=== PATIENT | female | born 1985 | race Caucasian/White ===

== ENCOUNTER 2023-04-09 10:12 | Inpatient (IN) | payer OTHER, SELFPAY ==
[2023-04-09] VITALS (66 sets, daily range): BP systolic 33–194; BP diastolic 11–128; PULSE 92–171; RESP 14–35; TEMP 34.1–38.5; O2SAT 88–100; BMI 36.2
--- NOTE | ~2023-04-09 | XR_ITS ---
EXAMINATION: XR CHEST CLINICAL INFORMATION: Hypoxia COMPARISON: Chest x-ray 04/09/2023. TECHNIQUE: AP upright portable view of the chest was obtained. FINDINGS: There is new diffuse bilateral patchy haziness in mid and lower lungs question edema versus minimal infiltrate. Heart size is normal. There is a right central venous catheter its tip in mid SVC. It is stable. There is moderate spondylosis right dorsal spine. XR/XR chest 1V IMPRESSION: 1. New bilateral patchy haziness in mid and lower lungs question edema versus infiltrate. 2. There is a right central venous catheter tip in mid SVC.
--- NOTE | ~2023-04-09 | CT_ITS ---
EXAMINATION: CT HEAD WITHOUT CONTRAST CLINICAL INFORMATION: Encephalopathy COMPARISON: Prior brain CT of 04/09/2023 TECHNIQUE: Contiguous axial imaging was performed from the skull base to vertex without intravenous administration of contrast. This CT examination was performed using dose optimization techniques as appropriate, variously including the following: *Automated exposure control *Adjustment of mA and/or kV according to patient size (this includes techniques or standardized protocols for targeted exams where dose is matched to indication/reason for exam; i.e. extremities or head) *Use of iterative reconstruction technique DLP: 1314 mGy-cm FINDINGS: Examination is motion degraded. The ventricles and sulci are normal in size and configuration. No acute hemorrhage, mass effect or shift is evident. Hamlin-white differentiation is maintained. In the posterior fossa, the brainstem, cerebellum and fourth ventricle image normally. The orbits and calvarium are intact. The paranasal sinuses and mastoid air cells are well pneumatized and clear. CT/CT head/brain wo IV con IMPRESSION: 1. Unremarkable noncontrast brain CT. No acute hemorrhage, mass effect or shift.
--- NOTE | ~2023-04-09 | XR_ITS ---
EXAMINATION: XR CHEST CLINICAL INFORMATION: Question infectious process COMPARISON: Steel Burner film CT dated 04/09/2023 TECHNIQUE: Frontal view of the chest was obtained. FINDINGS: Lung valentine are felt to be grossly clear. No obvious failure or infiltrate. No effusion. Mild elevation the right hemidiaphragm is noted. Cardiac silhouette is within normal limits. XR/XR chest 1V IMPRESSION: No acute finding
--- NOTE | ~2023-04-09 | CT_ITS ---
EXAMINATION: CT HEAD WITHOUT CONTRAST CT CERVICAL SPINE WITHOUT CONTRAST CLINICAL INFORMATION: Altered mental status post fall. COMPARISON: No relevant prior imaging. TECHNIQUE: Furniture Decals Inspector images were obtained. CT imaging of the head and cervical spine was performed without contrast. Data was reformatted into multiplanar images at the acquisition workstation. This CT examination was performed using dose optimization techniques as appropriate, including one or more of the following: Automated exposure control, iterative reconstruction, and adjustment of technique factors (mA and/or kVp) according to patient size (this includes techniques or standardized protocols for targeted exams where dose is matched to indication/reason for exam). Fleischner Society criteria for the followup of incidental pulmonary nodules was implemented if appropriate. DLP: 1902 mGy-cm. FINDINGS: Head: There is no acute intracranial hemorrhage or abnormal extra-axial collection. No intracranial mass effect or midline shift. Lateral and third ventricles are normal. No hydrocephalus. Hamlin-white matter differentiation is grossly preserved and there is no evidence of acute territorial infarct. The calvarium and skull base are intact. Mastoid air cells and middle ear cavities are well aerated. No active paranasal sinus disease. Cervical spine: Spinal alignment is normal in the sagittal dimension and there is no evidence of acute cervical spine fracture. No abnormal prevertebral soft tissue swelling. Canal patency is not well assessed on this examination due to inherent limitations of CT without intrathecal contrast. Grossly no canal compromise. Visualized soft tissues of the neck are normal. CT/CT cervical spine wo IV con IMPRESSION: Head: Unremarkable CT scan of the head. No evidence of acute territorial infarct or hemorrhage. Cervical Spine: No evidence of acute cervical spine fracture and no posttraumatic spinal subluxation.
--- NOTE | ~2023-04-09 | XR_ITS ---
EXAMINATION: XR CHEST CLINICAL INFORMATION: Status post central line. COMPARISON: 04/09/2023 TECHNIQUE: Frontal view of the chest was obtained. FINDINGS: Right IJ central venous catheter tip terminates the cavoatrial junction. EKG leads overlie the chest. Lung volumes are low. There is elevation of the right hemidiaphragm, unchanged as compared to prior. Atelectasis is present at the lung bases bilaterally. Increased reticular opacities over both lungs appear to correspond to the relative atelectasis. No consolidation identified. No pneumothorax or pleural effusion. Cardiac and mediastinal contours appear normal. No acute osseous findings. XR/XR chest 1V IMPRESSION: 1. Right IJ central venous catheter tip terminates at the cavoatrial junction. No pneumothorax. 2. Low lung volumes with bibasilar atelectasis and elevation of the right hemidiaphragm, unchanged as compared to prior.
--- NOTE | ~2023-04-09 | FL_ITS ---
Fluoroscopic lumbar puncture Indication: Altered mental status Risks and benefits and possible complications were discussed with the patient's mother and the consent form was signed. Patient was placed in the left lateral decubitus on the fluoroscopy table. The back was prepped and draped in routine sterile fashion. Betadine was used as a skin antiseptic. Utilizing fluoroscopic guidance, the L2-3 level was accessed with a 22 gauge quickie spinal needle and clear CSF fluid obtained. Opening pressure was unable to be obtained due to patient's agitation. 10 cc of fluid was sent for analysis. The needle was removed without immediate complications. Total fluoroscopy time: 3.2 min FL/FL guided lumbar puncture LP Impression: Fluoroscopic lumbar puncture This procedure was performed by Xavier Blanton PA-C and supervised by Dr. Mckinney.
--- NOTE | ~2023-04-09 | CT_ITS ---
EXAMINATION: CT CHEST, ABDOMEN, AND PELVIS WITH CONTRAST CLINICAL INFORMATION: Altered mental status. Hypoglycemia. COMPARISON: None currently available. TECHNIQUE: Multidetector volumetric CT imaging of the chest, abdomen, and pelvis was obtained after the administration of 85 mL of Omnipaque 350 intravenous contrast without immediate adverse reactions. Axial MIP volume rendering provided. Sagittal and coronal reformatted images were obtained. This CT examination was performed using dose optimization techniques as appropriate, variously including the following: *Automated exposure control *Adjustment of mA and/or kV according to patient size (this includes techniques or standardized protocols for targeted exams where dose is matched to indication/reason for exam; i.e. extremities or head) *Use of iterative reconstruction technique DLP: 4150 mGy-cm FINDINGS: Somewhat limited by motion artifact. LUNGS: The lungs are clear with no evidence of inflammation or nodules. MEDIASTINUM: Heart upper normal in size. No pericardial effusion. No evidence of adenopathy by size criteria. CORONARY ARTERY CALCIFICATION: None. PLEURA: There is no pleural effusion. No pleural mass or thickening. AXILLA: No lymphadenopathy by size criteria. LIVER, GALLBLADDER, AND BILIARY TREE: Suspect fatty infiltration of the liver. The liver appears unremarkable in size and shape. No focal hepatic lesion or biliary ductal dilatation is appreciated. Unremarkable appearance of the gallbladder. PANCREAS: Unremarkable SPLEEN: Unremarkable ADRENAL GLANDS: Unremarkable KIDNEYS AND URETERS: Striated right nephrogram with probable induration of surrounding fat. The kidneys appear unremarkable in size, shape, and attenuation. No hydronephrosis, hydroureter, or calculi seen. BLADDER: No catheter tip and balloon within the urinary bladder, which is collapsed, therefore suboptimally evaluated. GASTROINTESTINAL TRACT: The small and large bowel appear unremarkable. No diverticulosis. Normal-appearing distal ileum and vermiform appendix. ABDOMINAL WALL: No significant hernia is appreciated. LYMPH NODES: No evidence of adenopathy by size criteria. VASCULAR: Unremarkable. PELVIC VISCERA: IUD. OSSEOUS STRUCTURES: Unremarkable. CT/CT abdomen pelvis w IV con IMPRESSION: Limited by motion. Striated right nephrogram with probable induration of surrounding fat. The findings are consistent with pyelonephritis.
--- NOTE | 2023-04-09 10:16 | ECG_ITS ---
Test Reason : AMS/RAPID RAPID AFIB Blood Pressure : / mmHG Vent. Rate : 148 BPM Atrial Rate : 000 BPM P-R Int : 000 ms QRS Dur : 072 ms QT Int : 296 ms P-R-T Axes : 000 058 176 degrees QTc Int : 464 ms Atrial fibrillation with rapid ventricular response Nonspecific ST and T wave abnormality Abnormal ECG When compared with ECG of 09-APR-2023 10:28, Nonspecific T wave abnormality, worse in Anterior leads ST more depressed Lateral leads Referred By: Devin Moncada Electronically Signed By:MIKI WALKER MD
--- NOTE | 2023-04-09 10:16 | ECG_ITS ---
Test Reason : AMD,RAPID AFIB Blood Pressure : / mmHG Vent. Rate : 150 BPM Atrial Rate : 000 BPM P-R Int : 000 ms QRS Dur : 096 ms QT Int : 306 ms P-R-T Axes : 000 055 100 degrees QTc Int : 483 ms Atrial fibrillation with rapid ventricular response Nonspecific T wave abnormality Abnormal ECG No previous ECGs available Referred By: Devin Moncada Electronically Signed By:MIKI WALKER MD
--- NOTE | 2023-04-09 10:22 | ED_ITS ---
HPI - Altered Mental Status General Chief Complaint: Altered Mental Status Stated Complaint: RAPID AFIB,HYPERGYLCEMIA Time Seen by Provider: 04/09/23 10:14 Source: EMS Mode of arrival: EMS Limitations: altered mental status History of Present Illness HPI narrative: 48-year-old female with a history of diabetes who was found on the floor unresponsive by the patient's housemate. According to the paramedics when they arrived the patient was unresponsive. The patient may have been noncompliant with her lispro insulin and Lantus the patient had a point of care glucose by the paramedics of 361. The patient had a very low blood pressure and was found to have atrial fibrillation with a rate of 160. Paramedics were concerned that the atrial fibrillation was the cause of her hypotension and they cardioverted her. Paramedics reported that her heart rate did improve cardioversion but the patient remained in atrial fibrillation and eventually her rate climbed up above 160. At the time of my evaluation the patient was able to tell me that her name was Sandra but is altered and not able to answer any other questions. The patient has very dry mucous membranes the very strong ketotic odor to her breath. Point of care glucose in the emergency department was greater than 600. Initial vital signs revealed blood pressure of 106/61, heart rate 159 and irregular, respiratory rate 27 and temperature was hypothermic at 93.7 degrees F. Related Data Allergies Allergy/AdvReac Type Severity Reaction Status Date / Time Unable to Assess Allergy Unverified 04/09/23 10:16 Review of Systems 2 Review of Systems: Yes Unobtainable due to mental status PMFSH Past Medical History PMFSH Narrative: There is no old record on this patient, patient was reported to have diabetes and takes Lantus and lispro insulin Physical Exam ED Vital Signs: Vital Signs - 24 hr 04/09/23 10:23 04/09/23 10:36 04/09/23 10:38 Temperature 93.7 F L Pulse Rate 159 H 156 H 155 H Respiratory Rate 27 H 19 21 H Blood Pressure 106/61 56/29 L 56/35 L Pulse Oximetry 99 92 95 Oxygen Delivery Method Nasal Cannula Nasal Cannula Nasal Cannula Oxygen Flow Rate 4 4 04/09/23 10:45 04/09/23 11:03 04/09/23 11:06 Temperature 94.3 F L 93.9 F L Pulse Rate 146 H 146 H 157 H Respiratory Rate 14 18 21 H Blood Pressure 87/50 L 87/50 L Pulse Oximetry 95 94 95 Oxygen Delivery Method Room Air Nasal Cannula Nasal Cannula Oxygen Flow Rate 2 4 4 04/09/23 11:07 04/09/23 11:22 04/09/23 11:45 Temperature 93.6 F L 93.4 F L Pulse Rate 152 H 155 H 149 H Respiratory Rate 19 18 18 Blood Pressure 47/16 L 92/73 79/60 L Pulse Oximetry 95 92 92 Oxygen Delivery Method Room Air Nasal Cannula Room Air Oxygen Flow Rate 4 04/09/23 11:54 Temperature 93.6 F L Pulse Rate 156 H Respiratory Rate 21 H Blood Pressure 90/45 L Pulse Oximetry 99 Oxygen Delivery Method Nasal Cannula Oxygen Flow Rate 2 BMI result Body Mass Index 36.2 Vital signs revealed hypothermia, tachycardia with an irregular rate, tachypneic and hypotension Exam: General: Patient is altered, she was able to tell me her name is Sandra, she has a very strong ketotic odor to her breath, her mouth and mucous membranes are dry Head: Normocephalic, atraumatic EENT: PERRL, Lids normal, sclera normal, conjunctiva normal, nose normal , ears normal, mouth revealed very dry mucous membranes Neck: no adenopathy, no trachea midline or C-spine tenderness Lung: Tachypneic, breath sounds symmetric, no wheezing, rales or rhonchi Chest: symmetric movement, nontender Heart: Tachycardia with an irregular rate and rhythm normal S1, S2 no murmurs or rubs Abdomen: soft, obese, non-tender, nondistended, normal bowel sounds Back: no vertebral tenderness, no CVAT Extremities: no deformities, moves all extremities symmetrically, patient has abrasions to both knees Neuro: Patient is lethargic and altered, oriented to person Medications Administered Generic Name Dose Route Start Last Admin Trade Name Freq PRN Reason Stop Dose Admin Lactated Ringer's 1,000 mls @ 999 mls/hr 04/09/23 11:15 04/09/23 11:18 Lr IV 04/09/23 12:15 999 mls/hr .Q1H1M JENNY Administration Insulin Human Regular 100 unit in 100 mls @ 10 mls/hr 04/09/23 11:15 04/09/23 11:33 Myxredlin IVCONT 10 unit/hr .Q10H JENNY 10 mls/hr Administration Protocol 10 UNIT/HR Discontinued Medications Generic Name Dose Route Start Last Admin Trade Name Hi PRN Reason Stop Dose Admin Hydrocortisone Sodium Succinate 100 mg 04/09/23 10:27 04/09/23 10:41 Hydrocortisone Sod Succ/Pf 100 Mg Vial IVPUSH 04/09/23 10:28 100 mg ONCE ONE Administration Sodium Chloride 1,000 mls @ 999 mls/hr 04/09/23 10:23 04/09/23 10:49 Ns IV 04/09/23 11:23 Infused .Q1H1M STA Infusion Sodium Chloride 1,000 mls @ 999 mls/hr 04/09/23 10:24 04/09/23 10:49 Ns IV 04/09/23 11:24 Infused .Q1H1M STA Infusion Sodium Chloride 1,000 mls @ 999 mls/hr 04/09/23 10:24 04/09/23 11:21 Ns IV 04/09/23 11:24 Infused .Q1H1M STA Infusion Insulin Human Regular 10 unit 04/09/23 10:24 04/09/23 10:41 Insulin Regular, Human 100 Unit/Ml 3 [facility] 04/09/23 10:25 10 unit ONCE ONE Administration Medical Decision Making Medical Decision Making MDM Narrative: 48-year-old female unknown past medical history except for diabetes apparently taking Lantus and lispro insulin who may have been noncompliant with her insulin and her diabetic diet who was found on the floor by a housemate who did not know the patient well. Paramedics found the patient to tachycardic with atrial fibrillation and hypotension and did cardiovert her x1 which improved her heart rate briefly but did not get her out of atrial fibrillation. Presentation, patient was altered, she had a strong ketotic odor to her breath, mucous membranes were extremely dry, patient had an tachy, irregular irregular rhythm consistent with atrial fibrillation. Patient's point of care glucose was greater than 600. Patient's presentation is consistent either diabetic ketoacidosis or HHS. Patient was hypothermic and hypotensive. Noted the following evaluation: CBC, CMP, hemoglobin A1c, lactic acid, PT/INR, PTT, beta hydroxybutyrate, CK, TSH with free T4, urinalysis, drug screen, quantitative beta-hCG, magnesium, troponin, ammonia, VBG, blood cultures x2. Patient was ordered to get 4 L of normal saline IV wide open to treat her hypotension. She was also placed on a All Hugger for hypothermia. She was ordered to get regular insulin 10 units IV and she was started on a insulin drip. I also ordered stress dose hydrocortisone 100 mg IV. After discussion with the physiotherapy aide, Elisabet Montez, CT scan of the patient's head, cervical spine, chest abdomen pelvis was ordered. Patient was ordered to get 2 more L of lactated Ringer IV. Patient was also given broad-spectrum antibiotics: Zosyn 4.5 mg IV and vancomycin 2 g IV. 12:43 The patient's laboratory evaluation did reveal an elevated white blood cell count, bicarb was below detectable limits and a potassium that was normal at 3.8. I did discuss these values with the covering physiotherapy aide. After this discussion I ordered D5 W with 150 mEq of sodium bicarb at 100 mL/hr. Potassium chloride 10 mEq per hour x4. The physiotherapy aide states that she will a bed by using the ICU resource nurse and the patient will be admitted for further management. Differential Diagnosis Differential Diagnoses: The differential diagnosis associated with the presentation includes Differential diagnosis includes but is not limited to diabetic ketoacidosis, HHS, infectious process, closed head injury, anemia, electrolyte abnormalities Admission/Observation Consideration of admission/observation: Escalation of care including admission/observation considered Lab Data MDM Lab Attestation statement: I reviewed the patient's lab results. My interpretation patient's laboratory evaluation is as follows: Elevated WBC 24106 with 62 neutrophils and 21 eosinophils. Sodium was low 129 but corrected due to hyperglycemia is normal at 137. Bicarb was below detectable limits. BUN creatinine are elevated 45 and 2.03. Glucose elevated 596. Calcium low 7.2 but corrected do did low albumin 2.6 is normal at 8.8. COVID-19, flu and RSV were negative. TSH was normal. 04/09/23 10:25 04/09/23 11:28 Labs: Lab Results 04/09/23 04/09/23 04/09/23 Range/Units 10:25 10:26 10:59 WBC 24.2 H (4.8-10.8) X10*3/uL RBC 4.29 (4.20-5.50) X10*6/uL Hgb 13.4 (12.0-16.0) g/dl Hct 42.6 (37.0-47.0) % MCV 99.3 H (80.0-98.0) fL MCH 31.2 (27.0-33.0) pg MCHC 31.5 (31.0-35.0) g/dl RDW 11.9 (11.0-16.0) % Plt Count 226 (160-400) X10*3/uL MPV 9.7 (9.4-12.3) fL Immature Gran % (Auto) Cancelled Neut % (Auto) Cancelled Lymph % (Auto) Cancelled [place] % (Auto) Cancelled Eos % (Auto) Cancelled Baso % (Auto) Cancelled Lymph # (Auto) Cancelled [place] # (Auto) Cancelled Eos # (Auto) Cancelled Baso # (Auto) Cancelled Abs Immat Gran (auto) Cancelled Absolute Neuts (auto) Cancelled Absolute Nucleated RBC 0.000 (0.0-0.012) X10*3/uL Nucleated RBC % (auto) 0.0 (0.0-0.2) /100WBC Neutrophils % (Manual) 62 (45-73) % Band Neutrophils % 4 (3-5) % Lymphocytes % (Manual) 5 L (20-40) % Monocytes % (Manual) 8 (2-11) % Eosinophils % (Manual) 21 H (0-4) % Abs Neuts (Manual) 16.0 H (2.0-8.3) X10*3/uL Lymphocytes # (Manual) 1.2 (1.2-4.9) X10*3/uL Monocytes # (Manual) 1.9 H (0.1-1.2) X10*3/uL Eosinophils # (Manual) 5.1 H (0.0-0.4) X10*3/uL Toxic Vacuolation PRESENT Platelet Estimate NORMAL (NORMAL) Plt Morphology Comment NORMAL RBC Morphology NOTED Macrocytosis 1+ (5-14) /OIF PT 12.6 (11.1-13.3) SEC INR 1.0 (0.9-1.1) APTT 27.8 (26.0-36.4) SEC Sodium (135-145) mmol/L Potassium (3.3-5.1) mmol/L Chloride (96-108) mmol/L Carbon Dioxide (22-29) mmol/L BUN (9-16) mg/dL Creatinine (0.5-1.4) mg/dL Estim Creat Clear Calc Estimated GFR POC Glucose (60-115) mg/dL Random Glucose (60-115) mg/dL Estimat Average Glucose 326 mg/dL Hemoglobin A1c % 13.0 H (<6.0) % Lactic Acid 1.3 (0.5-2.0) mmol/L Calcium (8.4-10.2) mg/dL Magnesium (1.6-2.6) mg/dL Total Bilirubin (0.0-1.0) mg/dL AST (5-31) U/L ALT (0-31) U/L Alkaline Phosphatase (39-117) U/L Ammonia (13-55) umol/L Troponin I High Sens < 2.7 (<3.5-17.0) ng/L Total Protein (6.5-8.0) g/dL Albumin (3.5-5.0) g/dL TSH 1.57 (0.32-4.0) uIU/mL Beta HCG, Quant mIU/mL Urine Color Urine Appearance Urine pH (5.0-9.0) Ur Specific [place] (1.005-1.025) Urine Protein (Neg-Trace) mg/dL Urine Glucose (UA) (Negative) mg/dL Urine Ketones (Negative) mg/dL Urine Blood (Negative) Urine Nitrite (Negative) Ur Leukocyte Esterase (Negative) Urine RBC (0-2) /HPF Urine WBC (0-5) /HPF Ur Squamous Epith Cells (0-2) /HPF Urine Bacteria (None Seen) Hyaline Casts (0-2) /LPF Influenza Type A (PCR) NEGATIVE (Negative) Influenza Type B (PCR) NEGATIVE (Negative) RSV RNA Qual (PCR) NEGATIVE (Negative) SARS-CoV-2 RNA (RT-PCR) NEGATIVE (Negative) 04/09/23 04/09/23 04/09/23 Range/Units 11:14 11:19 11:28 WBC (4.8-10.8) X10*3/uL RBC (4.20-5.50) X10*6/uL Hgb (12.0-16.0) g/dl Hct (37.0-47.0) % MCV (80.0-98.0) fL MCH (27.0-33.0) pg MCHC (31.0-35.0) g/dl RDW (11.0-16.0) % Plt Count (160-400) X10*3/uL MPV (9.4-12.3) fL Immature Gran % (Auto) Neut % (Auto) Lymph % (Auto) [place] % (Auto) Eos % (Auto) Baso % (Auto) Lymph # (Auto) [place] # (Auto) Eos # (Auto) Baso # (Auto) Abs Immat Gran (auto) Absolute Neuts (auto) Absolute Nucleated RBC (0.0-0.012) X10*3/uL Nucleated RBC % (auto) (0.0-0.2) /100WBC Neutrophils % (Manual) (45-73) % Band Neutrophils % (3-5) % Lymphocytes % (Manual) (20-40) % Monocytes % (Manual) (2-11) % Eosinophils % (Manual) (0-4) % Abs Neuts (Manual) (2.0-8.3) X10*3/uL Lymphocytes # (Manual) (1.2-4.9) X10*3/uL Monocytes # (Manual) (0.1-1.2) X10*3/uL Eosinophils # (Manual) (0.0-0.4) X10*3/uL Toxic Vacuolation Platelet Estimate (NORMAL) Plt Morphology Comment RBC Morphology Macrocytosis /OIF PT (11.1-13.3) SEC INR (0.9-1.1) APTT (26.0-36.4) SEC Sodium 129 L (135-145) mmol/L Potassium 3.8 (3.3-5.1) mmol/L Chloride 101 (96-108) mmol/L Carbon Dioxide < 5 L* (22-29) mmol/L BUN 45 H (9-16) mg/dL Creatinine 2.03 H (0.5-1.4) mg/dL Estim Creat Clear Calc 43.6 Estimated GFR 27 POC Glucose 548 H* (60-115) mg/dL Random Glucose 596 H* (60-115) mg/dL Estimat Average Glucose mg/dL Hemoglobin A1c % (<6.0) % Lactic Acid (0.5-2.0) mmol/L Calcium 7.7 L (8.4-10.2) mg/dL Magnesium 2.4 (1.6-2.6) mg/dL Total Bilirubin 0.2 (0.0-1.0) mg/dL AST 22 (5-31) U/L ALT 13 (0-31) U/L Alkaline Phosphatase 120 H (39-117) U/L Ammonia 32 (13-55) umol/L Troponin I High Sens (<3.5-17.0) ng/L Total Protein 6.0 L (6.5-8.0) g/dL Albumin 2.6 L (3.5-5.0) g/dL TSH (0.32-4.0) uIU/mL Beta HCG, Quant < 2 mIU/mL Urine Color Yellow Urine Appearance Clear Urine pH 5.5 (5.0-9.0) Ur Specific [place] 1.020 (1.005-1.025) Urine Protein 100 (2+) H (Neg-Trace) mg/dL Urine Glucose (UA) >=1000 H (Negative) mg/dL Urine Ketones 80 (Negative) mg/dL Urine Blood Moderate (2+) H (Negative) Urine Nitrite Negative (Negative) Ur Leukocyte Esterase Negative (Negative) Urine RBC 0-2 (0-2) /HPF Urine WBC 0-5 (0-5) /HPF Ur Squamous Epith Cells 0-2 (0-2) /HPF Urine Bacteria None Seen (None Seen) Hyaline Casts 3-5 (0-2) /LPF Influenza Type A (PCR) (Negative) Influenza Type B (PCR) (Negative) RSV RNA Qual (PCR) (Negative) SARS-CoV-2 RNA (RT-PCR) (Negative) Critical Care Time Critical Care Time Critical Care Time: Yes Total Critical Care Time: 120 Attestation: Critical Care: The patient was critically ill with a high probability of imminent or life threatening deterioration. I spent greater than 30 minutes of discontinuous time evaluating the patient,delivering critical care at the bedside, discussing and evaluating pertinent data with consultants. Critical care time does not include time spent performing separately billable procedures or teaching. Total time spent performing critical care was 120 minutes.
--- NOTE | 2023-04-09 10:29 | PC.NURSE ---
patient presents by ems after roommate called hat patient was unrespsonvie, patient poc was 361 for ems, patient was in rapid afib cardioverted with 200j by ems. upon arrival to ED patient poc reading high then repeated to read over 600. patient tachypneic, heart rate 160s-170s. patient had clay placed with temp sensor reading 94.1. [facility] has two IV lines placced,
[2023-04-09 10:34] LABS: Hematocrit 42.6 % (37.0-47.0); Hemoglobin 13.4 g/dl (12.0-16.0); Mean Corpuscular HGB Conc 31.5 g/dl (31.0-35.0); Mean Corpuscular Hemoglobin 31.2 pg (27.0-33.0); Mean Corpuscular Volume 99.3 fL (80.0-98.0); Mean Platelet Volume 9.7 fL (9.4-12.3); Platelet Count 226 X10*3/uL (160-400); Red Blood Count 4.29 X10*6/uL (4.20-5.50); Red Cell Distribution Width 11.9 % (11.0-16.0)
[2023-04-09] MEDS: 0.9 % Sodium Chloride 1,000 ML 999 ML IV ×4 (10:35→10:56)
--- NOTE | 2023-04-09 10:35 | PC.NURSE ---
patient presents with bilat knee abraisions, cold to the touch. patient toes purple. patient has reddness to vaginal area
[2023-04-09 10:38] LABS: WBC ABN SCTR FOR CBC 1
[2023-04-09 10:40] LABS: Prothrombin Time 12.6 SEC (11.1-13.3)
[2023-04-09] MEDS: Hydrocortisone Sod Succ/PF 100 MG VIAL IVPUSH ×2 (10:41→18:47)
[2023-04-09] MEDS: Insulin Regular, Human 100 UNIT/ML 3 ML VIAL 10 UNIT IVPUSH (10:41)
[2023-04-09 10:42] LABS: Partial Thromboplastin Time 27.8 SEC (26.0-36.4)
[2023-04-09 10:44] LABS: Lactic Acid 1.3 mmol/L (0.5-2.0)
[2023-04-09 10:46] LABS: Estimated Average Glucose 326 mg/dL
--- NOTE | 2023-04-09 10:47 | PC.NURSE ---
patient had inital clay output pf 700ml. bare hugger placed on high pt temp is 94.3 via urinary cath sensor
[2023-04-09 11:02] LABS: Troponin-I High Sensitivity < 2.7 ng/L (<3.5-17.0)
--- NOTE | 2023-04-09 11:12 | PC.NURSE ---
manual bp done by LUZ MARIA Fernandez, 42 over palp, unable to get bp on monitor
--- NOTE | 2023-04-09 11:13 | PC.NURSE ---
patient awake and talking, unable to give date, knows name and . patient asking for water
[2023-04-09 11:14] LABS: Band Neutrophils Percent 4 % (3-5); Eosinophils Percent Manual 21 % (0-4); Lymphocytes Percent Manual 5 % (20-40); Monocytes Percent Manual 8 % (2-11); Neutrophils Percent Manual 62 % (45-73)
[2023-04-09 11:16] LABS: Macrocytosis 1+ (5-14) /OIF; RBC Morphology NOTED
[2023-04-09 11:17] LABS: Toxic Vacuolation PRESENT
[2023-04-09 11:18] LABS: Platelet Estimate NORMAL (NORMAL); Platelet Morphology Comment NORMAL
[2023-04-09] MEDS: Lactated Ringers 1,000 ML 999 ML IV ×3 (11:18→13:45)
[2023-04-09 11:19] LABS: Eosinophils Absolute Manual 5.1 X10*3/uL (0.0-0.4); Lymphocytes Absolute Manual 1.2 X10*3/uL (1.2-4.9); Monocytes Absolute Manual 1.9 X10*3/uL (0.1-1.2); White Blood Count 24.2 X10*3/uL (4.8-10.8)
[2023-04-09 11:22] LABS: Glucose, Whole Blood 548 mg/dL (60-115)
[2023-04-09 11:25] LABS: Appearance Urine Clear; Color Urine Yellow; Glucose Urine UA >=1000 mg/dL (Negative); Leukocyte Esterase Urine Negative (Negative); Nitrite Urine Negative (Negative); PH 5.5 (5.0-9.0); UMIC TRIGGER UACC YES; Urine Blood Moderate (2+) (Negative); Urine Ketones 80 mg/dL (Negative); Urine Protein 100 (2+) mg/dL (Neg-Trace)
[2023-04-09 11:30] LABS: Ammonia 32 umol/L (13-55)
[2023-04-09] MEDS: Insulin Regular/NS 100 UNIT/100 ML PLAST..BAG 10 UNIT IVCONT (11:33)
[2023-04-09 11:38] LABS: TSH reflex Free T4 1.57 uIU/mL (0.32-4.0)
[2023-04-09 11:43] LABS: Influenza A PCR NEGATIVE (Negative); Influenza B PCR NEGATIVE (Negative); Resp Syncy Virus RNA Qual PCR NEGATIVE (Negative); SARS COV2 PCR INHOUSE NEGATIVE (Negative)
[2023-04-09 11:45] LABS: Bacteria Urine None Seen (None Seen); RBC Urine 0-2 /HPF (0-2); Squamous Epithelial Cell Urine 0-2 /HPF (0-2); WBC Urine 0-5 /HPF (0-5)
--- NOTE | 2023-04-09 11:58 | PC.NURSE ---
patient laying in stretcher semi fowlers, family presented at bedside, states patient has not been taking her insulin, unaware why. patient has insulin drip 10u/hr on pump patient has LR running wide open. Temp sensing clay in place, core temp reading 93.6,bare hugger on high LR running on fluid warmer. patient palced in soft restraints due to pulling at IV lines, and medical equipment
[2023-04-09 12:13] LABS: Alanine Aminotransferase 13 U/L (0-31); Albumin Level 2.6 g/dL (3.5-5.0); Alkaline Phosphatase 120 U/L (39-117); Aspartate Amino Transferase 22 U/L (5-31); Bilirubin Total 0.2 mg/dL (0.0-1.0); Blood Urea Nitrogen 45 mg/dL (9-16); Calcium 7.7 mg/dL (8.4-10.2); Carbon Dioxide < 5 mmol/L (22-29); Chloride 101 mmol/L (96-108); Creatinine Clr Calc Pharmacy 43.6; Estimated Glomerular Filt Rate 27; Glucose Random 596 mg/dL (60-115); HCG Quantitative < 2 mIU/mL; Magnesium 2.4 mg/dL (1.6-2.6); Potassium 3.8 mmol/L (3.3-5.1); Sodium 129 mmol/L (135-145)
[2023-04-09] MEDS: Piperacillin Sodium/Tazobactam 4.5 GM in 0.9 % Sodium Chloride 100 ML IV (12:26)
--- NOTE | 2023-04-09 12:45 | PM.CCHP ---
History of Present Illness Date of Service: 04/09/23 Attending physician on admission: Elisabet Montez Chief Complaint: Encephalopathy Patient is a 38 Y F with diabetes mellitus, found down by patient boyfriend, found by EMS to be hypotensive, hypothermic; of note, patient found to be in atrial fibrillation with rapid ventricular response, s/p synchronized cardioversion; in ED, insulin gtt, fluid resuscitation, and re-warming initiated; upon further history-taking, patient boyfriend reports patient is unfortunately not compliant with home insulin regimen, endorsed general fatigue, nausea, and decreased PO intake since 04/07, and ultimately found down in kitchen this AM Review of Systems Review of Systems: Yes Unobtainable due to mental condition PMFSH Social History Social History Advance Directives: No Advance Directives Information Provided: Yes Meds Allergies Allergy/AdvReac Type Severity Reaction Status Date / Time Unable to Assess Allergy Unverified 04/09/23 10:16 Active Medications: Current Medications Dextrose (Dextrose 50 % 25 Gm/50 Ml Syringe) 25 gm IVPUSH Q30M PRN PRN Reason: BG < 70 Insulin Human Regular (Myxredlin) 100 unit in 100 mls @ 10 mls/hr IVCONT .Q10H JENNY; Protocol Last Admin: 04/09/23 11:33 Dose: 10 unit/hr, 10 mls/hr Vancomycin HCl (Vancomycin/Ns) 2,000 mg in 500 mls @ 250 mls/hr IV ONCE ONE Stop: 04/09/23 13:09 Sodium Chloride (Ns) 1,000 mls @ 999 mls/hr IV .Q1H1M STA Stop: 04/09/23 13:14 Last Infusion: 04/09/23 11:57 Dose: Infused Lactated Ringer's (Lr) 1,000 mls @ 999 mls/hr IV .Q1H1M JENNY Stop: 04/09/23 13:15 Last Infusion: 04/09/23 12:23 Dose: Infused Sodium Bicarbonate 150 meq/ (Dextrose) 1,000 mls @ 100 mls/hr IV .Q10H JENNY Potassium Chloride (Potassium Chloride/H20) 10 meq in 100 mls @ 100 mls/hr IV Q1H JENNY Stop: 04/09/23 16:44 Norepinephrine Bitartrate (Levophed) 8 mg in 250 mls @ 0 mls/hr IV .Q0M JENNY; Protocol Lactated Ringer's (Lr) 1,000 mls @ 999 mls/hr IV .Q1H1M JENNY Stop: 04/09/23 13:45 Pharmacy Consult (Consult Rx Anticoag Dosing) 1 each MISCELLANE DAILY PRN; Protocol PRN Reason: Consult order Home Medications Medication Instructions Recorded Confirmed Last Taken Type insulin glargine 100 unit/mL (3 10 unit subcut BEDTIME 04/09/23 04/09/23 Unknown History mL) subcutaneous pen (Lantus Solostar U-100 Insulin) insulin lispro 100 unit/mL See Protocol subcut TIDWM 04/09/23 04/09/23 Unknown History subcutaneous pen Physical Exam Vital Signs: Vital Signs: Last Vital Signs Temp 94.1 F L 04/09/23 12:26 Pulse 168 H 04/09/23 12:26 Resp 20 04/09/23 12:26 BP 85/55 L 04/09/23 12:26 Pulse Ox 96 04/09/23 12:26 O2 Del Method Nasal Cannula 04/09/23 12:26 O2 Flow Rate 2 04/09/23 12:26 Oxygen Flow Rate 4 04/09/23 10:23 BMI result Body Mass Index 36.2 Const: Other: somnolent, though easily arousable w/ verbal stimulus; appreciable [place] breathing HEENT: Head: Yes normal to inspection, Yes normocephalic and Yes atraumatic Eyes: General: appearance normal, both eyes and all related structures Neck: Neck: Yes normal visual inspection, Yes full ROM, Yes no meningeal signs and Yes supple Chest: Chest palpation & inspection: normal inspection of the chest Resp: Other: appreciable [place] breathing; no rales, rhonchi, wheezing Cardio: Rate: tachycardic Rhythm: abnormal rhythm GI: Inspection: Yes normal to inspection, No Abdominal wall edema and No distended Palpation (GI): Soft to palpation, not firm, nontender, no guarding and not rigid : External Female Exam: normal external appearance Skin: General skin exam: no rashes or lesions noted Neuro: General: moves all extremities, no meningeal signs and no focal motor deficits Extrem: General: Yes normal to inspection, Yes capillary refill normal and Yes no clubbing, cyanosis or edema Psych: Other: somnolent, unable to assess Results Labs 04/09/23 10:25 04/09/23 11:28 Labs: Laboratory Results - last 24 hr 04/09/23 04/09/23 04/09/23 10:25 10:26 10:59 MCV 99.3 H MCH 31.2 MCHC 31.5 RDW 11.9 Plt Count 226 MPV 9.7 Immature Gran % (Auto) Cancelled Neut % (Auto) Cancelled Lymph % (Auto) Cancelled [place] % (Auto) Cancelled Eos % (Auto) Cancelled Baso % (Auto) Cancelled Lymph # (Auto) Cancelled [place] # (Auto) Cancelled Eos # (Auto) Cancelled Baso # (Auto) Cancelled Abs Immat Gran (auto) Cancelled Absolute Neuts (auto) Cancelled Absolute Nucleated RBC 0.000 Nucleated RBC % (auto) 0.0 Neutrophils % (Manual) 62 Band Neutrophils % 4 Lymphocytes % (Manual) 5 L Monocytes % (Manual) 8 Eosinophils % (Manual) 21 H Abs Neuts (Manual) 16.0 H Lymphocytes # (Manual) 1.2 Monocytes # (Manual) 1.9 H Eosinophils # (Manual) 5.1 H Toxic Vacuolation PRESENT Platelet Estimate NORMAL Plt Morphology Comment NORMAL RBC Morphology NOTED Macrocytosis 1+ (5-14) PT 12.6 INR 1.0 APTT 27.8 Estim Creat Clear Calc Estimated GFR POC Glucose Random Glucose Estimat Average Glucose 326 Hemoglobin A1c % 13.0 H Lactic Acid 1.3 Calcium Magnesium Total Bilirubin AST ALT Alkaline Phosphatase Ammonia Total Protein Albumin TSH 1.57 Beta HCG, Quant Urine Color Urine Appearance Urine pH Ur Specific [place] Urine Protein Urine Glucose (UA) Urine Ketones Urine Blood Urine Nitrite Ur Leukocyte Esterase Urine RBC Urine WBC Ur Squamous Epith Cells Urine Bacteria Hyaline Casts Influenza Type A (PCR) NEGATIVE Influenza Type B (PCR) NEGATIVE RSV RNA Qual (PCR) NEGATIVE SARS-CoV-2 RNA (RT-PCR) NEGATIVE 04/09/23 04/09/23 04/09/23 11:14 11:19 11:28 MCV MCH MCHC RDW Plt Count MPV Immature Gran % (Auto) Neut % (Auto) Lymph % (Auto) [place] % (Auto) Eos % (Auto) Baso % (Auto) Lymph # (Auto) [place] # (Auto) Eos # (Auto) Baso # (Auto) Abs Immat Gran (auto) Absolute Neuts (auto) Absolute Nucleated RBC Nucleated RBC % (auto) Neutrophils % (Manual) Band Neutrophils % Lymphocytes % (Manual) Monocytes % (Manual) Eosinophils % (Manual) Abs Neuts (Manual) Lymphocytes # (Manual) Monocytes # (Manual) Eosinophils # (Manual) Toxic Vacuolation Platelet Estimate Plt Morphology Comment RBC Morphology Macrocytosis PT INR APTT Estim Creat Clear Calc 43.6 Estimated GFR 27 POC Glucose 548 H* Random Glucose 596 H* Estimat Average Glucose Hemoglobin A1c % Lactic Acid Calcium 7.7 L Magnesium 2.4 Total Bilirubin 0.2 AST 22 ALT 13 Alkaline Phosphatase 120 H Ammonia 32 Total Protein 6.0 L Albumin 2.6 L TSH Beta HCG, Quant < 2 Urine Color Yellow Urine Appearance Clear Urine pH 5.5 Ur Specific [place] 1.020 Urine Protein 100 (2+) H Urine Glucose (UA) >=1000 H Urine Ketones 80 Urine Blood Moderate (2+) H Urine Nitrite Negative Ur Leukocyte Esterase Negative Urine RBC 0-2 Urine WBC 0-5 Ur Squamous Epith Cells 0-2 Urine Bacteria None Seen Hyaline Casts 3-5 Influenza Type A (PCR) Influenza Type B (PCR) RSV RNA Qual (PCR) SARS-CoV-2 RNA (RT-PCR) Assessment and Plan (1) Diabetic keto-acidosis: Status: Acute (2) Atrial fibrillation with rapid ventricular response: Status: Acute Plan Patient is a 48 Y F with diabetes mellitus, found down, found to be hypotensive, hypothermic, with glucose greater than 600, c/f diabetic ketoacidosis N: encephalopathic, likely toxic-metabolic CV: hypotensive, likely d/t hypovolemia in the setting of DKA; of note, patient?with atrial fibrillation w/ RVR, unclear if chronic or new-onset; continue aggressive volume repletion; norpinephrine gtt as needed R: no acute issues GI: NPO while on insulin gtt : acute renal insufficiency, likely d/t hypovolemia; to continue to monitor; profound anion-gap metabolic acidosis, hyponatremia d/t diabetic ketoacidosis; bicarbonate undetectable, bicarbonate gtt H: no acute issues ID: to follow-up blood cultures; empiric vancomycin, cefepime; to consider de-escalation w/ clinical improvement and reassuring blood cultures E: diabetic ketoacidosis; insulin gtt; aggressive potassium repletion P: no acute issues Total time managing care of this patient today: 90 minutes.
--- NOTE | 2023-04-09 12:52 | PC.NURSE ---
150 ml drained from clay bag
[2023-04-09 13:09] LABS: Glucose, Whole Blood > 600 mg/dL (60-115)
[2023-04-09 13:09] LABS: Glucose, Whole Blood > 600 mg/dL (60-115)
[2023-04-09 13:09] LABS: Glucose, Whole Blood 468 mg/dL (60-115)
[2023-04-09 13:09] LABS: Glucose, Whole Blood 455 mg/dL (60-115)
[2023-04-09 13:09] LABS: Glucose, Whole Blood 561 mg/dL (60-115)
[2023-04-09] MEDS: iohexoL 350 MG/ML 100 ML INFUS..BTL 85 ML IV (13:39)
--- NOTE | 2023-04-09 13:39 | PHA.MEDREC ---
Addendum entered by Bob Toscano 04/09/23 14:19: patients family brought in her insulin. Both lispro and glargine were picked up in August. There was 1 pen of the lispro left and 4 pens of the glargine left. Family is unaware of how she took them. The directions on her medication list is from her prescription labels. Original Note: Pharmacy Consult ? Medication Reconciliation Patients boyfriend is bringing in her insulin. Family is unaware of the names and units the patient is using. They reported that insulin is the only medication she is on.
[2023-04-09 13:50] LABS: Amphetamine Screen Urine Not Detected (Not Detect); Barbiturates, Urine Not Detected (Not Detect); Benzodiazepines Screen Urine Not Detected (Not Detect); Cannabinoid Screen Urine Not Detected (Not Detect); Cocaine Screen Urine Not Detected (Not Detect); Fentanyl, urine Not Detected (Not Detect); Opiate Screen Urine Not Detected (Not Detect); Phencyclidine Screen Urine Not Detected (Not Detect)
[2023-04-09 14:01] LABS: Beta-Hydroxybutyrate 11.99 mmol/L (0.02-0.27)
[2023-04-09 14:03] LABS: Glucose, Whole Blood 455 mg/dL (60-115)
[2023-04-09] MEDS: Insulin Regular/NS 100 UNIT/100 ML PLAST..BAG 22.5 UNIT IVCONT (14:08)
[2023-04-09] MEDS: Potassium Chloride/H20 10 MEQ/100 ML PIGGYBACK 100 MEQ IV ×2 (14:11→15:43)
[2023-04-09] MEDS: Amiodarone/Dextrose 150 MG/100 ML PLAST..BAG 600 MG IV (14:33)
[2023-04-09 14:39] LABS: Hematocrit 38.2 % (37.0-47.0); Hemoglobin 12.5 g/dl (12.0-16.0); Mean Corpuscular HGB Conc 32.7 g/dl (31.0-35.0); Mean Corpuscular Hemoglobin 31.3 pg (27.0-33.0); Mean Corpuscular Volume 95.5 fL (80.0-98.0); Mean Platelet Volume 9.1 fL (9.4-12.3); Platelet Count 190 X10*3/uL (160-400); Red Cell Distribution Width 11.9 % (11.0-16.0)
[2023-04-09 14:40] LABS: WBC ABN SCTR FOR CBC 1
[2023-04-09 14:43] LABS: VBG Base Excess -26.2 mmol/L; VBG HCO3 4 mmol/L (22-26); VBG pCO2 18 mmHg; VBG pO2 73 mmHg
[2023-04-09 14:54] LABS: Blood Urea Nitrogen 44 mg/dL (9-16); Calcium 7.7 mg/dL (8.4-10.2); Carbon Dioxide < 5 mmol/L (22-29); Chloride 101 mmol/L (96-108); Creatinine Clr Calc Pharmacy 42.6; Estimated Glomerular Filt Rate 27; Glucose Random 507 mg/dL (60-115); Magnesium 2.3 mg/dL (1.6-2.6); Potassium 3.7 mmol/L (3.3-5.1); Sodium 131 mmol/L (135-145)
[2023-04-09] MEDS: Sodium Bicarbonate 8.4% 50 MEQ/50 ML SYRINGE IVPUSH (14:54)
[2023-04-09 14:56] LABS: VBG pH 6.94 (7.32-7.43)
[2023-04-09 14:57] LABS: Acetaminophen LAB < 3 mcg/mL (<30); Ethanol < 10 mg/dL; Salicylate < 5.0 mg/dL (15-30)
[2023-04-09 14:58] LABS: Glucose, Whole Blood 397 mg/dL (60-115)
[2023-04-09 15:00] LABS: Anion Gap 27 (12-20); Blood Urea Nitrogen 44 mg/dL (9-16); Calcium 8.1 mg/dL (8.4-10.2); Carbon Dioxide 5 mmol/L (22-29); Chloride 101 mmol/L (96-108); Creatinine Clr Calc Pharmacy 42.6; Estimated Glomerular Filt Rate 27; Glucose Random 459 mg/dL (60-115); Potassium 4.1 mmol/L (3.3-5.1); Sodium 129 mmol/L (135-145)
[2023-04-09 15:04] LABS: Band Neutrophils Percent 8 % (3-5); Eosinophils Percent Manual 17 % (0-4); Lymphocytes Percent Manual 9 % (20-40); Monocytes Percent Manual 2 % (2-11); Neutrophils Percent Manual 64 % (45-73)
[2023-04-09] MEDS: Norepinephrine Bitartrate/D5W 8 MG/250 ML PLAST..BAG 9.24 MG IV (15:04)
[2023-04-09] MEDS: Sodium Bicarbonate 8.4% 150 MEQ in Dextrose 5 % 850 ML 100 MEQ IV (15:05)
[2023-04-09 15:09] LABS: Macrocytosis 1+ (5-14) /OIF; Platelet Estimate NORMAL (NORMAL); Platelet Morphology Comment NORMAL; RBC Morphology NOTED; Toxic Vacuolation PRESENT
[2023-04-09 15:10] LABS: Lymphocytes Absolute Manual 1.6 X10*3/uL (1.2-4.9); Monocytes Absolute Manual 0.4 X10*3/uL (0.1-1.2); Neutrophils Absolute Manual 12.7 X10*3/uL (2.0-8.3); White Blood Count 17.7 X10*3/uL (4.8-10.8)
[2023-04-09] MEDS: dexmedeTOMIDidine HCL/NS 400 MCG/100 ML INFUS..BTL 24.65 MCG IVCONT ×2 (15:35→19:00)
[2023-04-09] MEDS: vancomycin/NS 2,000 MG/500 ML PLAST..BAG 250 MG IV (15:47)
[2023-04-09 16:02] LABS: Glucose, Whole Blood 382 mg/dL (60-115)
[2023-04-09] MEDS: Heparin Sodium,Porcine 5,000 UNIT/ML VIAL 5000 UNIT SUBCUT ×2 (16:06→20:45)
[2023-04-09] MEDS: Insulin Regular/NS 100 UNIT/100 ML PLAST..BAG 34 UNIT IVCONT (16:07)
[2023-04-09] MEDS: KCl 40 mEq in 0.9 % Sodium Chl 40 MEQ/1,000 ML IV.SOLN 200 MEQ IVCONT (16:30)
[2023-04-09 16:32] LABS: VBG Base Excess -21.3 mmol/L; VBG HCO3 5 mmol/L (22-26); VBG pCO2 13 mmHg; VBG pH 7.15 (7.32-7.43); VBG pO2 50 mmHg
[2023-04-09] MEDS: Midazolam HCl/PF 2 MG/2 ML VIAL IVPUSH ×3 (16:55→18:21)
[2023-04-09] MEDS: Calcium Gluconate/NaCl,Iso-Osm 1 GM/50 ML PLAST..BAG IV (17:10)
[2023-04-09] MEDS: Vasopressin 20 UNIT/100 ML INFUS..BTL 12 UNIT IVCONT (17:21)
[2023-04-09 17:25] LABS: Glucose, Whole Blood 302 mg/dL (60-115)
--- NOTE | 2023-04-09 17:42 | W.PM.CCHP ---
Procedures Date of Service Date of Service: 04/09/23 Arterial Line Consent: Emergent-no informed consent obtained Time out performed: Yes Technique used: modified Seldinger technique Complications: other (there were multiple attempts at placing an arterial line in both the right and left femoral artery as well as the left radial artery without success; there were approximately 3 attempts on the right femoral artery, 4 attempts on the left femoral artery, and 1 attempt on the left radial) Site: left, right, radial and femoral
[2023-04-09 17:56] LABS: VBG Base Excess -19.2 mmol/L; VBG HCO3 8 mmol/L (22-26); VBG pCO2 26 mmHg; VBG pH 7.11 (7.32-7.43); VBG pO2 40 mmHg
[2023-04-09 18:06] LABS: Hematocrit 35.5 % (37.0-47.0); Hemoglobin 12.1 g/dl (12.0-16.0); Mean Corpuscular HGB Conc 34.1 g/dl (31.0-35.0); Mean Corpuscular Hemoglobin 31.3 pg (27.0-33.0); Mean Platelet Volume 9.3 fL (9.4-12.3); NRBC Pct Auto 0.2 /100WBC (0.0-0.2); Platelet Count 193 X10*3/uL (160-400); Red Blood Count 3.86 X10*6/uL (4.20-5.50); Red Cell Distribution Width 11.9 % (11.0-16.0); White Blood Count 17.5 X10*3/uL (4.8-10.8)
[2023-04-09 18:13] LABS: Glucose, Whole Blood 290 mg/dL (60-115)
[2023-04-09 18:26] LABS: Anion Gap 23 (12-20); Blood Urea Nitrogen 45 mg/dL (9-16); Calcium 8.1 mg/dL (8.4-10.2); Carbon Dioxide 9 mmol/L (22-29); Chloride 104 mmol/L (96-108); Creatinine Clr Calc Pharmacy 41.6; Estimated Glomerular Filt Rate 26; Glucose Random 304 mg/dL (60-115); Potassium 3.3 mmol/L (3.3-5.1); Sodium 133 mmol/L (135-145)
--- NOTE | 2023-04-09 18:28 | W.PM.CCHP ---
Procedures Date of Service Date of Service: 04/09/23 Central Line Placement Right IJ: Consent for Procedure: Emergent-no informed consent obtained Time out performed: Yes Sterile Technique Used: Yes Patient placed on monitor/pulse ox: Yes MD prep: mask, gown and gloves Ultrasound used for placement: Yes Central line lumen inserted: triple Post procedure: sutured in place, good blood return, all ports aspirated, flushed, capped and sterile dressing applied Patient tolerated procedure: no complications Complications: none
[2023-04-09] MEDS: Albumin Human 25 % 100 ML IV ×4 (18:51→21:53)
[2023-04-09] MEDS: Sodium Bicarbonate 8.4% 50 MEQ/50 ML SYRINGE 100 MEQ IVPUSH (18:54)
[2023-04-09] MEDS: Insulin Regular/NS 100 UNIT/100 ML PLAST..BAG 32 UNIT IVCONT (18:57)
[2023-04-09 19:04] LABS: Glucose, Whole Blood 206 mg/dL (60-115)
[2023-04-09 19:59] LABS: Glucose, Whole Blood 205 mg/dL (60-115)
[2023-04-09 20:03] LABS: VBG Base Excess -12.7 mmol/L; VBG HCO3 11 mmol/L (22-26); VBG pCO2 21 mmHg; VBG pH 7.31 (7.32-7.43); VBG pO2 127 mmHg
[2023-04-09 20:05] LABS: Venous Blood Gas Refer to POC result
--- NOTE | 2023-04-09 20:34 | PC.NURSE ---
This RN was ICU resource nurse and went to ED 13:07 to assist with transport of patient and admit to ICU. Insulin gtt running @10units/hr and titrated by ED RN to 15 units/hr. 13:08 pt brought to ED CT scan. CT c-spine, chest and abd completed, CXR completed. 13:25 Pt transported to ICU on zoll monitor with RN and 2 ED techs. 13:30 Pt arrived to ICU 259. HR 170s Afib. LR 1L bolus given, Amio loading dose 150 mg given. HR decreased to 96. Per MD hold Amio continuous infusion for hemodynamic stability. Pt converted to sinus rhythm on tele. Bed bath provided, skin checked 14:54 Bicarb IVP 1 amp given 15:05 Levophed gtt started for low MAPs <65. See gtt titrations and vital signs. 15:35 additional peripheral IV access obtained, 4 peripheral IVs patent and functioning. Precedex gtt started for agitation. 16:52 2mg Versed IVP given for agitation and frequent movment. MD attempted A-line insertion for blood pressure monitoring to left radial artery. A-line not able to thread in vein, not reading BPs. A-line removed and pressure held for 5 minutes with gauze. 17:37 increased ectopy (frequent PVCs, ventricular trigeminy) Calcium gluconate given. 17:58 Procedure initaiated for TLC central line placement Right IJ. Time out completed. TLC inserted and verified with CXR. Versed 2mg given 18:07 and 18:21 for agitation and movement during TLC insertion. Medication effective. Antibiotics given: Vanco 2000 mg IV, Meropenem IV. 2 amps of sodium bicarb given 19:05. Rn to RN report given. Family education provided by MD regarding pt health status, IV insulin gtt, central line procedure. high fall precautions in place
[2023-04-09] MEDS: Dextrose 5 % and Lactated Ring 1,000 ML 125 ML IVCONT (20:40)
[2023-04-09] MEDS: ondansetron HCL 4 MG/2 ML VIAL IVPUSH (20:45)
[2023-04-09 21:08] LABS: Glucose, Whole Blood 160 mg/dL (60-115)
[2023-04-09 21:36] LABS: Anion Gap 20 (12-20); Blood Urea Nitrogen 45 mg/dL (9-16); Calcium 8.3 mg/dL (8.4-10.2); Carbon Dioxide 14 mmol/L (22-29); Chloride 106 mmol/L (96-108); Creatinine Clr Calc Pharmacy 41.6; Estimated Glomerular Filt Rate 26; Glucose Random 153 mg/dL (60-115); Potassium 2.8 mmol/L (3.3-5.1); Sodium 137 mmol/L (135-145)
[2023-04-09] MEDS: Potassium Chloride/H20 40 MEQ/100 ML PIGGYBACK 100 MEQ IV ×2 (21:54→23:00)
[2023-04-09] MEDS: Norepinephrine Bitartrate/D5W 8 MG/250 ML PLAST..BAG 11.09 MG IV (21:56)
[2023-04-09] MEDS: Insulin Regular/NS 100 UNIT/100 ML PLAST..BAG 20 UNIT IVCONT (22:00)
[2023-04-09 22:07] LABS: Glucose, Whole Blood 143 mg/dL (60-115)
[2023-04-09] MEDS: LORazepam 2 MG/ML VIAL 1 MG IVPUSH (22:29)
[2023-04-09 23:05] LABS: Glucose, Whole Blood 135 mg/dL (60-115)
[2023-04-09 23:18] LABS: Venous Blood Gas Refer to POC result
[2023-04-09 23:18] LABS: Venous Blood Gas Refer to POC result
[2023-04-09 23:50] LABS: VBG Base Excess -9.4 mmol/L; VBG HCO3 14 mmol/L (22-26); VBG pCO2 27 mmHg; VBG pH 7.34 (7.32-7.43); VBG pO2 41 mmHg
[2023-04-09 23:59] LABS: Venous Blood Gas Refer to POC result
[2023-04-10] VITALS (40 sets, daily range): BP systolic 78–183; BP diastolic 40–92; PULSE 84–125; RESP 24–39; TEMP 38–38.9; O2SAT 91–96; BMI 40.1
--- NOTE | 2023-04-10 | ECG_ITS ---
Test Reason : QTc Monitoring Blood Pressure : / mmHG Vent. Rate : 107 BPM Atrial Rate : 107 BPM P-R Int : 132 ms QRS Dur : 076 ms QT Int : 304 ms P-R-T Axes : 036 051 019 degrees QTc Int : 405 ms Sinus tachycardia Nonspecific T wave abnormality Abnormal ECG When compared with ECG of 11-APR-2023 05:27, No significant change was found Referred By: Elisabet Montez Electronically Signed By:MIKI WALKER MD
[2023-04-10] MEDS: dexmedeTOMIDidine HCL/NS 400 MCG/100 ML INFUS..BTL 9.86 MCG IVCONT (00:06)
[2023-04-10 00:15] LABS: Venous Blood Gas Refer to POC result
[2023-04-10 00:17] LABS: Glucose, Whole Blood 160 mg/dL (60-115)
[2023-04-10] MEDS: Hydrocortisone Sod Succ/PF 100 MG VIAL 50 MG IVPUSH ×5 (00:19→23:44)
[2023-04-10 01:08] LABS: Glucose, Whole Blood 160 mg/dL (60-115)
[2023-04-10 02:11] LABS: Glucose, Whole Blood 176 mg/dL (60-115)
[2023-04-10] MEDS: ondansetron HCL 4 MG/2 ML VIAL IVPUSH ×2 (02:11→07:42)
[2023-04-10 03:09] LABS: Glucose, Whole Blood 173 mg/dL (60-115)
[2023-04-10 04:16] LABS: Glucose, Whole Blood 209 mg/dL (60-115)
[2023-04-10] MEDS: Dextrose 5 % and Lactated Ring 1,000 ML 125 ML IVCONT ×3 (04:17→18:38)
[2023-04-10] MEDS: LORazepam 2 MG/ML VIAL 1 MG IVPUSH ×5 (04:26→23:44)
[2023-04-10 05:11] LABS: Glucose, Whole Blood 208 mg/dL (60-115)
[2023-04-10 05:12] LABS: VBG Base Excess -7.6 mmol/L; VBG HCO3 17 mmol/L (22-26); VBG pCO2 31 mmHg; VBG pH 7.33 (7.32-7.43); VBG pO2 44 mmHg
[2023-04-10 05:13] LABS: Venous Blood Gas Refer to POC result
[2023-04-10 05:54] LABS: Hematocrit 26.4 % (37.0-47.0); Hemoglobin 9.5 g/dl (12.0-16.0); Mean Corpuscular Hemoglobin 31.4 pg (27.0-33.0); Mean Corpuscular Volume 87.1 fL (80.0-98.0); Mean Platelet Volume 9.5 fL (9.4-12.3); NRBC Pct Auto 0.4 /100WBC (0.0-0.2); Platelet Count 109 X10*3/uL (160-400); Red Blood Count 3.03 X10*6/uL (4.20-5.50); Red Cell Distribution Width 11.2 % (11.0-16.0); White Blood Count 14.3 X10*3/uL (4.8-10.8)
[2023-04-10 06:06] LABS: Glucose, Whole Blood 198 mg/dL (60-115)
[2023-04-10 06:12] LABS: Band Neutrophils Percent 16 % (3-5); Lymphocytes Absolute Manual 0.4 X10*3/uL (1.2-4.9); Lymphocytes Percent Manual 3 % (20-40); Metamyelocytes Absolute 0.1 X10*3/uL; Metamyelocytes Percent 1 %; Monocytes Percent Manual 7 % (2-11); Neutrophils Absolute Manual 12.7 X10*3/uL (2.0-8.3); Neutrophils Percent Manual 73 % (45-73)
[2023-04-10 06:14] LABS: Dohle Bodies PRESENT; Platelet Estimate SLIGHTLY DECREASED (NORMAL); Platelet Morphology Comment NORMAL; RBC Morphology NORMAL; Toxic Granulation PRESENT; Toxic Vacuolation PRESENT
[2023-04-10 06:23] LABS: Albumin Level 3.5 g/dL (3.5-5.0); Anion Gap 15 (12-20); Blood Urea Nitrogen 49 mg/dL (9-16); Calcium 8.5 mg/dL (8.4-10.2); Carbon Dioxide 16 mmol/L (22-29); Chloride 109 mmol/L (96-108); Creatinine Clr Calc Pharmacy 39.5; Estimated Glomerular Filt Rate 23; Glucose Random 208 mg/dL (60-115); Magnesium 1.8 mg/dL (1.6-2.6); Phosphorus < 0.7 mg/dL (2.7-4.5); Potassium 4.1 mmol/L (3.3-5.1); Sodium 136 mmol/L (135-145)
[2023-04-10] MEDS: Potassium Phosphate/NS 15 MMOL/250 ML PLAST..BAG 62.5 MMOL IV ×3 (06:30→18:34)
[2023-04-10 07:18] LABS: Glucose, Whole Blood 178 mg/dL (60-115)
[2023-04-10] MEDS: Heparin Sodium,Porcine 5,000 UNIT/ML VIAL 5000 UNIT SUBCUT ×3 (07:45→20:35)
--- NOTE | 2023-04-10 07:50 | P.PNCC_ITS ---
Subjective Subjective Date of Service: 04/10/23 Critical Care Time (minutes): 90 Physical Exam 2 Vital Signs: Vital Signs: Last Vital Signs Temp 100.4 F 04/10/23 07:00 Pulse 118 H 04/10/23 07:47 Resp 35 H 04/10/23 07:47 BP 123/66 04/10/23 07:47 Pulse Ox 92 04/10/23 07:00 O2 Del Method Nasal Cannula 04/10/23 07:00 O2 Flow Rate 1 04/10/23 07:00 Oxygen Flow Rate 4 04/09/23 10:23 BMI result Body Mass Index 40.1 Const: Other: moaning, unable to follow commands; no overt distress HEENT: Head: Yes normal to inspection, Yes normocephalic and Yes atraumatic Eyes: General: appearance normal, both eyes and all related structures Neck: Neck: Yes normal visual inspection, Yes full ROM, Yes no meningeal signs and Yes supple Chest: Chest palpation & inspection: normal inspection of the chest Resp: Other: no rales, rhonchi, wheezing Cardio: Rate: tachycardic Rhythm: regular rhythm GI: Inspection: Yes normal to inspection, No Abdominal wall edema and No distended Palpation (GI): Soft to palpation, not firm, nontender, no guarding and not rigid : External Female Exam: normal external appearance Skin: Other: some abrasions bilateral knees Neuro: Other: not oriented to person, place, nor time; responds to name General: moves all extremities, no meningeal signs and no focal motor deficits Extrem: General: Yes normal to inspection, Yes capillary refill normal and Yes no clubbing, cyanosis or edema Psych: Other: intermittent agitation Objective Data Labs 04/10/23 05:08 04/10/23 05:08 Labs: Laboratory Results - last 24 hr 04/09/23 04/09/23 04/09/23 10:16 10:18 10:25 WBC 24.2 H RBC 4.29 Hgb 13.4 Hct 42.6 MCV 99.3 H MCH 31.2 MCHC 31.5 RDW 11.9 Plt Count 226 MPV 9.7 Immature Gran % (Auto) Cancelled Neut % (Auto) Cancelled Lymph % (Auto) Cancelled Turner % (Auto) Cancelled Eos % (Auto) Cancelled Baso % (Auto) Cancelled Lymph # (Auto) Cancelled Turner # (Auto) Cancelled Eos # (Auto) Cancelled Baso # (Auto) Cancelled Abs Immat Gran (auto) Cancelled Absolute Neuts (auto) Cancelled Absolute Nucleated RBC 0.000 Nucleated RBC % (auto) 0.0 Neutrophils % (Manual) 62 Band Neutrophils % 4 Lymphocytes % (Manual) 5 L Monocytes % (Manual) 8 Eosinophils % (Manual) 21 H Metamyelocytes % Abs Neuts (Manual) 16.0 H Lymphocytes # (Manual) 1.2 Monocytes # (Manual) 1.9 H Eosinophils # (Manual) 5.1 H Metamyelocytes # Toxic Granulation Toxic Vacuolation PRESENT Dohle Bodies Platelet Estimate NORMAL Plt Morphology Comment NORMAL RBC Morphology NOTED Macrocytosis 1+ (5-14) PT 12.6 INR 1.0 APTT 27.8 VBG pH VBG pCO2 VBG pO2 VBG HCO3 VBG O2 Saturation VBG Base Excess Sodium Potassium Chloride Carbon Dioxide Anion Gap BUN Creatinine Estim Creat Clear Calc Estimated GFR POC Glucose > 600 H* > 600 H* Random Glucose Estimat Average Glucose 326 Hemoglobin A1c % 13.0 H Lactic Acid Calcium Phosphorus Magnesium Total Bilirubin AST ALT Alkaline Phosphatase Ammonia Total Creatine Kinase Troponin I High Sens Total Protein Albumin Beta-Hydroxybutyrate TSH Beta HCG, Quant Urine Color Urine Appearance Urine pH Ur Specific [place] Urine Protein Urine Glucose (UA) Urine Ketones Urine Blood Urine Nitrite Ur Leukocyte Esterase Urine RBC Urine WBC Ur Squamous Epith Cells Urine Bacteria Hyaline Casts Salicylates Urine Opiates Screen Urine Fentanyl Screen Acetaminophen Ur Barbiturates Screen Ur Phencyclidine Scrn Ur Amphetamines Screen U Benzodiazepines Scrn Urine Cocaine Screen U Marijuana (THC) Screen Ethyl Alcohol Influenza Type A (PCR) Influenza Type B (PCR) RSV RNA Qual (PCR) SARS-CoV-2 RNA (RT-PCR) Blood Type Antibody Screen 04/09/23 04/09/23 04/09/23 10:26 10:53 10:59 WBC RBC Hgb Hct MCV MCH MCHC RDW Plt Count MPV Immature Gran % (Auto) Neut % (Auto) Lymph % (Auto) Turner % (Auto) Eos % (Auto) Baso % (Auto) Lymph # (Auto) Turner # (Auto) Eos # (Auto) Baso # (Auto) Abs Immat Gran (auto) Absolute Neuts (auto) Absolute Nucleated RBC Nucleated RBC % (auto) Neutrophils % (Manual) Band Neutrophils % Lymphocytes % (Manual) Monocytes % (Manual) Eosinophils % (Manual) Metamyelocytes % Abs Neuts (Manual) Lymphocytes # (Manual) Monocytes # (Manual) Eosinophils # (Manual) Metamyelocytes # Toxic Granulation Toxic Vacuolation Dohle Bodies Platelet Estimate Plt Morphology Comment RBC Morphology Macrocytosis PT INR APTT VBG pH VBG pCO2 VBG pO2 VBG HCO3 VBG O2 Saturation VBG Base Excess Sodium Potassium Chloride Carbon Dioxide Anion Gap BUN Creatinine Estim Creat Clear Calc Estimated GFR POC Glucose 561 H* Random Glucose Estimat Average Glucose Hemoglobin A1c % Lactic Acid 1.3 Calcium Phosphorus Magnesium Total Bilirubin AST ALT Alkaline Phosphatase Ammonia Total Creatine Kinase Troponin I High Sens < 2.7 Total Protein Albumin Beta-Hydroxybutyrate TSH 1.57 Beta HCG, Quant Urine Color Urine Appearance Urine pH Ur Specific [place] Urine Protein Urine Glucose (UA) Urine Ketones Urine Blood Urine Nitrite Ur Leukocyte Esterase Urine RBC Urine WBC Ur Squamous Epith Cells Urine Bacteria Hyaline Casts Salicylates Urine Opiates Screen Urine Fentanyl Screen Acetaminophen Ur Barbiturates Screen Ur Phencyclidine Scrn Ur Amphetamines Screen U Benzodiazepines Scrn Urine Cocaine Screen U Marijuana (THC) Screen Ethyl Alcohol Influenza Type A (PCR) NEGATIVE Influenza Type B (PCR) NEGATIVE RSV RNA Qual (PCR) NEGATIVE SARS-CoV-2 RNA (RT-PCR) NEGATIVE Blood Type Antibody Screen 04/09/23 04/09/23 04/09/23 11:14 11:19 11:28 WBC RBC Hgb Hct MCV MCH MCHC RDW Plt Count MPV Immature Gran % (Auto) Neut % (Auto) Lymph % (Auto) Turner % (Auto) Eos % (Auto) Baso % (Auto) Lymph # (Auto) Turner # (Auto) Eos # (Auto) Baso # (Auto) Abs Immat Gran (auto) Absolute Neuts (auto) Absolute Nucleated RBC Nucleated RBC % (auto) Neutrophils % (Manual) Band Neutrophils % Lymphocytes % (Manual) Monocytes % (Manual) Eosinophils % (Manual) Metamyelocytes % Abs Neuts (Manual) Lymphocytes # (Manual) Monocytes # (Manual) Eosinophils # (Manual) Metamyelocytes # Toxic Granulation Toxic Vacuolation Dohle Bodies Platelet Estimate Plt Morphology Comment RBC Morphology Macrocytosis PT INR APTT VBG pH VBG pCO2 VBG pO2 VBG HCO3 VBG O2 Saturation VBG Base Excess Sodium 129 L Potassium 3.8 Chloride 101 Carbon Dioxide < 5 L* Anion Gap TNP BUN 45 H Creatinine 2.03 H Estim Creat Clear Calc 43.6 Estimated GFR 27 POC Glucose 548 H* Random Glucose 596 H* Estimat Average Glucose Hemoglobin A1c % Lactic Acid Calcium 7.7 L Phosphorus Magnesium 2.4 Total Bilirubin 0.2 AST 22 ALT 13 Alkaline Phosphatase 120 H Ammonia 32 Total Creatine Kinase 434 H Troponin I High Sens Total Protein 6.0 L Albumin 2.6 L Beta-Hydroxybutyrate 11.99 H TSH Beta HCG, Quant < 2 Urine Color Yellow Urine Appearance Clear Urine pH 5.5 Ur Specific [place] 1.020 Urine Protein 100 (2+) H Urine Glucose (UA) >=1000 H Urine Ketones 80 Urine Blood Moderate (2+) H Urine Nitrite Negative Ur Leukocyte Esterase Negative Urine RBC 0-2 Urine WBC 0-5 Ur Squamous Epith Cells 0-2 Urine Bacteria None Seen Hyaline Casts 3-5 Salicylates Urine Opiates Screen Not Detected Urine Fentanyl Screen Not Detected Acetaminophen Ur Barbiturates Screen Not Detected Ur Phencyclidine Scrn Not Detected Ur Amphetamines Screen Not Detected U Benzodiazepines Scrn Not Detected Urine Cocaine Screen Not Detected U Marijuana (THC) Screen Not Detected Ethyl Alcohol Influenza Type A (PCR) Influenza Type B (PCR) RSV RNA Qual (PCR) SARS-CoV-2 RNA (RT-PCR) Blood Type Antibody Screen 04/09/23 04/09/23 04/09/23 12:09 12:46 13:59 WBC RBC Hgb Hct MCV MCH MCHC RDW Plt Count MPV Immature Gran % (Auto) Neut % (Auto) Lymph % (Auto) Turner % (Auto) Eos % (Auto) Baso % (Auto) Lymph # (Auto) Turner # (Auto) Eos # (Auto) Baso # (Auto) Abs Immat Gran (auto) Absolute Neuts (auto) Absolute Nucleated RBC Nucleated RBC % (auto) Neutrophils % (Manual) Band Neutrophils % Lymphocytes % (Manual) Monocytes % (Manual) Eosinophils % (Manual) Metamyelocytes % Abs Neuts (Manual) Lymphocytes # (Manual) Monocytes # (Manual) Eosinophils # (Manual) Metamyelocytes # Toxic Granulation Toxic Vacuolation Dohle Bodies Platelet Estimate Plt Morphology Comment RBC Morphology Macrocytosis PT INR APTT VBG pH VBG pCO2 VBG pO2 VBG HCO3 VBG O2 Saturation VBG Base Excess Sodium Potassium Chloride Carbon Dioxide Anion Gap BUN Creatinine Estim Creat Clear Calc Estimated GFR POC Glucose 455 H* 468 H* 455 H* Random Glucose Estimat Average Glucose Hemoglobin A1c % Lactic Acid Calcium Phosphorus Magnesium Total Bilirubin AST ALT Alkaline Phosphatase Ammonia Total Creatine Kinase Troponin I High Sens Total Protein Albumin Beta-Hydroxybutyrate TSH Beta HCG, Quant Urine Color Urine Appearance Urine pH Ur Specific [place] Urine Protein Urine Glucose (UA) Urine Ketones Urine Blood Urine Nitrite Ur Leukocyte Esterase Urine RBC Urine WBC Ur Squamous Epith Cells Urine Bacteria Hyaline Casts Salicylates Urine Opiates Screen Urine Fentanyl Screen Acetaminophen Ur Barbiturates Screen Ur Phencyclidine Scrn Ur Amphetamines Screen U Benzodiazepines Scrn Urine Cocaine Screen U Marijuana (THC) Screen Ethyl Alcohol Influenza Type A (PCR) Influenza Type B (PCR) RSV RNA Qual (PCR) SARS-CoV-2 RNA (RT-PCR) Blood Type Antibody Screen 04/09/23 04/09/23 04/09/23 14:00 14:00 14:00 WBC RBC Hgb Hct MCV MCH MCHC RDW Plt Count MPV Immature Gran % (Auto) Neut % (Auto) Lymph % (Auto) [place] % (Auto) Eos % (Auto) Baso % (Auto) Lymph # (Auto) Turner # (Auto) Eos # (Auto) Baso # (Auto) Abs Immat Gran (auto) Absolute Neuts (auto) Absolute Nucleated RBC Nucleated RBC % (auto) Neutrophils % (Manual) Band Neutrophils % Lymphocytes % (Manual) Monocytes % (Manual) Eosinophils % (Manual) Metamyelocytes % Abs Neuts (Manual) Lymphocytes # (Manual) Monocytes # (Manual) Eosinophils # (Manual) Metamyelocytes # Toxic Granulation Toxic Vacuolation Dohle Bodies Platelet Estimate Plt Morphology Comment RBC Morphology Macrocytosis PT INR APTT VBG pH VBG pCO2 VBG pO2 VBG HCO3 VBG O2 Saturation VBG Base Excess Sodium 131 L Cancelled Potassium 3.7 Cancelled Chloride 101 Carbon Dioxide Anion Gap BUN Creatinine Estim Creat Clear Calc Estimated GFR POC Glucose Random Glucose Estimat Average Glucose Hemoglobin A1c % Lactic Acid Calcium Phosphorus Magnesium Total Bilirubin AST ALT Alkaline Phosphatase Ammonia Total Creatine Kinase Troponin I High Sens Total Protein Albumin Beta-Hydroxybutyrate TSH Beta HCG, Quant Urine Color Urine Appearance Urine pH Ur Specific [place] Urine Protein Urine Glucose (UA) Urine Ketones Urine Blood Urine Nitrite Ur Leukocyte Esterase Urine RBC Urine WBC Ur Squamous Epith Cells Urine Bacteria Hyaline Casts Salicylates Urine Opiates Screen Urine Fentanyl Screen Acetaminophen Ur Barbiturates Screen Ur Phencyclidine Scrn Ur Amphetamines Screen U Benzodiazepines Scrn Urine Cocaine Screen U Marijuana (THC) Screen Ethyl Alcohol Influenza Type A (PCR) Influenza Type B (PCR) RSV RNA Qual (PCR) SARS-CoV-2 RNA (RT-PCR) Blood Type Antibody Screen 04/09/23 04/09/23 04/09/23 14:00 14:00 14:00 WBC RBC Hgb Hct MCV MCH MCHC RDW Plt Count MPV Immature Gran % (Auto) Neut % (Auto) Lymph % (Auto) Turner % (Auto) Eos % (Auto) Baso % (Auto) Lymph # (Auto) Turner # (Auto) Eos # (Auto) Baso # (Auto) Abs Immat Gran (auto) Absolute Neuts (auto) Absolute Nucleated RBC Nucleated RBC % (auto) Neutrophils % (Manual) Band Neutrophils % Lymphocytes % (Manual) Monocytes % (Manual) Eosinophils % (Manual) Metamyelocytes % Abs Neuts (Manual) Lymphocytes # (Manual) Monocytes # (Manual) Eosinophils # (Manual) Metamyelocytes # Toxic Granulation Toxic Vacuolation Dohle Bodies Platelet Estimate Plt Morphology Comment RBC Morphology Macrocytosis PT INR APTT VBG pH VBG pCO2 VBG pO2 VBG HCO3 VBG O2 Saturation VBG Base Excess Sodium Potassium Chloride Cancelled Carbon Dioxide < 5 L* Cancelled Anion Gap Not Reportable Cancelled BUN 44 H Creatinine Estim Creat Clear Calc Estimated GFR POC Glucose Random Glucose Estimat Average Glucose Hemoglobin A1c % Lactic Acid Calcium Phosphorus Magnesium Total Bilirubin AST ALT Alkaline Phosphatase Ammonia Total Creatine Kinase Troponin I High Sens Total Protein Albumin Beta-Hydroxybutyrate TSH Beta HCG, Quant Urine Color Urine Appearance Urine pH Ur Specific [place] Urine Protein Urine Glucose (UA) Urine Ketones Urine Blood Urine Nitrite Ur Leukocyte Esterase Urine RBC Urine WBC Ur Squamous Epith Cells Urine Bacteria Hyaline Casts Salicylates Urine Opiates Screen Urine Fentanyl Screen Acetaminophen Ur Barbiturates Screen Ur Phencyclidine Scrn Ur Amphetamines Screen U Benzodiazepines Scrn Urine Cocaine Screen U Marijuana (THC) Screen Ethyl Alcohol Influenza Type A (PCR) Influenza Type B (PCR) RSV RNA Qual (PCR) SARS-CoV-2 RNA (RT-PCR) Blood Type Antibody Screen 04/09/23 04/09/23 04/09/23 14:00 14:00 14:00 WBC RBC Hgb Hct MCV MCH MCHC RDW Plt Count MPV Immature Gran % (Auto) Neut % (Auto) Lymph % (Auto) [place] % (Auto) Eos % (Auto) Baso % (Auto) Lymph # (Auto) Turner # (Auto) Eos # (Auto) Baso # (Auto) Abs Immat Gran (auto) Absolute Neuts (auto) Absolute Nucleated RBC Nucleated RBC % (auto) Neutrophils % (Manual) Band Neutrophils % Lymphocytes % (Manual) Monocytes % (Manual) Eosinophils % (Manual) Metamyelocytes % Abs Neuts (Manual) Lymphocytes # (Manual) Monocytes # (Manual) Eosinophils # (Manual) Metamyelocytes # Toxic Granulation Toxic Vacuolation Dohle Bodies Platelet Estimate Plt Morphology Comment RBC Morphology Macrocytosis PT INR APTT VBG pH VBG pCO2 VBG pO2 VBG HCO3 VBG O2 Saturation VBG Base Excess Sodium Potassium Chloride Carbon Dioxide Anion Gap BUN Cancelled Creatinine 2.08 H Cancelled Estim Creat Clear Calc 42.6 Cancelled Estimated GFR 27 POC Glucose Random Glucose Estimat Average Glucose Hemoglobin A1c % Lactic Acid Calcium Phosphorus Magnesium Total Bilirubin AST ALT Alkaline Phosphatase Ammonia Total Creatine Kinase Troponin I High Sens Total Protein Albumin Beta-Hydroxybutyrate TSH Beta HCG, Quant Urine Color Urine Appearance Urine pH Ur Specific [place] Urine Protein Urine Glucose (UA) Urine Ketones Urine Blood Urine Nitrite Ur Leukocyte Esterase Urine RBC Urine WBC Ur Squamous Epith Cells Urine Bacteria Hyaline Casts Salicylates Urine Opiates Screen Urine Fentanyl Screen Acetaminophen Ur Barbiturates Screen Ur Phencyclidine Scrn Ur Amphetamines Screen U Benzodiazepines Scrn Urine Cocaine Screen U Marijuana (THC) Screen Ethyl Alcohol Influenza Type A (PCR) Influenza Type B (PCR) RSV RNA Qual (PCR) SARS-CoV-2 RNA (RT-PCR) Blood Type Antibody Screen 04/09/23 04/09/23 04/09/23 14:00 14:00 14:00 WBC RBC Hgb Hct MCV MCH MCHC RDW Plt Count MPV Immature Gran % (Auto) Neut % (Auto) Lymph % (Auto) [place] % (Auto) Eos % (Auto) Baso % (Auto) Lymph # (Auto) [place] # (Auto) Eos # (Auto) Baso # (Auto) Abs Immat Gran (auto) Absolute Neuts (auto) Absolute Nucleated RBC Nucleated RBC % (auto) Neutrophils % (Manual) Band Neutrophils % Lymphocytes % (Manual) Monocytes % (Manual) Eosinophils % (Manual) Metamyelocytes % Abs Neuts (Manual) Lymphocytes # (Manual) Monocytes # (Manual) Eosinophils # (Manual) Metamyelocytes # Toxic Granulation Toxic Vacuolation Dohle Bodies Platelet Estimate Plt Morphology Comment RBC Morphology Macrocytosis PT INR APTT VBG pH VBG pCO2 VBG pO2 VBG HCO3 VBG O2 Saturation VBG Base Excess Sodium Potassium Chloride Carbon Dioxide Anion Gap BUN Creatinine Estim Creat Clear Calc Estimated GFR Cancelled POC Glucose Random Glucose 507 H* Cancelled Estimat Average Glucose Hemoglobin A1c % Lactic Acid Calcium 7.7 L Cancelled Phosphorus 3.0 Magnesium 2.3 Total Bilirubin AST ALT Alkaline Phosphatase Ammonia Total Creatine Kinase Troponin I High Sens Total Protein Albumin Beta-Hydroxybutyrate TSH Beta HCG, Quant Urine Color Urine Appearance Urine pH Ur Specific [place] Urine Protein Urine Glucose (UA) Urine Ketones Urine Blood Urine Nitrite Ur Leukocyte Esterase Urine RBC Urine WBC Ur Squamous Epith Cells Urine Bacteria Hyaline Casts Salicylates Urine Opiates Screen Urine Fentanyl Screen Acetaminophen Ur Barbiturates Screen Ur Phencyclidine Scrn Ur Amphetamines Screen U Benzodiazepines Scrn Urine Cocaine Screen U Marijuana (THC) Screen Ethyl Alcohol Influenza Type A (PCR) Influenza Type B (PCR) RSV RNA Qual (PCR) SARS-CoV-2 RNA (RT-PCR) Blood Type Antibody Screen 04/09/23 04/09/23 04/09/23 14:31 14:37 14:54 WBC 17.7 H RBC 4.00 L Hgb 12.5 Hct 38.2 MCV 95.5 MCH 31.3 MCHC 32.7 RDW 11.9 Plt Count 190 MPV 9.1 L Immature Gran % (Auto) Cancelled Neut % (Auto) Cancelled Lymph % (Auto) Cancelled [place] % (Auto) Cancelled Eos % (Auto) Cancelled Baso % (Auto) Cancelled Lymph # (Auto) Cancelled [place] # (Auto) Cancelled Eos # (Auto) Cancelled Baso # (Auto) Cancelled Abs Immat Gran (auto) Cancelled Absolute Neuts (auto) Cancelled Absolute Nucleated RBC 0.000 Nucleated RBC % (auto) 0.0 Neutrophils % (Manual) 64 Band Neutrophils % 8 H Lymphocytes % (Manual) 9 L Monocytes % (Manual) 2 Eosinophils % (Manual) 17 H Metamyelocytes % Abs Neuts (Manual) 12.7 H Lymphocytes # (Manual) 1.6 Monocytes # (Manual) 0.4 Eosinophils # (Manual) 3.0 H Metamyelocytes # Toxic Granulation Toxic Vacuolation PRESENT Dohle Bodies Platelet Estimate NORMAL Plt Morphology Comment NORMAL RBC Morphology NOTED Macrocytosis 1+ (5-14) PT INR APTT VBG pH 6.94 L* VBG pCO2 18 VBG pO2 73 VBG HCO3 4 L VBG O2 Saturation 94.0 VBG Base Excess -26.2 Sodium 129 L Potassium 4.1 Chloride 101 Carbon Dioxide 5 L* Anion Gap 27 H BUN 44 H Creatinine 2.08 H Estim Creat Clear Calc 42.6 Estimated GFR 27 POC Glucose 397 H* Random Glucose 459 H* Estimat Average Glucose Hemoglobin A1c % Lactic Acid Calcium 8.1 L Phosphorus Magnesium Total Bilirubin AST ALT Alkaline Phosphatase Ammonia Total Creatine Kinase Troponin I High Sens Total Protein Albumin Beta-Hydroxybutyrate TSH Beta HCG, Quant Urine Color Urine Appearance Urine pH Ur Specific [place] Urine Protein Urine Glucose (UA) Urine Ketones Urine Blood Urine Nitrite Ur Leukocyte Esterase Urine RBC Urine WBC Ur Squamous Epith Cells Urine Bacteria Hyaline Casts Salicylates < 5.0 L Urine Opiates Screen Urine Fentanyl Screen Acetaminophen < 3 Ur Barbiturates Screen Ur Phencyclidine Scrn Ur Amphetamines Screen U Benzodiazepines Scrn Urine Cocaine Screen U Marijuana (THC) Screen Ethyl Alcohol < 10 Influenza Type A (PCR) Influenza Type B (PCR) RSV RNA Qual (PCR) SARS-CoV-2 RNA (RT-PCR) Blood Type O Positive Antibody Screen NEGATIVE 04/09/23 04/09/23 04/09/23 15:57 16:27 16:53 WBC RBC Hgb Hct MCV MCH MCHC RDW Plt Count MPV Immature Gran % (Auto) Neut % (Auto) Lymph % (Auto) [place] % (Auto) Eos % (Auto) Baso % (Auto) Lymph # (Auto) [place] # (Auto) Eos # (Auto) Baso # (Auto) Abs Immat Gran (auto) Absolute Neuts (auto) Absolute Nucleated RBC Nucleated RBC % (auto) Neutrophils % (Manual) Band Neutrophils % Lymphocytes % (Manual) Monocytes % (Manual) Eosinophils % (Manual) Metamyelocytes % Abs Neuts (Manual) Lymphocytes # (Manual) Monocytes # (Manual) Eosinophils # (Manual) Metamyelocytes # Toxic Granulation Toxic Vacuolation Dohle Bodies Platelet Estimate Plt Morphology Comment RBC Morphology Macrocytosis PT INR APTT VBG pH 7.15 L* VBG pCO2 13 VBG pO2 50 VBG HCO3 5 L VBG O2 Saturation 88.0 VBG Base Excess -21.3 Sodium Potassium Chloride Carbon Dioxide Anion Gap BUN Creatinine Estim Creat Clear Calc Estimated GFR POC Glucose 382 H* 302 H Random Glucose Estimat Average Glucose Hemoglobin A1c % Lactic Acid Calcium Phosphorus Magnesium Total Bilirubin AST ALT Alkaline Phosphatase Ammonia Total Creatine Kinase Troponin I High Sens Total Protein Albumin Beta-Hydroxybutyrate TSH Beta HCG, Quant Urine Color Urine Appearance Urine pH Ur Specific [place] Urine Protein Urine Glucose (UA) Urine Ketones Urine Blood Urine Nitrite Ur Leukocyte Esterase Urine RBC Urine WBC Ur Squamous Epith Cells Urine Bacteria Hyaline Casts Salicylates Urine Opiates Screen Urine Fentanyl Screen Acetaminophen Ur Barbiturates Screen Ur Phencyclidine Scrn Ur Amphetamines Screen U Benzodiazepines Scrn Urine Cocaine Screen U Marijuana (THC) Screen Ethyl Alcohol Influenza Type A (PCR) Influenza Type B (PCR) RSV RNA Qual (PCR) SARS-CoV-2 RNA (RT-PCR) Blood Type Antibody Screen 04/09/23 04/09/23 04/09/23 17:50 18:10 19:00 WBC 17.5 H RBC 3.86 L Hgb 12.1 Hct 35.5 L MCV 92.0 MCH 31.3 MCHC 34.1 RDW 11.9 Plt Count 193 MPV 9.3 L Immature Gran % (Auto) Neut % (Auto) Lymph % (Auto) [place] % (Auto) Eos % (Auto) Baso % (Auto) Lymph # (Auto) [place] # (Auto) Eos # (Auto) Baso # (Auto) Abs Immat Gran (auto) Absolute Neuts (auto) Absolute Nucleated RBC 0.030 H Nucleated RBC % (auto) 0.2 Neutrophils % (Manual) Band Neutrophils % Lymphocytes % (Manual) Monocytes % (Manual) Eosinophils % (Manual) Metamyelocytes % Abs Neuts (Manual) Lymphocytes # (Manual) Monocytes # (Manual) Eosinophils # (Manual) Metamyelocytes # Toxic Granulation Toxic Vacuolation Dohle Bodies Platelet Estimate Plt Morphology Comment RBC Morphology Macrocytosis PT INR APTT VBG pH 7.11 L* VBG pCO2 26 VBG pO2 40 VBG HCO3 8 L VBG O2 Saturation 73.0 VBG Base Excess -19.2 Sodium 133 L Potassium 3.3 Chloride 104 Carbon Dioxide 9 L* D Anion Gap 23 H BUN 45 H Creatinine 2.13 H Estim Creat Clear Calc 41.6 Estimated GFR 26 POC Glucose 290 H 206 H Random Glucose 304 H Estimat Average Glucose Hemoglobin A1c % Lactic Acid Calcium 8.1 L Phosphorus Magnesium Total Bilirubin AST ALT Alkaline Phosphatase Ammonia Total Creatine Kinase 590 H Troponin I High Sens Total Protein Albumin Beta-Hydroxybutyrate TSH Beta HCG, Quant Urine Color Urine Appearance Urine pH Ur Specific [place] Urine Protein Urine Glucose (UA) Urine Ketones Urine Blood Urine Nitrite Ur Leukocyte Esterase Urine RBC Urine WBC Ur Squamous Epith Cells Urine Bacteria Hyaline Casts Salicylates Urine Opiates Screen Urine Fentanyl Screen Acetaminophen Ur Barbiturates Screen Ur Phencyclidine Scrn Ur Amphetamines Screen U Benzodiazepines Scrn Urine Cocaine Screen U Marijuana (THC) Screen Ethyl Alcohol Influenza Type A (PCR) Influenza Type B (PCR) RSV RNA Qual (PCR) SARS-CoV-2 RNA (RT-PCR) Blood Type Antibody Screen 04/09/23 04/09/23 04/09/23 19:56 19:58 21:03 WBC RBC Hgb Hct MCV MCH MCHC RDW Plt Count MPV Immature Gran % (Auto) Neut % (Auto) Lymph % (Auto) [place] % (Auto) Eos % (Auto) Baso % (Auto) Lymph # (Auto) [place] # (Auto) Eos # (Auto) Baso # (Auto) Abs Immat Gran (auto) Absolute Neuts (auto) Absolute Nucleated RBC Nucleated RBC % (auto) Neutrophils % (Manual) Band Neutrophils % Lymphocytes % (Manual) Monocytes % (Manual) Eosinophils % (Manual) Metamyelocytes % Abs Neuts (Manual) Lymphocytes # (Manual) Monocytes # (Manual) Eosinophils # (Manual) Metamyelocytes # Toxic Granulation Toxic Vacuolation Dohle Bodies Platelet Estimate Plt Morphology Comment RBC Morphology Macrocytosis PT INR APTT VBG pH 7.31 L VBG pCO2 21 VBG pO2 127 VBG HCO3 11 L VBG O2 Saturation 99.0 VBG Base Excess -12.7 Sodium Potassium Chloride Carbon Dioxide Anion Gap BUN Creatinine Estim Creat Clear Calc Estimated GFR POC Glucose 205 H 160 H Random Glucose Estimat Average Glucose Hemoglobin A1c % Lactic Acid Calcium Phosphorus Magnesium Total Bilirubin AST ALT Alkaline Phosphatase Ammonia Total Creatine Kinase Troponin I High Sens Total Protein Albumin Beta-Hydroxybutyrate TSH Beta HCG, Quant Urine Color Urine Appearance Urine pH Ur Specific [place] Urine Protein Urine Glucose (UA) Urine Ketones Urine Blood Urine Nitrite Ur Leukocyte Esterase Urine RBC Urine WBC Ur Squamous Epith Cells Urine Bacteria Hyaline Casts Salicylates Urine Opiates Screen Urine Fentanyl Screen Acetaminophen Ur Barbiturates Screen Ur Phencyclidine Scrn Ur Amphetamines Screen U Benzodiazepines Scrn Urine Cocaine Screen U Marijuana (THC) Screen Ethyl Alcohol Influenza Type A (PCR) Influenza Type B (PCR) RSV RNA Qual (PCR) SARS-CoV-2 RNA (RT-PCR) Blood Type Antibody Screen 04/09/23 04/09/23 04/09/23 21:07 22:03 23:00 WBC RBC Hgb Hct MCV MCH MCHC RDW Plt Count MPV Immature Gran % (Auto) Neut % (Auto) Lymph % (Auto) [place] % (Auto) Eos % (Auto) Baso % (Auto) Lymph # (Auto) [place] # (Auto) Eos # (Auto) Baso # (Auto) Abs Immat Gran (auto) Absolute Neuts (auto) Absolute Nucleated RBC Nucleated RBC % (auto) Neutrophils % (Manual) Band Neutrophils % Lymphocytes % (Manual) Monocytes % (Manual) Eosinophils % (Manual) Metamyelocytes % Abs Neuts (Manual) Lymphocytes # (Manual) Monocytes # (Manual) Eosinophils # (Manual) Metamyelocytes # Toxic Granulation Toxic Vacuolation Dohle Bodies Platelet Estimate Plt Morphology Comment RBC Morphology Macrocytosis PT INR APTT VBG pH VBG pCO2 VBG pO2 VBG HCO3 VBG O2 Saturation VBG Base Excess Sodium 137 Potassium 2.8 L Chloride 106 Carbon Dioxide 14 L Anion Gap 20 BUN 45 H Creatinine 2.13 H Estim Creat Clear Calc 41.6 Estimated GFR 26 POC Glucose 143 H 135 H Random Glucose 153 H Estimat Average Glucose Hemoglobin A1c % Lactic Acid Calcium 8.3 L Phosphorus Magnesium Total Bilirubin AST ALT Alkaline Phosphatase Ammonia Total Creatine Kinase Troponin I High Sens Total Protein Albumin Beta-Hydroxybutyrate TSH Beta HCG, Quant Urine Color Urine Appearance Urine pH Ur Specific [place] Urine Protein Urine Glucose (UA) Urine Ketones Urine Blood Urine Nitrite Ur Leukocyte Esterase Urine RBC Urine WBC Ur Squamous Epith Cells Urine Bacteria Hyaline Casts Salicylates Urine Opiates Screen Urine Fentanyl Screen Acetaminophen Ur Barbiturates Screen Ur Phencyclidine Scrn Ur Amphetamines Screen U Benzodiazepines Scrn Urine Cocaine Screen U Marijuana (THC) Screen Ethyl Alcohol Influenza Type A (PCR) Influenza Type B (PCR) RSV RNA Qual (PCR) SARS-CoV-2 RNA (RT-PCR) Blood Type Antibody Screen 04/09/23 04/10/23 04/10/23 23:42 00:09 01:03 WBC RBC Hgb Hct MCV MCH MCHC RDW Plt Count MPV Immature Gran % (Auto) Neut % (Auto) Lymph % (Auto) Turner % (Auto) Eos % (Auto) Baso % (Auto) Lymph # (Auto) Turner # (Auto) Eos # (Auto) Baso # (Auto) Abs Immat Gran (auto) Absolute Neuts (auto) Absolute Nucleated RBC Nucleated RBC % (auto) Neutrophils % (Manual) Band Neutrophils % Lymphocytes % (Manual) Monocytes % (Manual) Eosinophils % (Manual) Metamyelocytes % Abs Neuts (Manual) Lymphocytes # (Manual) Monocytes # (Manual) Eosinophils # (Manual) Metamyelocytes # Toxic Granulation Toxic Vacuolation Dohle Bodies Platelet Estimate Plt Morphology Comment RBC Morphology Macrocytosis PT INR APTT VBG pH 7.34 VBG pCO2 27 VBG pO2 41 VBG HCO3 14 L VBG O2 Saturation 83.0 VBG Base Excess -9.4 Sodium Potassium Chloride Carbon Dioxide Anion Gap BUN Creatinine Estim Creat Clear Calc Estimated GFR POC Glucose 160 H 160 H Random Glucose Estimat Average Glucose Hemoglobin A1c % Lactic Acid Calcium Phosphorus Magnesium Total Bilirubin AST ALT Alkaline Phosphatase Ammonia Total Creatine Kinase Troponin I High Sens Total Protein Albumin Beta-Hydroxybutyrate TSH Beta HCG, Quant Urine Color Urine Appearance Urine pH Ur Specific [place] Urine Protein Urine Glucose (UA) Urine Ketones Urine Blood Urine Nitrite Ur Leukocyte Esterase Urine RBC Urine WBC Ur Squamous Epith Cells Urine Bacteria Hyaline Casts Salicylates Urine Opiates Screen Urine Fentanyl Screen Acetaminophen Ur Barbiturates Screen Ur Phencyclidine Scrn Ur Amphetamines Screen U Benzodiazepines Scrn Urine Cocaine Screen U Marijuana (THC) Screen Ethyl Alcohol Influenza Type A (PCR) Influenza Type B (PCR) RSV RNA Qual (PCR) SARS-CoV-2 RNA (RT-PCR) Blood Type Antibody Screen 04/10/23 04/10/23 04/10/23 02:06 03:03 04:10 WBC RBC Hgb Hct MCV MCH MCHC RDW Plt Count MPV Immature Gran % (Auto) Neut % (Auto) Lymph % (Auto) Turner % (Auto) Eos % (Auto) Baso % (Auto) Lymph # (Auto) Turner # (Auto) Eos # (Auto) Baso # (Auto) Abs Immat Gran (auto) Absolute Neuts (auto) Absolute Nucleated RBC Nucleated RBC % (auto) Neutrophils % (Manual) Band Neutrophils % Lymphocytes % (Manual) Monocytes % (Manual) Eosinophils % (Manual) Metamyelocytes % Abs Neuts (Manual) Lymphocytes # (Manual) Monocytes # (Manual) Eosinophils # (Manual) Metamyelocytes # Toxic Granulation Toxic Vacuolation Dohle Bodies Platelet Estimate Plt Morphology Comment RBC Morphology Macrocytosis PT INR APTT VBG pH VBG pCO2 VBG pO2 VBG HCO3 VBG O2 Saturation VBG Base Excess Sodium Potassium Chloride Carbon Dioxide Anion Gap BUN Creatinine Estim Creat Clear Calc Estimated GFR POC Glucose 176 H 173 H 209 H Random Glucose Estimat Average Glucose Hemoglobin A1c % Lactic Acid Calcium Phosphorus Magnesium Total Bilirubin AST ALT Alkaline Phosphatase Ammonia Total Creatine Kinase Troponin I High Sens Total Protein Albumin Beta-Hydroxybutyrate TSH Beta HCG, Quant Urine Color Urine Appearance Urine pH Ur Specific [place] Urine Protein Urine Glucose (UA) Urine Ketones Urine Blood Urine Nitrite Ur Leukocyte Esterase Urine RBC Urine WBC Ur Squamous Epith Cells Urine Bacteria Hyaline Casts Salicylates Urine Opiates Screen Urine Fentanyl Screen Acetaminophen Ur Barbiturates Screen Ur Phencyclidine Scrn Ur Amphetamines Screen U Benzodiazepines Scrn Urine Cocaine Screen U Marijuana (THC) Screen Ethyl Alcohol Influenza Type A (PCR) Influenza Type B (PCR) RSV RNA Qual (PCR) SARS-CoV-2 RNA (RT-PCR) Blood Type Antibody Screen 04/10/23 04/10/23 04/10/23 05:05 05:07 05:08 WBC 14.3 H RBC 3.03 L D Hgb 9.5 L D Hct 26.4 L D MCV 87.1 MCH 31.4 MCHC 36.0 H RDW 11.2 Plt Count 109 L D MPV 9.5 Immature Gran % (Auto) Cancelled Neut % (Auto) Cancelled Lymph % (Auto) Cancelled Turner % (Auto) Cancelled Eos % (Auto) Cancelled Baso % (Auto) Cancelled Lymph # (Auto) Cancelled Turner # (Auto) Cancelled Eos # (Auto) Cancelled Baso # (Auto) Cancelled Abs Immat Gran (auto) Cancelled Absolute Neuts (auto) Cancelled Absolute Nucleated RBC 0.050 H Nucleated RBC % (auto) 0.4 H Neutrophils % (Manual) 73 Band Neutrophils % 16 H Lymphocytes % (Manual) 3 L Monocytes % (Manual) 7 Eosinophils % (Manual) Metamyelocytes % 1 Abs Neuts (Manual) 12.7 H Lymphocytes # (Manual) 0.4 L Monocytes # (Manual) 1.0 Eosinophils # (Manual) Metamyelocytes # 0.1 Toxic Granulation PRESENT Toxic Vacuolation PRESENT Dohle Bodies PRESENT Platelet Estimate SLIGHTLY DECREASED Plt Morphology Comment NORMAL RBC Morphology NORMAL Macrocytosis PT INR APTT VBG pH 7.33 VBG pCO2 31 VBG pO2 44 VBG HCO3 17 L VBG O2 Saturation 84.0 VBG Base Excess -7.6 Sodium 136 Potassium 4.1 D Chloride 109 H Carbon Dioxide 16 L Anion Gap 15 BUN 49 H Creatinine 2.37 H Estim Creat Clear Calc 39.5 Estimated GFR 23 POC Glucose 208 H Random Glucose 208 H Estimat Average Glucose Hemoglobin A1c % Lactic Acid Calcium 8.5 Phosphorus < 0.7 L* Magnesium 1.8 Total Bilirubin AST ALT Alkaline Phosphatase Ammonia Total Creatine Kinase Troponin I High Sens Total Protein Albumin 3.5 Beta-Hydroxybutyrate TSH Beta HCG, Quant Urine Color Urine Appearance Urine pH Ur Specific [place] Urine Protein Urine Glucose (UA) Urine Ketones Urine Blood Urine Nitrite Ur Leukocyte Esterase Urine RBC Urine WBC Ur Squamous Epith Cells Urine Bacteria Hyaline Casts Salicylates Urine Opiates Screen Urine Fentanyl Screen Acetaminophen Ur Barbiturates Screen Ur Phencyclidine Scrn Ur Amphetamines Screen U Benzodiazepines Scrn Urine Cocaine Screen U Marijuana (THC) Screen Ethyl Alcohol Influenza Type A (PCR) Influenza Type B (PCR) RSV RNA Qual (PCR) SARS-CoV-2 RNA (RT-PCR) Blood Type Antibody Screen 04/10/23 04/10/23 06:02 07:15 WBC RBC Hgb Hct MCV MCH MCHC RDW Plt Count MPV Immature Gran % (Auto) Neut % (Auto) Lymph % (Auto) [place] % (Auto) Eos % (Auto) Baso % (Auto) Lymph # (Auto) Turner # (Auto) Eos # (Auto) Baso # (Auto) Abs Immat Gran (auto) Absolute Neuts (auto) Absolute Nucleated RBC Nucleated RBC % (auto) Neutrophils % (Manual) Band Neutrophils % Lymphocytes % (Manual) Monocytes % (Manual) Eosinophils % (Manual) Metamyelocytes % Abs Neuts (Manual) Lymphocytes # (Manual) Monocytes # (Manual) Eosinophils # (Manual) Metamyelocytes # Toxic Granulation Toxic Vacuolation Dohle Bodies Platelet Estimate Plt Morphology Comment RBC Morphology Macrocytosis PT INR APTT VBG pH VBG pCO2 VBG pO2 VBG HCO3 VBG O2 Saturation VBG Base Excess Sodium Potassium Chloride Carbon Dioxide Anion Gap BUN Creatinine Estim Creat Clear Calc Estimated GFR POC Glucose 198 H 178 H Random Glucose Estimat Average Glucose Hemoglobin A1c % Lactic Acid Calcium Phosphorus Magnesium Total Bilirubin AST ALT Alkaline Phosphatase Ammonia Total Creatine Kinase Troponin I High Sens Total Protein Albumin Beta-Hydroxybutyrate TSH Beta HCG, Quant Urine Color Urine Appearance Urine pH Ur Specific [place] Urine Protein Urine Glucose (UA) Urine Ketones Urine Blood Urine Nitrite Ur Leukocyte Esterase Urine RBC Urine WBC Ur Squamous Epith Cells Urine Bacteria Hyaline Casts Salicylates Urine Opiates Screen Urine Fentanyl Screen Acetaminophen Ur Barbiturates Screen Ur Phencyclidine Scrn Ur Amphetamines Screen U Benzodiazepines Scrn Urine Cocaine Screen U Marijuana (THC) Screen Ethyl Alcohol Influenza Type A (PCR) Influenza Type B (PCR) RSV RNA Qual (PCR) SARS-CoV-2 RNA (RT-PCR) Blood Type Antibody Screen Microbiology Microbiology Results: Microbiology 04/09/23 10:59 Blood - Venous Blood Culture - Preliminary Prelim: GNR Gram Stain only 04/09/23 10:23 Blood - Venous Blood Culture - Preliminary Prelim: GPR Gram Stain only Prelim: GNR Gram Stain only Progress Note: A&P Assessment and plan (1) Diabetic keto-acidosis: Status: Acute (2) Septic shock: Status: Acute Plan Patient is a 48 Y F with diabetes mellitus, found down, found to be hypotensive, hypothermic, with glucose greater than 600, c/f diabetic ketoacidosis, and likely pyelonephritis as inciting stressor N: encephalopathic, likely toxic-metabolic; intermittent agitation, on dexmedetomidine gtt, wean as tolerated CV: shock, likely multi-factorial, hypovolemia in the setting of DKA and septis; norpinephrine gtt as needed R: no acute issues GI: NPO while on insulin gtt and encephalopathic : acute renal insufficiency, oligouric; to continue to monitor renal indices H: anemia, likely dilutional in setting of aggressive fluid resuscitation; to continue to monitor ID: c/f pyelonephritis; blood cultures w/ gram negative rods; empiric vancomycin, meropenem; to consider de-escalation w/ clinical improvement and reassuring blood cultures E: diabetic ketoacidosis; insulin gtt; aggressive electrolyte repletion P: intermittent agitation, on dexmedetomidine gtt Quality Stroke Does the patient have a stroke diagnosis?: No VTE Prior VTE?: No VTE Risk Level:: Medical - moderate - high VTE Device Contraindication: N/A - Device Ordered VTE Drug Contraindication: N/A - Med Ordered
[2023-04-10 08:08] LABS: Glucose, Whole Blood 204 mg/dL (60-115)
[2023-04-10] MEDS: Insulin Regular/NS 100 UNIT/100 ML PLAST..BAG 12 UNIT IVCONT (08:26)
[2023-04-10 09:35] LABS: Glucose, Whole Blood 191 mg/dL (60-115)
[2023-04-10 10:06] LABS: Glucose, Whole Blood 195 mg/dL (60-115)
[2023-04-10] MEDS: dexmedeTOMIDidine HCL/NS 400 MCG/100 ML INFUS..BTL IVCONT (10:21)
[2023-04-10 10:59] LABS: Glucose, Whole Blood 189 mg/dL (60-115)
[2023-04-10] MEDS: Lactated Ringers 500 ML 999 ML IV (11:37)
[2023-04-10 12:08] LABS: Glucose, Whole Blood 178 mg/dL (60-115)
[2023-04-10 13:18] LABS: Glucose, Whole Blood 160 mg/dL (60-115)
[2023-04-10 14:10] LABS: Glucose, Whole Blood 158 mg/dL (60-115)
[2023-04-10] MEDS: vancomycin HCL 1,250 MG in 0.9 % Sodium Chloride 250 ML 166.67 MG IV (14:22)
[2023-04-10 15:18] LABS: Glucose, Whole Blood 135 mg/dL (60-115)
--- NOTE | 2023-04-10 15:54 | MHC.CM.PN ---
EMR REVIEWED, PT ADMITTED W/DKA, PT CONFUSED AND UNABLE TO PARTICIPATE W/CM INTERVIEW, PER NSG MOM HAD BEEN AT BEDSIDE EARLIER IN DAY AND REPORTED PT WAS INDEP, CLEAR W/NO DME/SERVICES AT BASELINE, CM ATTEMPTEDE TO CONTACT PT'S MOM AT NUMBER ON FILE HOWEVER NO ANSWER AND DETAILED MESSAGE LEFT. ANTIC PT WILL CLEAR AND DC HOME SELF CARE W/FAMILKY FOR TRASNPORT
[2023-04-10] MEDS: Furosemide 20 MG/2 ML VIAL 10 MG IVPUSH (16:21)
[2023-04-10 16:27] LABS: Glucose, Whole Blood 142 mg/dL (60-115)
[2023-04-10] MEDS: dexmedeTOMIDidine HCL/NS 400 MCG/100 ML INFUS..BTL 19.72 MCG IVCONT (16:28)
[2023-04-10] MEDS: Acetaminophen 1,000 MG/100 ML PIGGYBACK 400 MG IV ×2 (16:42→21:57)
[2023-04-10] MEDS: Insulin Regular/NS 100 UNIT/100 ML PLAST..BAG 8 UNIT IVCONT (16:44)
[2023-04-10 17:13] LABS: Anion Gap 13 (12-20); Blood Urea Nitrogen 52 mg/dL (9-16); Calcium 8.3 mg/dL (8.4-10.2); Carbon Dioxide 19 mmol/L (22-29); Chloride 111 mmol/L (96-108); Creatinine Clr Calc Pharmacy 34.4; Estimated Glomerular Filt Rate 20; Glucose Random 151 mg/dL (60-115); Magnesium 1.7 mg/dL (1.6-2.6); Phosphorus 1.2 mg/dL (2.7-4.5); Potassium 4.3 mmol/L (3.3-5.1); Sodium 139 mmol/L (135-145)
[2023-04-10 17:14] LABS: Glucose, Whole Blood 147 mg/dL (60-115)
[2023-04-10 18:15] LABS: Glucose, Whole Blood 164 mg/dL (60-115)
[2023-04-10 19:29] LABS: Glucose, Whole Blood 176 mg/dL (60-115)
[2023-04-10 20:17] LABS: Glucose, Whole Blood 198 mg/dL (60-115)
[2023-04-10] MEDS: dexmedeTOMIDidine HCL/NS 400 MCG/100 ML INFUS..BTL 24.65 MCG IVCONT (20:32)
[2023-04-10] MEDS: Insulin Glargine,Hum.rec.anlog 100 UNIT/ML 10 ML VIAL 64 UNIT SUBCUT (20:34)
[2023-04-10] MEDS: Insulin Lispro 100 UNIT/ML 3 ML VIAL SUBCUT (20:35)
[2023-04-10] MEDS: Haloperidol Lactate 5 MG/ML VIAL 2 MG IVPUSH (21:25)
[2023-04-11] VITALS (46 sets, daily range): BP systolic 62–158; BP diastolic 29–102; PULSE 77–198; RESP 13–35; TEMP 36.9–38.5; O2SAT 91–98; BMI 40.7
[2023-04-11 00:07] LABS: Glucose, Whole Blood 393 mg/dL (60-115)
[2023-04-11] MEDS: Insulin Regular/NS 100 UNIT/100 ML PLAST..BAG 10 UNIT IVCONT (00:43)
[2023-04-11] MEDS: Norepinephrine Bitartrate/D5W 8 MG/250 ML PLAST..BAG 1.85 MG IV (00:47)
[2023-04-11] MEDS: dexmedeTOMIDidine HCL/NS 400 MCG/100 ML INFUS..BTL 24.65 MCG IVCONT ×2 (00:47→04:28)
[2023-04-11 01:26] LABS: Anion Gap 19 (12-20); Blood Urea Nitrogen 63 mg/dL (9-16); Calcium 7.7 mg/dL (8.4-10.2); Carbon Dioxide 13 mmol/L (22-29); Chloride 109 mmol/L (96-108); Creatinine Clr Calc Pharmacy 26.4; Estimated Glomerular Filt Rate 14; Glucose Random 493 mg/dL (60-115); Potassium 5.8 mmol/L (3.3-5.1); Sodium 135 mmol/L (135-145)
[2023-04-11 01:52] LABS: Glucose, Whole Blood 413 mg/dL (60-115)
[2023-04-11] MEDS: Morphine Sulfate 4 MG/ML CARTRIDGE 5 MG IVPUSH (02:14)
[2023-04-11 02:47] LABS: Glucose, Whole Blood 388 mg/dL (60-115)
[2023-04-11] MEDS: Acetaminophen 1,000 MG/100 ML PIGGYBACK 400 MG IV ×2 (03:23→21:06)
[2023-04-11] MEDS: Dextrose 5 % and Lactated Ring 1,000 ML 100 ML IVCONT ×2 (03:33→14:03)
[2023-04-11 03:56] LABS: Glucose, Whole Blood 356 mg/dL (60-115)
[2023-04-11] MEDS: LORazepam 2 MG/ML VIAL 1 MG IVPUSH ×5 (04:29→21:55)
--- NOTE | 2023-04-11 05:01 | ECG_ITS ---
Test Reason : Hyperkalemia Blood Pressure : / mmHG Vent. Rate : 102 BPM Atrial Rate : 102 BPM P-R Int : 134 ms QRS Dur : 078 ms QT Int : 340 ms P-R-T Axes : 033 054 027 degrees QTc Int : 443 ms Sinus tachycardia Nonspecific T wave abnormality Inferior leads Nonspecific ST abnormality Abnormal ECG When compared with ECG of 09-APR-2023 11:30, Sinus rhythm has replaced Atrial fibrillation Nonspecific T wave abnormality no longer evident in Anterolateral leads Heart rate has decreased Referred By: Elisabet Montez Electronically Signed By:MIKI WALKER MD
[2023-04-11 05:06] LABS: Glucose, Whole Blood 317 mg/dL (60-115)
[2023-04-11] MEDS: Albuterol Sulfate 7.5 MG, Albuterol Sulfate (0.083%) 2.5 MG 10 MG INHALE (05:17)
[2023-04-11] MEDS: Hydrocortisone Sod Succ/PF 100 MG VIAL 50 MG IVPUSH (05:23)
[2023-04-11] MEDS: Calcium Chloride 1 GM/10 ML SYRINGE IVPUSH (05:23)
[2023-04-11] MEDS: Sodium Bicarbonate 8.4% 50 MEQ/50 ML SYRINGE IVPUSH (05:24)
[2023-04-11] MEDS: Amiodarone/Dextrose 150 MG/100 ML PLAST..BAG 600 MG IV ×2 (05:50→07:20)
[2023-04-11 05:56] LABS: Glucose, Whole Blood 311 mg/dL (60-115)
[2023-04-11] MEDS: Insulin Regular/NS 100 UNIT/100 ML PLAST..BAG 15 UNIT IVCONT (05:58)
[2023-04-11] MEDS: Amiodarone HCL 900 MG in 0.9 % Sodium Chloride 500 ML 34.53 MG IVCONT (06:00)
[2023-04-11 06:55] LABS: Hematocrit 27.6 % (37.0-47.0); Hemoglobin 9.8 g/dl (12.0-16.0); Mean Corpuscular HGB Conc 35.5 g/dl (31.0-35.0); Mean Corpuscular Volume 90.2 fL (80.0-98.0); Mean Platelet Volume 10.6 fL (9.4-12.3); NRBC Pct Auto 0.3 /100WBC (0.0-0.2); Platelet Count 115 X10*3/uL (160-400); Red Blood Count 3.06 X10*6/uL (4.20-5.50); Red Cell Distribution Width 12.2 % (11.0-16.0); White Blood Count 10.8 X10*3/uL (4.8-10.8)
--- NOTE | 2023-04-11 07:00 | CA_ITS ---
Transthoracic Echocardiogram Patient (Last, First, Middle): Sandra Drummond, Gender: Female Date of : 1985 Age: 38 Procedure Date: 04/11/2023 Procedure Type: Transthoracic Echocardiogram Location: ICU Height: 165.1 cm Weight: 110.68 kg BSA: 2.15 m2 Heart Rate: 89 bpm BP: 162 / 93 mmHg Veterinary Parasitologist: SHERRY Referring MD: Elisabet Montez MD Symptoms: hypoxia, Assess Cardiac Function Study Quality: Technically Difficult ECG Rhythm: Sinus Conclusions: - Difficult to assess LVEF; suspect about 50%. - No obvious valvular pathology seen on this study. - Technically difficult study. Patient unco-operative. Findings Procedure Information Contrast agent, definity, is being given per protocol without apparent complications. The quality of the study was technically difficult. The study quality is limited by the patients inability to tolerate the test, patients body habitus, limitations of a portable exam, and an uncooperative patient. Left Ventricle Normal left ventricular cavity size. There is normal left ventricular wall thickness. The left ventricular systolic function is mildly decreased. Regional wall motion abnormalities can not be excluded due to suboptimal endocardial definition. Diastolic function is normal for age. Difficult to assess LVEF; suspect about 50%. Right Ventricle The right ventricle was not well visualized. Atria Both atria are normal in size. Aortic Valve There is a normal trileaflet aortic valve. There is no aortic valve stenosis. There is no aortic valve regurgitation. Mitral Valve The mitral valve appears normal. There is no mitral valve regurgitation. There is no mitral valve stenosis. Pulmonic Valve The pulmonic valve is likely normal. Tricuspid Valve There is trace tricuspid valve regurgitation. There is no evidence of pulmonary hypertension. Great Vessels The asc aorta is normal in size. Venous The inferior vena cava was not well visualized. Pericardium/Pleural There is no evidence of pericardial effusion. Prior Study Comparison No prior study available for comparison. Recommendations, Care & Conclusions No obvious valvular pathology seen on this study. Measurements 2D Linear Measurements IVSd: 0.66 0.6-0.9/0.6-1.0 cm LVIDd: 4.41 3.9-5.3/4.2-5.9 cm LVIDd Index: 2.05 2.4-3.2/2.2-3.1 cm/m2 LVIDs: 3.47 2.0-3.6 cm LVPWd: 0.57 0.7-1.1 cm LA Diam: 2.70 2.7-3.8/3.0-4.0 cm LAIDs Index: 1.26 1.5-2.3 cm/m2 LV Mass: 97.39 67-162/88-224 g LV Mass Index: 45.30 43-95/49-115 g/m2 LVOT Diam: 2.20 3.0+(-)1.3 cm 2D Systolic Function EF 4C: 48.40 >55% EF 2C: 52.10 >55% EF BiP: 51.90 >55% Mitral Valve MV Pk E: 0.98 MV PK A: 0.67 MV Decel Time: 150.00 E/A: 1.50 E'Lateral: 7.51 E'Medial: 7.18 E/E' Med: 13.60 E/E' Lat: 13.00 PHT: 44.00 MVA PHT: 5.00 Decel Union: 6.54 Aortic Valve AoV Pk Lonnie: 1.20 AoV Pk Grad: 6.00 BRYAN: 2.11 LVOT LVOT Pk Lonnie: 0.67 LVOT Mn Lonnie: 0.46 LVOT VTI: 0.11 LVOT Pk Grad: 2.00 LVOT Mn Grad: 1.00 LVOT Diam: 2.20 LVOT Area: 3.80 Diastolic Function MV Pk E: 0.98 MV Pk A: 0.67 E/A: 1.50 E'Medial: 7.18 E/E' Med: 13.60 E' Laterial: 7.51 E/E' Lat: 13.00 Great Vessels Aorta Sinus of Valsalva: 2.60 2.0-3.5 cm Ao Asc: 2.70 2.1-3.4 cm Pulmonary Valve PV Pk Olnnie: 0.54 Peak PV Grad: 1.00 Updated in Other Vendor System with Status of Final Evelio Acharya MD electronically signed on 04/11/2023 3:53:38 PM with status of Final
[2023-04-11 07:06] LABS: Anion Gap 16 (12-20); Blood Urea Nitrogen 64 mg/dL (9-16); Calcium 8.6 mg/dL (8.4-10.2); Carbon Dioxide 15 mmol/L (22-29); Chloride 111 mmol/L (96-108); Estimated Glomerular Filt Rate 13; Glucose Random 350 mg/dL (60-115); Magnesium 1.7 mg/dL (1.6-2.6); Phosphorus 2.3 mg/dL (2.7-4.5); Potassium 4.3 mmol/L (3.3-5.1); Sodium 138 mmol/L (135-145)
[2023-04-11 07:13] LABS: Glucose, Whole Blood 304 mg/dL (60-115)
--- NOTE | 2023-04-11 07:13 | PC.NURSE ---
Upon initial assessment at 1900- pt lethargic, does not open eyes or follow commands, moans/ becomes restless with care, LANE, tries to pull IV lines/clay. Pt in BL soft wrist restraints for pt safety. Pupils 2mm equal/ sluggish. Precedex gtt titrated per protocol. PRN Ativan and PRN Haldol given for restlessness/agitation as ordered. NSR on tele. Levophed gtt titrated per protocol to maintained MAP >65. On 2L NC, pt tachypneic. Core temp 100-101.3, scheduled IV Tylenol given as ordered for fever. Pt NPO, hypoactive BS, abd large/soft. Insulin gtt D/Jeffery at 1932 by . POC 198, sliding scale insulin and 64u lantus given per order. POC increased to 393 at 0000- MD notified. Insulin gtt restarted at 0043. POC Q1HR. D5LR @ 100mls/hr. Clay cath in place, urine output 0-5mls/hr. Bladder scanned for 297 at 2000- replaced clay with no improvement in urine output. Bladder scanned for 341 at 0000. MD aware. Repeat labs completed at approx 0100- 1 amp bicarb and 1gm calcium chloride given as ordered. Approx 0540- pt went into rapid Afib, HR 190-200. notified. New orders for Amio loading dose- given at 0550. Amio gtt started at 0600. Pt still in Afib, HR slightly improved to 160-180s. Bed locked and in lowest position. Telesitter in room for pt safety. Report given to oncoming RN.
[2023-04-11 07:58] LABS: Band Neutrophils Percent 17 % (3-5); Lymphocytes Percent Manual 9 % (20-40); Monocytes Absolute Manual 0.6 X10*3/uL (0.1-1.2); Monocytes Percent Manual 6 % (2-11); Neutrophils Absolute Manual 9.2 X10*3/uL (2.0-8.3); Neutrophils Percent Manual 68 % (45-73)
[2023-04-11 08:00] LABS: Acanthocytes 3+ (>5) /OIF; Burr Cells 1+ (0-2) /OIF; Dohle Bodies PRESENT; Hypochromasia 1+ (5-14) /OIF; Platelet Estimate DECREASED (NORMAL); Platelet Morphology Comment NORMAL; RBC Morphology NOTED; Toxic Vacuolation PRESENT
[2023-04-11] MEDS: Digoxin 0.5 MG/2 ML AMPUL 0.25 MG IVPUSH (08:18)
[2023-04-11 08:23] LABS: Glucose, Whole Blood 312 mg/dL (60-115)
[2023-04-11] MEDS: Heparin Sodium,Porcine 5,000 UNIT/ML VIAL 5000 UNIT SUBCUT ×3 (08:25→21:06)
[2023-04-11] MEDS: dexmedeTOMIDidine HCL/NS 400 MCG/100 ML INFUS..BTL 29.58 MCG IVCONT (08:26)
[2023-04-11] MEDS: Potassium Phosphate/NS 15 MMOL/250 ML PLAST..BAG 62.5 MMOL IV (08:28)
[2023-04-11 09:22] LABS: Glucose, Whole Blood 294 mg/dL (60-115)
--- NOTE | 2023-04-11 09:59 | P.PNCC_ITS ---
Subjective Subjective Date of Service: 04/11/23 Interval History: 38-year-old lady with underlying diabetes mellitus admitted on 04/09/2023 after being found unresponsive by her boyfriend. On ER evaluation patient in AFib with RVR and diabetic ketoacidosis, also hypertensive. Patient started on insulin drip, broad-spectrum antibiotics and admitted to intensive care unit. Further hospital course complicated by gram-negative bacteremia with likely source and acute renal failure. CT abdomen and pelvis without evidence of urinary obstruction or hydronephrosis. No events overnight. Continues to requiring insulin drip, amiodarone drip, and pressor support. Critical Care Time (minutes): 45 Physical Exam 2 Vital Signs: Vital Signs: Last Vital Signs Temp 100.8 F H 04/11/23 09:00 Pulse 159 H 04/11/23 09:32 Resp 15 04/11/23 09:00 BP 117/93 H 04/11/23 09:32 Pulse Ox 93 04/11/23 09:00 O2 Del Method Nasal Cannula 04/11/23 09:00 O2 Flow Rate 2 04/11/23 09:00 Oxygen Flow Rate 4 04/09/23 10:23 BMI result Body Mass Index 40.7 Const: General: no acute distress and confusion Orientation/consciousness: confusion Eyes: Sclerae: sclerae normal EOM: EOMs intact bilaterally Neck: Neck: Yes no lymphadenopathy, Yes trachea midline and Yes supple Resp: Effort & Inspection: normal respiratory effort and no respiratory distress Auscultation: crackles (Bilateral) Cardio: Rate: tachycardic Rhythm: abnormal rhythm irregularly irregular Heart sounds: no gallops, no murmurs and no rubs GI: Palpation (GI): Soft to palpation and Other GI palpation findings present ( Nontender) Auscultation: normal bowel sounds Neuro: General: confusion Extrem: General: No clubbing, No cyanosis and Yes edema (1+ bilateral) Objective Data Labs 04/11/23 06:35 04/11/23 06:35 Labs: Laboratory Results - last 24 hr 04/10/23 04/10/23 04/10/23 10:02 10:55 12:04 WBC RBC Hgb Hct MCV MCH MCHC RDW Plt Count MPV Immature Gran % (Auto) Neut % (Auto) Lymph % (Auto) [place] % (Auto) Eos % (Auto) Baso % (Auto) Lymph # (Auto) [place] # (Auto) Eos # (Auto) Baso # (Auto) Abs Immat Gran (auto) Absolute Neuts (auto) Absolute Nucleated RBC Nucleated RBC % (auto) Neutrophils % (Manual) Band Neutrophils % Lymphocytes % (Manual) Monocytes % (Manual) Abs Neuts (Manual) Lymphocytes # (Manual) Monocytes # (Manual) Toxic Vacuolation Dohle Bodies Platelet Estimate Plt Morphology Comment RBC Morphology Hypochromasia [place] Cells Acanthocytes (Spur) Sodium Potassium Chloride Carbon Dioxide Anion Gap BUN Creatinine Estim Creat Clear Calc Estimated GFR POC Glucose 195 H 189 H 178 H Random Glucose Calcium Phosphorus Magnesium 04/10/23 04/10/23 04/10/23 13:14 14:06 15:12 WBC RBC Hgb Hct MCV MCH MCHC RDW Plt Count MPV Immature Gran % (Auto) Neut % (Auto) Lymph % (Auto) [place] % (Auto) Eos % (Auto) Baso % (Auto) Lymph # (Auto) [place] # (Auto) Eos # (Auto) Baso # (Auto) Abs Immat Gran (auto) Absolute Neuts (auto) Absolute Nucleated RBC Nucleated RBC % (auto) Neutrophils % (Manual) Band Neutrophils % Lymphocytes % (Manual) Monocytes % (Manual) Abs Neuts (Manual) Lymphocytes # (Manual) Monocytes # (Manual) Toxic Vacuolation Dohle Bodies Platelet Estimate Plt Morphology Comment RBC Morphology Hypochromasia [place] Cells Acanthocytes (Spur) Sodium Potassium Chloride Carbon Dioxide Anion Gap BUN Creatinine Estim Creat Clear Calc Estimated GFR POC Glucose 160 H 158 H 135 H Random Glucose Calcium Phosphorus Magnesium 04/10/23 04/10/23 04/10/23 16:21 16:51 17:07 WBC RBC Hgb Hct MCV MCH MCHC RDW Plt Count MPV Immature Gran % (Auto) Neut % (Auto) Lymph % (Auto) [place] % (Auto) Eos % (Auto) Baso % (Auto) Lymph # (Auto) [place] # (Auto) Eos # (Auto) Baso # (Auto) Abs Immat Gran (auto) Absolute Neuts (auto) Absolute Nucleated RBC Nucleated RBC % (auto) Neutrophils % (Manual) Band Neutrophils % Lymphocytes % (Manual) Monocytes % (Manual) Abs Neuts (Manual) Lymphocytes # (Manual) Monocytes # (Manual) Toxic Vacuolation Dohle Bodies Platelet Estimate Plt Morphology Comment RBC Morphology Hypochromasia [place] Cells Acanthocytes (Spur) Sodium 139 Potassium 4.3 Chloride 111 H Carbon Dioxide 19 L Anion Gap 13 BUN 52 H Creatinine 2.72 H Estim Creat Clear Calc 34.4 Estimated GFR 20 POC Glucose 142 H 147 H Random Glucose 151 H Calcium 8.3 L Phosphorus 1.2 L Magnesium 1.7 04/10/23 04/10/23 04/10/23 18:10 19:25 20:13 WBC RBC Hgb Hct MCV MCH MCHC RDW Plt Count MPV Immature Gran % (Auto) Neut % (Auto) Lymph % (Auto) [place] % (Auto) Eos % (Auto) Baso % (Auto) Lymph # (Auto) [place] # (Auto) Eos # (Auto) Baso # (Auto) Abs Immat Gran (auto) Absolute Neuts (auto) Absolute Nucleated RBC Nucleated RBC % (auto) Neutrophils % (Manual) Band Neutrophils % Lymphocytes % (Manual) Monocytes % (Manual) Abs Neuts (Manual) Lymphocytes # (Manual) Monocytes # (Manual) Toxic Vacuolation Dohle Bodies Platelet Estimate Plt Morphology Comment RBC Morphology Hypochromasia [place] Cells Acanthocytes (Spur) Sodium Potassium Chloride Carbon Dioxide Anion Gap BUN Creatinine Estim Creat Clear Calc Estimated GFR POC Glucose 164 H 176 H 198 H Random Glucose Calcium Phosphorus Magnesium 04/10/23 04/11/23 04/11/23 23:59 01:01 01:47 WBC RBC Hgb Hct MCV MCH MCHC RDW Plt Count MPV Immature Gran % (Auto) Neut % (Auto) Lymph % (Auto) [place] % (Auto) Eos % (Auto) Baso % (Auto) Lymph # (Auto) [place] # (Auto) Eos # (Auto) Baso # (Auto) Abs Immat Gran (auto) Absolute Neuts (auto) Absolute Nucleated RBC Nucleated RBC % (auto) Neutrophils % (Manual) Band Neutrophils % Lymphocytes % (Manual) Monocytes % (Manual) Abs Neuts (Manual) Lymphocytes # (Manual) Monocytes # (Manual) Toxic Vacuolation Dohle Bodies Platelet Estimate Plt Morphology Comment RBC Morphology Hypochromasia [place] Cells Acanthocytes (Spur) Sodium 135 Potassium 5.8 H D Chloride 109 H Carbon Dioxide 13 L Anion Gap 19 BUN 63 H Creatinine 3.54 H Estim Creat Clear Calc 26.4 Estimated GFR 14 POC Glucose 393 H* 413 H* Random Glucose 493 H* Calcium 7.7 L D Phosphorus Magnesium 04/11/23 04/11/23 04/11/23 02:43 03:52 05:02 WBC RBC Hgb Hct MCV MCH MCHC RDW Plt Count MPV Immature Gran % (Auto) Neut % (Auto) Lymph % (Auto) [place] % (Auto) Eos % (Auto) Baso % (Auto) Lymph # (Auto) [place] # (Auto) Eos # (Auto) Baso # (Auto) Abs Immat Gran (auto) Absolute Neuts (auto) Absolute Nucleated RBC Nucleated RBC % (auto) Neutrophils % (Manual) Band Neutrophils % Lymphocytes % (Manual) Monocytes % (Manual) Abs Neuts (Manual) Lymphocytes # (Manual) Monocytes # (Manual) Toxic Vacuolation Dohle Bodies Platelet Estimate Plt Morphology Comment RBC Morphology Hypochromasia [place] Cells Acanthocytes (Spur) Sodium Potassium Chloride Carbon Dioxide Anion Gap BUN Creatinine Estim Creat Clear Calc Estimated GFR POC Glucose 388 H* 356 H* 317 H Random Glucose Calcium Phosphorus Magnesium 04/11/23 04/11/23 04/11/23 05:53 06:35 06:35 WBC 10.8 RBC 3.06 L Hgb 9.8 L Hct 27.6 L MCV 90.2 MCH 32.0 MCHC 35.5 H RDW 12.2 Plt Count 115 L MPV 10.6 Immature Gran % (Auto) Cancelled Neut % (Auto) Cancelled Lymph % (Auto) Cancelled [place] % (Auto) Cancelled Eos % (Auto) Cancelled Baso % (Auto) Cancelled Lymph # (Auto) Cancelled [place] # (Auto) Cancelled Eos # (Auto) Cancelled Baso # (Auto) Cancelled Abs Immat Gran (auto) Cancelled Absolute Neuts (auto) Cancelled Absolute Nucleated RBC 0.030 H Nucleated RBC % (auto) 0.3 H Neutrophils % (Manual) 68 Band Neutrophils % 17 H Lymphocytes % (Manual) 9 L Monocytes % (Manual) 6 Abs Neuts (Manual) 9.2 H Lymphocytes # (Manual) 1.0 L Monocytes # (Manual) 0.6 Toxic Vacuolation PRESENT Dohle Bodies PRESENT Platelet Estimate DECREASED Plt Morphology Comment NORMAL RBC Morphology NOTED Hypochromasia 1+ (5-14) [place] Cells 1+ (0-2) Acanthocytes (Spur) 3+ (>5) Sodium 138 Cancelled Potassium 4.3 D Chloride Carbon Dioxide Anion Gap BUN Creatinine Estim Creat Clear Calc Estimated GFR POC Glucose 311 H Random Glucose Calcium Phosphorus Magnesium 04/11/23 04/11/23 04/11/23 06:35 06:35 06:35 WBC RBC Hgb Hct MCV MCH MCHC RDW Plt Count MPV Immature Gran % (Auto) Neut % (Auto) Lymph % (Auto) [place] % (Auto) Eos % (Auto) Baso % (Auto) Lymph # (Auto) [place] # (Auto) Eos # (Auto) Baso # (Auto) Abs Immat Gran (auto) Absolute Neuts (auto) Absolute Nucleated RBC Nucleated RBC % (auto) Neutrophils % (Manual) Band Neutrophils % Lymphocytes % (Manual) Monocytes % (Manual) Abs Neuts (Manual) Lymphocytes # (Manual) Monocytes # (Manual) Toxic Vacuolation Dohle Bodies Platelet Estimate Plt Morphology Comment RBC Morphology Hypochromasia [place] Cells Acanthocytes (Spur) Sodium Potassium Cancelled Chloride 111 H Cancelled Carbon Dioxide 15 L Cancelled Anion Gap 16 BUN Creatinine Estim Creat Clear Calc Estimated GFR POC Glucose Random Glucose Calcium Phosphorus Magnesium 04/11/23 04/11/23 04/11/23 06:35 06:35 06:35 WBC RBC Hgb Hct MCV MCH MCHC RDW Plt Count MPV Immature Gran % (Auto) Neut % (Auto) Lymph % (Auto) [place] % (Auto) Eos % (Auto) Baso % (Auto) Lymph # (Auto) [place] # (Auto) Eos # (Auto) Baso # (Auto) Abs Immat Gran (auto) Absolute Neuts (auto) Absolute Nucleated RBC Nucleated RBC % (auto) Neutrophils % (Manual) Band Neutrophils % Lymphocytes % (Manual) Monocytes % (Manual) Abs Neuts (Manual) Lymphocytes # (Manual) Monocytes # (Manual) Toxic Vacuolation Dohle Bodies Platelet Estimate Plt Morphology Comment RBC Morphology Hypochromasia [place] Cells Acanthocytes (Spur) Sodium Potassium Chloride Carbon Dioxide Anion Gap Cancelled BUN 64 H Cancelled Creatinine 3.94 H Cancelled Estim Creat Clear Calc 24.0 Estimated GFR POC Glucose Random Glucose Calcium Phosphorus Magnesium 04/11/23 04/11/23 04/11/23 06:35 06:35 06:35 WBC RBC Hgb Hct MCV MCH MCHC RDW Plt Count MPV Immature Gran % (Auto) Neut % (Auto) Lymph % (Auto) [place] % (Auto) Eos % (Auto) Baso % (Auto) Lymph # (Auto) [place] # (Auto) Eos # (Auto) Baso # (Auto) Abs Immat Gran (auto) Absolute Neuts (auto) Absolute Nucleated RBC Nucleated RBC % (auto) Neutrophils % (Manual) Band Neutrophils % Lymphocytes % (Manual) Monocytes % (Manual) Abs Neuts (Manual) Lymphocytes # (Manual) Monocytes # (Manual) Toxic Vacuolation Dohle Bodies Platelet Estimate Plt Morphology Comment RBC Morphology Hypochromasia [place] Cells Acanthocytes (Spur) Sodium Potassium Chloride Carbon Dioxide Anion Gap BUN Creatinine Estim Creat Clear Calc Cancelled Estimated GFR 13 Cancelled POC Glucose Random Glucose 350 H* Cancelled Calcium 8.6 D Phosphorus Magnesium 04/11/23 04/11/23 04/11/23 06:35 07:10 08:19 WBC RBC Hgb Hct MCV MCH MCHC RDW Plt Count MPV Immature Gran % (Auto) Neut % (Auto) Lymph % (Auto) [place] % (Auto) Eos % (Auto) Baso % (Auto) Lymph # (Auto) [place] # (Auto) Eos # (Auto) Baso # (Auto) Abs Immat Gran (auto) Absolute Neuts (auto) Absolute Nucleated RBC Nucleated RBC % (auto) Neutrophils % (Manual) Band Neutrophils % Lymphocytes % (Manual) Monocytes % (Manual) Abs Neuts (Manual) Lymphocytes # (Manual) Monocytes # (Manual) Toxic Vacuolation Dohle Bodies Platelet Estimate Plt Morphology Comment RBC Morphology Hypochromasia [place] Cells Acanthocytes (Spur) Sodium Potassium Chloride Carbon Dioxide Anion Gap BUN Creatinine Estim Creat Clear Calc Estimated GFR POC Glucose 304 H 312 H Random Glucose Calcium Cancelled Phosphorus 2.3 L Magnesium 1.7 04/11/23 09:18 WBC RBC Hgb Hct MCV MCH MCHC RDW Plt Count MPV Immature Gran % (Auto) Neut % (Auto) Lymph % (Auto) [place] % (Auto) Eos % (Auto) Baso % (Auto) Lymph # (Auto) [place] # (Auto) Eos # (Auto) Baso # (Auto) Abs Immat Gran (auto) Absolute Neuts (auto) Absolute Nucleated RBC Nucleated RBC % (auto) Neutrophils % (Manual) Band Neutrophils % Lymphocytes % (Manual) Monocytes % (Manual) Abs Neuts (Manual) Lymphocytes # (Manual) Monocytes # (Manual) Toxic Vacuolation Dohle Bodies Platelet Estimate Plt Morphology Comment RBC Morphology Hypochromasia [place] Cells Acanthocytes (Spur) Sodium Potassium Chloride Carbon Dioxide Anion Gap BUN Creatinine Estim Creat Clear Calc Estimated GFR POC Glucose 294 H Random Glucose Calcium Phosphorus Magnesium Microbiology Microbiology Results: Microbiology 04/10/23 05:20 Blood - Venous Blood Culture - Preliminary No growth after 24 hours. 04/10/23 05:20 Blood - Venous Blood Culture - Preliminary No growth after 24 hours. 04/09/23 10:23 Blood - Venous Blood Culture - Preliminary Prelim: GNR Gram Stain only 04/09/23 10:59 Blood - Venous Blood Culture - Preliminary Prelim: GNR Gram Stain only Progress Note: A&P Assessment and plan (1) Gram-negative bacteremia: Status: Acute (2) Septic shock: Status: Acute (3) Atrial fibrillation with rapid ventricular response: Status: Acute (4) Diabetic keto-acidosis: Status: Acute (5) Acute metabolic encephalopathy: Status: Acute (6) Acute renal failure: Status: Acute Plan Assessment: 38-year-old lady admitted with diabetic ketoacidosis, Gram-negative bacteremia, pyelonephritis, acute renal failure, metabolic encephalopathy, and AFib with RVR Plan: Neuro: Metabolic encephalopathy, also possible septic encephalopathy component. Expect to improve with resolution of sepsis and diabetic ketoacidosis. Cardiac: AFib with RVR, likely secondary to underlying acidosis. Continue with rate control with amiodarone. Septic shock, continue to titrate off pressor support as tolerated. Pulmonary: No acute issues. Renal: Acute renal failure. Pyelonephritis. Oliguric. Nephrology consultation requested. Continue to monitor renal indices and urine output. Endo: No acute issues. GI: No acute issues. ID: Gram-negative bacteremia with likely source. Continue broad-spectrum antibiotics. Heme/Onc: No acute issues. Psych: No acute issues. Miscellaneous: No acute issues. Prophylaxis: Heparin Diet: Nothing by mouth Critical care time spent: 45 minute Quality Stroke Does the patient have a stroke diagnosis?: No VTE Prior VTE?: No VTE Risk Level:: Medical - moderate - high VTE Device Contraindication: N/A - Device Ordered VTE Drug Contraindication: N/A - Med Ordered
[2023-04-11] MEDS: Insulin Regular/NS 100 UNIT/100 ML PLAST..BAG 33.75 UNIT IVCONT (10:05)
--- NOTE | 2023-04-11 10:13 | MHC.CM.PN ---
Pt continues care in ICU: Obtunded: not able to participate in CM assessment: pt's mother in room and able to provide history: pt resides w/significant other, Duncan: she has a 17 year old son who resides with his biological father. Pt's mother states pt is independent w/all care needs, sees a new provider at [facility]. She has DM supplies but no other DME. Transportation provided by Duncan or her. Pt's mother teary and describes depression and poor self esteem with pt. She states she doesn't manage her diabetes or health and is in an unhappy domestic relationship. CM to recommend [facility] consult once medically stable to address pt's possible MH needs. CM to follow.
[2023-04-11 10:27] LABS: Glucose, Whole Blood 279 mg/dL (60-115)
[2023-04-11 11:19] LABS: Glucose, Whole Blood 260 mg/dL (60-115)
[2023-04-11] MEDS: Haloperidol Lactate 5 MG/ML VIAL 2 MG IVPUSH (11:44)
[2023-04-11 12:02] LABS: Glucose, Whole Blood 200 mg/dL (60-115)
[2023-04-11 12:28] LABS: VBG Base Excess -10.8 mmol/L; VBG HCO3 14 mmol/L (22-26); VBG pCO2 30 mmHg; VBG pH 7.28 (7.32-7.43); VBG pO2 70 mmHg
[2023-04-11 12:28] LABS: Venous Blood Gas Refer to POC result
[2023-04-11 12:40] LABS: Anion Gap 16 (12-20); Blood Urea Nitrogen 66 mg/dL (9-16); Carbon Dioxide 17 mmol/L (22-29); Chloride 113 mmol/L (96-108); Potassium 4.1 mmol/L (3.3-5.1); Sodium 142 mmol/L (135-145)
[2023-04-11 12:41] LABS: Calcium 8.5 mg/dL (8.4-10.2); Creatinine Clr Calc Pharmacy 24.1; Estimated Glomerular Filt Rate 13; Glucose Random 210 mg/dL (60-115)
[2023-04-11 12:47] LABS: Vancomycin Random 32.9 mcg/mL (15-20)
--- NOTE | 2023-04-11 12:47 | PM.CNNEP ---
History of Present Illness Reason for Consult Consult date: 04/12/23 Reason for consult: ELISABETH Chief Complaint Chief complaint: Diabetic ketoacidosis History of Present Illness Narrative: 38 Y F with diabetes mellitus, found down by patient boyfriend, found by EMS to be hypotensive, hypothermic; of note, patient found to be in atrial fibrillation with rapid ventricular response, s/p synchronized cardioversion; in ED, insulin gtt, fluid resuscitation, and re-warming initiated; upon further history-taking, patient boyfriend reports patient is unfortunately not compliant with home insulin regimen, endorsed general fatigue, nausea, and decreased PO intake since 04/07, and ultimately found down in kitchen She has been in the ICU for the past few days. Has been a gradual increase in serum creatinine and she is currently developing oliguria. Consult has been requested for management of ELISABETH Review of Systems Review of Systems Unable to obtain from the patient due to her mentation Reports confusion Psychiatric: Reports confusion PMFSH Past Medical History Medical History (Updated 04/11/23 @ 10:08 by Jayden Tipton MD) Diabetes Social History Social History (System 04/11/23 @ 07:36 by Natacha Cronin) Household Members: Spouse Housing: Unknown / Unable to assess Do you presently have visiting nurse or other home services: No Unable to assess alcohol history related to: Unable to respond Patient Tobacco Use Status: Refuse Tobacco use screen service: No Meds Allergies Allergy/AdvReac Type Severity Reaction Status Date / Time No Known Allergies Allergy Unverified 04/11/23 07:36 [No Known Allergies*] Active Medications: Current Medications Dextrose (Dextrose 50 % 25 Gm/50 Ml Syringe) 25 gm IVPUSH Q30M PRN PRN Reason: BG < 70 Dextrose (Dextrose 50 % 25 Gm/50 Ml Syringe) 25 gm IVPUSH Q15M PRN; Protocol PRN Reason: per Hypoglycemia Standing Ord. Dextrose (Dextrose 50 % 25 Gm/50 Ml Syringe) 25 gm IVPUSH Q30M PRN PRN Reason: BG < 70 Glucose (Glucose Gel 15 Gm Gel..Gram.) 15 gm PO Q15M PRN; Protocol PRN Reason: per Hypoglycemia Standing Ord. Haloperidol Lactate (Haloperidol Lactate 5 Mg/Ml Vial) 2 mg IVPUSH Q4H PRN PRN Reason: Agitation Last Admin: 04/11/23 11:44 Dose: 2 mg Heparin Sodium (Porcine) (Heparin Sodium,Porcine 5,000 Unit/Ml Vial) 5,000 unit SUBCUT TID [facility] Last Admin: 04/11/23 08:25 Dose: 5,000 unit Norepinephrine Bitartrate (Levophed) 8 mg in 250 mls @ 0 mls/hr IV .Q0M JENNY; Protocol Last Titration: 04/11/23 11:26 Dose: 0.01 mcg/kg/min, 1.85 mls/hr Vancomycin HCl 1,250 mg/ (Sodium Chloride) 250 mls @ 166.667 mls/hr IV Q24H [facility] Last Infusion: 04/10/23 16:07 Dose: Infused Meropenem 1 gm/ Sodium (Chloride) 100 mls @ 200 mls/hr IV Q12H [facility] Last Infusion: 04/11/23 05:36 Dose: Infused Dextrose/Lactated Ringer's (D5lr) 1,000 mls @ 100 mls/hr IVCONT .Q10H [facility] Last Admin: 04/11/23 03:33 Dose: 100 mls/hr Dexmedetomidine HCl (Precedex) 400 mcg in 100 mls @ 0 mls/hr IVCONT .Q0M [facility]; Protocol Last Titration: 04/11/23 10:24 Dose: 0 mcg/kg/hr, 0 mls/hr Acetaminophen (Ofirmev) 1,000 mg in 100 mls @ 400 mls/hr IV Q6H [facility] Last Admin: 04/11/23 09:44 Dose: Not Given Insulin Human Regular (Myxredlin) 100 unit in 100 mls @ 10 mls/hr IVCONT .Q10H [facility]; Protocol Last Titration: 04/11/23 12:03 Dose: 20 unit/hr, 20 mls/hr Amiodarone HCl 900 mg/ Sodium (Chloride) 518 mls @ 34.533 mls/hr IVCONT .Q15H1M [facility]; Protocol Last Infusion: 04/11/23 12:02 Dose: 0.5 mg/min, 17.27 mls/hr Lorazepam (Lorazepam 2 Mg/Ml Vial) 1 mg IVPUSH Q4H PRN PRN Reason: anxiety/restlessness Last Admin: 04/11/23 11:57 Dose: 1 mg Ondansetron HCl (Ondansetron Hcl 4 Mg/2 Ml Vial) 4 mg IVPUSH Q4H PRN PRN Reason: Nausea Last Admin: 04/10/23 07:42 Dose: 4 mg Pharmacy Consult (Consult Rx Vancomycin Dosing) 1 each MISCELLANE DAILY PRN PRN Reason: Consult order Home Medications Medication Instructions Recorded Confirmed Last Taken Type insulin glargine 100 unit/mL (3 10 unit subcut BEDTIME 04/09/23 04/09/23 Unknown History mL) subcutaneous pen (Lantus Solostar U-100 Insulin) insulin lispro 100 unit/mL See Protocol subcut TIDWM 04/09/23 04/09/23 Unknown History subcutaneous pen Physical Exam Vital Signs: Last Vital Signs Temp 100.6 F H 04/11/23 12:00 Pulse 87 04/11/23 12:00 Resp 18 04/11/23 12:00 BP 121/77 04/11/23 12:00 Pulse Ox 94 04/11/23 12:00 O2 Del Method Nasal Cannula 04/11/23 12:00 O2 Flow Rate 2 04/11/23 12:00 Oxygen Flow Rate 4 04/09/23 10:23 BMI result Body Mass Index 40.7 Const General: confusion and ill appearing Orientation/consciousness: confusion Neck Neck: Yes supple Resp Auscultation: rhonchi and diminished lung sounds Cardio Jugular venous distension: no JVD Heart sounds: no rubs GI Palpation (GI): nontender Auscultation: normal bowel sounds Skin General skin exam: no rashes or lesions noted Neuro General: confusion Extrem General: No edema Results Lab Results 04/12/23 05:31 04/12/23 05:26 Lab results: Chemistry 04/09/23 04/09/23 04/09/23 11:28 14:00 14:00 Sodium 129 L 131 L Cancelled Potassium 3.8 3.7 Carbon Dioxide < 5 L* BUN 45 H Creatinine 2.03 H Calcium 7.7 L Phosphorus 04/09/23 04/09/23 04/09/23 14:00 14:00 14:00 Sodium Potassium Cancelled Carbon Dioxide < 5 L* Cancelled BUN 44 H Cancelled Creatinine 2.08 H Calcium Phosphorus 04/09/23 04/09/23 04/09/23 14:00 14:00 14:31 Sodium 129 L Potassium 4.1 Carbon Dioxide 5 L* BUN 44 H Creatinine Cancelled 2.08 H Calcium 7.7 L Cancelled 8.1 L Phosphorus 3.0 04/09/23 04/09/23 04/10/23 17:50 21:07 05:08 Sodium 133 L 137 136 Potassium 3.3 2.8 L 4.1 D Carbon Dioxide 9 L* D 14 L 16 L BUN 45 H 45 H 49 H Creatinine 2.13 H 2.13 H 2.37 H Calcium 8.1 L 8.3 L 8.5 Phosphorus < 0.7 L* 04/10/23 04/11/23 04/11/23 16:51 01:01 06:35 Sodium 139 135 138 Potassium 4.3 5.8 H D Carbon Dioxide 19 L 13 L BUN 52 H 63 H Creatinine 2.72 H 3.54 H Calcium 8.3 L 7.7 L D Phosphorus 1.2 L 04/11/23 04/11/23 04/11/23 06:35 06:35 06:35 Sodium Cancelled Potassium 4.3 D Cancelled Carbon Dioxide 15 L Cancelled BUN 64 H Creatinine Calcium Phosphorus 04/11/23 04/11/23 04/11/23 06:35 06:35 06:35 Sodium Potassium Carbon Dioxide BUN Cancelled Creatinine 3.94 H Cancelled Calcium 8.6 D Cancelled Phosphorus 2.3 L 04/11/23 04/11/23 04/11/23 12:18 12:18 12:18 Sodium Cancelled 142 Potassium Cancelled 4.1 Carbon Dioxide Cancelled BUN Creatinine Calcium Phosphorus 04/11/23 04/11/23 04/11/23 12:18 12:18 12:18 Sodium Potassium Carbon Dioxide 17 L BUN Cancelled 66 H Creatinine Cancelled 3.92 H Calcium Cancelled Phosphorus 04/11/23 12:18 Sodium Potassium Carbon Dioxide BUN Creatinine Calcium 8.5 Phosphorus Hematology 04/09/23 04/09/23 04/09/23 10:25 14:31 17:50 WBC 24.2 H 17.7 H 17.5 H Hgb 13.4 12.5 12.1 Plt Count 226 190 193 04/10/23 04/11/23 05:08 06:35 WBC 14.3 H 10.8 Hgb 9.5 L D 9.8 L Plt Count 109 L D 115 L Urinalysis 04/09/23 11:14 Urine Color Yellow Urine Appearance Clear Urine pH 5.5 Ur Specific [place] 1.020 Urine Protein 100 (2+) H Urine Glucose (UA) >=1000 H Urine Ketones 80 Urine Blood Moderate (2+) H Urine Nitrite Negative Ur Leukocyte Esterase Negative Urine RBC 0-2 Urine WBC 0-5 Ur Squamous Epith Cells 0-2 Hyaline Casts 3-5 Assessment and Plan (1) Acute renal failure: Status: Acute (2) Septic shock: Status: Acute (3) Acute hypotension: Status: Acute (4) Diabetic keto-acidosis: Status: Acute (5) Gram-negative bacteremia: Status: Acute Plan 38-year-old woman with acute kidney injury in a setting of her sepsis hypertension and DKA. Diagnosis includes acute tubular necrosis. No reason to believe that she has any active glomerulonephritis. Other possibilities including tubular injury from nephrotoxins No evidence of obstructive uropathy. Recommendation Check urine for protein, creatinine, repeat urinalysis. Optimize blood pressure. Avoid hypotension. Continue to avoid nephrotoxic agents. Watch urine output closely. There is no acute indication for dialysis today. However if the renal function does not improve over the next 24-48 hours she will be requiring renal replacement therapy. We will follow along closely with the team. Thank you Procedures Date of Service Date of Service: 04/12/23
[2023-04-11 13:02] LABS: Glucose, Whole Blood 171 mg/dL (60-115)
[2023-04-11] MEDS: Insulin Regular/NS 100 UNIT/100 ML PLAST..BAG 8 UNIT IVCONT (14:03)
[2023-04-11 14:05] LABS: Glucose, Whole Blood 141 mg/dL (60-115)
[2023-04-11] MEDS: dexmedeTOMIDidine HCL/NS 400 MCG/100 ML INFUS..BTL 34.51 MCG IVCONT (14:33)
[2023-04-11 15:05] LABS: Glucose, Whole Blood 125 mg/dL (60-115)
[2023-04-11 16:04] LABS: Glucose, Whole Blood 133 mg/dL (60-115)
[2023-04-11 16:47] LABS: Anion Gap 14 (12-20); Blood Urea Nitrogen 67 mg/dL (9-16); Calcium 8.2 mg/dL (8.4-10.2); Carbon Dioxide 18 mmol/L (22-29); Chloride 114 mmol/L (96-108); Creatinine Clr Calc Pharmacy 24.8; Estimated Glomerular Filt Rate 13; Glucose Random 133 mg/dL (60-115); Potassium 4.1 mmol/L (3.3-5.1); Sodium 142 mmol/L (135-145)
[2023-04-11 17:07] LABS: Glucose, Whole Blood 138 mg/dL (60-115)
[2023-04-11] MEDS: dexmedeTOMIDidine HCL/NS 400 MCG/100 ML INFUS..BTL 36.98 MCG IVCONT ×3 (17:41→22:44)
[2023-04-11 18:08] LABS: Glucose, Whole Blood 131 mg/dL (60-115)
[2023-04-11 19:12] LABS: Glucose, Whole Blood 127 mg/dL (60-115)
[2023-04-11 19:19] LABS: Anion Gap 16 (12-20); Blood Urea Nitrogen 65 mg/dL (9-16); Calcium 8.2 mg/dL (8.4-10.2); Carbon Dioxide 17 mmol/L (22-29); Chloride 113 mmol/L (96-108); Creatinine Clr Calc Pharmacy 23.5; Estimated Glomerular Filt Rate 12; Glucose Random 128 mg/dL (60-115); Potassium 4.1 mmol/L (3.3-5.1); Sodium 142 mmol/L (135-145)
[2023-04-11 19:56] LABS: Venous Blood Gas Refer to POC result
[2023-04-11 19:56] LABS: VBG HCO3 15 mmol/L (22-26); VBG pCO2 31 mmHg; VBG pH 7.29 (7.32-7.43); VBG pO2 37 mmHg
[2023-04-11 20:00] LABS: Glucose, Whole Blood 140 mg/dL (60-115)
[2023-04-11 20:13] LABS: Anion Gap 16 (12-20); Blood Urea Nitrogen 66 mg/dL (9-16); Calcium 8.3 mg/dL (8.4-10.2); Carbon Dioxide 17 mmol/L (22-29); Chloride 115 mmol/L (96-108); Estimated Glomerular Filt Rate 12; Glucose Random 132 mg/dL (60-115); Magnesium 1.7 mg/dL (1.6-2.6); Phosphorus 2.7 mg/dL (2.7-4.5); Potassium 4.7 mmol/L (3.3-5.1); Sodium 143 mmol/L (135-145)
[2023-04-11 21:14] LABS: Glucose, Whole Blood 163 mg/dL (60-115)
[2023-04-11 22:01] LABS: Glucose, Whole Blood 154 mg/dL (60-115)
[2023-04-11 22:50] LABS: Glucose, Whole Blood 199 mg/dL (60-115)
[2023-04-11 23:52] LABS: Glucose, Whole Blood 249 mg/dL (60-115)
[2023-04-12] VITALS (29 sets, daily range): BP systolic 97–150; BP diastolic 48–107; PULSE 15–92; RESP 13–85; TEMP 36.2–38; O2SAT 90–100; BMI 42.2
[2023-04-12] MEDS: Dextrose 5 % and Lactated Ring 1,000 ML 100 ML IVCONT (00:02)
[2023-04-12 00:58] LABS: Glucose, Whole Blood 263 mg/dL (60-115)
[2023-04-12] MEDS: dexmedeTOMIDidine HCL/NS 400 MCG/100 ML INFUS..BTL 36.98 MCG IVCONT ×9 (01:28→22:54)
[2023-04-12 01:57] LABS: Glucose, Whole Blood 257 mg/dL (60-115)
[2023-04-12] MEDS: Insulin Regular/NS 100 UNIT/100 ML PLAST..BAG 12 UNIT IVCONT (02:04)
[2023-04-12] MEDS: Haloperidol Lactate 5 MG/ML VIAL 2 MG IVPUSH ×2 (02:07→17:27)
[2023-04-12] MEDS: LORazepam 2 MG/ML VIAL 1 MG IVPUSH ×4 (02:36→16:19)
[2023-04-12 03:06] LABS: Glucose, Whole Blood 246 mg/dL (60-115)
[2023-04-12 04:00] LABS: Glucose, Whole Blood 237 mg/dL (60-115)
[2023-04-12 04:27] LABS: VBG Base Excess -11.1 mmol/L; VBG HCO3 14 mmol/L (22-26); VBG pCO2 29 mmHg; VBG pH 7.28 (7.32-7.43); VBG pO2 42 mmHg
[2023-04-12 05:14] LABS: Glucose, Whole Blood 208 mg/dL (60-115)
[2023-04-12 05:35] LABS: MANUAL DIFF FLAG NO
[2023-04-12 05:36] LABS: Basophils Absolute Auto 0.1 X10*3/uL (0.0-0.2); Basophils Percent Auto 0.4 % (0-2); Eosinophils Absolute Auto 0.1 X10*3/uL (0.0-0.4); Eosinophils Percent Auto 0.5 % (0-4); Hematocrit 28.1 % (37.0-47.0); Hemoglobin 9.9 g/dl (12.0-16.0); Imm Gran Abs Auto 0.25 X10*3/uL (0.00-0.03); Imm Gran Pct Auto 1.7 % (0.0-0.4); Lymphocytes Absolute Auto 1.9 X10*3/uL (1.2-4.9); Lymphocytes Percent Auto 12.8 % (20-40); Mean Corpuscular HGB Conc 35.2 g/dl (31.0-35.0); Mean Corpuscular Hemoglobin 31.4 pg (27.0-33.0); Mean Corpuscular Volume 89.2 fL (80.0-98.0); Mean Platelet Volume 10.2 fL (9.4-12.3); Monocytes Absolute Auto 0.7 X10*3/uL (0.1-1.2); Monocytes Percent Auto 4.6 % (2-11); NRBC Pct Auto 0.1 /100WBC (0.0-0.2); Platelet Count 140 X10*3/uL (160-400); Red Blood Count 3.15 X10*6/uL (4.20-5.50); Red Cell Distribution Width 13.3 % (11.0-16.0)
[2023-04-12 05:50] LABS: Alanine Aminotransferase 192 U/L (0-31); Alkaline Phosphatase 189 U/L (39-117); Anion Gap 16 (12-20); Aspartate Amino Transferase 410 U/L (5-31); Bilirubin Total 0.4 mg/dL (0.0-1.0); Blood Urea Nitrogen 73 mg/dL (9-16); Calcium 8.1 mg/dL (8.4-10.2); Carbon Dioxide 16 mmol/L (22-29); Chloride 116 mmol/L (96-108); Estimated Glomerular Filt Rate 12; Glucose Random 171 mg/dL (60-115); Magnesium 1.5 mg/dL (1.6-2.6); Phosphorus 1.9 mg/dL (2.7-4.5); Potassium 4.1 mmol/L (3.3-5.1); Sodium 144 mmol/L (135-145); Total Protein 5.7 g/dL (6.5-8.0)
[2023-04-12] MEDS: Amiodarone HCL 900 MG in 0.9 % Sodium Chloride 500 ML 17.27 MG IVCONT (05:50)
[2023-04-12] MEDS: Magnesium Sulfate/H2O 2 GM/50 ML PIGGYBACK IV (06:06)
[2023-04-12 06:54] LABS: Venous Blood Gas Refer to POC result
[2023-04-12 07:12] LABS: Glucose, Whole Blood 142 mg/dL (60-115)
[2023-04-12] MEDS: Albumin Human 25 % 100 ML IV (07:30)
[2023-04-12 08:07] LABS: Glucose, Whole Blood 128 mg/dL (60-115)
[2023-04-12] MEDS: Potassium Phosphate/NS 15 MMOL/250 ML PLAST..BAG 62.5 MMOL IV (08:33)
[2023-04-12] MEDS: Heparin Sodium,Porcine 5,000 UNIT/ML VIAL 5000 UNIT SUBCUT ×3 (08:39→20:37)
[2023-04-12 09:09] LABS: Glucose, Whole Blood 97 mg/dL (60-115)
[2023-04-12] MEDS: Nystatin Powder 15 GM BOTTLE 1 APPL TOPICAL ×2 (09:26→20:34)
[2023-04-12 09:42] LABS: Glucose, Whole Blood 77 mg/dL (60-115)
[2023-04-12] MEDS: Dextrose 50 % 25 GM/50 ML SYRINGE IVPUSH (09:48)
--- NOTE | 2023-04-12 10:10 | PM.PNNEP ---
Subjective Subjective Date of Service: 04/13/23 Interval history: 38-year-old lady with underlying diabetes mellitus admitted on 04/09/2023 after being found unresponsive by her boyfriend. On ER evaluation patient in AFib with RVR and diabetic ketoacidosis, also hypertensive. Patient started on insulin drip, broad-spectrum antibiotics and admitted to intensive care unit. Further hospital course complicated by gram-negative bacteremia with likely source and acute renal failure. CT abdomen and pelvis without evidence of urinary obstruction or hydronephrosis. No events overnight. Continues to requiring insulin drip, amiodarone drip, and pressor support. Physical Exam Vital Signs: Vital Signs: Last Vital Signs Temp 98.0 F 04/12/23 08:00 Pulse 81 04/12/23 09:00 Resp 14 04/12/23 09:00 BP 108/58 L 04/12/23 09:00 Pulse Ox 92 04/12/23 09:00 O2 Del Method Room Air 04/12/23 09:00 O2 Flow Rate 2 04/12/23 03:00 Oxygen Flow Rate 4 04/09/23 10:23 BMI result Body Mass Index 42.2 Const: General: ill appearing Neck: Neck: Yes supple Resp: Auscultation: rhonchi Cardio: Jugular venous distension: no JVD Palpation: no palpable S3 GI: Palpation (GI): Soft to palpation Auscultation: normal bowel sounds Skin: General skin exam: no rashes or lesions noted Objective Data Labs 04/13/23 04:33 04/13/23 04:33 Labs: Laboratory Results - last 24 hr 04/11/23 04/11/23 04/11/23 10:23 11:15 11:59 WBC RBC Hgb Hct MCV MCH MCHC RDW Plt Count MPV Immature Gran % (Auto) Neut % (Auto) Lymph % (Auto) Hubbard % (Auto) Eos % (Auto) Baso % (Auto) Lymph # (Auto) Hubbard # (Auto) Eos # (Auto) Baso # (Auto) Abs Immat Gran (auto) Absolute Neuts (auto) Absolute Nucleated RBC Nucleated RBC % (auto) VBG pH VBG pCO2 VBG pO2 VBG HCO3 VBG O2 Saturation VBG Base Excess Sodium Potassium Chloride Carbon Dioxide Anion Gap BUN Creatinine Estim Creat Clear Calc Estimated GFR POC Glucose 279 H 260 H 200 H Random Glucose Calcium Phosphorus Magnesium Total Bilirubin AST ALT Alkaline Phosphatase Total Protein Albumin Random Vancomycin 04/11/23 04/11/23 04/11/23 12:18 12:18 12:18 WBC RBC Hgb Hct MCV MCH MCHC RDW Plt Count MPV Immature Gran % (Auto) Neut % (Auto) Lymph % (Auto) Hubbard % (Auto) Eos % (Auto) Baso % (Auto) Lymph # (Auto) Hubbard # (Auto) Eos # (Auto) Baso # (Auto) Abs Immat Gran (auto) Absolute Neuts (auto) Absolute Nucleated RBC Nucleated RBC % (auto) VBG pH VBG pCO2 VBG pO2 VBG HCO3 VBG O2 Saturation VBG Base Excess Sodium Cancelled 142 Potassium Cancelled 4.1 Chloride Cancelled Carbon Dioxide Anion Gap BUN Creatinine Estim Creat Clear Calc Estimated GFR POC Glucose Random Glucose Calcium Phosphorus Magnesium Total Bilirubin AST ALT Alkaline Phosphatase Total Protein Albumin Random Vancomycin 04/11/23 04/11/23 04/11/23 12:18 12:18 12:18 WBC RBC Hgb Hct MCV MCH MCHC RDW Plt Count MPV Immature Gran % (Auto) Neut % (Auto) Lymph % (Auto) Hubbard % (Auto) Eos % (Auto) Baso % (Auto) Lymph # (Auto) Hubbard # (Auto) Eos # (Auto) Baso # (Auto) Abs Immat Gran (auto) Absolute Neuts (auto) Absolute Nucleated RBC Nucleated RBC % (auto) VBG pH VBG pCO2 VBG pO2 VBG HCO3 VBG O2 Saturation VBG Base Excess Sodium Potassium Chloride 113 H Carbon Dioxide Cancelled 17 L Anion Gap Cancelled 16 BUN Cancelled Creatinine Estim Creat Clear Calc Estimated GFR POC Glucose Random Glucose Calcium Phosphorus Magnesium Total Bilirubin AST ALT Alkaline Phosphatase Total Protein Albumin Random Vancomycin 04/11/23 04/11/23 04/11/23 12:18 12:18 12:18 WBC RBC Hgb Hct MCV MCH MCHC RDW Plt Count MPV Immature Gran % (Auto) Neut % (Auto) Lymph % (Auto) Hubbard % (Auto) Eos % (Auto) Baso % (Auto) Lymph # (Auto) Hubbard # (Auto) Eos # (Auto) Baso # (Auto) Abs Immat Gran (auto) Absolute Neuts (auto) Absolute Nucleated RBC Nucleated RBC % (auto) VBG pH VBG pCO2 VBG pO2 VBG HCO3 VBG O2 Saturation VBG Base Excess Sodium Potassium Chloride Carbon Dioxide Anion Gap BUN 66 H Creatinine Cancelled 3.92 H Estim Creat Clear Calc Cancelled 24.1 Estimated GFR Cancelled POC Glucose Random Glucose Calcium Phosphorus Magnesium Total Bilirubin AST ALT Alkaline Phosphatase Total Protein Albumin Random Vancomycin 04/11/23 04/11/23 04/11/23 12:18 12:18 12:18 WBC RBC Hgb Hct MCV MCH MCHC RDW Plt Count MPV Immature Gran % (Auto) Neut % (Auto) Lymph % (Auto) Hubbard % (Auto) Eos % (Auto) Baso % (Auto) Lymph # (Auto) Hubbard # (Auto) Eos # (Auto) Baso # (Auto) Abs Immat Gran (auto) Absolute Neuts (auto) Absolute Nucleated RBC Nucleated RBC % (auto) VBG pH VBG pCO2 VBG pO2 VBG HCO3 VBG O2 Saturation VBG Base Excess Sodium Potassium Chloride Carbon Dioxide Anion Gap BUN Creatinine Estim Creat Clear Calc Estimated GFR 13 POC Glucose Random Glucose Cancelled 210 H Calcium Cancelled 8.5 Phosphorus Magnesium Total Bilirubin AST ALT Alkaline Phosphatase Total Protein Albumin Random Vancomycin 32.9 H* 04/11/23 04/11/23 04/11/23 12:22 12:58 14:00 WBC RBC Hgb Hct MCV MCH MCHC RDW Plt Count MPV Immature Gran % (Auto) Neut % (Auto) Lymph % (Auto) Hubbard % (Auto) Eos % (Auto) Baso % (Auto) Lymph # (Auto) Hubbard # (Auto) Eos # (Auto) Baso # (Auto) Abs Immat Gran (auto) Absolute Neuts (auto) Absolute Nucleated RBC Nucleated RBC % (auto) VBG pH 7.28 L VBG pCO2 30 VBG pO2 70 VBG HCO3 14 L VBG O2 Saturation 94.0 VBG Base Excess -10.8 Sodium Potassium Chloride Carbon Dioxide Anion Gap BUN Creatinine Estim Creat Clear Calc Estimated GFR POC Glucose 171 H 141 H Random Glucose Calcium Phosphorus Magnesium Total Bilirubin AST ALT Alkaline Phosphatase Total Protein Albumin Random Vancomycin 04/11/23 04/11/23 04/11/23 15:01 16:00 16:21 WBC RBC Hgb Hct MCV MCH MCHC RDW Plt Count MPV Immature Gran % (Auto) Neut % (Auto) Lymph % (Auto) Hubbard % (Auto) Eos % (Auto) Baso % (Auto) Lymph # (Auto) Hubbard # (Auto) Eos # (Auto) Baso # (Auto) Abs Immat Gran (auto) Absolute Neuts (auto) Absolute Nucleated RBC Nucleated RBC % (auto) VBG pH VBG pCO2 VBG pO2 VBG HCO3 VBG O2 Saturation VBG Base Excess Sodium 142 Potassium 4.1 Chloride 114 H Carbon Dioxide 18 L Anion Gap 14 BUN 67 H Creatinine 3.80 H Estim Creat Clear Calc 24.8 Estimated GFR 13 POC Glucose 125 H 133 H Random Glucose 133 H Calcium 8.2 L Phosphorus Magnesium Total Bilirubin AST ALT Alkaline Phosphatase Total Protein Albumin Random Vancomycin 04/11/23 04/11/23 04/11/23 17:02 18:04 18:11 WBC RBC Hgb Hct MCV MCH MCHC RDW Plt Count MPV Immature Gran % (Auto) Neut % (Auto) Lymph % (Auto) Hubbard % (Auto) Eos % (Auto) Baso % (Auto) Lymph # (Auto) Hubbard # (Auto) Eos # (Auto) Baso # (Auto) Abs Immat Gran (auto) Absolute Neuts (auto) Absolute Nucleated RBC Nucleated RBC % (auto) VBG pH VBG pCO2 VBG pO2 VBG HCO3 VBG O2 Saturation VBG Base Excess Sodium 142 Potassium 4.1 Chloride 113 H Carbon Dioxide 17 L Anion Gap 16 BUN 65 H Creatinine 4.01 H* Estim Creat Clear Calc 23.5 Estimated GFR 12 POC Glucose 138 H 131 H Random Glucose 128 H Calcium 8.2 L Phosphorus Magnesium Total Bilirubin AST ALT Alkaline Phosphatase Total Protein Albumin Random Vancomycin 04/11/23 04/11/23 04/11/23 19:08 19:48 19:51 WBC RBC Hgb Hct MCV MCH MCHC RDW Plt Count MPV Immature Gran % (Auto) Neut % (Auto) Lymph % (Auto) Hubbard % (Auto) Eos % (Auto) Baso % (Auto) Lymph # (Auto) Hubbard # (Auto) Eos # (Auto) Baso # (Auto) Abs Immat Gran (auto) Absolute Neuts (auto) Absolute Nucleated RBC Nucleated RBC % (auto) VBG pH 7.29 L VBG pCO2 31 VBG pO2 37 VBG HCO3 15 L VBG O2 Saturation 67.0 VBG Base Excess -10.0 Sodium 143 Potassium 4.7 Chloride 115 H Carbon Dioxide 17 L Anion Gap 16 BUN 66 H Creatinine 4.10 H* Estim Creat Clear Calc 23.0 Estimated GFR 12 POC Glucose 127 H Random Glucose 132 H Calcium 8.3 L Phosphorus 2.7 Magnesium 1.7 Total Bilirubin AST ALT Alkaline Phosphatase Total Protein Albumin Random Vancomycin 04/11/23 04/11/23 04/11/23 19:57 20:56 21:56 WBC RBC Hgb Hct MCV MCH MCHC RDW Plt Count MPV Immature Gran % (Auto) Neut % (Auto) Lymph % (Auto) Hubbard % (Auto) Eos % (Auto) Baso % (Auto) Lymph # (Auto) Hubbard # (Auto) Eos # (Auto) Baso # (Auto) Abs Immat Gran (auto) Absolute Neuts (auto) Absolute Nucleated RBC Nucleated RBC % (auto) VBG pH VBG pCO2 VBG pO2 VBG HCO3 VBG O2 Saturation VBG Base Excess Sodium Potassium Chloride Carbon Dioxide Anion Gap BUN Creatinine Estim Creat Clear Calc Estimated GFR POC Glucose 140 H 163 H 154 H Random Glucose Calcium Phosphorus Magnesium Total Bilirubin AST ALT Alkaline Phosphatase Total Protein Albumin Random Vancomycin 04/11/23 04/11/23 04/12/23 22:43 23:46 00:51 WBC RBC Hgb Hct MCV MCH MCHC RDW Plt Count MPV Immature Gran % (Auto) Neut % (Auto) Lymph % (Auto) Hubbard % (Auto) Eos % (Auto) Baso % (Auto) Lymph # (Auto) Hubbard # (Auto) Eos # (Auto) Baso # (Auto) Abs Immat Gran (auto) Absolute Neuts (auto) Absolute Nucleated RBC Nucleated RBC % (auto) VBG pH VBG pCO2 VBG pO2 VBG HCO3 VBG O2 Saturation VBG Base Excess Sodium Potassium Chloride Carbon Dioxide Anion Gap BUN Creatinine Estim Creat Clear Calc Estimated GFR POC Glucose 199 H 249 H 263 H Random Glucose Calcium Phosphorus Magnesium Total Bilirubin AST ALT Alkaline Phosphatase Total Protein Albumin Random Vancomycin 04/12/23 04/12/23 04/12/23 01:52 03:02 03:53 WBC RBC Hgb Hct MCV MCH MCHC RDW Plt Count MPV Immature Gran % (Auto) Neut % (Auto) Lymph % (Auto) Hubbard % (Auto) Eos % (Auto) Baso % (Auto) Lymph # (Auto) Hubbard # (Auto) Eos # (Auto) Baso # (Auto) Abs Immat Gran (auto) Absolute Neuts (auto) Absolute Nucleated RBC Nucleated RBC % (auto) VBG pH VBG pCO2 VBG pO2 VBG HCO3 VBG O2 Saturation VBG Base Excess Sodium Potassium Chloride Carbon Dioxide Anion Gap BUN Creatinine Estim Creat Clear Calc Estimated GFR POC Glucose 257 H 246 H 237 H Random Glucose Calcium Phosphorus Magnesium Total Bilirubin AST ALT Alkaline Phosphatase Total Protein Albumin Random Vancomycin 04/12/23 04/12/23 04/12/23 04:21 05:10 05:26 WBC RBC Hgb Hct MCV MCH MCHC RDW Plt Count MPV Immature Gran % (Auto) Neut % (Auto) Lymph % (Auto) Hubbard % (Auto) Eos % (Auto) Baso % (Auto) Lymph # (Auto) Hubbard # (Auto) Eos # (Auto) Baso # (Auto) Abs Immat Gran (auto) Absolute Neuts (auto) Absolute Nucleated RBC Nucleated RBC % (auto) VBG pH 7.28 L VBG pCO2 29 VBG pO2 42 VBG HCO3 14 L VBG O2 Saturation 73.0 VBG Base Excess -11.1 Sodium 144 Potassium 4.1 Chloride 116 H Carbon Dioxide 16 L Anion Gap 16 BUN 73 H Creatinine 4.10 H* Estim Creat Clear Calc 23.0 Estimated GFR 12 POC Glucose 208 H Random Glucose 171 H Calcium 8.1 L Phosphorus 1.9 L Magnesium 1.5 L Total Bilirubin 0.4 AST 410 H ALT 192 H Alkaline Phosphatase 189 H Total Protein 5.7 L Albumin 3.0 L Random Vancomycin 04/12/23 04/12/23 04/12/23 05:31 07:09 08:04 WBC 15.0 H RBC 3.15 L Hgb 9.9 L Hct 28.1 L MCV 89.2 MCH 31.4 MCHC 35.2 H RDW 13.3 Plt Count 140 L MPV 10.2 Immature Gran % (Auto) 1.7 H Neut % (Auto) 80.0 H Lymph % (Auto) 12.8 L Hubbard % (Auto) 4.6 Eos % (Auto) 0.5 Baso % (Auto) 0.4 Lymph # (Auto) 1.9 Hubbard # (Auto) 0.7 Eos # (Auto) 0.1 Baso # (Auto) 0.1 Abs Immat Gran (auto) 0.25 H Absolute Neuts (auto) 12.0 H Absolute Nucleated RBC 0.020 H Nucleated RBC % (auto) 0.1 VBG pH VBG pCO2 VBG pO2 VBG HCO3 VBG O2 Saturation VBG Base Excess Sodium Potassium Chloride Carbon Dioxide Anion Gap BUN Creatinine Estim Creat Clear Calc Estimated GFR POC Glucose 142 H 128 H Random Glucose Calcium Phosphorus Magnesium Total Bilirubin AST ALT Alkaline Phosphatase Total Protein Albumin Random Vancomycin 04/12/23 04/12/23 09:05 09:39 WBC RBC Hgb Hct MCV MCH MCHC RDW Plt Count MPV Immature Gran % (Auto) Neut % (Auto) Lymph % (Auto) Hubbard % (Auto) Eos % (Auto) Baso % (Auto) Lymph # (Auto) Hubbard # (Auto) Eos # (Auto) Baso # (Auto) Abs Immat Gran (auto) Absolute Neuts (auto) Absolute Nucleated RBC Nucleated RBC % (auto) VBG pH VBG pCO2 VBG pO2 VBG HCO3 VBG O2 Saturation VBG Base Excess Sodium Potassium Chloride Carbon Dioxide Anion Gap BUN Creatinine Estim Creat Clear Calc Estimated GFR POC Glucose 97 77 Random Glucose Calcium Phosphorus Magnesium Total Bilirubin AST ALT Alkaline Phosphatase Total Protein Albumin Random Vancomycin Microbiology Microbiology Results: Microbiology 04/09/23 10:59 Blood - Venous Blood Culture - Final Escherichia coli 04/09/23 10:23 Blood - Venous Blood Culture - Final Escherichia coli 04/10/23 05:20 Blood - Venous Blood Culture - Preliminary No growth after 48 hours. 04/10/23 05:20 Blood - Venous Blood Culture - Preliminary No growth after 48 hours. Procedures Date of Service Date of Service: 04/13/23 Assessment & Plan Assessment and plan (1) Acute renal failure: Status: Acute Plan Acute kidney injury is most likely due to ATN in the setting of sepsis and hypertension. No evidence of active glomerulonephritis or interstitial disease. Vanco level is elevated and this could lead to ongoing tubular injury. Currently creatinine is trending up. She continues to have metabolic acidosis. No absolute indication for dialysis yet. However if renal function does not improve or of the electrolyte imbalance worsens she may require an replacement therapy. Next I have discussed with ICU attending. Continue to watch urine output closely. Replace bicarbonate. Watch potassium. Continue to avoid hypertension and nephrotoxic agents. We will continue to follow her closely along with the team.. Time Spent With Patient Time: Total time managing care of this patient today ____ minutes. Progress Note: Quality Stroke Does the patient have a stroke diagnosis?: No
[2023-04-12 10:19] LABS: Glucose, Whole Blood 168 mg/dL (60-115)
[2023-04-12] MEDS: Sodium Bicarbonate 8.4% 100 MEQ in Dextrose 5 % 900 ML IV ×2 (10:32→18:44)
--- NOTE | 2023-04-12 10:45 | P.PNCC_ITS ---
Subjective Subjective Date of Service: 04/12/23 Interval History: 38-year-old lady with underlying diabetes mellitus admitted on 04/09/2023 after being found unresponsive by her boyfriend. On ER evaluation patient in AFib with RVR and diabetic ketoacidosis, also hypertensive. Patient started on insulin drip, broad-spectrum antibiotics and admitted to intensive care unit. Further hospital course complicated by E coli bacteremia with likely source, encephalopathy, and acute renal failure. CT abdomen and pelvis without evidence of urinary obstruction or hydronephrosis. No events overnight. Insulin requirements are improving. AFib with RVR has resolved. Continues to remain encephalopathic. Critical Care Time (minutes): 45 Physical Exam 2 Vital Signs: Vital Signs: Last Vital Signs Temp 98.0 F 04/12/23 08:00 Pulse 81 04/12/23 10:00 Resp 16 04/12/23 10:00 BP 108/72 04/12/23 10:00 Pulse Ox 95 04/12/23 10:00 O2 Del Method Nasal Cannula 04/12/23 10:00 O2 Flow Rate 1 04/12/23 10:00 Oxygen Flow Rate 4 04/09/23 10:23 BMI result Body Mass Index 42.2 Const: General: confusion Orientation/consciousness: confusion Eyes: Sclerae: sclerae normal Pupils: Pinpoint pupils Neck: Neck: Yes no lymphadenopathy, Yes trachea midline and Yes supple Resp: Effort & Inspection: normal respiratory effort and no respiratory distress Auscultation: crackles ( bilateral) Cardio: Rate: regular rate Rhythm: regular rhythm Heart sounds: no gallops, no murmurs and no rubs GI: Palpation (GI): Soft to palpation and Other GI palpation findings present ( Nontender) Auscultation: normal bowel sounds Neuro: General: confusion Extrem: General: No clubbing, No cyanosis and Yes edema ( trace bilateral) Objective Data Labs 04/12/23 05:31 04/12/23 05:26 Labs: Laboratory Results - last 24 hr 04/11/23 04/11/23 04/11/23 11:15 11:59 12:18 WBC RBC Hgb Hct MCV MCH MCHC RDW Plt Count MPV Immature Gran % (Auto) Neut % (Auto) Lymph % (Auto) [place] % (Auto) Eos % (Auto) Baso % (Auto) Lymph # (Auto) [place] # (Auto) Eos # (Auto) Baso # (Auto) Abs Immat Gran (auto) Absolute Neuts (auto) Absolute Nucleated RBC Nucleated RBC % (auto) VBG pH VBG pCO2 VBG pO2 VBG HCO3 VBG O2 Saturation VBG Base Excess Sodium Cancelled Potassium Chloride Carbon Dioxide Anion Gap BUN Creatinine Estim Creat Clear Calc Estimated GFR POC Glucose 260 H 200 H Random Glucose Calcium Phosphorus Magnesium Total Bilirubin AST ALT Alkaline Phosphatase Total Protein Albumin Random Vancomycin 04/11/23 04/11/23 04/11/23 12:18 12:18 12:18 WBC RBC Hgb Hct MCV MCH MCHC RDW Plt Count MPV Immature Gran % (Auto) Neut % (Auto) Lymph % (Auto) [place] % (Auto) Eos % (Auto) Baso % (Auto) Lymph # (Auto) [place] # (Auto) Eos # (Auto) Baso # (Auto) Abs Immat Gran (auto) Absolute Neuts (auto) Absolute Nucleated RBC Nucleated RBC % (auto) VBG pH VBG pCO2 VBG pO2 VBG HCO3 VBG O2 Saturation VBG Base Excess Sodium 142 Potassium Cancelled 4.1 Chloride Cancelled 113 H Carbon Dioxide Cancelled Anion Gap BUN Creatinine Estim Creat Clear Calc Estimated GFR POC Glucose Random Glucose Calcium Phosphorus Magnesium Total Bilirubin AST ALT Alkaline Phosphatase Total Protein Albumin Random Vancomycin 04/11/23 04/11/23 04/11/23 12:18 12:18 12:18 WBC RBC Hgb Hct MCV MCH MCHC RDW Plt Count MPV Immature Gran % (Auto) Neut % (Auto) Lymph % (Auto) [place] % (Auto) Eos % (Auto) Baso % (Auto) Lymph # (Auto) [place] # (Auto) Eos # (Auto) Baso # (Auto) Abs Immat Gran (auto) Absolute Neuts (auto) Absolute Nucleated RBC Nucleated RBC % (auto) VBG pH VBG pCO2 VBG pO2 VBG HCO3 VBG O2 Saturation VBG Base Excess Sodium Potassium Chloride Carbon Dioxide 17 L Anion Gap Cancelled 16 BUN Cancelled 66 H Creatinine Cancelled Estim Creat Clear Calc Estimated GFR POC Glucose Random Glucose Calcium Phosphorus Magnesium Total Bilirubin AST ALT Alkaline Phosphatase Total Protein Albumin Random Vancomycin 04/11/23 04/11/23 04/11/23 12:18 12:18 12:18 WBC RBC Hgb Hct MCV MCH MCHC RDW Plt Count MPV Immature Gran % (Auto) Neut % (Auto) Lymph % (Auto) [place] % (Auto) Eos % (Auto) Baso % (Auto) Lymph # (Auto) [place] # (Auto) Eos # (Auto) Baso # (Auto) Abs Immat Gran (auto) Absolute Neuts (auto) Absolute Nucleated RBC Nucleated RBC % (auto) VBG pH VBG pCO2 VBG pO2 VBG HCO3 VBG O2 Saturation VBG Base Excess Sodium Potassium Chloride Carbon Dioxide Anion Gap BUN Creatinine 3.92 H Estim Creat Clear Calc Cancelled 24.1 Estimated GFR Cancelled 13 POC Glucose Random Glucose Cancelled Calcium Phosphorus Magnesium Total Bilirubin AST ALT Alkaline Phosphatase Total Protein Albumin Random Vancomycin 04/11/23 04/11/23 04/11/23 12:18 12:18 12:22 WBC RBC Hgb Hct MCV MCH MCHC RDW Plt Count MPV Immature Gran % (Auto) Neut % (Auto) Lymph % (Auto) [place] % (Auto) Eos % (Auto) Baso % (Auto) Lymph # (Auto) [place] # (Auto) Eos # (Auto) Baso # (Auto) Abs Immat Gran (auto) Absolute Neuts (auto) Absolute Nucleated RBC Nucleated RBC % (auto) VBG pH 7.28 L VBG pCO2 30 VBG pO2 70 VBG HCO3 14 L VBG O2 Saturation 94.0 VBG Base Excess -10.8 Sodium Potassium Chloride Carbon Dioxide Anion Gap BUN Creatinine Estim Creat Clear Calc Estimated GFR POC Glucose Random Glucose 210 H Calcium Cancelled 8.5 Phosphorus Magnesium Total Bilirubin AST ALT Alkaline Phosphatase Total Protein Albumin Random Vancomycin 32.9 H* 04/11/23 04/11/23 04/11/23 12:58 14:00 15:01 WBC RBC Hgb Hct MCV MCH MCHC RDW Plt Count MPV Immature Gran % (Auto) Neut % (Auto) Lymph % (Auto) [place] % (Auto) Eos % (Auto) Baso % (Auto) Lymph # (Auto) [place] # (Auto) Eos # (Auto) Baso # (Auto) Abs Immat Gran (auto) Absolute Neuts (auto) Absolute Nucleated RBC Nucleated RBC % (auto) VBG pH VBG pCO2 VBG pO2 VBG HCO3 VBG O2 Saturation VBG Base Excess Sodium Potassium Chloride Carbon Dioxide Anion Gap BUN Creatinine Estim Creat Clear Calc Estimated GFR POC Glucose 171 H 141 H 125 H Random Glucose Calcium Phosphorus Magnesium Total Bilirubin AST ALT Alkaline Phosphatase Total Protein Albumin Random Vancomycin 04/11/23 04/11/23 04/11/23 16:00 16:21 17:02 WBC RBC Hgb Hct MCV MCH MCHC RDW Plt Count MPV Immature Gran % (Auto) Neut % (Auto) Lymph % (Auto) [place] % (Auto) Eos % (Auto) Baso % (Auto) Lymph # (Auto) [place] # (Auto) Eos # (Auto) Baso # (Auto) Abs Immat Gran (auto) Absolute Neuts (auto) Absolute Nucleated RBC Nucleated RBC % (auto) VBG pH VBG pCO2 VBG pO2 VBG HCO3 VBG O2 Saturation VBG Base Excess Sodium 142 Potassium 4.1 Chloride 114 H Carbon Dioxide 18 L Anion Gap 14 BUN 67 H Creatinine 3.80 H Estim Creat Clear Calc 24.8 Estimated GFR 13 POC Glucose 133 H 138 H Random Glucose 133 H Calcium 8.2 L Phosphorus Magnesium Total Bilirubin AST ALT Alkaline Phosphatase Total Protein Albumin Random Vancomycin 04/11/23 04/11/23 04/11/23 18:04 18:11 19:08 WBC RBC Hgb Hct MCV MCH MCHC RDW Plt Count MPV Immature Gran % (Auto) Neut % (Auto) Lymph % (Auto) [place] % (Auto) Eos % (Auto) Baso % (Auto) Lymph # (Auto) [place] # (Auto) Eos # (Auto) Baso # (Auto) Abs Immat Gran (auto) Absolute Neuts (auto) Absolute Nucleated RBC Nucleated RBC % (auto) VBG pH VBG pCO2 VBG pO2 VBG HCO3 VBG O2 Saturation VBG Base Excess Sodium 142 Potassium 4.1 Chloride 113 H Carbon Dioxide 17 L Anion Gap 16 BUN 65 H Creatinine 4.01 H* Estim Creat Clear Calc 23.5 Estimated GFR 12 POC Glucose 131 H 127 H Random Glucose 128 H Calcium 8.2 L Phosphorus Magnesium Total Bilirubin AST ALT Alkaline Phosphatase Total Protein Albumin Random Vancomycin 04/11/23 04/11/23 04/11/23 19:48 19:51 19:57 WBC RBC Hgb Hct MCV MCH MCHC RDW Plt Count MPV Immature Gran % (Auto) Neut % (Auto) Lymph % (Auto) [place] % (Auto) Eos % (Auto) Baso % (Auto) Lymph # (Auto) [place] # (Auto) Eos # (Auto) Baso # (Auto) Abs Immat Gran (auto) Absolute Neuts (auto) Absolute Nucleated RBC Nucleated RBC % (auto) VBG pH 7.29 L VBG pCO2 31 VBG pO2 37 VBG HCO3 15 L VBG O2 Saturation 67.0 VBG Base Excess -10.0 Sodium 143 Potassium 4.7 Chloride 115 H Carbon Dioxide 17 L Anion Gap 16 BUN 66 H Creatinine 4.10 H* Estim Creat Clear Calc 23.0 Estimated GFR 12 POC Glucose 140 H Random Glucose 132 H Calcium 8.3 L Phosphorus 2.7 Magnesium 1.7 Total Bilirubin AST ALT Alkaline Phosphatase Total Protein Albumin Random Vancomycin 04/11/23 04/11/23 04/11/23 20:56 21:56 22:43 WBC RBC Hgb Hct MCV MCH MCHC RDW Plt Count MPV Immature Gran % (Auto) Neut % (Auto) Lymph % (Auto) [place] % (Auto) Eos % (Auto) Baso % (Auto) Lymph # (Auto) [place] # (Auto) Eos # (Auto) Baso # (Auto) Abs Immat Gran (auto) Absolute Neuts (auto) Absolute Nucleated RBC Nucleated RBC % (auto) VBG pH VBG pCO2 VBG pO2 VBG HCO3 VBG O2 Saturation VBG Base Excess Sodium Potassium Chloride Carbon Dioxide Anion Gap BUN Creatinine Estim Creat Clear Calc Estimated GFR POC Glucose 163 H 154 H 199 H Random Glucose Calcium Phosphorus Magnesium Total Bilirubin AST ALT Alkaline Phosphatase Total Protein Albumin Random Vancomycin 04/11/23 04/12/23 04/12/23 23:46 00:51 01:52 WBC RBC Hgb Hct MCV MCH MCHC RDW Plt Count MPV Immature Gran % (Auto) Neut % (Auto) Lymph % (Auto) [place] % (Auto) Eos % (Auto) Baso % (Auto) Lymph # (Auto) [place] # (Auto) Eos # (Auto) Baso # (Auto) Abs Immat Gran (auto) Absolute Neuts (auto) Absolute Nucleated RBC Nucleated RBC % (auto) VBG pH VBG pCO2 VBG pO2 VBG HCO3 VBG O2 Saturation VBG Base Excess Sodium Potassium Chloride Carbon Dioxide Anion Gap BUN Creatinine Estim Creat Clear Calc Estimated GFR POC Glucose 249 H 263 H 257 H Random Glucose Calcium Phosphorus Magnesium Total Bilirubin AST ALT Alkaline Phosphatase Total Protein Albumin Random Vancomycin 04/12/23 04/12/23 04/12/23 03:02 03:53 04:21 WBC RBC Hgb Hct MCV MCH MCHC RDW Plt Count MPV Immature Gran % (Auto) Neut % (Auto) Lymph % (Auto) [place] % (Auto) Eos % (Auto) Baso % (Auto) Lymph # (Auto) [place] # (Auto) Eos # (Auto) Baso # (Auto) Abs Immat Gran (auto) Absolute Neuts (auto) Absolute Nucleated RBC Nucleated RBC % (auto) VBG pH 7.28 L VBG pCO2 29 VBG pO2 42 VBG HCO3 14 L VBG O2 Saturation 73.0 VBG Base Excess -11.1 Sodium Potassium Chloride Carbon Dioxide Anion Gap BUN Creatinine Estim Creat Clear Calc Estimated GFR POC Glucose 246 H 237 H Random Glucose Calcium Phosphorus Magnesium Total Bilirubin AST ALT Alkaline Phosphatase Total Protein Albumin Random Vancomycin 04/12/23 04/12/23 04/12/23 05:10 05:26 05:31 WBC 15.0 H RBC 3.15 L Hgb 9.9 L Hct 28.1 L MCV 89.2 MCH 31.4 MCHC 35.2 H RDW 13.3 Plt Count 140 L MPV 10.2 Immature Gran % (Auto) 1.7 H Neut % (Auto) 80.0 H Lymph % (Auto) 12.8 L [place] % (Auto) 4.6 Eos % (Auto) 0.5 Baso % (Auto) 0.4 Lymph # (Auto) 1.9 [place] # (Auto) 0.7 Eos # (Auto) 0.1 Baso # (Auto) 0.1 Abs Immat Gran (auto) 0.25 H Absolute Neuts (auto) 12.0 H Absolute Nucleated RBC 0.020 H Nucleated RBC % (auto) 0.1 VBG pH VBG pCO2 VBG pO2 VBG HCO3 VBG O2 Saturation VBG Base Excess Sodium 144 Potassium 4.1 Chloride 116 H Carbon Dioxide 16 L Anion Gap 16 BUN 73 H Creatinine 4.10 H* Estim Creat Clear Calc 23.0 Estimated GFR 12 POC Glucose 208 H Random Glucose 171 H Calcium 8.1 L Phosphorus 1.9 L Magnesium 1.5 L Total Bilirubin 0.4 AST 410 H ALT 192 H Alkaline Phosphatase 189 H Total Protein 5.7 L Albumin 3.0 L Random Vancomycin 04/12/23 04/12/23 04/12/23 07:09 08:04 09:05 WBC RBC Hgb Hct MCV MCH MCHC RDW Plt Count MPV Immature Gran % (Auto) Neut % (Auto) Lymph % (Auto) [place] % (Auto) Eos % (Auto) Baso % (Auto) Lymph # (Auto) [place] # (Auto) Eos # (Auto) Baso # (Auto) Abs Immat Gran (auto) Absolute Neuts (auto) Absolute Nucleated RBC Nucleated RBC % (auto) VBG pH VBG pCO2 VBG pO2 VBG HCO3 VBG O2 Saturation VBG Base Excess Sodium Potassium Chloride Carbon Dioxide Anion Gap BUN Creatinine Estim Creat Clear Calc Estimated GFR POC Glucose 142 H 128 H 97 Random Glucose Calcium Phosphorus Magnesium Total Bilirubin AST ALT Alkaline Phosphatase Total Protein Albumin Random Vancomycin 04/12/23 04/12/23 09:39 10:15 WBC RBC Hgb Hct MCV MCH MCHC RDW Plt Count MPV Immature Gran % (Auto) Neut % (Auto) Lymph % (Auto) [place] % (Auto) Eos % (Auto) Baso % (Auto) Lymph # (Auto) [place] # (Auto) Eos # (Auto) Baso # (Auto) Abs Immat Gran (auto) Absolute Neuts (auto) Absolute Nucleated RBC Nucleated RBC % (auto) VBG pH VBG pCO2 VBG pO2 VBG HCO3 VBG O2 Saturation VBG Base Excess Sodium Potassium Chloride Carbon Dioxide Anion Gap BUN Creatinine Estim Creat Clear Calc Estimated GFR POC Glucose 77 168 H Random Glucose Calcium Phosphorus Magnesium Total Bilirubin AST ALT Alkaline Phosphatase Total Protein Albumin Random Vancomycin Microbiology Microbiology Results: Microbiology 04/09/23 10:59 Blood - Venous Blood Culture - Final Escherichia coli 04/09/23 10:23 Blood - Venous Blood Culture - Final Escherichia coli 04/10/23 05:20 Blood - Venous Blood Culture - Preliminary No growth after 48 hours. 04/10/23 05:20 Blood - Venous Blood Culture - Preliminary No growth after 48 hours. Progress Note: A&P Assessment and plan (1) E coli bacteremia: Status: Acute (2) Acute renal failure: Status: Acute (3) Acute metabolic encephalopathy: Status: Acute (4) Septic shock: Status: Acute (5) Diabetic keto-acidosis: Status: Acute Plan Assessment: 38-year-old lady admitted with diabetic ketoacidosis, Gram-negative bacteremia, pyelonephritis, acute renal failure, metabolic encephalopathy, and AFib with RVR Plan: Neuro: Metabolic encephalopathy, also possible septic encephalopathy component. Expect to improve with resolution of sepsis and diabetic ketoacidosis. will obtain CT head. Cardiac: AFib with RVR, likely secondary to underlying acidosis, resolved. Septic shock, continue to titrate off pressor support as tolerated. Pulmonary: No acute issues. Renal: Acute renal failure. Pyelonephritis. No longer oliguric. Nephrology service care appreciated. Continue to monitor renal indices and urine output. Endo: No acute issues. GI: No acute issues. ID: E coli bacteremia with likely source. broad-spectrum antibiotics switched to ceftriaxone. Heme/Onc: No acute issues. Psych: No acute issues. Miscellaneous: No acute issues. Prophylaxis: Heparin Diet: Nothing by mouth Critical care time spent: 45 minute Quality Stroke Does the patient have a stroke diagnosis?: No VTE Prior VTE?: No VTE Risk Level:: Medical - moderate - high VTE Device Contraindication: N/A - Device Ordered VTE Drug Contraindication: N/A - Med Ordered
[2023-04-12] MEDS: cefTRIAXone sodium 1 GM in 0.9 % Sodium Chloride 50 ML IV (11:04)
[2023-04-12 11:07] LABS: Glucose, Whole Blood 167 mg/dL (60-115)
[2023-04-12 12:21] LABS: Glucose, Whole Blood 191 mg/dL (60-115)
--- NOTE | 2023-04-12 12:38 | P.CDIM_ITS ---
PROVIDER RESPONSE TEXT: To clarify, the appropriate diagnosis supported by the clinical indicators: Acute QUERY TEXT: PHYSICIAN'S DOCUMENTATION REQUEST Date of Query: 04/12/2023 12:29 PM EST Patient Name: Sandra Drummond Admit Date: 04/09/2023 Dear Jayden Tipton, A review of the medical record indicates additional documentation may be needed. Please review below and update the documentation accordingly. Clinical Indicators: Per Critical Care Progress Note 04/12/23: Pyelonephritis Gram-negative bacteremia with likely source. Continue broad-spectrum antibiotics. Clarify which of the following accurately represents the acuity of the Pyelonephritis. Possible options might include: Acute Acute on chronic Compensated Chronic stable condition Other (explain) Clinically unable to determine (explain) Thank you, Amairani Larry RN Use of terms such as suspected, likely, concern for, or probable (associated with a specific diagnosi s that is being evaluated, monitored, or treated as if it exists) are acceptable and can be coded in the inpatient se tting, when documented at the time of discharge. Please use your independent medical judgment in providing your response. THIS QUERY IS PART OF THE PERMANENT MEDICAL RECORD
[2023-04-12 13:11] LABS: Glucose, Whole Blood 185 mg/dL (60-115)
[2023-04-12 14:20] LABS: Glucose, Whole Blood 175 mg/dL (60-115)
[2023-04-12 15:11] LABS: Glucose, Whole Blood 158 mg/dL (60-115)
[2023-04-12 16:03] LABS: Glucose, Whole Blood 154 mg/dL (60-115)
[2023-04-12 17:15] LABS: Glucose, Whole Blood 131 mg/dL (60-115)
[2023-04-12] MEDS: Insulin Regular/NS 100 UNIT/100 ML PLAST..BAG IVCONT (18:08)
[2023-04-12 18:21] LABS: Glucose, Whole Blood 109 mg/dL (60-115)
[2023-04-12 18:31] LABS: Anion Gap 14 (12-20); Blood Urea Nitrogen 69 mg/dL (9-16); Carbon Dioxide 18 mmol/L (22-29); Chloride 115 mmol/L (96-108); Creatinine Clr Calc Pharmacy 24.3; Estimated Glomerular Filt Rate 13; Glucose Random 132 mg/dL (60-115); Potassium 4.6 mmol/L (3.3-5.1); Sodium 142 mmol/L (135-145)
[2023-04-12 19:06] LABS: Glucose, Whole Blood 126 mg/dL (60-115)
[2023-04-12 20:06] LABS: Glucose, Whole Blood 120 mg/dL (60-115)
[2023-04-12 21:06] LABS: Glucose, Whole Blood 135 mg/dL (60-115)
[2023-04-12 22:10] LABS: Glucose, Whole Blood 161 mg/dL (60-115)
[2023-04-12 23:19] LABS: Glucose, Whole Blood 146 mg/dL (60-115)
[2023-04-13] VITALS (32 sets, daily range): BP systolic 95–159; BP diastolic 43–115; PULSE 81–131; RESP 12–28; TEMP 36.1–38.2; O2SAT 89–96; BMI 43.0
[2023-04-13] LABS: Glucose, Whole Blood 160 mg/dL (60-115)
[2023-04-13 01:06] LABS: Glucose, Whole Blood 167 mg/dL (60-115)
[2023-04-13] MEDS: dexmedeTOMIDidine HCL/NS 400 MCG/100 ML INFUS..BTL 36.98 MCG IVCONT ×3 (01:18→06:41)
[2023-04-13 02:04] LABS: Glucose, Whole Blood 162 mg/dL (60-115)
[2023-04-13 02:55] LABS: Glucose, Whole Blood 167 mg/dL (60-115)
[2023-04-13 04:01] LABS: Glucose, Whole Blood 195 mg/dL (60-115)
[2023-04-13] MEDS: Sodium Bicarbonate 8.4% 100 MEQ in Dextrose 5 % 900 ML IV ×3 (04:09→23:51)
[2023-04-13 04:41] LABS: VBG Base Excess -6.6 mmol/L; VBG HCO3 18 mmol/L (22-26); VBG pCO2 33 mmHg; VBG pH 7.34 (7.32-7.43); VBG pO2 49 mmHg
[2023-04-13 04:54] LABS: Hematocrit 27.4 % (37.0-47.0); Hemoglobin 9.5 g/dl (12.0-16.0); Mean Corpuscular HGB Conc 34.7 g/dl (31.0-35.0); Mean Corpuscular Hemoglobin 31.3 pg (27.0-33.0); Mean Corpuscular Volume 90.1 fL (80.0-98.0); Mean Platelet Volume 10.1 fL (9.4-12.3); NRBC Pct Auto 0.2 /100WBC (0.0-0.2); Platelet Count 109 X10*3/uL (160-400); Red Blood Count 3.04 X10*6/uL (4.20-5.50); Red Cell Distribution Width 13.7 % (11.0-16.0); White Blood Count 12.5 X10*3/uL (4.8-10.8)
[2023-04-13 05:01] LABS: Glucose, Whole Blood 167 mg/dL (60-115)
[2023-04-13 05:11] LABS: Alanine Aminotransferase 126 U/L (0-31); Albumin Level 2.9 g/dL (3.5-5.0); Alkaline Phosphatase 249 U/L (39-117); Anion Gap 14 (12-20); Aspartate Amino Transferase 144 U/L (5-31); Bilirubin Total 0.5 mg/dL (0.0-1.0); Blood Urea Nitrogen 70 mg/dL (9-16); Calcium 7.8 mg/dL (8.4-10.2); Carbon Dioxide 18 mmol/L (22-29); Chloride 115 mmol/L (96-108); Estimated Glomerular Filt Rate 13; Glucose Random 208 mg/dL (60-115); Magnesium 1.7 mg/dL (1.6-2.6); Phosphorus 2.3 mg/dL (2.7-4.5); Potassium 4.1 mmol/L (3.3-5.1); Sodium 143 mmol/L (135-145); Total Protein 5.5 g/dL (6.5-8.0)
[2023-04-13 05:23] LABS: Band Neutrophils Percent 11 % (3-5); Eosinophils Absolute Manual 0.1 X10*3/uL (0.0-0.4); Eosinophils Percent Manual 1 % (0-4); Lymphocytes Absolute Manual 0.9 X10*3/uL (1.2-4.9); Lymphocytes Percent Manual 7 % (20-40); Metamyelocytes Absolute 0.1 X10*3/uL; Metamyelocytes Percent 1 %; Monocytes Absolute Manual 0.1 X10*3/uL (0.1-1.2); Monocytes Percent Manual 1 % (2-11); Neutrophils Absolute Manual 11.3 X10*3/uL (2.0-8.3); Neutrophils Percent Manual 79 % (45-73)
[2023-04-13 05:24] LABS: Dohle Bodies PRESENT; Platelet Estimate DECREASED (NORMAL); Platelet Morphology Comment NORMAL; Toxic Granulation PRESENT
[2023-04-13 05:27] LABS: Schistocytes 1+ (0-2) /OIF; Target Cells 1+ (5-14) /OIF
[2023-04-13 05:59] LABS: Glucose, Whole Blood 188 mg/dL (60-115)
[2023-04-13] MEDS: Albumin Human 25 % 100 ML IV ×4 (06:07→22:50)
[2023-04-13] MEDS: Potassium Phosphate/NS 15 MMOL/250 ML PLAST..BAG 62.5 MMOL IV (06:18)
[2023-04-13 06:44] LABS: Venous Blood Gas Refer to POC result
[2023-04-13 06:48] LABS: RBC Morphology NOTED
[2023-04-13 07:18] LABS: Glucose, Whole Blood 199 mg/dL (60-115)
[2023-04-13 08:06] LABS: Glucose, Whole Blood 201 mg/dL (60-115)
[2023-04-13] MEDS: Heparin Sodium,Porcine 5,000 UNIT/ML VIAL 5000 UNIT SUBCUT ×3 (08:35→20:29)
[2023-04-13] MEDS: Nystatin Powder 15 GM BOTTLE 1 APPL TOPICAL ×2 (08:36→20:31)
--- NOTE | 2023-04-13 09:09 | P.CDIM_ITS ---
PROVIDER RESPONSE TEXT: To clarify, the appropriate diagnosis supported by the clinical indicators: Obesity Due to excess calories QUERY TEXT: PHYSICIAN'S DOCUMENTATION REQUEST Date of Query: 04/13/2023 08:33 AM EST Patient Name: Sandra Drummond Admit Date: 04/09/2023 Dear Jayden Tipton, A review of the medical record indicates additional documentation may be needed. Please review below and update the documentation accordingly. Clinical Indicators: Height: ( ) 5'5 Weight: ( ) 117.2 kg BMI: ( ) 43.0 If possible, please provide an associated diagnosis related to the abnormal BMI, such as: Overweight Obesity Due to excess calories Obesity Drug induced Obesity Due to other cause Specify the other cause Severe or Morbid Obesity With alveolar hypoventilation Severe or Morbid Obesity Without alveolar hypoventilation BMI is not significant Other (explain) Clinically unable to determine (explain) Thank you, Amairani Larry RN Use of terms such as suspected, likely, concern for, or probable (associated with a specific diagnosi s that is being evaluated, monitored, or treated as if it exists) are acceptable and can be coded in the inpatient se tting, when documented at the time of discharge. Please use your independent medical judgment in providing your response. THIS QUERY IS PART OF THE PERMANENT MEDICAL RECORD
--- NOTE | 2023-04-13 10:02 | PM.CCPN ---
Subjective Subjective Date of Service: 04/13/23 Interval History: 38-year-old lady with underlying diabetes mellitus admitted on 04/09/2023 after being found unresponsive by her boyfriend. On ER evaluation patient in AFib with RVR and diabetic ketoacidosis, also hypertensive. Patient started on insulin drip, broad-spectrum antibiotics and admitted to intensive care unit. Further hospital course complicated by E coli bacteremia with likely source, encephalopathy, and acute renal failure. CT abdomen and pelvis without evidence of urinary obstruction or hydronephrosis. No events overnight. Insulin requirements continue to improve. Encephalopathy improving. Renal function and urine output also improving. Critical Care Time (minutes): 30 Physical Exam Vital Signs: Vital Signs: Last Vital Signs Temp 97.0 F 04/13/23 08:00 Pulse 85 04/13/23 09:00 Resp 15 04/13/23 09:00 BP 108/62 04/13/23 09:00 Pulse Ox 93 04/13/23 09:00 O2 Del Method Nasal Cannula 04/13/23 09:00 O2 Flow Rate 1 04/13/23 09:00 Oxygen Flow Rate 4 04/09/23 10:23 BMI result Body Mass Index 43.0 Const: General: anxious, confusion and other Nutritional Appearance: obese Orientation/consciousness: confusion Eyes: Sclerae: sclerae normal EOM: EOMs intact bilaterally Neck: Neck: Yes no lymphadenopathy, Yes trachea midline and Yes supple Resp: Effort & Inspection: normal respiratory effort and no respiratory distress Auscultation: crackles ( bibasilar) Cardio: Rate: regular rate Rhythm: regular rhythm Heart sounds: no gallops, no murmurs and no rubs GI: Palpation (GI): Soft to palpation and Other GI palpation findings present ( Nontender) Auscultation: normal bowel sounds Neuro: General: confusion Extrem: General: Yes no pedal edema, No clubbing and No cyanosis Objective Data Labs 04/13/23 04:33 04/13/23 04:33 Labs: Laboratory Results - last 24 hr 04/12/23 04/12/23 04/12/23 10:15 11:04 12:17 WBC RBC Hgb Hct MCV MCH MCHC RDW Plt Count MPV Immature Gran % (Auto) Neut % (Auto) Lymph % (Auto) Wright % (Auto) Eos % (Auto) Baso % (Auto) Lymph # (Auto) Wright # (Auto) Eos # (Auto) Baso # (Auto) Abs Immat Gran (auto) Absolute Neuts (auto) Absolute Nucleated RBC Nucleated RBC % (auto) Neutrophils % (Manual) Band Neutrophils % Lymphocytes % (Manual) Monocytes % (Manual) Eosinophils % (Manual) Metamyelocytes % Abs Neuts (Manual) Lymphocytes # (Manual) Monocytes # (Manual) Eosinophils # (Manual) Metamyelocytes # Toxic Granulation Dohle Bodies Platelet Estimate Plt Morphology Comment RBC Morphology Target Cells Schistocytes Hold Purple Top VBG pH VBG pCO2 VBG pO2 VBG HCO3 VBG O2 Saturation VBG Base Excess Sodium Potassium Chloride Carbon Dioxide Anion Gap BUN Creatinine Estim Creat Clear Calc Estimated GFR POC Glucose 168 H 167 H 191 H Random Glucose Calcium Phosphorus Magnesium Total Bilirubin AST ALT Alkaline Phosphatase Total Protein Albumin 04/12/23 04/12/23 04/12/23 13:08 14:15 15:07 WBC RBC Hgb Hct MCV MCH MCHC RDW Plt Count MPV Immature Gran % (Auto) Neut % (Auto) Lymph % (Auto) Wright % (Auto) Eos % (Auto) Baso % (Auto) Lymph # (Auto) Wright # (Auto) Eos # (Auto) Baso # (Auto) Abs Immat Gran (auto) Absolute Neuts (auto) Absolute Nucleated RBC Nucleated RBC % (auto) Neutrophils % (Manual) Band Neutrophils % Lymphocytes % (Manual) Monocytes % (Manual) Eosinophils % (Manual) Metamyelocytes % Abs Neuts (Manual) Lymphocytes # (Manual) Monocytes # (Manual) Eosinophils # (Manual) Metamyelocytes # Toxic Granulation Dohle Bodies Platelet Estimate Plt Morphology Comment RBC Morphology Target Cells Schistocytes Hold Purple Top VBG pH VBG pCO2 VBG pO2 VBG HCO3 VBG O2 Saturation VBG Base Excess Sodium Potassium Chloride Carbon Dioxide Anion Gap BUN Creatinine Estim Creat Clear Calc Estimated GFR POC Glucose 185 H 175 H 158 H Random Glucose Calcium Phosphorus Magnesium Total Bilirubin AST ALT Alkaline Phosphatase Total Protein Albumin 04/12/23 04/12/23 04/12/23 15:50 17:05 17:59 WBC RBC Hgb Hct MCV MCH MCHC RDW Plt Count MPV Immature Gran % (Auto) Neut % (Auto) Lymph % (Auto) Wright % (Auto) Eos % (Auto) Baso % (Auto) Lymph # (Auto) Wright # (Auto) Eos # (Auto) Baso # (Auto) Abs Immat Gran (auto) Absolute Neuts (auto) Absolute Nucleated RBC Nucleated RBC % (auto) Neutrophils % (Manual) Band Neutrophils % Lymphocytes % (Manual) Monocytes % (Manual) Eosinophils % (Manual) Metamyelocytes % Abs Neuts (Manual) Lymphocytes # (Manual) Monocytes # (Manual) Eosinophils # (Manual) Metamyelocytes # Toxic Granulation Dohle Bodies Platelet Estimate Plt Morphology Comment RBC Morphology Target Cells Schistocytes Hold Purple Top VBG pH VBG pCO2 VBG pO2 VBG HCO3 VBG O2 Saturation VBG Base Excess Sodium Potassium Chloride Carbon Dioxide Anion Gap BUN Creatinine Estim Creat Clear Calc Estimated GFR POC Glucose 154 H 131 H 109 Random Glucose Calcium Phosphorus Magnesium Total Bilirubin AST ALT Alkaline Phosphatase Total Protein Albumin 04/12/23 04/12/23 04/12/23 18:10 19:02 19:59 WBC RBC Hgb Hct MCV MCH MCHC RDW Plt Count MPV Immature Gran % (Auto) Neut % (Auto) Lymph % (Auto) Wright % (Auto) Eos % (Auto) Baso % (Auto) Lymph # (Auto) Wright # (Auto) Eos # (Auto) Baso # (Auto) Abs Immat Gran (auto) Absolute Neuts (auto) Absolute Nucleated RBC Nucleated RBC % (auto) Neutrophils % (Manual) Band Neutrophils % Lymphocytes % (Manual) Monocytes % (Manual) Eosinophils % (Manual) Metamyelocytes % Abs Neuts (Manual) Lymphocytes # (Manual) Monocytes # (Manual) Eosinophils # (Manual) Metamyelocytes # Toxic Granulation Dohle Bodies Platelet Estimate Plt Morphology Comment RBC Morphology Target Cells Schistocytes Hold Purple Top VBG pH VBG pCO2 VBG pO2 VBG HCO3 VBG O2 Saturation VBG Base Excess Sodium 142 Potassium 4.6 Chloride 115 H Carbon Dioxide 18 L Anion Gap 14 BUN 69 H Creatinine 3.96 H Estim Creat Clear Calc 24.3 Estimated GFR 13 POC Glucose 126 H 120 H Random Glucose 132 H Calcium 8.0 L Phosphorus Magnesium Total Bilirubin AST ALT Alkaline Phosphatase Total Protein Albumin 04/12/23 04/12/23 04/12/23 21:03 22:04 23:16 WBC RBC Hgb Hct MCV MCH MCHC RDW Plt Count MPV Immature Gran % (Auto) Neut % (Auto) Lymph % (Auto) Wright % (Auto) Eos % (Auto) Baso % (Auto) Lymph # (Auto) Wright # (Auto) Eos # (Auto) Baso # (Auto) Abs Immat Gran (auto) Absolute Neuts (auto) Absolute Nucleated RBC Nucleated RBC % (auto) Neutrophils % (Manual) Band Neutrophils % Lymphocytes % (Manual) Monocytes % (Manual) Eosinophils % (Manual) Metamyelocytes % Abs Neuts (Manual) Lymphocytes # (Manual) Monocytes # (Manual) Eosinophils # (Manual) Metamyelocytes # Toxic Granulation Dohle Bodies Platelet Estimate Plt Morphology Comment RBC Morphology Target Cells Schistocytes Hold Purple Top VBG pH VBG pCO2 VBG pO2 VBG HCO3 VBG O2 Saturation VBG Base Excess Sodium Potassium Chloride Carbon Dioxide Anion Gap BUN Creatinine Estim Creat Clear Calc Estimated GFR POC Glucose 135 H 161 H 146 H Random Glucose Calcium Phosphorus Magnesium Total Bilirubin AST ALT Alkaline Phosphatase Total Protein Albumin 04/12/23 04/13/23 04/13/23 23:55 01:02 01:56 WBC RBC Hgb Hct MCV MCH MCHC RDW Plt Count MPV Immature Gran % (Auto) Neut % (Auto) Lymph % (Auto) Wright % (Auto) Eos % (Auto) Baso % (Auto) Lymph # (Auto) Wright # (Auto) Eos # (Auto) Baso # (Auto) Abs Immat Gran (auto) Absolute Neuts (auto) Absolute Nucleated RBC Nucleated RBC % (auto) Neutrophils % (Manual) Band Neutrophils % Lymphocytes % (Manual) Monocytes % (Manual) Eosinophils % (Manual) Metamyelocytes % Abs Neuts (Manual) Lymphocytes # (Manual) Monocytes # (Manual) Eosinophils # (Manual) Metamyelocytes # Toxic Granulation Dohle Bodies Platelet Estimate Plt Morphology Comment RBC Morphology Target Cells Schistocytes Hold Purple Top VBG pH VBG pCO2 VBG pO2 VBG HCO3 VBG O2 Saturation VBG Base Excess Sodium Potassium Chloride Carbon Dioxide Anion Gap BUN Creatinine Estim Creat Clear Calc Estimated GFR POC Glucose 160 H 167 H 162 H Random Glucose Calcium Phosphorus Magnesium Total Bilirubin AST ALT Alkaline Phosphatase Total Protein Albumin 04/13/23 04/13/23 04/13/23 02:51 03:58 04:33 WBC 12.5 H RBC 3.04 L Hgb 9.5 L Hct 27.4 L MCV 90.1 MCH 31.3 MCHC 34.7 RDW 13.7 Plt Count 109 L MPV 10.1 Immature Gran % (Auto) Cancelled Neut % (Auto) Cancelled Lymph % (Auto) Cancelled Wright % (Auto) Cancelled Eos % (Auto) Cancelled Baso % (Auto) Cancelled Lymph # (Auto) Cancelled Wright # (Auto) Cancelled Eos # (Auto) Cancelled Baso # (Auto) Cancelled Abs Immat Gran (auto) Cancelled Absolute Neuts (auto) Cancelled Absolute Nucleated RBC 0.030 H Nucleated RBC % (auto) 0.2 Neutrophils % (Manual) 79 H Band Neutrophils % 11 H Lymphocytes % (Manual) 7 L Monocytes % (Manual) 1 L Eosinophils % (Manual) 1 Metamyelocytes % 1 Abs Neuts (Manual) 11.3 H Lymphocytes # (Manual) 0.9 L Monocytes # (Manual) 0.1 Eosinophils # (Manual) 0.1 Metamyelocytes # 0.1 Toxic Granulation PRESENT Dohle Bodies PRESENT Platelet Estimate DECREASED Plt Morphology Comment NORMAL RBC Morphology NOTED Target Cells 1+ (5-14) Schistocytes 1+ (0-2) Hold Purple Top SEE NOTE VBG pH VBG pCO2 VBG pO2 VBG HCO3 VBG O2 Saturation VBG Base Excess Sodium 143 Potassium 4.1 Chloride 115 H Carbon Dioxide 18 L Anion Gap 14 BUN 70 H Creatinine 3.90 H Estim Creat Clear Calc 25.0 Estimated GFR 13 POC Glucose 167 H 195 H Random Glucose 208 H Calcium 7.8 L Phosphorus 2.3 L Magnesium 1.7 Total Bilirubin 0.5 AST 144 H ALT 126 H Alkaline Phosphatase 249 H Total Protein 5.5 L Albumin 2.9 L 04/13/23 04/13/23 04/13/23 04:35 04:57 05:54 WBC RBC Hgb Hct MCV MCH MCHC RDW Plt Count MPV Immature Gran % (Auto) Neut % (Auto) Lymph % (Auto) Wright % (Auto) Eos % (Auto) Baso % (Auto) Lymph # (Auto) Wright # (Auto) Eos # (Auto) Baso # (Auto) Abs Immat Gran (auto) Absolute Neuts (auto) Absolute Nucleated RBC Nucleated RBC % (auto) Neutrophils % (Manual) Band Neutrophils % Lymphocytes % (Manual) Monocytes % (Manual) Eosinophils % (Manual) Metamyelocytes % Abs Neuts (Manual) Lymphocytes # (Manual) Monocytes # (Manual) Eosinophils # (Manual) Metamyelocytes # Toxic Granulation Dohle Bodies Platelet Estimate Plt Morphology Comment RBC Morphology Target Cells Schistocytes Hold Purple Top VBG pH 7.34 VBG pCO2 33 VBG pO2 49 VBG HCO3 18 L VBG O2 Saturation 82.0 VBG Base Excess -6.6 Sodium Potassium Chloride Carbon Dioxide Anion Gap BUN Creatinine Estim Creat Clear Calc Estimated GFR POC Glucose 167 H 188 H Random Glucose Calcium Phosphorus Magnesium Total Bilirubin AST ALT Alkaline Phosphatase Total Protein Albumin 04/13/23 04/13/23 07:15 08:03 WBC RBC Hgb Hct MCV MCH MCHC RDW Plt Count MPV Immature Gran % (Auto) Neut % (Auto) Lymph % (Auto) Wright % (Auto) Eos % (Auto) Baso % (Auto) Lymph # (Auto) Wright # (Auto) Eos # (Auto) Baso # (Auto) Abs Immat Gran (auto) Absolute Neuts (auto) Absolute Nucleated RBC Nucleated RBC % (auto) Neutrophils % (Manual) Band Neutrophils % Lymphocytes % (Manual) Monocytes % (Manual) Eosinophils % (Manual) Metamyelocytes % Abs Neuts (Manual) Lymphocytes # (Manual) Monocytes # (Manual) Eosinophils # (Manual) Metamyelocytes # Toxic Granulation Dohle Bodies Platelet Estimate Plt Morphology Comment RBC Morphology Target Cells Schistocytes Hold Purple Top VBG pH VBG pCO2 VBG pO2 VBG HCO3 VBG O2 Saturation VBG Base Excess Sodium Potassium Chloride Carbon Dioxide Anion Gap BUN Creatinine Estim Creat Clear Calc Estimated GFR POC Glucose 199 H 201 H Random Glucose Calcium Phosphorus Magnesium Total Bilirubin AST ALT Alkaline Phosphatase Total Protein Albumin Microbiology Microbiology Results: Microbiology 04/09/23 10:59 Blood - Venous Blood Culture - Final Escherichia coli 04/09/23 10:23 Blood - Venous Blood Culture - Final Escherichia coli 04/10/23 05:20 Blood - Venous Blood Culture - Preliminary No growth after 48 hours. 04/10/23 05:20 Blood - Venous Blood Culture - Preliminary No growth after 48 hours. Progress Note: A&P Assessment and plan (1) E coli bacteremia: Status: Acute (2) Acute renal failure: Status: Acute (3) Acute metabolic encephalopathy: Status: Acute (4) Diabetic keto-acidosis: Status: Acute Plan Assessment: 38-year-old lady admitted with diabetic ketoacidosis, Gram-negative bacteremia, pyelonephritis, acute renal failure, metabolic encephalopathy, and AFib with RVR Plan: Neuro: Metabolic encephalopathy, also possible septic encephalopathy component, improving. Continue to titrate off Precedex as tolerated. CT head with no acute findings. Cardiac: AFib with RVR, likely secondary to underlying acidosis, resolved. Septic shock, resolved. Pulmonary: No acute issues. Renal: Acute renal failure. Pyelonephritis. Improving. Non oliguric. Nephrology service care appreciated. Continue to monitor renal indices and urine output. Endo: Ketoacidosis resolved. GI: No acute issues. ID: E coli bacteremia with likely source. Continue ceftriaxone. Heme/Onc: No acute issues. Psych: No acute issues. Miscellaneous: No acute issues. Prophylaxis: Heparin Diet: Nothing by mouth Critical care time spent: 30 minute Quality Stroke Does the patient have a stroke diagnosis?: No VTE Prior VTE?: No VTE Risk Level:: Medical - moderate - high VTE Device Contraindication: N/A - Device Ordered VTE Drug Contraindication: N/A - Med Ordered
[2023-04-13 10:20] LABS: Glucose, Whole Blood 245 mg/dL (60-115)
[2023-04-13] MEDS: dexmedeTOMIDidine HCL/NS 400 MCG/100 ML INFUS..BTL 18.49 MCG IVCONT ×2 (10:20→16:18)
[2023-04-13] MEDS: cefTRIAXone sodium 1 GM in 0.9 % Sodium Chloride 50 ML IV (10:50)
[2023-04-13] MEDS: Insulin Regular/NS 100 UNIT/100 ML PLAST..BAG IVCONT (11:02)
[2023-04-13] MEDS: LORazepam 2 MG/ML VIAL 1 MG IVPUSH ×2 (11:04→18:37)
[2023-04-13 11:57] LABS: Glucose, Whole Blood 243 mg/dL (60-115)
--- NOTE | 2023-04-13 12:35 | PM.PNNEP ---
Subjective Subjective Date of Service: 04/14/23 Interval history: Events noted. Mom at bedside. Discussed with ICU attending. Urine output has improved. Physical Exam Vital Signs: Vital Signs: Last Vital Signs Temp 97.9 F 04/13/23 12:00 Pulse 87 04/13/23 12:00 Resp 16 04/13/23 12:00 BP 108/67 04/13/23 12:00 Pulse Ox 92 04/13/23 12:00 O2 Del Method Nasal Cannula 04/13/23 12:00 O2 Flow Rate 1 04/13/23 12:00 Oxygen Flow Rate 4 04/09/23 10:23 BMI result Body Mass Index 43.0 Const: Other: moaning, unable to follow commands; no overt distress General: no acute distress, anxious, confusion, ill appearing and other Nutritional Appearance: obese Orientation/consciousness: confusion HEENT: Head: Yes normal to inspection, Yes normocephalic and Yes atraumatic Eyes: General: appearance normal, both eyes and all related structures Sclerae: sclerae normal Pupils: Pinpoint pupils EOM: EOMs intact bilaterally Neck: Neck: Yes normal visual inspection, Yes full ROM, Yes no lymphadenopathy, Yes no meningeal signs, Yes trachea midline and Yes supple Chest: Chest palpation & inspection: normal inspection of the chest Resp: Other: no rales, rhonchi, wheezing Effort & Inspection: normal respiratory effort and no respiratory distress Auscultation: crackles ( bibasilar), rhonchi and diminished lung sounds Cardio: Jugular venous distension: no JVD Palpation: no palpable S3 Rate: regular rate and tachycardic Rhythm: regular rhythm and abnormal rhythm irregularly irregular Heart sounds: no gallops, no murmurs and no rubs GI: Inspection: Yes normal to inspection, No Abdominal wall edema and No distended Palpation (GI): Soft to palpation, not firm, nontender, no guarding, not rigid and Other GI palpation findings present ( Nontender) Auscultation: normal bowel sounds : External Female Exam: normal external appearance Skin: Other: some abrasions bilateral knees General skin exam: no rashes or lesions noted Neuro: Other: not oriented to person, place, nor time; responds to name General: moves all extremities, no meningeal signs, no focal motor deficits and confusion Extrem: General: Yes normal to inspection, Yes capillary refill normal, Yes no clubbing, cyanosis or edema, Yes no pedal edema, No clubbing, No cyanosis and Yes edema ( trace bilateral) Psych: Other: intermittent agitation Objective Data Labs 04/14/23 04:38 04/14/23 04:38 Labs: Laboratory Results - last 24 hr 04/12/23 04/12/23 04/12/23 13:08 14:15 15:07 WBC RBC Hgb Hct MCV MCH MCHC RDW Plt Count MPV Immature Gran % (Auto) Neut % (Auto) Lymph % (Auto) [place] % (Auto) Eos % (Auto) Baso % (Auto) Lymph # (Auto) [place] # (Auto) Eos # (Auto) Baso # (Auto) Abs Immat Gran (auto) Absolute Neuts (auto) Absolute Nucleated RBC Nucleated RBC % (auto) Neutrophils % (Manual) Band Neutrophils % Lymphocytes % (Manual) Monocytes % (Manual) Eosinophils % (Manual) Metamyelocytes % Abs Neuts (Manual) Lymphocytes # (Manual) Monocytes # (Manual) Eosinophils # (Manual) Metamyelocytes # Toxic Granulation Dohle Bodies Platelet Estimate Plt Morphology Comment RBC Morphology Target Cells Schistocytes Hold Purple Top VBG pH VBG pCO2 VBG pO2 VBG HCO3 VBG O2 Saturation VBG Base Excess Sodium Potassium Chloride Carbon Dioxide Anion Gap BUN Creatinine Estim Creat Clear Calc Estimated GFR POC Glucose 185 H 175 H 158 H Random Glucose Calcium Phosphorus Magnesium Total Bilirubin AST ALT Alkaline Phosphatase Total Protein Albumin 04/12/23 04/12/23 04/12/23 15:50 17:05 17:59 WBC RBC Hgb Hct MCV MCH MCHC RDW Plt Count MPV Immature Gran % (Auto) Neut % (Auto) Lymph % (Auto) [place] % (Auto) Eos % (Auto) Baso % (Auto) Lymph # (Auto) [place] # (Auto) Eos # (Auto) Baso # (Auto) Abs Immat Gran (auto) Absolute Neuts (auto) Absolute Nucleated RBC Nucleated RBC % (auto) Neutrophils % (Manual) Band Neutrophils % Lymphocytes % (Manual) Monocytes % (Manual) Eosinophils % (Manual) Metamyelocytes % Abs Neuts (Manual) Lymphocytes # (Manual) Monocytes # (Manual) Eosinophils # (Manual) Metamyelocytes # Toxic Granulation Dohle Bodies Platelet Estimate Plt Morphology Comment RBC Morphology Target Cells Schistocytes Hold Purple Top VBG pH VBG pCO2 VBG pO2 VBG HCO3 VBG O2 Saturation VBG Base Excess Sodium Potassium Chloride Carbon Dioxide Anion Gap BUN Creatinine Estim Creat Clear Calc Estimated GFR POC Glucose 154 H 131 H 109 Random Glucose Calcium Phosphorus Magnesium Total Bilirubin AST ALT Alkaline Phosphatase Total Protein Albumin 04/12/23 04/12/23 04/12/23 18:10 19:02 19:59 WBC RBC Hgb Hct MCV MCH MCHC RDW Plt Count MPV Immature Gran % (Auto) Neut % (Auto) Lymph % (Auto) [place] % (Auto) Eos % (Auto) Baso % (Auto) Lymph # (Auto) [place] # (Auto) Eos # (Auto) Baso # (Auto) Abs Immat Gran (auto) Absolute Neuts (auto) Absolute Nucleated RBC Nucleated RBC % (auto) Neutrophils % (Manual) Band Neutrophils % Lymphocytes % (Manual) Monocytes % (Manual) Eosinophils % (Manual) Metamyelocytes % Abs Neuts (Manual) Lymphocytes # (Manual) Monocytes # (Manual) Eosinophils # (Manual) Metamyelocytes # Toxic Granulation Dohle Bodies Platelet Estimate Plt Morphology Comment RBC Morphology Target Cells Schistocytes Hold Purple Top VBG pH VBG pCO2 VBG pO2 VBG HCO3 VBG O2 Saturation VBG Base Excess Sodium 142 Potassium 4.6 Chloride 115 H Carbon Dioxide 18 L Anion Gap 14 BUN 69 H Creatinine 3.96 H Estim Creat Clear Calc 24.3 Estimated GFR 13 POC Glucose 126 H 120 H Random Glucose 132 H Calcium 8.0 L Phosphorus Magnesium Total Bilirubin AST ALT Alkaline Phosphatase Total Protein Albumin 04/12/23 04/12/23 04/12/23 21:03 22:04 23:16 WBC RBC Hgb Hct MCV MCH MCHC RDW Plt Count MPV Immature Gran % (Auto) Neut % (Auto) Lymph % (Auto) [place] % (Auto) Eos % (Auto) Baso % (Auto) Lymph # (Auto) [place] # (Auto) Eos # (Auto) Baso # (Auto) Abs Immat Gran (auto) Absolute Neuts (auto) Absolute Nucleated RBC Nucleated RBC % (auto) Neutrophils % (Manual) Band Neutrophils % Lymphocytes % (Manual) Monocytes % (Manual) Eosinophils % (Manual) Metamyelocytes % Abs Neuts (Manual) Lymphocytes # (Manual) Monocytes # (Manual) Eosinophils # (Manual) Metamyelocytes # Toxic Granulation Dohle Bodies Platelet Estimate Plt Morphology Comment RBC Morphology Target Cells Schistocytes Hold Purple Top VBG pH VBG pCO2 VBG pO2 VBG HCO3 VBG O2 Saturation VBG Base Excess Sodium Potassium Chloride Carbon Dioxide Anion Gap BUN Creatinine Estim Creat Clear Calc Estimated GFR POC Glucose 135 H 161 H 146 H Random Glucose Calcium Phosphorus Magnesium Total Bilirubin AST ALT Alkaline Phosphatase Total Protein Albumin 04/12/23 04/13/23 04/13/23 23:55 01:02 01:56 WBC RBC Hgb Hct MCV MCH MCHC RDW Plt Count MPV Immature Gran % (Auto) Neut % (Auto) Lymph % (Auto) [place] % (Auto) Eos % (Auto) Baso % (Auto) Lymph # (Auto) [place] # (Auto) Eos # (Auto) Baso # (Auto) Abs Immat Gran (auto) Absolute Neuts (auto) Absolute Nucleated RBC Nucleated RBC % (auto) Neutrophils % (Manual) Band Neutrophils % Lymphocytes % (Manual) Monocytes % (Manual) Eosinophils % (Manual) Metamyelocytes % Abs Neuts (Manual) Lymphocytes # (Manual) Monocytes # (Manual) Eosinophils # (Manual) Metamyelocytes # Toxic Granulation Dohle Bodies Platelet Estimate Plt Morphology Comment RBC Morphology Target Cells Schistocytes Hold Purple Top VBG pH VBG pCO2 VBG pO2 VBG HCO3 VBG O2 Saturation VBG Base Excess Sodium Potassium Chloride Carbon Dioxide Anion Gap BUN Creatinine Estim Creat Clear Calc Estimated GFR POC Glucose 160 H 167 H 162 H Random Glucose Calcium Phosphorus Magnesium Total Bilirubin AST ALT Alkaline Phosphatase Total Protein Albumin 04/13/23 04/13/23 04/13/23 02:51 03:58 04:33 WBC 12.5 H RBC 3.04 L Hgb 9.5 L Hct 27.4 L MCV 90.1 MCH 31.3 MCHC 34.7 RDW 13.7 Plt Count 109 L MPV 10.1 Immature Gran % (Auto) Cancelled Neut % (Auto) Cancelled Lymph % (Auto) Cancelled [place] % (Auto) Cancelled Eos % (Auto) Cancelled Baso % (Auto) Cancelled Lymph # (Auto) Cancelled [place] # (Auto) Cancelled Eos # (Auto) Cancelled Baso # (Auto) Cancelled Abs Immat Gran (auto) Cancelled Absolute Neuts (auto) Cancelled Absolute Nucleated RBC 0.030 H Nucleated RBC % (auto) 0.2 Neutrophils % (Manual) 79 H Band Neutrophils % 11 H Lymphocytes % (Manual) 7 L Monocytes % (Manual) 1 L Eosinophils % (Manual) 1 Metamyelocytes % 1 Abs Neuts (Manual) 11.3 H Lymphocytes # (Manual) 0.9 L Monocytes # (Manual) 0.1 Eosinophils # (Manual) 0.1 Metamyelocytes # 0.1 Toxic Granulation PRESENT Dohle Bodies PRESENT Platelet Estimate DECREASED Plt Morphology Comment NORMAL RBC Morphology NOTED Target Cells 1+ (5-14) Schistocytes 1+ (0-2) Hold Purple Top SEE NOTE VBG pH VBG pCO2 VBG pO2 VBG HCO3 VBG O2 Saturation VBG Base Excess Sodium 143 Potassium 4.1 Chloride 115 H Carbon Dioxide 18 L Anion Gap 14 BUN 70 H Creatinine 3.90 H Estim Creat Clear Calc 25.0 Estimated GFR 13 POC Glucose 167 H 195 H Random Glucose 208 H Calcium 7.8 L Phosphorus 2.3 L Magnesium 1.7 Total Bilirubin 0.5 AST 144 H ALT 126 H Alkaline Phosphatase 249 H Total Protein 5.5 L Albumin 2.9 L 04/13/23 04/13/23 04/13/23 04:35 04:57 05:54 WBC RBC Hgb Hct MCV MCH MCHC RDW Plt Count MPV Immature Gran % (Auto) Neut % (Auto) Lymph % (Auto) [place] % (Auto) Eos % (Auto) Baso % (Auto) Lymph # (Auto) [place] # (Auto) Eos # (Auto) Baso # (Auto) Abs Immat Gran (auto) Absolute Neuts (auto) Absolute Nucleated RBC Nucleated RBC % (auto) Neutrophils % (Manual) Band Neutrophils % Lymphocytes % (Manual) Monocytes % (Manual) Eosinophils % (Manual) Metamyelocytes % Abs Neuts (Manual) Lymphocytes # (Manual) Monocytes # (Manual) Eosinophils # (Manual) Metamyelocytes # Toxic Granulation Dohle Bodies Platelet Estimate Plt Morphology Comment RBC Morphology Target Cells Schistocytes Hold Purple Top VBG pH 7.34 VBG pCO2 33 VBG pO2 49 VBG HCO3 18 L VBG O2 Saturation 82.0 VBG Base Excess -6.6 Sodium Potassium Chloride Carbon Dioxide Anion Gap BUN Creatinine Estim Creat Clear Calc Estimated GFR POC Glucose 167 H 188 H Random Glucose Calcium Phosphorus Magnesium Total Bilirubin AST ALT Alkaline Phosphatase Total Protein Albumin 04/13/23 04/13/23 04/13/23 07:15 08:03 10:08 WBC RBC Hgb Hct MCV MCH MCHC RDW Plt Count MPV Immature Gran % (Auto) Neut % (Auto) Lymph % (Auto) [place] % (Auto) Eos % (Auto) Baso % (Auto) Lymph # (Auto) [place] # (Auto) Eos # (Auto) Baso # (Auto) Abs Immat Gran (auto) Absolute Neuts (auto) Absolute Nucleated RBC Nucleated RBC % (auto) Neutrophils % (Manual) Band Neutrophils % Lymphocytes % (Manual) Monocytes % (Manual) Eosinophils % (Manual) Metamyelocytes % Abs Neuts (Manual) Lymphocytes # (Manual) Monocytes # (Manual) Eosinophils # (Manual) Metamyelocytes # Toxic Granulation Dohle Bodies Platelet Estimate Plt Morphology Comment RBC Morphology Target Cells Schistocytes Hold Purple Top VBG pH VBG pCO2 VBG pO2 VBG HCO3 VBG O2 Saturation VBG Base Excess Sodium Potassium Chloride Carbon Dioxide Anion Gap BUN Creatinine Estim Creat Clear Calc Estimated GFR POC Glucose 199 H 201 H 245 H Random Glucose Calcium Phosphorus Magnesium Total Bilirubin AST ALT Alkaline Phosphatase Total Protein Albumin 04/13/23 11:52 WBC RBC Hgb Hct MCV MCH MCHC RDW Plt Count MPV Immature Gran % (Auto) Neut % (Auto) Lymph % (Auto) [place] % (Auto) Eos % (Auto) Baso % (Auto) Lymph # (Auto) [place] # (Auto) Eos # (Auto) Baso # (Auto) Abs Immat Gran (auto) Absolute Neuts (auto) Absolute Nucleated RBC Nucleated RBC % (auto) Neutrophils % (Manual) Band Neutrophils % Lymphocytes % (Manual) Monocytes % (Manual) Eosinophils % (Manual) Metamyelocytes % Abs Neuts (Manual) Lymphocytes # (Manual) Monocytes # (Manual) Eosinophils # (Manual) Metamyelocytes # Toxic Granulation Dohle Bodies Platelet Estimate Plt Morphology Comment RBC Morphology Target Cells Schistocytes Hold Purple Top VBG pH VBG pCO2 VBG pO2 VBG HCO3 VBG O2 Saturation VBG Base Excess Sodium Potassium Chloride Carbon Dioxide Anion Gap BUN Creatinine Estim Creat Clear Calc Estimated GFR POC Glucose 243 H Random Glucose Calcium Phosphorus Magnesium Total Bilirubin AST ALT Alkaline Phosphatase Total Protein Albumin Microbiology Microbiology Results: Microbiology 04/09/23 10:59 Blood - Venous Blood Culture - Final Escherichia coli 04/09/23 10:23 Blood - Venous Blood Culture - Final Escherichia coli 04/10/23 05:20 Blood - Venous Blood Culture - Preliminary No growth after 48 hours. 04/10/23 05:20 Blood - Venous Blood Culture - Preliminary No growth after 48 hours. Procedures Date of Service Date of Service: 04/14/23 Assessment & Plan Assessment and plan (1) Acute renal failure: Status: Acute Plan Acute kidney injury is most likely due to ATN in the setting of sepsis and hypertension. No evidence of active glomerulonephritis or interstitial disease. Vanco level is elevated and this could lead to ongoing tubular injury. Currently creatinine is trending up. She continues to have metabolic acidosis. No absolute indication for dialysis yet. However if renal function does not improve or of the electrolyte imbalance worsens she may require an replacement therapy. Next I have discussed with ICU attending. Continue to watch urine output closely. Replace bicarbonate. Watch potassium. Continue to avoid hypertension and nephrotoxic agents. We will continue to follow her closely along with the team.. Time Spent With Patient Time: Total time managing care of this patient today ____ minutes. Progress Note: Quality Stroke Does the patient have a stroke diagnosis?: No
[2023-04-13 13:09] LABS: Glucose, Whole Blood 246 mg/dL (60-115)
--- NOTE | 2023-04-13 13:38 | MHC.CM.PN ---
PT REMAINS IN ICU ON INSULIN GTT. ENCEPHALOPATHY IMPROVING. CM WILL CONTINUE TO MONITOR FOR ANY CHANGE IN DC NEEDS/PLAN.
[2023-04-13 14:34] LABS: Glucose, Whole Blood 241 mg/dL (60-115)
[2023-04-13 15:23] LABS: Glucose, Whole Blood 218 mg/dL (60-115)
[2023-04-13 15:55] LABS: Ammonia 51 umol/L (13-55)
[2023-04-13 15:58] LABS: Triglycerides 128 mg/dL (<150)
[2023-04-13 16:08] LABS: Glucose, Whole Blood 193 mg/dL (60-115)
[2023-04-13 17:06] LABS: Glucose, Whole Blood 193 mg/dL (60-115)
[2023-04-13 18:13] LABS: Glucose, Whole Blood 155 mg/dL (60-115)
[2023-04-13] MEDS: Albuterol Sulfate (0.083%) 2.5 MG/3 ML VIAL.NEB INHALE (18:54)
[2023-04-13 19:07] LABS: Glucose, Whole Blood 152 mg/dL (60-115)
[2023-04-13] MEDS: ondansetron HCL 4 MG/2 ML VIAL IVPUSH (19:08)
[2023-04-13] MEDS: Haloperidol Lactate 5 MG/ML VIAL 2 MG IVPUSH (19:25)
[2023-04-13 19:41] LABS: Anion Gap 17 (12-20); Blood Urea Nitrogen 67 mg/dL (9-16); Calcium 7.8 mg/dL (8.4-10.2); Carbon Dioxide 20 mmol/L (22-29); Chloride 112 mmol/L (96-108); Creatinine Clr Calc Pharmacy 27.9; Estimated Glomerular Filt Rate 15; Glucose Random 161 mg/dL (60-115); Magnesium 1.8 mg/dL (1.6-2.6); Potassium 4.1 mmol/L (3.3-5.1); Sodium 145 mmol/L (135-145)
[2023-04-13 20:04] LABS: Glucose, Whole Blood 158 mg/dL (60-115)
[2023-04-13] MEDS: Insulin Regular/NS 100 UNIT/100 ML PLAST..BAG 11 UNIT IVCONT (20:30)
[2023-04-13] MEDS: Albuterol Sulfate (0.083%) 2.5 MG/3 ML VIAL.NEB 7.5 MG INHALE (20:36)
[2023-04-13 21:02] LABS: Glucose, Whole Blood 153 mg/dL (60-115)
[2023-04-13] MEDS: dexmedeTOMIDidine HCL/NS 400 MCG/100 ML INFUS..BTL 24.65 MCG IVCONT (21:15)
[2023-04-13 22:07] LABS: Glucose, Whole Blood 158 mg/dL (60-115)
[2023-04-14] VITALS (33 sets, daily range): BP systolic 97–156; BP diastolic 47–82; PULSE 89–122; RESP 11–39; TEMP 36.2–37.8; O2SAT 89–97; BMI 43.7; BMI 45.0
[2023-04-14 00:04] LABS: Glucose, Whole Blood 141 mg/dL (60-115)
[2023-04-14] MEDS: dexmedeTOMIDidine HCL/NS 400 MCG/100 ML INFUS..BTL 24.65 MCG IVCONT (01:22)
[2023-04-14 02:01] LABS: Glucose, Whole Blood 129 mg/dL (60-115)
[2023-04-14] MEDS: Haloperidol Lactate 5 MG/ML VIAL 2 MG IVPUSH ×3 (02:15→21:43)
[2023-04-14] MEDS: LORazepam 2 MG/ML VIAL 1 MG IVPUSH ×3 (03:49→20:17)
[2023-04-14 04:03] LABS: Glucose, Whole Blood 110 mg/dL (60-115)
[2023-04-14 04:51] LABS: VBG Base Excess -0.1 mmol/L; VBG HCO3 25 mmol/L (22-26); VBG pCO2 44 mmHg; VBG pH 7.36 (7.32-7.43); VBG pO2 64 mmHg
[2023-04-14 04:53] LABS: Venous Blood Gas Refer to POC result
[2023-04-14] MEDS: Insulin Regular/NS 100 UNIT/100 ML PLAST..BAG 9 UNIT IVCONT (04:55)
[2023-04-14 05:11] LABS: Glucose, Whole Blood 99 mg/dL (60-115)
[2023-04-14 05:13] LABS: Hematocrit 22.9 % (37.0-47.0); Hemoglobin 7.7 g/dl (12.0-16.0); Mean Corpuscular HGB Conc 33.6 g/dl (31.0-35.0); Mean Corpuscular Hemoglobin 31.3 pg (27.0-33.0); Mean Corpuscular Volume 93.1 fL (80.0-98.0); Mean Platelet Volume 10.5 fL (9.4-12.3); NRBC Pct Auto 0.8 /100WBC (0.0-0.2); Platelet Count 106 X10*3/uL (160-400); Red Blood Count 2.46 X10*6/uL (4.20-5.50); Red Cell Distribution Width 14.2 % (11.0-16.0)
[2023-04-14] MEDS: dexmedeTOMIDidine HCL/NS 400 MCG/100 ML INFUS..BTL 18.49 MCG IVCONT ×3 (05:24→16:11)
[2023-04-14 05:28] LABS: Alanine Aminotransferase 65 U/L (0-31); Albumin Level 3.4 g/dL (3.5-5.0); Alkaline Phosphatase 195 U/L (39-117); Anion Gap 14 (12-20); Aspartate Amino Transferase 111 U/L (5-31); Bilirubin Total 0.5 mg/dL (0.0-1.0); Blood Urea Nitrogen 67 mg/dL (9-16); Calcium 7.4 mg/dL (8.4-10.2); Carbon Dioxide 24 mmol/L (22-29); Chloride 112 mmol/L (96-108); Creatinine Clr Calc Pharmacy 31.6; Estimated Glomerular Filt Rate 17; Glucose Random 99 mg/dL (60-115); Magnesium 1.6 mg/dL (1.6-2.6); Phosphorus 2.6 mg/dL (2.7-4.5); Potassium 3.8 mmol/L (3.3-5.1); Sodium 146 mmol/L (135-145); Total Protein 5.6 g/dL (6.5-8.0)
[2023-04-14 05:33] LABS: Band Neutrophils Percent 8 % (3-5); Eosinophils Absolute Manual 0.3 X10*3/uL (0.0-0.4); Eosinophils Percent Manual 2 % (0-4); Lymphocytes Percent Manual 8 % (20-40); Metamyelocytes Absolute 0.1 X10*3/uL; Metamyelocytes Percent 1 %; Monocytes Absolute Manual 0.3 X10*3/uL (0.1-1.2); Monocytes Percent Manual 2 % (2-11); Myelocytes Absolute 0.1 X10*/uL; Myelocytes Percent 1 %; Neutrophils Absolute Manual 11.2 X10*3/uL (2.0-8.3); Neutrophils Percent Manual 78 % (45-73); Nucleated Red Blood Cells 1 /100WBC (0-0)
[2023-04-14 05:34] LABS: Platelet Estimate SLIGHTLY DECREASED (NORMAL); Platelet Morphology Comment NORMAL; RBC Morphology NORMAL; Toxic Granulation PRESENT
[2023-04-14] MEDS: Potassium Phosphate/NS 15 MMOL/250 ML PLAST..BAG 62.5 MMOL IV (05:45)
[2023-04-14] MEDS: Calcium Gluconate/NaCl,Iso-Osm 2 GM/100 ML PLAST..BAG IV ×2 (05:48→21:00)
[2023-04-14] MEDS: Albumin Human 25 % 100 ML IV (05:53)
[2023-04-14 06:04] LABS: Glucose, Whole Blood 96 mg/dL (60-115)
[2023-04-14 07:10] LABS: Glucose, Whole Blood 117 mg/dL (60-115)
[2023-04-14] MEDS: Nystatin Powder 15 GM BOTTLE 1 APPL TOPICAL ×2 (07:51→20:22)
[2023-04-14 08:18] LABS: Glucose, Whole Blood 120 mg/dL (60-115)
[2023-04-14 09:11] LABS: Glucose, Whole Blood 129 mg/dL (60-115)
[2023-04-14] MEDS: Albuterol Sulfate (0.083%) 2.5 MG/3 ML VIAL.NEB INHALE ×2 (09:50→15:15)
--- NOTE | 2023-04-14 10:24 | P.PNNP_ITS ---
Subjective Subjective Date of Service: 04/15/23 Interval history: Events noted. Mom at bedside. Discussed with ICU attending. Urine output has improved. Physical Exam 2 Vital Signs: Vital Signs: Last Vital Signs Temp 99.9 F 04/14/23 08:00 Pulse 109 H 04/14/23 09:50 Resp 29 H 04/14/23 09:50 BP 120/63 04/14/23 09:00 Pulse Ox 93 04/14/23 09:00 O2 Del Method Oxymask 04/14/23 09:00 O2 Flow Rate 3 04/14/23 09:00 Oxygen Flow Rate 4 04/09/23 10:23 BMI result Body Mass Index 45.0 Const: Other: moaning, unable to follow commands; no overt distress Objective Data Labs 04/15/23 05:04 04/15/23 05:04 Labs: Laboratory Results - last 24 hr 04/13/23 04/13/23 04/13/23 11:52 13:06 14:27 WBC RBC Hgb Hct MCV MCH MCHC RDW Plt Count MPV Immature Gran % (Auto) Neut % (Auto) Lymph % (Auto) [place] % (Auto) Eos % (Auto) Baso % (Auto) Lymph # (Auto) [place] # (Auto) Eos # (Auto) Baso # (Auto) Abs Immat Gran (auto) Absolute Neuts (auto) Absolute Nucleated RBC Nucleated RBC % (auto) Neutrophils % (Manual) Band Neutrophils % Lymphocytes % (Manual) Monocytes % (Manual) Eosinophils % (Manual) Metamyelocytes % Myelocytes % Abs Neuts (Manual) Lymphocytes # (Manual) Monocytes # (Manual) Eosinophils # (Manual) Metamyelocytes # Myelocytes # Nucleated RBCs Toxic Granulation Platelet Estimate Plt Morphology Comment RBC Morphology VBG pH VBG pCO2 VBG pO2 VBG HCO3 VBG O2 Saturation VBG Base Excess Sodium Potassium Chloride Carbon Dioxide Anion Gap BUN Creatinine Estim Creat Clear Calc Estimated GFR POC Glucose 243 H 246 H 241 H Random Glucose Calcium Phosphorus Magnesium Total Bilirubin AST ALT Alkaline Phosphatase Ammonia Total Protein Albumin Triglycerides 04/13/23 04/13/23 04/13/23 15:19 15:39 16:04 WBC RBC Hgb Hct MCV MCH MCHC RDW Plt Count MPV Immature Gran % (Auto) Neut % (Auto) Lymph % (Auto) [place] % (Auto) Eos % (Auto) Baso % (Auto) Lymph # (Auto) [place] # (Auto) Eos # (Auto) Baso # (Auto) Abs Immat Gran (auto) Absolute Neuts (auto) Absolute Nucleated RBC Nucleated RBC % (auto) Neutrophils % (Manual) Band Neutrophils % Lymphocytes % (Manual) Monocytes % (Manual) Eosinophils % (Manual) Metamyelocytes % Myelocytes % Abs Neuts (Manual) Lymphocytes # (Manual) Monocytes # (Manual) Eosinophils # (Manual) Metamyelocytes # Myelocytes # Nucleated RBCs Toxic Granulation Platelet Estimate Plt Morphology Comment RBC Morphology VBG pH VBG pCO2 VBG pO2 VBG HCO3 VBG O2 Saturation VBG Base Excess Sodium Potassium Chloride Carbon Dioxide Anion Gap BUN Creatinine Estim Creat Clear Calc Estimated GFR POC Glucose 218 H 193 H Random Glucose Calcium Phosphorus Magnesium Total Bilirubin AST ALT Alkaline Phosphatase Ammonia 51 Total Protein Albumin Triglycerides 128 04/13/23 04/13/23 04/13/23 17:03 18:10 19:03 WBC RBC Hgb Hct MCV MCH MCHC RDW Plt Count MPV Immature Gran % (Auto) Neut % (Auto) Lymph % (Auto) [place] % (Auto) Eos % (Auto) Baso % (Auto) Lymph # (Auto) [place] # (Auto) Eos # (Auto) Baso # (Auto) Abs Immat Gran (auto) Absolute Neuts (auto) Absolute Nucleated RBC Nucleated RBC % (auto) Neutrophils % (Manual) Band Neutrophils % Lymphocytes % (Manual) Monocytes % (Manual) Eosinophils % (Manual) Metamyelocytes % Myelocytes % Abs Neuts (Manual) Lymphocytes # (Manual) Monocytes # (Manual) Eosinophils # (Manual) Metamyelocytes # Myelocytes # Nucleated RBCs Toxic Granulation Platelet Estimate Plt Morphology Comment RBC Morphology VBG pH VBG pCO2 VBG pO2 VBG HCO3 VBG O2 Saturation VBG Base Excess Sodium Potassium Chloride Carbon Dioxide Anion Gap BUN Creatinine Estim Creat Clear Calc Estimated GFR POC Glucose 193 H 155 H 152 H Random Glucose Calcium Phosphorus Magnesium Total Bilirubin AST ALT Alkaline Phosphatase Ammonia Total Protein Albumin Triglycerides 04/13/23 04/13/23 04/13/23 19:15 19:59 20:59 WBC RBC Hgb Hct MCV MCH MCHC RDW Plt Count MPV Immature Gran % (Auto) Neut % (Auto) Lymph % (Auto) [place] % (Auto) Eos % (Auto) Baso % (Auto) Lymph # (Auto) [place] # (Auto) Eos # (Auto) Baso # (Auto) Abs Immat Gran (auto) Absolute Neuts (auto) Absolute Nucleated RBC Nucleated RBC % (auto) Neutrophils % (Manual) Band Neutrophils % Lymphocytes % (Manual) Monocytes % (Manual) Eosinophils % (Manual) Metamyelocytes % Myelocytes % Abs Neuts (Manual) Lymphocytes # (Manual) Monocytes # (Manual) Eosinophils # (Manual) Metamyelocytes # Myelocytes # Nucleated RBCs Toxic Granulation Platelet Estimate Plt Morphology Comment RBC Morphology VBG pH VBG pCO2 VBG pO2 VBG HCO3 VBG O2 Saturation VBG Base Excess Sodium 145 Potassium 4.1 Chloride 112 H Carbon Dioxide 20 L Anion Gap 17 BUN 67 H Creatinine 3.50 H Estim Creat Clear Calc 27.9 Estimated GFR 15 POC Glucose 158 H 153 H Random Glucose 161 H Calcium 7.8 L Phosphorus 3.0 Magnesium 1.8 Total Bilirubin AST ALT Alkaline Phosphatase Ammonia Total Protein Albumin Triglycerides 04/13/23 04/13/23 04/14/23 22:04 23:58 01:56 WBC RBC Hgb Hct MCV MCH MCHC RDW Plt Count MPV Immature Gran % (Auto) Neut % (Auto) Lymph % (Auto) [place] % (Auto) Eos % (Auto) Baso % (Auto) Lymph # (Auto) [place] # (Auto) Eos # (Auto) Baso # (Auto) Abs Immat Gran (auto) Absolute Neuts (auto) Absolute Nucleated RBC Nucleated RBC % (auto) Neutrophils % (Manual) Band Neutrophils % Lymphocytes % (Manual) Monocytes % (Manual) Eosinophils % (Manual) Metamyelocytes % Myelocytes % Abs Neuts (Manual) Lymphocytes # (Manual) Monocytes # (Manual) Eosinophils # (Manual) Metamyelocytes # Myelocytes # Nucleated RBCs Toxic Granulation Platelet Estimate Plt Morphology Comment RBC Morphology VBG pH VBG pCO2 VBG pO2 VBG HCO3 VBG O2 Saturation VBG Base Excess Sodium Potassium Chloride Carbon Dioxide Anion Gap BUN Creatinine Estim Creat Clear Calc Estimated GFR POC Glucose 158 H 141 H 129 H Random Glucose Calcium Phosphorus Magnesium Total Bilirubin AST ALT Alkaline Phosphatase Ammonia Total Protein Albumin Triglycerides 04/14/23 04/14/23 04/14/23 04:00 04:38 04:46 WBC 13.0 H RBC 2.46 L Hgb 7.7 L Hct 22.9 L MCV 93.1 MCH 31.3 MCHC 33.6 RDW 14.2 Plt Count 106 L MPV 10.5 Immature Gran % (Auto) Cancelled Neut % (Auto) Cancelled Lymph % (Auto) Cancelled [place] % (Auto) Cancelled Eos % (Auto) Cancelled Baso % (Auto) Cancelled Lymph # (Auto) Cancelled [place] # (Auto) Cancelled Eos # (Auto) Cancelled Baso # (Auto) Cancelled Abs Immat Gran (auto) Cancelled Absolute Neuts (auto) Cancelled Absolute Nucleated RBC 0.110 H Nucleated RBC % (auto) 0.8 H Neutrophils % (Manual) 78 H Band Neutrophils % 8 H Lymphocytes % (Manual) 8 L Monocytes % (Manual) 2 Eosinophils % (Manual) 2 Metamyelocytes % 1 Myelocytes % 1 Abs Neuts (Manual) 11.2 H Lymphocytes # (Manual) 1.0 L Monocytes # (Manual) 0.3 Eosinophils # (Manual) 0.3 Metamyelocytes # 0.1 Myelocytes # 0.1 Nucleated RBCs 1 H Toxic Granulation PRESENT Platelet Estimate SLIGHTLY DECREASED Plt Morphology Comment NORMAL RBC Morphology NORMAL VBG pH 7.36 VBG pCO2 44 VBG pO2 64 VBG HCO3 25 VBG O2 Saturation 92.0 VBG Base Excess -0.1 Sodium 146 H Potassium 3.8 Chloride 112 H Carbon Dioxide 24 Anion Gap 14 BUN 67 H Creatinine 3.11 H Estim Creat Clear Calc 31.6 Estimated GFR 17 POC Glucose 110 Random Glucose 99 Calcium 7.4 L Phosphorus 2.6 L Magnesium 1.6 Total Bilirubin 0.5 AST 111 H ALT 65 H Alkaline Phosphatase 195 H Ammonia Total Protein 5.6 L Albumin 3.4 L Triglycerides 04/14/23 04/14/23 04/14/23 05:06 05:58 07:07 WBC RBC Hgb Hct MCV MCH MCHC RDW Plt Count MPV Immature Gran % (Auto) Neut % (Auto) Lymph % (Auto) [place] % (Auto) Eos % (Auto) Baso % (Auto) Lymph # (Auto) [place] # (Auto) Eos # (Auto) Baso # (Auto) Abs Immat Gran (auto) Absolute Neuts (auto) Absolute Nucleated RBC Nucleated RBC % (auto) Neutrophils % (Manual) Band Neutrophils % Lymphocytes % (Manual) Monocytes % (Manual) Eosinophils % (Manual) Metamyelocytes % Myelocytes % Abs Neuts (Manual) Lymphocytes # (Manual) Monocytes # (Manual) Eosinophils # (Manual) Metamyelocytes # Myelocytes # Nucleated RBCs Toxic Granulation Platelet Estimate Plt Morphology Comment RBC Morphology VBG pH VBG pCO2 VBG pO2 VBG HCO3 VBG O2 Saturation VBG Base Excess Sodium Potassium Chloride Carbon Dioxide Anion Gap BUN Creatinine Estim Creat Clear Calc Estimated GFR POC Glucose 99 96 117 H Random Glucose Calcium Phosphorus Magnesium Total Bilirubin AST ALT Alkaline Phosphatase Ammonia Total Protein Albumin Triglycerides 04/14/23 04/14/23 08:15 09:08 WBC RBC Hgb Hct MCV MCH MCHC RDW Plt Count MPV Immature Gran % (Auto) Neut % (Auto) Lymph % (Auto) [place] % (Auto) Eos % (Auto) Baso % (Auto) Lymph # (Auto) [place] # (Auto) Eos # (Auto) Baso # (Auto) Abs Immat Gran (auto) Absolute Neuts (auto) Absolute Nucleated RBC Nucleated RBC % (auto) Neutrophils % (Manual) Band Neutrophils % Lymphocytes % (Manual) Monocytes % (Manual) Eosinophils % (Manual) Metamyelocytes % Myelocytes % Abs Neuts (Manual) Lymphocytes # (Manual) Monocytes # (Manual) Eosinophils # (Manual) Metamyelocytes # Myelocytes # Nucleated RBCs Toxic Granulation Platelet Estimate Plt Morphology Comment RBC Morphology VBG pH VBG pCO2 VBG pO2 VBG HCO3 VBG O2 Saturation VBG Base Excess Sodium Potassium Chloride Carbon Dioxide Anion Gap BUN Creatinine Estim Creat Clear Calc Estimated GFR POC Glucose 120 H 129 H Random Glucose Calcium Phosphorus Magnesium Total Bilirubin AST ALT Alkaline Phosphatase Ammonia Total Protein Albumin Triglycerides Microbiology Microbiology Results: Microbiology 04/09/23 10:59 Blood - Venous Blood Culture - Final Escherichia coli 04/09/23 10:23 Blood - Venous Blood Culture - Final Escherichia coli 04/10/23 05:20 Blood - Venous Blood Culture - Preliminary No growth after 48 hours. 04/10/23 05:20 Blood - Venous Blood Culture - Preliminary No growth after 48 hours. Procedures Date of Service Date of Service: 04/15/23 Assessment & Plan Assessment and plan (1) Acute renal failure: Status: Acute (2) Hypernatremia: Status: Acute Plan Acute kidney injury is most likely due to ATN in the setting of sepsis and hypertension. No evidence of active glomerulonephritis or interstitial disease. Vanco level is elevated and this could lead to ongoing tubular injury. Currently creatinine is trending down Urine output is improving. She continues to have metabolic acidosis. No absolute indication for dialysis yet. I have discussed with ICU attending. Continue to watch urine output closely. Keep intake more than output with hypotonic fluids to correct hypernatremia Continue to avoid hypertension and nephrotoxic agents. We will continue to follow her closely along with the team.. Time Spent With Patient Time: Total time managing care of this patient today ____ minutes. Progress Note: Quality Stroke Does the patient have a stroke diagnosis?: No
[2023-04-14] MEDS: cefTRIAXone sodium 1 GM in 0.9 % Sodium Chloride 50 ML IV (10:29)
[2023-04-14 10:34] LABS: Glucose, Whole Blood 157 mg/dL (60-115)
--- NOTE | 2023-04-14 11:23 | PC.NURSE ---
Addendum entered by Mariela Morelos RN 04/15/23 06:51: Late entry for 04/14/23 1157 Patient arrived back to unit at 1157. Patient on Oxymask 100% sating 87-89%. Patient tachypnic, labored breathing w/ accessory muscle use. MD and RT called to bedside. VO Dr Tipton for high flow. Patient placed on high flow 60%, 50L by RT w/ improvement of O2 sats. Shortly after high flow applied, patient spitting out thick cream oral secretions. Extensive mouth care and oral suctioning provided with removal of small amount of thick cream secretions. RT made aware. Original Note: Assumed care at 0700 - Pt was resting quietly in bed with eyes closed - continued on Precedex gtt. 0800 assessment - pt awake, continuous moaning, unable to answer questions/follow commands/tracking - positive cough and gag. SR on monitor HR maintaining 90's w/o ectopy. Nonpitting edema upper and lower extremities - MD aware. 0900 Heparin SQ held for planned LP @ 1100. Respiratory effort labored when awake w/ accessory muscle use/abdominal breathing/tachypnic - Expiratory wheeze throughout w/ fine crackles in bilateral bases - MD aware. 0950 PRN treatment administered by RT w/o effect - HR maintaining 110's post treatment. On oxymask 3-4L, O2 sats maintaining >90%. Intermittent nonproductive cough. Insulin gtt titrated per MD ordered - see EMAR - next POC 1200. Urine output 20-80cc/hr yellow w/ sediment - MD aware. Nystatin applied to folds, clay care provided. 1100 - patient transported to w/ transporter & this RN. Continued tachypnic/increased respiratory effort O2 sats 89-91% - placed on 6L Oxymask for transport. Handoff given to LUZ MARIA Degroot.
--- NOTE | 2023-04-14 12:06 | PC.NURSE ---
Accompanied patient to LP procedure - CT guided - 11:05 to approx 11:50am. Patient had been on 6 liters oxymask throughout procedure, O2sat 90-95%. Time out complete & no extra meds given during procedure besides local by provider. No incident noted until completion of procedure - noted that oxygen went down to low 80's. Post procedure need to increase O2 to 100% oxymask. Patient mental status at baseline - moaning. No change in drips needed throughout procedure. Brought patient back stat to ICU. Dr Tipton made aware of patient status - came to bedside in ICU as well as RT.
[2023-04-14 12:07] LABS: Glucose, Whole Blood 152 mg/dL (60-115)
--- NOTE | 2023-04-14 12:24 | PM.CCPN ---
Subjective Subjective Date of Service: 04/14/23 Interval History: 38-year-old lady with underlying diabetes mellitus admitted on 04/09/2023 after being found unresponsive by her boyfriend. On ER evaluation patient in AFib with RVR and diabetic ketoacidosis, also hypertensive. Patient started on insulin drip, broad-spectrum antibiotics and admitted to intensive care unit. Further hospital course complicated by E coli bacteremia with likely source, encephalopathy, and acute renal failure. CT abdomen and pelvis without evidence of urinary obstruction or hydronephrosis. No events overnight. Essentially no changes encephalopathy. Renal function and urine output continue to improve. Critical Care Time (minutes): 45 Physical Exam Vital Signs: Vital Signs: Last Vital Signs Temp 98.8 F 04/14/23 12:00 Pulse 113 H 04/14/23 12:00 Resp 28 H 04/14/23 12:14 BP 135/64 04/14/23 12:00 Pulse Ox 92 04/14/23 12:00 O2 Del Method High Flow Nasal C annula 04/14/23 12:00 O2 Flow Rate 40 04/14/23 12:00 FiO2 50 04/14/23 12:00 Oxygen Flow Rate 4 04/09/23 10:23 BMI result Body Mass Index 45.0 Const: General: no acute distress, confusion and lethargic Nutritional Appearance: obese and Edematous Orientation/consciousness: confusion and lethargic Eyes: Sclerae: sclerae normal EOM: EOMs intact bilaterally Neck: Neck: Yes no lymphadenopathy, Yes trachea midline and Yes supple Resp: Effort & Inspection: normal respiratory effort and no respiratory distress Auscultation: crackles ( Bilateral) Cardio: Rate: tachycardic Rhythm: regular rhythm Heart sounds: no gallops, no murmurs and no rubs GI: Palpation (GI): Soft to palpation and Other GI palpation findings present ( Nontender) Auscultation: normal bowel sounds Neuro: General: confusion Extrem: General: No clubbing, No cyanosis and Yes edema ( 2+ bilateral) Objective Data Labs 04/14/23 04:38 04/14/23 04:38 Labs: Laboratory Results - last 24 hr 04/13/23 04/13/23 04/13/23 13:06 14:27 15:19 WBC RBC Hgb Hct MCV MCH MCHC RDW Plt Count MPV Immature Gran % (Auto) Neut % (Auto) Lymph % (Auto) [place] % (Auto) Eos % (Auto) Baso % (Auto) Lymph # (Auto) [place] # (Auto) Eos # (Auto) Baso # (Auto) Abs Immat Gran (auto) Absolute Neuts (auto) Absolute Nucleated RBC Nucleated RBC % (auto) Neutrophils % (Manual) Band Neutrophils % Lymphocytes % (Manual) Monocytes % (Manual) Eosinophils % (Manual) Metamyelocytes % Myelocytes % Abs Neuts (Manual) Lymphocytes # (Manual) Monocytes # (Manual) Eosinophils # (Manual) Metamyelocytes # Myelocytes # Nucleated RBCs Toxic Granulation Platelet Estimate Plt Morphology Comment RBC Morphology VBG pH VBG pCO2 VBG pO2 VBG HCO3 VBG O2 Saturation VBG Base Excess Sodium Potassium Chloride Carbon Dioxide Anion Gap BUN Creatinine Estim Creat Clear Calc Estimated GFR POC Glucose 246 H 241 H 218 H Random Glucose Calcium Phosphorus Magnesium Total Bilirubin AST ALT Alkaline Phosphatase Ammonia Total Protein Albumin Triglycerides 04/13/23 04/13/23 04/13/23 15:39 16:04 17:03 WBC RBC Hgb Hct MCV MCH MCHC RDW Plt Count MPV Immature Gran % (Auto) Neut % (Auto) Lymph % (Auto) [place] % (Auto) Eos % (Auto) Baso % (Auto) Lymph # (Auto) [place] # (Auto) Eos # (Auto) Baso # (Auto) Abs Immat Gran (auto) Absolute Neuts (auto) Absolute Nucleated RBC Nucleated RBC % (auto) Neutrophils % (Manual) Band Neutrophils % Lymphocytes % (Manual) Monocytes % (Manual) Eosinophils % (Manual) Metamyelocytes % Myelocytes % Abs Neuts (Manual) Lymphocytes # (Manual) Monocytes # (Manual) Eosinophils # (Manual) Metamyelocytes # Myelocytes # Nucleated RBCs Toxic Granulation Platelet Estimate Plt Morphology Comment RBC Morphology VBG pH VBG pCO2 VBG pO2 VBG HCO3 VBG O2 Saturation VBG Base Excess Sodium Potassium Chloride Carbon Dioxide Anion Gap BUN Creatinine Estim Creat Clear Calc Estimated GFR POC Glucose 193 H 193 H Random Glucose Calcium Phosphorus Magnesium Total Bilirubin AST ALT Alkaline Phosphatase Ammonia 51 Total Protein Albumin Triglycerides 128 04/13/23 04/13/23 04/13/23 18:10 19:03 19:15 WBC RBC Hgb Hct MCV MCH MCHC RDW Plt Count MPV Immature Gran % (Auto) Neut % (Auto) Lymph % (Auto) [place] % (Auto) Eos % (Auto) Baso % (Auto) Lymph # (Auto) [place] # (Auto) Eos # (Auto) Baso # (Auto) Abs Immat Gran (auto) Absolute Neuts (auto) Absolute Nucleated RBC Nucleated RBC % (auto) Neutrophils % (Manual) Band Neutrophils % Lymphocytes % (Manual) Monocytes % (Manual) Eosinophils % (Manual) Metamyelocytes % Myelocytes % Abs Neuts (Manual) Lymphocytes # (Manual) Monocytes # (Manual) Eosinophils # (Manual) Metamyelocytes # Myelocytes # Nucleated RBCs Toxic Granulation Platelet Estimate Plt Morphology Comment RBC Morphology VBG pH VBG pCO2 VBG pO2 VBG HCO3 VBG O2 Saturation VBG Base Excess Sodium 145 Potassium 4.1 Chloride 112 H Carbon Dioxide 20 L Anion Gap 17 BUN 67 H Creatinine 3.50 H Estim Creat Clear Calc 27.9 Estimated GFR 15 POC Glucose 155 H 152 H Random Glucose 161 H Calcium 7.8 L Phosphorus 3.0 Magnesium 1.8 Total Bilirubin AST ALT Alkaline Phosphatase Ammonia Total Protein Albumin Triglycerides 04/13/23 04/13/23 04/13/23 19:59 20:59 22:04 WBC RBC Hgb Hct MCV MCH MCHC RDW Plt Count MPV Immature Gran % (Auto) Neut % (Auto) Lymph % (Auto) [place] % (Auto) Eos % (Auto) Baso % (Auto) Lymph # (Auto) [place] # (Auto) Eos # (Auto) Baso # (Auto) Abs Immat Gran (auto) Absolute Neuts (auto) Absolute Nucleated RBC Nucleated RBC % (auto) Neutrophils % (Manual) Band Neutrophils % Lymphocytes % (Manual) Monocytes % (Manual) Eosinophils % (Manual) Metamyelocytes % Myelocytes % Abs Neuts (Manual) Lymphocytes # (Manual) Monocytes # (Manual) Eosinophils # (Manual) Metamyelocytes # Myelocytes # Nucleated RBCs Toxic Granulation Platelet Estimate Plt Morphology Comment RBC Morphology VBG pH VBG pCO2 VBG pO2 VBG HCO3 VBG O2 Saturation VBG Base Excess Sodium Potassium Chloride Carbon Dioxide Anion Gap BUN Creatinine Estim Creat Clear Calc Estimated GFR POC Glucose 158 H 153 H 158 H Random Glucose Calcium Phosphorus Magnesium Total Bilirubin AST ALT Alkaline Phosphatase Ammonia Total Protein Albumin Triglycerides 04/13/23 04/14/23 04/14/23 23:58 01:56 04:00 WBC RBC Hgb Hct MCV MCH MCHC RDW Plt Count MPV Immature Gran % (Auto) Neut % (Auto) Lymph % (Auto) [place] % (Auto) Eos % (Auto) Baso % (Auto) Lymph # (Auto) [place] # (Auto) Eos # (Auto) Baso # (Auto) Abs Immat Gran (auto) Absolute Neuts (auto) Absolute Nucleated RBC Nucleated RBC % (auto) Neutrophils % (Manual) Band Neutrophils % Lymphocytes % (Manual) Monocytes % (Manual) Eosinophils % (Manual) Metamyelocytes % Myelocytes % Abs Neuts (Manual) Lymphocytes # (Manual) Monocytes # (Manual) Eosinophils # (Manual) Metamyelocytes # Myelocytes # Nucleated RBCs Toxic Granulation Platelet Estimate Plt Morphology Comment RBC Morphology VBG pH VBG pCO2 VBG pO2 VBG HCO3 VBG O2 Saturation VBG Base Excess Sodium Potassium Chloride Carbon Dioxide Anion Gap BUN Creatinine Estim Creat Clear Calc Estimated GFR POC Glucose 141 H 129 H 110 Random Glucose Calcium Phosphorus Magnesium Total Bilirubin AST ALT Alkaline Phosphatase Ammonia Total Protein Albumin Triglycerides 04/14/23 04/14/23 04/14/23 04:38 04:46 05:06 WBC 13.0 H RBC 2.46 L Hgb 7.7 L Hct 22.9 L MCV 93.1 MCH 31.3 MCHC 33.6 RDW 14.2 Plt Count 106 L MPV 10.5 Immature Gran % (Auto) Cancelled Neut % (Auto) Cancelled Lymph % (Auto) Cancelled [place] % (Auto) Cancelled Eos % (Auto) Cancelled Baso % (Auto) Cancelled Lymph # (Auto) Cancelled [place] # (Auto) Cancelled Eos # (Auto) Cancelled Baso # (Auto) Cancelled Abs Immat Gran (auto) Cancelled Absolute Neuts (auto) Cancelled Absolute Nucleated RBC 0.110 H Nucleated RBC % (auto) 0.8 H Neutrophils % (Manual) 78 H Band Neutrophils % 8 H Lymphocytes % (Manual) 8 L Monocytes % (Manual) 2 Eosinophils % (Manual) 2 Metamyelocytes % 1 Myelocytes % 1 Abs Neuts (Manual) 11.2 H Lymphocytes # (Manual) 1.0 L Monocytes # (Manual) 0.3 Eosinophils # (Manual) 0.3 Metamyelocytes # 0.1 Myelocytes # 0.1 Nucleated RBCs 1 H Toxic Granulation PRESENT Platelet Estimate SLIGHTLY DECREASED Plt Morphology Comment NORMAL RBC Morphology NORMAL VBG pH 7.36 VBG pCO2 44 VBG pO2 64 VBG HCO3 25 VBG O2 Saturation 92.0 VBG Base Excess -0.1 Sodium 146 H Potassium 3.8 Chloride 112 H Carbon Dioxide 24 Anion Gap 14 BUN 67 H Creatinine 3.11 H Estim Creat Clear Calc 31.6 Estimated GFR 17 POC Glucose 99 Random Glucose 99 Calcium 7.4 L Phosphorus 2.6 L Magnesium 1.6 Total Bilirubin 0.5 AST 111 H ALT 65 H Alkaline Phosphatase 195 H Ammonia Total Protein 5.6 L Albumin 3.4 L Triglycerides 04/14/23 04/14/23 04/14/23 05:58 07:07 08:15 WBC RBC Hgb Hct MCV MCH MCHC RDW Plt Count MPV Immature Gran % (Auto) Neut % (Auto) Lymph % (Auto) [place] % (Auto) Eos % (Auto) Baso % (Auto) Lymph # (Auto) [place] # (Auto) Eos # (Auto) Baso # (Auto) Abs Immat Gran (auto) Absolute Neuts (auto) Absolute Nucleated RBC Nucleated RBC % (auto) Neutrophils % (Manual) Band Neutrophils % Lymphocytes % (Manual) Monocytes % (Manual) Eosinophils % (Manual) Metamyelocytes % Myelocytes % Abs Neuts (Manual) Lymphocytes # (Manual) Monocytes # (Manual) Eosinophils # (Manual) Metamyelocytes # Myelocytes # Nucleated RBCs Toxic Granulation Platelet Estimate Plt Morphology Comment RBC Morphology VBG pH VBG pCO2 VBG pO2 VBG HCO3 VBG O2 Saturation VBG Base Excess Sodium Potassium Chloride Carbon Dioxide Anion Gap BUN Creatinine Estim Creat Clear Calc Estimated GFR POC Glucose 96 117 H 120 H Random Glucose Calcium Phosphorus Magnesium Total Bilirubin AST ALT Alkaline Phosphatase Ammonia Total Protein Albumin Triglycerides 04/14/23 04/14/23 04/14/23 09:08 10:30 12:03 WBC RBC Hgb Hct MCV MCH MCHC RDW Plt Count MPV Immature Gran % (Auto) Neut % (Auto) Lymph % (Auto) [place] % (Auto) Eos % (Auto) Baso % (Auto) Lymph # (Auto) [place] # (Auto) Eos # (Auto) Baso # (Auto) Abs Immat Gran (auto) Absolute Neuts (auto) Absolute Nucleated RBC Nucleated RBC % (auto) Neutrophils % (Manual) Band Neutrophils % Lymphocytes % (Manual) Monocytes % (Manual) Eosinophils % (Manual) Metamyelocytes % Myelocytes % Abs Neuts (Manual) Lymphocytes # (Manual) Monocytes # (Manual) Eosinophils # (Manual) Metamyelocytes # Myelocytes # Nucleated RBCs Toxic Granulation Platelet Estimate Plt Morphology Comment RBC Morphology VBG pH VBG pCO2 VBG pO2 VBG HCO3 VBG O2 Saturation VBG Base Excess Sodium Potassium Chloride Carbon Dioxide Anion Gap BUN Creatinine Estim Creat Clear Calc Estimated GFR POC Glucose 129 H 157 H 152 H Random Glucose Calcium Phosphorus Magnesium Total Bilirubin AST ALT Alkaline Phosphatase Ammonia Total Protein Albumin Triglycerides Microbiology Microbiology Results: Microbiology 04/09/23 10:59 Blood - Venous Blood Culture - Final Escherichia coli 04/09/23 10:23 Blood - Venous Blood Culture - Final Escherichia coli 04/10/23 05:20 Blood - Venous Blood Culture - Preliminary No growth after 48 hours. 04/10/23 05:20 Blood - Venous Blood Culture - Preliminary No growth after 48 hours. Progress Note: A&P Assessment and plan (1) E coli bacteremia: Status: Acute (2) Acute renal failure: Status: Acute (3) Acute metabolic encephalopathy: Status: Acute (4) Diabetic keto-acidosis: Status: Acute Plan Assessment: 38-year-old lady admitted with diabetic ketoacidosis, Gram-negative bacteremia, pyelonephritis, acute renal failure, metabolic encephalopathy, and AFib with RVR Plan: Neuro: Metabolic encephalopathy, also possible septic encephalopathy component, improving. Continue to titrate off Precedex as tolerated. CT head with no acute findings. LP performed with results pending. Cardiac: AFib with RVR, likely secondary to underlying acidosis, resolved. Septic shock, resolved. Pulmonary: No acute issues. Renal: Acute renal failure. Pyelonephritis. Improving. Non oliguric. Nephrology service care appreciated. Continue to monitor renal indices and urine output. Endo: Ketoacidosis resolved. GI: No acute issues. ID: E coli bacteremia with likely source. Continue ceftriaxone. Heme/Onc: No acute issues. Psych: No acute issues. Miscellaneous: No acute issues. Prophylaxis: Heparin Diet: Nothing by mouth Critical care time spent: 45 minutes Quality Stroke Does the patient have a stroke diagnosis?: No VTE Prior VTE?: No VTE Risk Level:: Medical - moderate - high VTE Device Contraindication: N/A - Device Ordered VTE Drug Contraindication: N/A - Med Ordered
[2023-04-14] MEDS: Bumetanide 1 MG/4 ML VIAL IVPUSH ×2 (12:38→20:48)
[2023-04-14 12:52] LABS: CSF Appearance Clear, Colorless; CSF Tube # 3
[2023-04-14 13:02] LABS: Glucose CSF 97 mg/dL; Total Protein CSF 29.4 mg/dL (15-45)
[2023-04-14 13:06] LABS: Glucose, Whole Blood 156 mg/dL (60-115)
[2023-04-14 13:41] LABS: Appearance CSF HAZY
[2023-04-14 13:42] LABS: CSF Monos 21 %; CSF Tube # 1; Color CSF STRAW; Lymphocytes CSF 74 %; Neutrophils CSF 5 %; Red Blood Cell CSF 437 MM*3; White Blood Cell CSF 15 MM*3
[2023-04-14 13:43] LABS: Appearance CSF HAZY; CSF Tube # 4; Color CSF COLORLESS
[2023-04-14 13:44] LABS: CSF Monos 10 %; Lymphocytes CSF 82 %; Neutrophils CSF 8 %; Red Blood Cell CSF 47 MM*3; White Blood Cell CSF 12 MM*3
[2023-04-14 14:01] LABS: Glucose, Whole Blood 168 mg/dL (60-115)
[2023-04-14 14:19] LABS: Cryptococcus neoformans/gattii Not Detected (Not Detect.); Enterovirus Not Detected (Not Detect.); Escherichia coli K1 Not Detected (Not Detect.); Haemophilus influenzae Not Detected (Not Detect.); Herpes simplex virus 1 Not Detected (Not Detect.); Herpes simplex virus 2 Not Detected (Not Detect.); Human herpesvirus 6 Not Detected (Not Detect.); Human parechovirus Not Detected (Not Detect.); Listeria monocytogenes Not Detected (Not Detect.); Neisseria meningitidis Not Detected (Not Detect.); Streptococcus agalactiae Not Detected (Not Detect.); Streptococcus pneumoniae Not Detected (Not Detect.); Varicella zoster virus Not Detected (Not Detect.)
[2023-04-14] MEDS: Heparin Sodium,Porcine 5,000 UNIT/ML VIAL 5000 UNIT SUBCUT ×2 (15:02→20:17)
--- NOTE | 2023-04-14 15:30 | HO.RADPN ---
RADIOLOGY Narrative Narrative: Lumbar puncture performed. L2-3. Opening pressure unable to be obtained due to patient's agitation. 10 cc clear fluid removed and sent for analysis. No immediate complications. Full dictation to follow. Xavier ROTHMAN Interventional Radiology
[2023-04-14 16:24] LABS: Glucose, Whole Blood 160 mg/dL (60-115)
[2023-04-14 18:07] LABS: Glucose, Whole Blood 158 mg/dL (60-115)
[2023-04-14 19:44] LABS: Anion Gap 15 (12-20); Blood Urea Nitrogen 62 mg/dL (9-16); Calcium 7.7 mg/dL (8.4-10.2); Carbon Dioxide 23 mmol/L (22-29); Chloride 113 mmol/L (96-108); Creatinine Clr Calc Pharmacy 34.3; Estimated Glomerular Filt Rate 18; Glucose Random 151 mg/dL (60-115); Potassium 4.1 mmol/L (3.3-5.1); Sodium 147 mmol/L (135-145)
[2023-04-14 20:29] LABS: Glucose, Whole Blood 150 mg/dL (60-115)
[2023-04-14 20:42] LABS: Glucose, Whole Blood 143 mg/dL (60-115)
[2023-04-14] MEDS: dexmedeTOMIDidine HCL/NS 400 MCG/100 ML INFUS..BTL 19.72 MCG IVCONT (21:42)
[2023-04-14 21:56] LABS: Glucose, Whole Blood 133 mg/dL (60-115)
[2023-04-15] VITALS (29 sets, daily range): BP systolic 114–157; BP diastolic 54–80; PULSE 75–115; RESP 14–40; TEMP 36.1–37.4; O2SAT 88–96; BMI 44.3
[2023-04-15 00:28] LABS: Glucose, Whole Blood 140 mg/dL (60-115)
[2023-04-15] MEDS: dexmedeTOMIDidine HCL/NS 400 MCG/100 ML INFUS..BTL 24.65 MCG IVCONT ×6 (01:56→23:32)
[2023-04-15 02:06] LABS: Glucose, Whole Blood 138 mg/dL (60-115)
[2023-04-15 04:03] LABS: Glucose, Whole Blood 127 mg/dL (60-115)
[2023-04-15] MEDS: Haloperidol Lactate 5 MG/ML VIAL 2 MG IVPUSH ×4 (04:41→23:28)
[2023-04-15] MEDS: Insulin Regular/NS 100 UNIT/100 ML PLAST..BAG IVCONT (04:41)
[2023-04-15 05:16] LABS: VBG Base Excess 1.6 mmol/L; VBG HCO3 27 mmol/L (22-26); VBG pCO2 47 mmHg; VBG pH 7.36 (7.32-7.43); VBG pO2 59 mmHg
[2023-04-15 05:18] LABS: Venous Blood Gas Refer to POC result
[2023-04-15 05:41] LABS: Hematocrit 24.2 % (37.0-47.0); Hemoglobin 8.2 g/dl (12.0-16.0); Mean Corpuscular HGB Conc 33.9 g/dl (31.0-35.0); Mean Corpuscular Volume 94.5 fL (80.0-98.0); Mean Platelet Volume 10.6 fL (9.4-12.3); NRBC Pct Auto 0.2 /100WBC (0.0-0.2); Platelet Count 141 X10*3/uL (160-400); Red Blood Count 2.56 X10*6/uL (4.20-5.50); Red Cell Distribution Width 14.2 % (11.0-16.0); WBC ABN SCTR FOR CBC 1
[2023-04-15 05:46] LABS: White Blood Count 14.1 X10*3/uL (4.8-10.8)
[2023-04-15 05:57] LABS: Albumin Level 3.2 g/dL (3.5-5.0); Anion Gap 16 (12-20); Blood Urea Nitrogen 64 mg/dL (9-16); Calcium 7.9 mg/dL (8.4-10.2); Carbon Dioxide 24 mmol/L (22-29); Chloride 113 mmol/L (96-108); Creatinine Clr Calc Pharmacy 38.5; Estimated Glomerular Filt Rate 21; Glucose Random 139 mg/dL (60-115); Magnesium 1.6 mg/dL (1.6-2.6); Phosphorus 4.5 mg/dL (2.7-4.5); Potassium 4.2 mmol/L (3.3-5.1); Sodium 149 mmol/L (135-145)
[2023-04-15 06:01] LABS: Band Neutrophils Percent 5 % (3-5); Basophils Abs Manual 0.1 X10*3/uL (0.0-0.2); Basophils Percent Manual 1 % (0-2); Lymphocytes Percent Manual 7 % (20-40); Metamyelocytes Absolute 0.1 X10*3/uL; Metamyelocytes Percent 1 %; Monocytes Absolute Manual 0.8 X10*3/uL (0.1-1.2); Monocytes Percent Manual 6 % (2-11); Neutrophils Percent Manual 80 % (45-73); Nucleated Red Blood Cells 1 /100WBC (0-0); RBC Morphology NORMAL
[2023-04-15 06:02] LABS: Platelet Estimate NORMAL (NORMAL); Platelet Morphology Comment NORMAL; Toxic Granulation PRESENT
[2023-04-15 06:12] LABS: Glucose, Whole Blood 128 mg/dL (60-115)
[2023-04-15 07:59] LABS: Glucose, Whole Blood 133 mg/dL (60-115)
[2023-04-15] MEDS: Albumin Human 25 % 100 ML IV ×2 (08:08→14:47)
[2023-04-15] MEDS: Heparin Sodium,Porcine 5,000 UNIT/ML VIAL 5000 UNIT SUBCUT ×3 (08:08→20:09)
[2023-04-15] MEDS: Nystatin Powder 15 GM BOTTLE 1 APPL TOPICAL ×2 (08:16→20:14)
[2023-04-15] MEDS: Albuterol Sulfate (0.083%) 2.5 MG/3 ML VIAL.NEB INHALE ×3 (08:23→15:16)
--- NOTE | 2023-04-15 09:35 | PM.PNNEP ---
Subjective Subjective Date of Service: 04/25/23 Interval history: 38-year-old lady with underlying diabetes mellitus admitted on 04/09/2023 after being found unresponsive by her boyfriend. On ER evaluation patient in AFib with RVR and diabetic ketoacidosis, also hypertensive. Patient started on insulin drip, broad-spectrum antibiotics and admitted to intensive care unit. Further hospital course complicated by E coli bacteremia with likely source, encephalopathy, and acute renal failure. CT abdomen and pelvis without evidence of urinary obstruction or hydronephrosis. Events noted s/p lumbar puncture; WBC elevated at 12 Physical Exam Vital Signs: Vital Signs: Last Vital Signs Temp 97.0 F 04/15/23 08:00 Pulse 86 04/15/23 09:00 Resp 20 04/15/23 09:00 BP 140/63 H 04/15/23 09:00 Pulse Ox 90 L 04/15/23 09:00 O2 Del Method High Flow Nasal C annula 04/15/23 09:00 O2 Flow Rate 50 04/15/23 09:00 FiO2 60 04/15/23 09:00 Oxygen Flow Rate 4 04/09/23 10:23 BMI result Body Mass Index 44.3 Const: Other: moaning, unable to follow commands; no overt distress General: no acute distress, confusion, ill appearing and other Nutritional Appearance: obese Orientation/consciousness: confusion HEENT: Head: Yes normal to inspection, Yes normocephalic and Yes atraumatic Eyes: General: appearance normal, both eyes and all related structures Sclerae: sclerae normal Pupils: Pinpoint pupils EOM: EOMs intact bilaterally Neck: Neck: Yes normal visual inspection, Yes full ROM, Yes no lymphadenopathy, Yes no meningeal signs, Yes trachea midline and Yes supple Chest: Chest palpation & inspection: normal inspection of the chest Resp: Other: no rales, rhonchi, wheezing Effort & Inspection: normal respiratory effort and no respiratory distress Auscultation: crackles ( bibasilar), rhonchi and diminished lung sounds Cardio: Jugular venous distension: no JVD Palpation: no palpable S3 Rate: regular rate and tachycardic Rhythm: regular rhythm and abnormal rhythm irregularly irregular Heart sounds: no gallops, no murmurs and no rubs GI: Inspection: Yes normal to inspection, No Abdominal wall edema and No distended Palpation (GI): Soft to palpation, not firm, nontender, no guarding, not rigid and Other GI palpation findings present ( Nontender) Auscultation: normal bowel sounds : External Female Exam: normal external appearance Skin: Other: some abrasions bilateral knees General skin exam: no rashes or lesions noted Neuro: Other: not oriented to person, place, nor time; responds to name General: moves all extremities, no meningeal signs, no focal motor deficits and confusion Extrem: General: Yes normal to inspection, Yes capillary refill normal, Yes no clubbing, cyanosis or edema, Yes no pedal edema, No clubbing, No cyanosis and Yes edema ( trace bilateral) Psych: Other: intermittent agitation Objective Data Labs 04/24/23 06:49 04/25/23 06:14 Labs: Laboratory Results - last 24 hr 04/14/23 04/14/23 04/14/23 10:30 11:44 11:44 WBC RBC Hgb Hct MCV MCH MCHC RDW Plt Count MPV Immature Gran % (Auto) Neut % (Auto) Lymph % (Auto) [place] % (Auto) Eos % (Auto) Baso % (Auto) Lymph # (Auto) [place] # (Auto) Eos # (Auto) Baso # (Auto) Abs Immat Gran (auto) Absolute Neuts (auto) Absolute Nucleated RBC Nucleated RBC % (auto) Neutrophils % (Manual) Band Neutrophils % Lymphocytes % (Manual) Monocytes % (Manual) Basophils % (Manual) Metamyelocytes % Abs Neuts (Manual) Lymphocytes # (Manual) Monocytes # (Manual) Basophils # (Manual) Metamyelocytes # Nucleated RBCs Toxic Granulation Platelet Estimate Plt Morphology Comment RBC Morphology VBG pH VBG pCO2 VBG pO2 VBG HCO3 VBG O2 Saturation VBG Base Excess Sodium Potassium Chloride Carbon Dioxide Anion Gap BUN Creatinine Estim Creat Clear Calc Estimated GFR POC Glucose 157 H Random Glucose Calcium Phosphorus Magnesium Albumin CSF Tube Number 3 1 CSF Volume CSF Appearance CSF Color CSF WBC CSF RBC CSF Neutrophils CSF Lymphocytes CSF Monocytes % CSF Appearance (b) CSF Glucose CSF Total Protein CSF C.neoform/gat PCR CSF CMV DNA (PCR) CSF Enterovirus (PCR) CSF E. coli K1 (PCR) CSF H. influenzae (PCR) CSF HSV I (PCR) CSF HSV II (PCR) CSF HHV 6 (PCR) CSF L.monocytogenes PCR CSF N. meningitidis PCR CSF Parechovirus (PCR) CSF S. agalactiae (PCR) CSF S. pneumoniae (PCR) CSF VZV (PCR) 04/14/23 04/14/23 04/14/23 11:44 11:44 11:44 WBC RBC Hgb Hct MCV MCH MCHC RDW Plt Count MPV Immature Gran % (Auto) Neut % (Auto) Lymph % (Auto) [place] % (Auto) Eos % (Auto) Baso % (Auto) Lymph # (Auto) [place] # (Auto) Eos # (Auto) Baso # (Auto) Abs Immat Gran (auto) Absolute Neuts (auto) Absolute Nucleated RBC Nucleated RBC % (auto) Neutrophils % (Manual) Band Neutrophils % Lymphocytes % (Manual) Monocytes % (Manual) Basophils % (Manual) Metamyelocytes % Abs Neuts (Manual) Lymphocytes # (Manual) Monocytes # (Manual) Basophils # (Manual) Metamyelocytes # Nucleated RBCs Toxic Granulation Platelet Estimate Plt Morphology Comment RBC Morphology VBG pH VBG pCO2 VBG pO2 VBG HCO3 VBG O2 Saturation VBG Base Excess Sodium Potassium Chloride Carbon Dioxide Anion Gap BUN Creatinine Estim Creat Clear Calc Estimated GFR POC Glucose Random Glucose Calcium Phosphorus Magnesium Albumin CSF Tube Number 4 CSF Volume 2.0 3.0 CSF Appearance HAZY HAZY CSF Color STRAW CSF WBC CSF RBC CSF Neutrophils CSF Lymphocytes CSF Monocytes % CSF Appearance (b) CSF Glucose CSF Total Protein CSF C.neoform/gat PCR CSF CMV DNA (PCR) CSF Enterovirus (PCR) CSF E. coli K1 (PCR) CSF H. influenzae (PCR) CSF HSV I (PCR) CSF HSV II (PCR) CSF HHV 6 (PCR) CSF L.monocytogenes PCR CSF N. meningitidis PCR CSF Parechovirus (PCR) CSF S. agalactiae (PCR) CSF S. pneumoniae (PCR) CSF VZV (PCR) 04/14/23 04/14/23 04/14/23 11:44 11:44 11:44 WBC RBC Hgb Hct MCV MCH MCHC RDW Plt Count MPV Immature Gran % (Auto) Neut % (Auto) Lymph % (Auto) [place] % (Auto) Eos % (Auto) Baso % (Auto) Lymph # (Auto) [place] # (Auto) Eos # (Auto) Baso # (Auto) Abs Immat Gran (auto) Absolute Neuts (auto) Absolute Nucleated RBC Nucleated RBC % (auto) Neutrophils % (Manual) Band Neutrophils % Lymphocytes % (Manual) Monocytes % (Manual) Basophils % (Manual) Metamyelocytes % Abs Neuts (Manual) Lymphocytes # (Manual) Monocytes # (Manual) Basophils # (Manual) Metamyelocytes # Nucleated RBCs Toxic Granulation Platelet Estimate Plt Morphology Comment RBC Morphology VBG pH VBG pCO2 VBG pO2 VBG HCO3 VBG O2 Saturation VBG Base Excess Sodium Potassium Chloride Carbon Dioxide Anion Gap BUN Creatinine Estim Creat Clear Calc Estimated GFR POC Glucose Random Glucose Calcium Phosphorus Magnesium Albumin CSF Tube Number CSF Volume CSF Appearance CSF Color COLORLESS CSF WBC 15 H* 12 H* CSF RBC 437 47 CSF Neutrophils 5 CSF Lymphocytes CSF Monocytes % CSF Appearance (b) CSF Glucose CSF Total Protein CSF C.neoform/gat PCR CSF CMV DNA (PCR) CSF Enterovirus (PCR) CSF E. coli K1 (PCR) CSF H. influenzae (PCR) CSF HSV I (PCR) CSF HSV II (PCR) CSF HHV 6 (PCR) CSF L.monocytogenes PCR CSF N. meningitidis PCR CSF Parechovirus (PCR) CSF S. agalactiae (PCR) CSF S. pneumoniae (PCR) CSF VZV (PCR) 04/14/23 04/14/23 04/14/23 11:44 11:44 11:44 WBC RBC Hgb Hct MCV MCH MCHC RDW Plt Count MPV Immature Gran % (Auto) Neut % (Auto) Lymph % (Auto) [place] % (Auto) Eos % (Auto) Baso % (Auto) Lymph # (Auto) [place] # (Auto) Eos # (Auto) Baso # (Auto) Abs Immat Gran (auto) Absolute Neuts (auto) Absolute Nucleated RBC Nucleated RBC % (auto) Neutrophils % (Manual) Band Neutrophils % Lymphocytes % (Manual) Monocytes % (Manual) Basophils % (Manual) Metamyelocytes % Abs Neuts (Manual) Lymphocytes # (Manual) Monocytes # (Manual) Basophils # (Manual) Metamyelocytes # Nucleated RBCs Toxic Granulation Platelet Estimate Plt Morphology Comment RBC Morphology VBG pH VBG pCO2 VBG pO2 VBG HCO3 VBG O2 Saturation VBG Base Excess Sodium Potassium Chloride Carbon Dioxide Anion Gap BUN Creatinine Estim Creat Clear Calc Estimated GFR POC Glucose Random Glucose Calcium Phosphorus Magnesium Albumin CSF Tube Number CSF Volume CSF Appearance CSF Color CSF WBC CSF RBC CSF Neutrophils 8 CSF Lymphocytes 74 82 CSF Monocytes % 21 10 CSF Appearance (b) Clear, Colorless CSF Glucose 97 CSF Total Protein 29.4 CSF C.neoform/gat PCR Not Detected CSF CMV DNA (PCR) Not Detected CSF Enterovirus (PCR) Not Detected CSF E. coli K1 (PCR) Not Detected CSF H. influenzae (PCR) Not Detected CSF HSV I (PCR) Not Detected CSF HSV II (PCR) Not Detected CSF HHV 6 (PCR) Not Detected CSF L.monocytogenes PCR Not Detected CSF N. meningitidis PCR Not Detected CSF Parechovirus (PCR) Not Detected CSF S. agalactiae (PCR) Not Detected CSF S. pneumoniae (PCR) Not Detected CSF VZV (PCR) Not Detected 04/14/23 04/14/23 04/14/23 12:03 13:03 13:58 WBC RBC Hgb Hct MCV MCH MCHC RDW Plt Count MPV Immature Gran % (Auto) Neut % (Auto) Lymph % (Auto) [place] % (Auto) Eos % (Auto) Baso % (Auto) Lymph # (Auto) [place] # (Auto) Eos # (Auto) Baso # (Auto) Abs Immat Gran (auto) Absolute Neuts (auto) Absolute Nucleated RBC Nucleated RBC % (auto) Neutrophils % (Manual) Band Neutrophils % Lymphocytes % (Manual) Monocytes % (Manual) Basophils % (Manual) Metamyelocytes % Abs Neuts (Manual) Lymphocytes # (Manual) Monocytes # (Manual) Basophils # (Manual) Metamyelocytes # Nucleated RBCs Toxic Granulation Platelet Estimate Plt Morphology Comment RBC Morphology VBG pH VBG pCO2 VBG pO2 VBG HCO3 VBG O2 Saturation VBG Base Excess Sodium Potassium Chloride Carbon Dioxide Anion Gap BUN Creatinine Estim Creat Clear Calc Estimated GFR POC Glucose 152 H 156 H 168 H Random Glucose Calcium Phosphorus Magnesium Albumin CSF Tube Number CSF Volume CSF Appearance CSF Color CSF WBC CSF RBC CSF Neutrophils CSF Lymphocytes CSF Monocytes % CSF Appearance (b) CSF Glucose CSF Total Protein CSF C.neoform/gat PCR CSF CMV DNA (PCR) CSF Enterovirus (PCR) CSF E. coli K1 (PCR) CSF H. influenzae (PCR) CSF HSV I (PCR) CSF HSV II (PCR) CSF HHV 6 (PCR) CSF L.monocytogenes PCR CSF N. meningitidis PCR CSF Parechovirus (PCR) CSF S. agalactiae (PCR) CSF S. pneumoniae (PCR) CSF VZV (PCR) 04/14/23 04/14/23 04/14/23 16:14 18:03 19:02 WBC RBC Hgb Hct MCV MCH MCHC RDW Plt Count MPV Immature Gran % (Auto) Neut % (Auto) Lymph % (Auto) [place] % (Auto) Eos % (Auto) Baso % (Auto) Lymph # (Auto) [place] # (Auto) Eos # (Auto) Baso # (Auto) Abs Immat Gran (auto) Absolute Neuts (auto) Absolute Nucleated RBC Nucleated RBC % (auto) Neutrophils % (Manual) Band Neutrophils % Lymphocytes % (Manual) Monocytes % (Manual) Basophils % (Manual) Metamyelocytes % Abs Neuts (Manual) Lymphocytes # (Manual) Monocytes # (Manual) Basophils # (Manual) Metamyelocytes # Nucleated RBCs Toxic Granulation Platelet Estimate Plt Morphology Comment RBC Morphology VBG pH VBG pCO2 VBG pO2 VBG HCO3 VBG O2 Saturation VBG Base Excess Sodium 147 H Potassium 4.1 Chloride 113 H Carbon Dioxide 23 Anion Gap 15 BUN 62 H Creatinine 2.92 H Estim Creat Clear Calc 34.3 Estimated GFR 18 POC Glucose 160 H 158 H Random Glucose 151 H Calcium 7.7 L Phosphorus Magnesium Albumin CSF Tube Number CSF Volume CSF Appearance CSF Color CSF WBC CSF RBC CSF Neutrophils CSF Lymphocytes CSF Monocytes % CSF Appearance (b) CSF Glucose CSF Total Protein CSF C.neoform/gat PCR CSF CMV DNA (PCR) CSF Enterovirus (PCR) CSF E. coli K1 (PCR) CSF H. influenzae (PCR) CSF HSV I (PCR) CSF HSV II (PCR) CSF HHV 6 (PCR) CSF L.monocytogenes PCR CSF N. meningitidis PCR CSF Parechovirus (PCR) CSF S. agalactiae (PCR) CSF S. pneumoniae (PCR) CSF VZV (PCR) 04/14/23 04/14/23 04/14/23 20:25 20:39 21:52 WBC RBC Hgb Hct MCV MCH MCHC RDW Plt Count MPV Immature Gran % (Auto) Neut % (Auto) Lymph % (Auto) [place] % (Auto) Eos % (Auto) Baso % (Auto) Lymph # (Auto) [place] # (Auto) Eos # (Auto) Baso # (Auto) Abs Immat Gran (auto) Absolute Neuts (auto) Absolute Nucleated RBC Nucleated RBC % (auto) Neutrophils % (Manual) Band Neutrophils % Lymphocytes % (Manual) Monocytes % (Manual) Basophils % (Manual) Metamyelocytes % Abs Neuts (Manual) Lymphocytes # (Manual) Monocytes # (Manual) Basophils # (Manual) Metamyelocytes # Nucleated RBCs Toxic Granulation Platelet Estimate Plt Morphology Comment RBC Morphology VBG pH VBG pCO2 VBG pO2 VBG HCO3 VBG O2 Saturation VBG Base Excess Sodium Potassium Chloride Carbon Dioxide Anion Gap BUN Creatinine Estim Creat Clear Calc Estimated GFR POC Glucose 150 H 143 H 133 H Random Glucose Calcium Phosphorus Magnesium Albumin CSF Tube Number CSF Volume CSF Appearance CSF Color CSF WBC CSF RBC CSF Neutrophils CSF Lymphocytes CSF Monocytes % CSF Appearance (b) CSF Glucose CSF Total Protein CSF C.neoform/gat PCR CSF CMV DNA (PCR) CSF Enterovirus (PCR) CSF E. coli K1 (PCR) CSF H. influenzae (PCR) CSF HSV I (PCR) CSF HSV II (PCR) CSF HHV 6 (PCR) CSF L.monocytogenes PCR CSF N. meningitidis PCR CSF Parechovirus (PCR) CSF S. agalactiae (PCR) CSF S. pneumoniae (PCR) CSF VZV (PCR) 04/14/23 04/15/23 04/15/23 23:55 02:03 04:00 WBC RBC Hgb Hct MCV MCH MCHC RDW Plt Count MPV Immature Gran % (Auto) Neut % (Auto) Lymph % (Auto) [place] % (Auto) Eos % (Auto) Baso % (Auto) Lymph # (Auto) [place] # (Auto) Eos # (Auto) Baso # (Auto) Abs Immat Gran (auto) Absolute Neuts (auto) Absolute Nucleated RBC Nucleated RBC % (auto) Neutrophils % (Manual) Band Neutrophils % Lymphocytes % (Manual) Monocytes % (Manual) Basophils % (Manual) Metamyelocytes % Abs Neuts (Manual) Lymphocytes # (Manual) Monocytes # (Manual) Basophils # (Manual) Metamyelocytes # Nucleated RBCs Toxic Granulation Platelet Estimate Plt Morphology Comment RBC Morphology VBG pH VBG pCO2 VBG pO2 VBG HCO3 VBG O2 Saturation VBG Base Excess Sodium Potassium Chloride Carbon Dioxide Anion Gap BUN Creatinine Estim Creat Clear Calc Estimated GFR POC Glucose 140 H 138 H 127 H Random Glucose Calcium Phosphorus Magnesium Albumin CSF Tube Number CSF Volume CSF Appearance CSF Color CSF WBC CSF RBC CSF Neutrophils CSF Lymphocytes CSF Monocytes % CSF Appearance (b) CSF Glucose CSF Total Protein CSF C.neoform/gat PCR CSF CMV DNA (PCR) CSF Enterovirus (PCR) CSF E. coli K1 (PCR) CSF H. influenzae (PCR) CSF HSV I (PCR) CSF HSV II (PCR) CSF HHV 6 (PCR) CSF L.monocytogenes PCR CSF N. meningitidis PCR CSF Parechovirus (PCR) CSF S. agalactiae (PCR) CSF S. pneumoniae (PCR) CSF VZV (PCR) 04/15/23 04/15/23 04/15/23 05:04 05:11 06:09 WBC 14.1 H RBC 2.56 L Hgb 8.2 L Hct 24.2 L MCV 94.5 MCH 32.0 MCHC 33.9 RDW 14.2 Plt Count 141 L D MPV 10.6 Immature Gran % (Auto) Cancelled Neut % (Auto) Cancelled Lymph % (Auto) Cancelled [place] % (Auto) Cancelled Eos % (Auto) Cancelled Baso % (Auto) Cancelled Lymph # (Auto) Cancelled [place] # (Auto) Cancelled Eos # (Auto) Cancelled Baso # (Auto) Cancelled Abs Immat Gran (auto) Cancelled Absolute Neuts (auto) Cancelled Absolute Nucleated RBC 0.030 H Nucleated RBC % (auto) 0.2 Neutrophils % (Manual) 80 H Band Neutrophils % 5 Lymphocytes % (Manual) 7 L Monocytes % (Manual) 6 Basophils % (Manual) 1 Metamyelocytes % 1 Abs Neuts (Manual) 12.0 H Lymphocytes # (Manual) 1.0 L Monocytes # (Manual) 0.8 Basophils # (Manual) 0.1 Metamyelocytes # 0.1 Nucleated RBCs 1 H Toxic Granulation PRESENT Platelet Estimate NORMAL Plt Morphology Comment NORMAL RBC Morphology NORMAL VBG pH 7.36 VBG pCO2 47 VBG pO2 59 VBG HCO3 27 H VBG O2 Saturation 88.0 VBG Base Excess 1.6 Sodium 149 H Potassium 4.2 Chloride 113 H Carbon Dioxide 24 Anion Gap 16 BUN 64 H Creatinine 2.60 H Estim Creat Clear Calc 38.5 Estimated GFR 21 POC Glucose 128 H Random Glucose 139 H Calcium 7.9 L Phosphorus 4.5 Magnesium 1.6 Albumin 3.2 L CSF Tube Number CSF Volume CSF Appearance CSF Color CSF WBC CSF RBC CSF Neutrophils CSF Lymphocytes CSF Monocytes % CSF Appearance (b) CSF Glucose CSF Total Protein CSF C.neoform/gat PCR CSF CMV DNA (PCR) CSF Enterovirus (PCR) CSF E. coli K1 (PCR) CSF H. influenzae (PCR) CSF HSV I (PCR) CSF HSV II (PCR) CSF HHV 6 (PCR) CSF L.monocytogenes PCR CSF N. meningitidis PCR CSF Parechovirus (PCR) CSF S. agalactiae (PCR) CSF S. pneumoniae (PCR) CSF VZV (PCR) 04/15/23 07:56 WBC RBC Hgb Hct MCV MCH MCHC RDW Plt Count MPV Immature Gran % (Auto) Neut % (Auto) Lymph % (Auto) [place] % (Auto) Eos % (Auto) Baso % (Auto) Lymph # (Auto) [place] # (Auto) Eos # (Auto) Baso # (Auto) Abs Immat Gran (auto) Absolute Neuts (auto) Absolute Nucleated RBC Nucleated RBC % (auto) Neutrophils % (Manual) Band Neutrophils % Lymphocytes % (Manual) Monocytes % (Manual) Basophils % (Manual) Metamyelocytes % Abs Neuts (Manual) Lymphocytes # (Manual) Monocytes # (Manual) Basophils # (Manual) Metamyelocytes # Nucleated RBCs Toxic Granulation Platelet Estimate Plt Morphology Comment RBC Morphology VBG pH VBG pCO2 VBG pO2 VBG HCO3 VBG O2 Saturation VBG Base Excess Sodium Potassium Chloride Carbon Dioxide Anion Gap BUN Creatinine Estim Creat Clear Calc Estimated GFR POC Glucose 133 H Random Glucose Calcium Phosphorus Magnesium Albumin CSF Tube Number CSF Volume CSF Appearance CSF Color CSF WBC CSF RBC CSF Neutrophils CSF Lymphocytes CSF Monocytes % CSF Appearance (b) CSF Glucose CSF Total Protein CSF C.neoform/gat PCR CSF CMV DNA (PCR) CSF Enterovirus (PCR) CSF E. coli K1 (PCR) CSF H. influenzae (PCR) CSF HSV I (PCR) CSF HSV II (PCR) CSF HHV 6 (PCR) CSF L.monocytogenes PCR CSF N. meningitidis PCR CSF Parechovirus (PCR) CSF S. agalactiae (PCR) CSF S. pneumoniae (PCR) CSF VZV (PCR) Microbiology Microbiology Results: Microbiology 04/10/23 05:20 Blood - Venous Blood Culture - Final No growth after 5 days. 04/10/23 05:20 Blood - Venous Blood Culture - Final No growth after 5 days. 04/14/23 11:44 Cerebrospinal Fluid Gram Stain - Final 04/14/23 11:44 Cerebrospinal Fluid CSF Examination - Final 04/14/23 11:44 Cerebrospinal Fluid Fluid Description - Final 04/09/23 10:59 Blood - Venous Blood Culture - Final Escherichia coli 04/09/23 10:23 Blood - Venous Blood Culture - Final Escherichia coli Procedures Date of Service Date of Service: 04/25/23 Assessment & Plan Assessment and plan (1) Acute renal failure: Status: Acute (2) Hypernatremia: Status: Acute Plan Acute kidney injury is most likely due to ATN in the setting of sepsis and hypertension. No evidence of active glomerulonephritis or interstitial disease. Vanco level is elevated and this could lead to ongoing tubular injury. Currently creatinine is trending down Urine output is improving. She continues to have metabolic acidosis. No indication for dialysis. Creatinine is trending down !! Discussed with ICU attending. Continue to watch urine output closely. Keep intake more than output with hypotonic fluids to correct hypernatremia Add free water Continue to avoid hypertension and nephrotoxic agents. We will continue to follow her along with the team.. Time Spent With Patient Time: Total time managing care of this patient today ____ minutes. Progress Note: Quality Stroke Does the patient have a stroke diagnosis?: No
[2023-04-15 10:06] LABS: Glucose, Whole Blood 152 mg/dL (60-115)
--- NOTE | 2023-04-15 10:06 | P.PNCC_ITS ---
Subjective Subjective Date of Service: 04/15/23 Interval History: 38-year-old lady with underlying diabetes mellitus admitted on 04/09/2023 after being found unresponsive by her boyfriend. On ER evaluation patient in AFib with RVR and diabetic ketoacidosis, also hypertensive. Patient started on insulin drip, broad-spectrum antibiotics and admitted to intensive care unit. Further hospital course complicated by E coli bacteremia with likely source, encephalopathy, and acute renal failure. CT abdomen and pelvis without evidence of urinary obstruction or hydronephrosis. No events overnight. Slow improvement in encephalopathy. Renal function and urine output continue to improve. Critical Care Time (minutes): 30 Physical Exam 2 Vital Signs: Vital Signs: Last Vital Signs Temp 97.0 F 04/15/23 08:00 Pulse 86 04/15/23 09:00 Resp 20 04/15/23 09:00 BP 140/63 H 04/15/23 09:00 Pulse Ox 90 L 04/15/23 09:00 O2 Del Method High Flow Nasal C annula 04/15/23 09:00 O2 Flow Rate 50 04/15/23 09:00 FiO2 60 04/15/23 09:00 Oxygen Flow Rate 4 04/09/23 10:23 BMI result Body Mass Index 44.3 Const: General: no acute distress and confusion Nutritional Appearance: o bese and Edematous Orientation/consciousness: confusion Eyes: Sclerae: sclerae normal EOM: EOMs intact bilaterally Neck: Neck: Yes no lymphadenopathy, Yes trachea midline and Yes supple Resp: Effort & Inspection: normal respiratory effort and no respiratory distress Auscultation: crackles ( bilateral) Cardio: Rate: regular rate Rhythm: regular rhythm Heart sounds: no gallops, no murmurs and no rubs GI: Palpation (GI): Soft to palpation and Other GI palpation findings present ( Nontender) Auscultation: normal bowel sounds Neuro: General: confusion Extrem: General: Yes no pedal edema, No clubbing and No cyanosis Objective Data Labs 04/15/23 05:04 04/15/23 05:04 Labs: Laboratory Results - last 24 hr 04/14/23 04/14/23 04/14/23 10:30 11:44 11:44 WBC RBC Hgb Hct MCV MCH MCHC RDW Plt Count MPV Immature Gran % (Auto) Neut % (Auto) Lymph % (Auto) Wilkes % (Auto) Eos % (Auto) Baso % (Auto) Lymph # (Auto) [place] # (Auto) Eos # (Auto) Baso # (Auto) Abs Immat Gran (auto) Absolute Neuts (auto) Absolute Nucleated RBC Nucleated RBC % (auto) Neutrophils % (Manual) Band Neutrophils % Lymphocytes % (Manual) Monocytes % (Manual) Basophils % (Manual) Metamyelocytes % Abs Neuts (Manual) Lymphocytes # (Manual) Monocytes # (Manual) Basophils # (Manual) Metamyelocytes # Nucleated RBCs Toxic Granulation Platelet Estimate Plt Morphology Comment RBC Morphology VBG pH VBG pCO2 VBG pO2 VBG HCO3 VBG O2 Saturation VBG Base Excess Sodium Potassium Chloride Carbon Dioxide Anion Gap BUN Creatinine Estim Creat Clear Calc Estimated GFR POC Glucose 157 H Random Glucose Calcium Phosphorus Magnesium Albumin CSF Tube Number 3 1 CSF Volume CSF Appearance CSF Color CSF WBC CSF RBC CSF Neutrophils CSF Lymphocytes CSF Monocytes % CSF Appearance (b) CSF Glucose CSF Total Protein CSF C.neoform/gat PCR CSF CMV DNA (PCR) CSF Enterovirus (PCR) CSF E. coli K1 (PCR) CSF H. influenzae (PCR) CSF HSV I (PCR) CSF HSV II (PCR) CSF HHV 6 (PCR) CSF L.monocytogenes PCR CSF N. meningitidis PCR CSF Parechovirus (PCR) CSF S. agalactiae (PCR) CSF S. pneumoniae (PCR) CSF VZV (PCR) 04/14/23 04/14/23 04/14/23 11:44 11:44 11:44 WBC RBC Hgb Hct MCV MCH MCHC RDW Plt Count MPV Immature Gran % (Auto) Neut % (Auto) Lymph % (Auto) Wilkes % (Auto) Eos % (Auto) Baso % (Auto) Lymph # (Auto) [place] # (Auto) Eos # (Auto) Baso # (Auto) Abs Immat Gran (auto) Absolute Neuts (auto) Absolute Nucleated RBC Nucleated RBC % (auto) Neutrophils % (Manual) Band Neutrophils % Lymphocytes % (Manual) Monocytes % (Manual) Basophils % (Manual) Metamyelocytes % Abs Neuts (Manual) Lymphocytes # (Manual) Monocytes # (Manual) Basophils # (Manual) Metamyelocytes # Nucleated RBCs Toxic Granulation Platelet Estimate Plt Morphology Comment RBC Morphology VBG pH VBG pCO2 VBG pO2 VBG HCO3 VBG O2 Saturation VBG Base Excess Sodium Potassium Chloride Carbon Dioxide Anion Gap BUN Creatinine Estim Creat Clear Calc Estimated GFR POC Glucose Random Glucose Calcium Phosphorus Magnesium Albumin CSF Tube Number 4 CSF Volume 2.0 3.0 CSF Appearance HAZY HAZY CSF Color STRAW CSF WBC CSF RBC CSF Neutrophils CSF Lymphocytes CSF Monocytes % CSF Appearance (b) CSF Glucose CSF Total Protein CSF C.neoform/gat PCR CSF CMV DNA (PCR) CSF Enterovirus (PCR) CSF E. coli K1 (PCR) CSF H. influenzae (PCR) CSF HSV I (PCR) CSF HSV II (PCR) CSF HHV 6 (PCR) CSF L.monocytogenes PCR CSF N. meningitidis PCR CSF Parechovirus (PCR) CSF S. agalactiae (PCR) CSF S. pneumoniae (PCR) CSF VZV (PCR) 04/14/23 04/14/23 04/14/23 11:44 11:44 11:44 WBC RBC Hgb Hct MCV MCH MCHC RDW Plt Count MPV Immature Gran % (Auto) Neut % (Auto) Lymph % (Auto) Wilkes % (Auto) Eos % (Auto) Baso % (Auto) Lymph # (Auto) [place] # (Auto) Eos # (Auto) Baso # (Auto) Abs Immat Gran (auto) Absolute Neuts (auto) Absolute Nucleated RBC Nucleated RBC % (auto) Neutrophils % (Manual) Band Neutrophils % Lymphocytes % (Manual) Monocytes % (Manual) Basophils % (Manual) Metamyelocytes % Abs Neuts (Manual) Lymphocytes # (Manual) Monocytes # (Manual) Basophils # (Manual) Metamyelocytes # Nucleated RBCs Toxic Granulation Platelet Estimate Plt Morphology Comment RBC Morphology VBG pH VBG pCO2 VBG pO2 VBG HCO3 VBG O2 Saturation VBG Base Excess Sodium Potassium Chloride Carbon Dioxide Anion Gap BUN Creatinine Estim Creat Clear Calc Estimated GFR POC Glucose Random Glucose Calcium Phosphorus Magnesium Albumin CSF Tube Number CSF Volume CSF Appearance CSF Color COLORLESS CSF WBC 15 H* 12 H* CSF RBC 437 47 CSF Neutrophils 5 CSF Lymphocytes CSF Monocytes % CSF Appearance (b) CSF Glucose CSF Total Protein CSF C.neoform/gat PCR CSF CMV DNA (PCR) CSF Enterovirus (PCR) CSF E. coli K1 (PCR) CSF H. influenzae (PCR) CSF HSV I (PCR) CSF HSV II (PCR) CSF HHV 6 (PCR) CSF L.monocytogenes PCR CSF N. meningitidis PCR CSF Parechovirus (PCR) CSF S. agalactiae (PCR) CSF S. pneumoniae (PCR) CSF VZV (PCR) 04/14/23 04/14/23 04/14/23 11:44 11:44 11:44 WBC RBC Hgb Hct MCV MCH MCHC RDW Plt Count MPV Immature Gran % (Auto) Neut % (Auto) Lymph % (Auto) Wilkes % (Auto) Eos % (Auto) Baso % (Auto) Lymph # (Auto) [place] # (Auto) Eos # (Auto) Baso # (Auto) Abs Immat Gran (auto) Absolute Neuts (auto) Absolute Nucleated RBC Nucleated RBC % (auto) Neutrophils % (Manual) Band Neutrophils % Lymphocytes % (Manual) Monocytes % (Manual) Basophils % (Manual) Metamyelocytes % Abs Neuts (Manual) Lymphocytes # (Manual) Monocytes # (Manual) Basophils # (Manual) Metamyelocytes # Nucleated RBCs Toxic Granulation Platelet Estimate Plt Morphology Comment RBC Morphology VBG pH VBG pCO2 VBG pO2 VBG HCO3 VBG O2 Saturation VBG Base Excess Sodium Potassium Chloride Carbon Dioxide Anion Gap BUN Creatinine Estim Creat Clear Calc Estimated GFR POC Glucose Random Glucose Calcium Phosphorus Magnesium Albumin CSF Tube Number CSF Volume CSF Appearance CSF Color CSF WBC CSF RBC CSF Neutrophils 8 CSF Lymphocytes 74 82 CSF Monocytes % 21 10 CSF Appearance (b) Clear, Colorless CSF Glucose 97 CSF Total Protein 29.4 CSF C.neoform/gat PCR Not Detected CSF CMV DNA (PCR) Not Detected CSF Enterovirus (PCR) Not Detected CSF E. coli K1 (PCR) Not Detected CSF H. influenzae (PCR) Not Detected CSF HSV I (PCR) Not Detected CSF HSV II (PCR) Not Detected CSF HHV 6 (PCR) Not Detected CSF L.monocytogenes PCR Not Detected CSF N. meningitidis PCR Not Detected CSF Parechovirus (PCR) Not Detected CSF S. agalactiae (PCR) Not Detected CSF S. pneumoniae (PCR) Not Detected CSF VZV (PCR) Not Detected 04/14/23 04/14/23 04/14/23 12:03 13:03 13:58 WBC RBC Hgb Hct MCV MCH MCHC RDW Plt Count MPV Immature Gran % (Auto) Neut % (Auto) Lymph % (Auto) [place]kes % (Auto) Eos % (Auto) Baso % (Auto) Lymph # (Auto) [place] # (Auto) Eos # (Auto) Baso # (Auto) Abs Immat Gran (auto) Absolute Neuts (auto) Absolute Nucleated RBC Nucleated RBC % (auto) Neutrophils % (Manual) Band Neutrophils % Lymphocytes % (Manual) Monocytes % (Manual) Basophils % (Manual) Metamyelocytes % Abs Neuts (Manual) Lymphocytes # (Manual) Monocytes # (Manual) Basophils # (Manual) Metamyelocytes # Nucleated RBCs Toxic Granulation Platelet Estimate Plt Morphology Comment RBC Morphology VBG pH VBG pCO2 VBG pO2 VBG HCO3 VBG O2 Saturation VBG Base Excess Sodium Potassium Chloride Carbon Dioxide Anion Gap BUN Creatinine Estim Creat Clear Calc Estimated GFR POC Glucose 152 H 156 H 168 H Random Glucose Calcium Phosphorus Magnesium Albumin CSF Tube Number CSF Volume CSF Appearance CSF Color CSF WBC CSF RBC CSF Neutrophils CSF Lymphocytes CSF Monocytes % CSF Appearance (b) CSF Glucose CSF Total Protein CSF C.neoform/gat PCR CSF CMV DNA (PCR) CSF Enterovirus (PCR) CSF E. coli K1 (PCR) CSF H. influenzae (PCR) CSF HSV I (PCR) CSF HSV II (PCR) CSF HHV 6 (PCR) CSF L.monocytogenes PCR CSF N. meningitidis PCR CSF Parechovirus (PCR) CSF S. agalactiae (PCR) CSF S. pneumoniae (PCR) CSF VZV (PCR) 04/14/23 04/14/23 04/14/23 16:14 18:03 19:02 WBC RBC Hgb Hct MCV MCH MCHC RDW Plt Count MPV Immature Gran % (Auto) Neut % (Auto) Lymph % (Auto) [place] % (Auto) Eos % (Auto) Baso % (Auto) Lymph # (Auto) [place] # (Auto) Eos # (Auto) Baso # (Auto) Abs Immat Gran (auto) Absolute Neuts (auto) Absolute Nucleated RBC Nucleated RBC % (auto) Neutrophils % (Manual) Band Neutrophils % Lymphocytes % (Manual) Monocytes % (Manual) Basophils % (Manual) Metamyelocytes % Abs Neuts (Manual) Lymphocytes # (Manual) Monocytes # (Manual) Basophils # (Manual) Metamyelocytes # Nucleated RBCs Toxic Granulation Platelet Estimate Plt Morphology Comment RBC Morphology VBG pH VBG pCO2 VBG pO2 VBG HCO3 VBG O2 Saturation VBG Base Excess Sodium 147 H Potassium 4.1 Chloride 113 H Carbon Dioxide 23 Anion Gap 15 BUN 62 H Creatinine 2.92 H Estim Creat Clear Calc 34.3 Estimated GFR 18 POC Glucose 160 H 158 H Random Glucose 151 H Calcium 7.7 L Phosphorus Magnesium Albumin CSF Tube Number CSF Volume CSF Appearance CSF Color CSF WBC CSF RBC CSF Neutrophils CSF Lymphocytes CSF Monocytes % CSF Appearance (b) CSF Glucose CSF Total Protein CSF C.neoform/gat PCR CSF CMV DNA (PCR) CSF Enterovirus (PCR) CSF E. coli K1 (PCR) CSF H. influenzae (PCR) CSF HSV I (PCR) CSF HSV II (PCR) CSF HHV 6 (PCR) CSF L.monocytogenes PCR CSF N. meningitidis PCR CSF Parechovirus (PCR) CSF S. agalactiae (PCR) CSF S. pneumoniae (PCR) CSF VZV (PCR) 04/14/23 04/14/23 04/14/23 20:25 20:39 21:52 WBC RBC Hgb Hct MCV MCH MCHC RDW Plt Count MPV Immature Gran % (Auto) Neut % (Auto) Lymph % (Auto) [place] % (Auto) Eos % (Auto) Baso % (Auto) Lymph # (Auto) [place] # (Auto) Eos # (Auto) Baso # (Auto) Abs Immat Gran (auto) Absolute Neuts (auto) Absolute Nucleated RBC Nucleated RBC % (auto) Neutrophils % (Manual) Band Neutrophils % Lymphocytes % (Manual) Monocytes % (Manual) Basophils % (Manual) Metamyelocytes % Abs Neuts (Manual) Lymphocytes # (Manual) Monocytes # (Manual) Basophils # (Manual) Metamyelocytes # Nucleated RBCs Toxic Granulation Platelet Estimate Plt Morphology Comment RBC Morphology VBG pH VBG pCO2 VBG pO2 VBG HCO3 VBG O2 Saturation VBG Base Excess Sodium Potassium Chloride Carbon Dioxide Anion Gap BUN Creatinine Estim Creat Clear Calc Estimated GFR POC Glucose 150 H 143 H 133 H Random Glucose Calcium Phosphorus Magnesium Albumin CSF Tube Number CSF Volume CSF Appearance CSF Color CSF WBC CSF RBC CSF Neutrophils CSF Lymphocytes CSF Monocytes % CSF Appearance (b) CSF Glucose CSF Total Protein CSF C.neoform/gat PCR CSF CMV DNA (PCR) CSF Enterovirus (PCR) CSF E. coli K1 (PCR) CSF H. influenzae (PCR) CSF HSV I (PCR) CSF HSV II (PCR) CSF HHV 6 (PCR) CSF L.monocytogenes PCR CSF N. meningitidis PCR CSF Parechovirus (PCR) CSF S. agalactiae (PCR) CSF S. pneumoniae (PCR) CSF VZV (PCR) 04/14/23 04/15/23 04/15/23 23:55 02:03 04:00 WBC RBC Hgb Hct MCV MCH MCHC RDW Plt Count MPV Immature Gran % (Auto) Neut % (Auto) Lymph % (Auto) [place] % (Auto) Eos % (Auto) Baso % (Auto) Lymph # (Auto) [place] # (Auto) Eos # (Auto) Baso # (Auto) Abs Immat Gran (auto) Absolute Neuts (auto) Absolute Nucleated RBC Nucleated RBC % (auto) Neutrophils % (Manual) Band Neutrophils % Lymphocytes % (Manual) Monocytes % (Manual) Basophils % (Manual) Metamyelocytes % Abs Neuts (Manual) Lymphocytes # (Manual) Monocytes # (Manual) Basophils # (Manual) Metamyelocytes # Nucleated RBCs Toxic Granulation Platelet Estimate Plt Morphology Comment RBC Morphology VBG pH VBG pCO2 VBG pO2 VBG HCO3 VBG O2 Saturation VBG Base Excess Sodium Potassium Chloride Carbon Dioxide Anion Gap BUN Creatinine Estim Creat Clear Calc Estimated GFR POC Glucose 140 H 138 H 127 H Random Glucose Calcium Phosphorus Magnesium Albumin CSF Tube Number CSF Volume CSF Appearance CSF Color CSF WBC CSF RBC CSF Neutrophils CSF Lymphocytes CSF Monocytes % CSF Appearance (b) CSF Glucose CSF Total Protein CSF C.neoform/gat PCR CSF CMV DNA (PCR) CSF Enterovirus (PCR) CSF E. coli K1 (PCR) CSF H. influenzae (PCR) CSF HSV I (PCR) CSF HSV II (PCR) CSF HHV 6 (PCR) CSF L.monocytogenes PCR CSF N. meningitidis PCR CSF Parechovirus (PCR) CSF S. agalactiae (PCR) CSF S. pneumoniae (PCR) CSF VZV (PCR) 04/15/23 04/15/23 04/15/23 05:04 05:11 06:09 WBC 14.1 H RBC 2.56 L Hgb 8.2 L Hct 24.2 L MCV 94.5 MCH 32.0 MCHC 33.9 RDW 14.2 Plt Count 141 L D MPV 10.6 Immature Gran % (Auto) Cancelled Neut % (Auto) Cancelled Lymph % (Auto) Cancelled Wilkes % (Auto) Cancelled Eos % (Auto) Cancelled Baso % (Auto) Cancelled Lymph # (Auto) Cancelled [place] # (Auto) Cancelled Eos # (Auto) Cancelled Baso # (Auto) Cancelled Abs Immat Gran (auto) Cancelled Absolute Neuts (auto) Cancelled Absolute Nucleated RBC 0.030 H Nucleated RBC % (auto) 0.2 Neutrophils % (Manual) 80 H Band Neutrophils % 5 Lymphocytes % (Manual) 7 L Monocytes % (Manual) 6 Basophils % (Manual) 1 Metamyelocytes % 1 Abs Neuts (Manual) 12.0 H Lymphocytes # (Manual) 1.0 L Monocytes # (Manual) 0.8 Basophils # (Manual) 0.1 Metamyelocytes # 0.1 Nucleated RBCs 1 H Toxic Granulation PRESENT Platelet Estimate NORMAL Plt Morphology Comment NORMAL RBC Morphology NORMAL VBG pH 7.36 VBG pCO2 47 VBG pO2 59 VBG HCO3 27 H VBG O2 Saturation 88.0 VBG Base Excess 1.6 Sodium 149 H Potassium 4.2 Chloride 113 H Carbon Dioxide 24 Anion Gap 16 BUN 64 H Creatinine 2.60 H Estim Creat Clear Calc 38.5 Estimated GFR 21 POC Glucose 128 H Random Glucose 139 H Calcium 7.9 L Phosphorus 4.5 Magnesium 1.6 Albumin 3.2 L CSF Tube Number CSF Volume CSF Appearance CSF Color CSF WBC CSF RBC CSF Neutrophils CSF Lymphocytes CSF Monocytes % CSF Appearance (b) CSF Glucose CSF Total Protein CSF C.neoform/gat PCR CSF CMV DNA (PCR) CSF Enterovirus (PCR) CSF E. coli K1 (PCR) CSF H. influenzae (PCR) CSF HSV I (PCR) CSF HSV II (PCR) CSF HHV 6 (PCR) CSF L.monocytogenes PCR CSF N. meningitidis PCR CSF Parechovirus (PCR) CSF S. agalactiae (PCR) CSF S. pneumoniae (PCR) CSF VZV (PCR) 04/15/23 07:56 WBC RBC Hgb Hct MCV MCH MCHC RDW Plt Count MPV Immature Gran % (Auto) Neut % (Auto) Lymph % (Auto) [place] % (Auto) Eos % (Auto) Baso % (Auto) Lymph # (Auto) [place] # (Auto) Eos # (Auto) Baso # (Auto) Abs Immat Gran (auto) Absolute Neuts (auto) Absolute Nucleated RBC Nucleated RBC % (auto) Neutrophils % (Manual) Band Neutrophils % Lymphocytes % (Manual) Monocytes % (Manual) Basophils % (Manual) Metamyelocytes % Abs Neuts (Manual) Lymphocytes # (Manual) Monocytes # (Manual) Basophils # (Manual) Metamyelocytes # Nucleated RBCs Toxic Granulation Platelet Estimate Plt Morphology Comment RBC Morphology VBG pH VBG pCO2 VBG pO2 VBG HCO3 VBG O2 Saturation VBG Base Excess Sodium Potassium Chloride Carbon Dioxide Anion Gap BUN Creatinine Estim Creat Clear Calc Estimated GFR POC Glucose 133 H Random Glucose Calcium Phosphorus Magnesium Albumin CSF Tube Number CSF Volume CSF Appearance CSF Color CSF WBC CSF RBC CSF Neutrophils CSF Lymphocytes CSF Monocytes % CSF Appearance (b) CSF Glucose CSF Total Protein CSF C.neoform/gat PCR CSF CMV DNA (PCR) CSF Enterovirus (PCR) CSF E. coli K1 (PCR) CSF H. influenzae (PCR) CSF HSV I (PCR) CSF HSV II (PCR) CSF HHV 6 (PCR) CSF L.monocytogenes PCR CSF N. meningitidis PCR CSF Parechovirus (PCR) CSF S. agalactiae (PCR) CSF S. pneumoniae (PCR) CSF VZV (PCR) Microbiology Microbiology Results: Microbiology 04/10/23 05:20 Blood - Venous Blood Culture - Final No growth after 5 days. 04/10/23 05:20 Blood - Venous Blood Culture - Final No growth after 5 days. 04/14/23 11:44 Cerebrospinal Fluid Gram Stain - Final 04/14/23 11:44 Cerebrospinal Fluid CSF Examination - Final 04/14/23 11:44 Cerebrospinal Fluid Fluid Description - Final 04/09/23 10:59 Blood - Venous Blood Culture - Final Escherichia coli 04/09/23 10:23 Blood - Venous Blood Culture - Final Escherichia coli Progress Note: A&P Assessment and plan (1) E coli bacteremia: Status: Acute (2) Acute renal failure: Status: Acute (3) Acute metabolic encephalopathy: Status: Acute Plan Assessment: 38-year-old lady admitted with diabetic ketoacidosis, Gram-negative bacteremia, pyelonephritis, acute renal failure, metabolic encephalopathy, and AFib with RVR Plan: Neuro: Metabolic encephalopathy, also possible septic encephalopathy component, improving, albeit slowly. Continue to titrate off Precedex as tolerated. CT head with no acute findings. LP essentially negative. Cardiac: AFib with RVR, likely secondary to underlying acidosis, resolved. Septic shock, resolved. Pulmonary: No acute issues. Renal: Acute renal failure. Pyelonephritis. Improving. Non oliguric. Nephrology service care appreciated. Continue to monitor renal indices and urine output. Endo: Ketoacidosis resolved. GI: No acute issues. ID: E coli bacteremia with likely source. Continue ceftriaxone. Heme/Onc: No acute issues. Psych: No acute issues. Miscellaneous: No acute issues. Prophylaxis: Heparin Diet: TPN Critical care time spent: 30 minutes Quality Stroke Does the patient have a stroke diagnosis?: No VTE Prior VTE?: No VTE Risk Level:: Medical - moderate - high VTE Device Contraindication: N/A - Device Ordered VTE Drug Contraindication: N/A - Med Ordered
--- NOTE | 2023-04-15 10:33 | MHC.CLN ---
PT IS DAY 7 NPO AND REQUIRES TPN FOR NUTRITION SUPPORT DISCUSSED AT ROUNDS WITH MD REVIEWED LABS DISCUSSED WITH PHARMACY DAY 1 04/15/23: RECOMMEND TPN AT 35ML/KG TO PROVIDE 596KCALS, 126G DEXTROSE, 42G PROTEIN CHECK TRIGS DAY 2 04/16/23: RECOMMEND TPN INCREASE TO 55ML/HR WITH 37G LIPIDS TO PROVIDE 1311 TOTAL KCALS (23KCALS/KG BASED ON IBW), 198G DEXTROSE, AND 66G PROTEIN (1.16G/KG BASED ON IBW) CONTINUE TPN UNTIL DIET CAN BE ADVANCED PER MD REPLETE LYTES NEEDED
[2023-04-15] MEDS: cefTRIAXone sodium 1 GM in 0.9 % Sodium Chloride 50 ML IV (10:36)
[2023-04-15] MEDS: Bumetanide 1 MG/4 ML VIAL IVPUSH ×2 (10:36→17:06)
[2023-04-15 12:25] LABS: Glucose, Whole Blood 157 mg/dL (60-115)
--- NOTE | 2023-04-15 13:37 | MHC.CM.PN ---
Pt continues care in ICU: very encephalopathic : yelling out and not responding to commands. LP results not supportive of acute dx: Continuing on IV ATB and other care. CM to follow for finalization of d/c needs.
[2023-04-15 14:26] LABS: Glucose, Whole Blood 162 mg/dL (60-115)
[2023-04-15 16:17] LABS: Glucose, Whole Blood 167 mg/dL (60-115)
[2023-04-15 18:07] LABS: Glucose, Whole Blood 167 mg/dL (60-115)
[2023-04-15 18:41] LABS: Anion Gap 19 (12-20); Blood Urea Nitrogen 62 mg/dL (9-16); Calcium 8.2 mg/dL (8.4-10.2); Carbon Dioxide 24 mmol/L (22-29); Chloride 112 mmol/L (96-108); Creatinine Clr Calc Pharmacy 39.1; Estimated Glomerular Filt Rate 21; Glucose Random 171 mg/dL (60-115); Sodium 152 mmol/L (135-145)
[2023-04-15] MEDS: Insulin Regular/NS 100 UNIT/100 ML PLAST..BAG 8 UNIT IVCONT (18:41)
[2023-04-15 19:21] LABS: Magnesium 1.5 mg/dL (1.6-2.6); Phosphorus 3.2 mg/dL (2.7-4.5)
[2023-04-15 19:23] LABS: Glucose, Whole Blood 158 mg/dL (60-115)
[2023-04-15] MEDS: Potassium Chloride/H20 40 MEQ/100 ML PIGGYBACK 50 MEQ IV (20:09)
[2023-04-15] MEDS: Magnesium Sulfate/H2O 2 GM/50 ML PIGGYBACK IV (20:09)
[2023-04-15 20:13] LABS: Glucose, Whole Blood 143 mg/dL (60-115)
[2023-04-15] MEDS: dexmedeTOMIDidine HCL/NS 400 MCG/100 ML INFUS..BTL 29.58 MCG IVCONT (20:26)
[2023-04-15 21:22] LABS: Glucose, Whole Blood 172 mg/dL (60-115)
[2023-04-15] MEDS: Parenteral Nutrition 840 ML 35 ML IV (21:27)
[2023-04-15 22:07] LABS: Glucose, Whole Blood 174 mg/dL (60-115)
[2023-04-15 23:21] LABS: Glucose, Whole Blood 204 mg/dL (60-115)
[2023-04-16] VITALS (35 sets, daily range): BP systolic 115–160; BP diastolic 55–78; PULSE 89–115; RESP 14–45; TEMP 36.8–38.3; O2SAT 87–94; BMI 41.0
[2023-04-16 00:01] LABS: Glucose, Whole Blood 214 mg/dL (60-115)
[2023-04-16 01:14] LABS: Glucose, Whole Blood 229 mg/dL (60-115)
[2023-04-16 02:28] LABS: Glucose, Whole Blood 168 mg/dL (60-115)
[2023-04-16] MEDS: dexmedeTOMIDidine HCL/NS 400 MCG/100 ML INFUS..BTL 24.65 MCG IVCONT ×2 (02:28→06:25)
[2023-04-16] MEDS: Acetaminophen Supp 650 MG SUPP.RECT PR (02:46)
[2023-04-16] MEDS: Haloperidol Lactate 5 MG/ML VIAL 2 MG IVPUSH (03:13)
[2023-04-16 03:23] LABS: Glucose, Whole Blood 153 mg/dL (60-115)
[2023-04-16] MEDS: fentaNYL citrate/PF 100 MCG/2 ML VIAL 50 MCG IVPUSH (03:34)
[2023-04-16 04:05] LABS: Glucose, Whole Blood 142 mg/dL (60-115)
[2023-04-16 04:43] LABS: VBG Base Excess 8.4 mmol/L; VBG HCO3 32 mmol/L (22-26); VBG pCO2 43 mmHg; VBG pH 7.48 (7.32-7.43); VBG pO2 51 mmHg
[2023-04-16 05:02] LABS: Venous Blood Gas Refer to POC result
[2023-04-16 05:24] LABS: Hematocrit 22.7 % (37.0-47.0); Hemoglobin 7.8 g/dl (12.0-16.0); Mean Corpuscular HGB Conc 34.4 g/dl (31.0-35.0); Mean Corpuscular Hemoglobin 31.6 pg (27.0-33.0); Mean Corpuscular Volume 91.9 fL (80.0-98.0); Mean Platelet Volume 10.5 fL (9.4-12.3); NRBC Pct Auto 0.1 /100WBC (0.0-0.2); Platelet Count 173 X10*3/uL (160-400); Red Blood Count 2.47 X10*6/uL (4.20-5.50); White Blood Count 17.4 X10*3/uL (4.8-10.8)
[2023-04-16 05:43] LABS: Alanine Aminotransferase 29 U/L (0-31); Albumin Level 3.4 g/dL (3.5-5.0); Alkaline Phosphatase 232 U/L (39-117); Anion Gap 14 (12-20); Aspartate Amino Transferase 41 U/L (5-31); Bilirubin Total 0.7 mg/dL (0.0-1.0); Blood Urea Nitrogen 60 mg/dL (9-16); Calcium 8.3 mg/dL (8.4-10.2); Carbon Dioxide 28 mmol/L (22-29); Chloride 114 mmol/L (96-108); Creatinine Clr Calc Pharmacy 43.4; Estimated Glomerular Filt Rate 24; Glucose Random 135 mg/dL (60-115); Magnesium 1.8 mg/dL (1.6-2.6); Phosphorus 2.9 mg/dL (2.7-4.5); Sodium 153 mmol/L (135-145); Total Protein 6.2 g/dL (6.5-8.0)
[2023-04-16 05:46] LABS: Band Neutrophils Percent 5 % (3-5); Lymphocytes Absolute Manual 0.9 X10*3/uL (1.2-4.9); Lymphocytes Percent Manual 5 % (20-40); Metamyelocytes Absolute 0.2 X10*3/uL; Metamyelocytes Percent 1 %; Monocytes Absolute Manual 0.9 X10*3/uL (0.1-1.2); Monocytes Percent Manual 5 % (2-11); Neutrophils Absolute Manual 15.5 X10*3/uL (2.0-8.3); Neutrophils Percent Manual 84 % (45-73)
[2023-04-16 05:48] LABS: Hypochromasia 1+ (5-14) /OIF; Platelet Estimate NORMAL (NORMAL); Platelet Morphology Comment NORM; Polychromasia 1+ (0-2) /OIF; RBC Morphology NOTED; Target Cells 1+ (5-14) /OIF; Toxic Granulation PRESENT
[2023-04-16 05:56] LABS: Glucose, Whole Blood 130 mg/dL (60-115)
[2023-04-16] MEDS: Potassium Chloride/H20 40 MEQ/100 ML PIGGYBACK 50 MEQ IV ×2 (06:28→08:35)
[2023-04-16] MEDS: Magnesium Sulfate/H2O 2 GM/50 ML PIGGYBACK IV (06:30)
[2023-04-16] MEDS: Insulin Regular/NS 100 UNIT/100 ML PLAST..BAG 8 UNIT IVCONT ×2 (06:33→17:03)
[2023-04-16 08:08] LABS: Glucose, Whole Blood 110 mg/dL (60-115)
[2023-04-16] MEDS: Dextrose 5 % 1,000 ML 200 ML IVCONT ×2 (08:25→12:49)
[2023-04-16] MEDS: Bumetanide 1 MG/4 ML VIAL IVPUSH ×2 (08:29→17:03)
[2023-04-16] MEDS: Heparin Sodium,Porcine 5,000 UNIT/ML VIAL 5000 UNIT SUBCUT ×3 (08:29→20:01)
[2023-04-16] MEDS: Nystatin Powder 15 GM BOTTLE 1 APPL TOPICAL ×2 (08:34→21:00)
--- NOTE | 2023-04-16 08:43 | PC.NURSE ---
Addendum entered by James Jacobson RN 04/17/23 08:32: RT at bedside this AM Pt O2 sat sustaining 84%, not staying above 85%. informed. RR 40, pt appears exhausted Addendum entered by James Jacobson RN 04/16/23 17:27: insulin drip titrated per Addendum entered by James Jacobson RN 04/16/23 14:37: informed of pt's temp 100.5 rectal. informed Md pt desats when head of the bed is down for repositioning, ?'ed IV tylenol instead of tylenol supp. Addendum entered by James Jacobson RN 04/16/23 12:49: Pt continues to moan and cry out w/ RR 40 and desatting to 83% with slow return to 88%+. informed and assessed pt at bedside. mother at bedside visiting Original Note: confirmed 80 IV K replacement. Insulin drip paused this AM per insulin protocol sheet. informed, per MD restart insulin drip and reduce insulin drip rate to 4u adn rechekc in 2hrs.
[2023-04-16 10:16] LABS: Glucose, Whole Blood 198 mg/dL (60-115)
[2023-04-16] MEDS: cefTRIAXone sodium 1 GM in 0.9 % Sodium Chloride 50 ML IV (10:22)
--- NOTE | 2023-04-16 10:54 | P.PNCC_ITS ---
Subjective Subjective Date of Service: 04/16/23 Interval History: 38-year-old lady with underlying diabetes mellitus admitted on 04/09/2023 after being found unresponsive by her boyfriend. On ER evaluation patient in AFib with RVR and diabetic ketoacidosis, also hypertensive. Patient started on insulin drip, broad-spectrum antibiotics and admitted to intensive care unit. Further hospital course complicated by E coli bacteremia with likely source, encephalopathy, and acute renal failure. CT abdomen and pelvis without evidence of urinary obstruction or hydronephrosis. No events overnight. Slow improvement in encephalopathy. Further improvement in renal function and urine output. Critical Care Time (minutes): 30 Physical Exam 2 Vital Signs: Vital Signs: Last Vital Signs Temp 99.4 F 04/16/23 10:31 Pulse 103 H 04/16/23 10:00 Resp 28 H 04/16/23 10:00 BP 158/75 H 04/16/23 10:00 Pulse Ox 89 L 04/16/23 10:00 O2 Del Method High Flow Nasal C annula 04/16/23 10:00 O2 Flow Rate 55 04/16/23 10:00 FiO2 80 04/16/23 10:00 Oxygen Flow Rate 4 04/09/23 10:23 BMI result Body Mass Index 41.0 Const: General: no acute distress, awake and confusion Nutritional Appearance: obese Orientation/consciousness: confusion Eyes: Sclerae: sclerae normal EOM: EOMs intact bilaterally Neck: Neck: Yes no lymphadenopathy, Yes trachea midline and Yes supple Resp: Effort & Inspection: normal respiratory effort and no respiratory distress Auscultation: clear to auscultation bilaterally Cardio: Rate: tachycardic Rhythm: regular rhythm Heart sounds: no gallops, no murmurs and no rubs GI: Palpation (GI): Soft to palpation and Other GI palpation findings present ( Nontender) Auscultation: normal bowel sounds Neuro: General: confusion Extrem: General: Yes no pedal edema, No clubbing and No cyanosis Objective Data Labs 04/16/23 04:33 04/16/23 04:33 Labs: Laboratory Results - last 24 hr 04/15/23 04/15/23 04/15/23 12:22 14:23 16:14 WBC RBC Hgb Hct MCV MCH MCHC RDW Plt Count MPV Immature Gran % (Auto) Neut % (Auto) Lymph % (Auto) [place] % (Auto) Eos % (Auto) Baso % (Auto) Lymph # (Auto) [place] # (Auto) Eos # (Auto) Baso # (Auto) Abs Immat Gran (auto) Absolute Neuts (auto) Absolute Nucleated RBC Nucleated RBC % (auto) Neutrophils % (Manual) Band Neutrophils % Lymphocytes % (Manual) Monocytes % (Manual) Metamyelocytes % Abs Neuts (Manual) Lymphocytes # (Manual) Monocytes # (Manual) Metamyelocytes # Toxic Granulation Platelet Estimate Plt Morphology Comment RBC Morphology Polychromasia Hypochromasia Target Cells VBG pH VBG pCO2 VBG pO2 VBG HCO3 VBG O2 Saturation VBG Base Excess Sodium Potassium Chloride Carbon Dioxide Anion Gap BUN Creatinine Estim Creat Clear Calc Estimated GFR POC Glucose 157 H 162 H 167 H Random Glucose Calcium Phosphorus Magnesium Total Bilirubin AST ALT Alkaline Phosphatase Total Protein Albumin 04/15/23 04/15/23 04/15/23 18:03 18:13 19:20 WBC RBC Hgb Hct MCV MCH MCHC RDW Plt Count MPV Immature Gran % (Auto) Neut % (Auto) Lymph % (Auto) [place] % (Auto) Eos % (Auto) Baso % (Auto) Lymph # (Auto) [place] # (Auto) Eos # (Auto) Baso # (Auto) Abs Immat Gran (auto) Absolute Neuts (auto) Absolute Nucleated RBC Nucleated RBC % (auto) Neutrophils % (Manual) Band Neutrophils % Lymphocytes % (Manual) Monocytes % (Manual) Metamyelocytes % Abs Neuts (Manual) Lymphocytes # (Manual) Monocytes # (Manual) Metamyelocytes # Toxic Granulation Platelet Estimate Plt Morphology Comment RBC Morphology Polychromasia Hypochromasia Target Cells VBG pH VBG pCO2 VBG pO2 VBG HCO3 VBG O2 Saturation VBG Base Excess Sodium 152 H Potassium 3.0 L D Chloride 112 H Carbon Dioxide 24 Anion Gap 19 BUN 62 H Creatinine 2.54 H Estim Creat Clear Calc 39.1 Estimated GFR 21 POC Glucose 167 H 158 H Random Glucose 171 H Calcium 8.2 L Phosphorus 3.2 Magnesium 1.5 L Total Bilirubin AST ALT Alkaline Phosphatase Total Protein Albumin 04/15/23 04/15/23 04/15/23 20:08 21:18 22:03 WBC RBC Hgb Hct MCV MCH MCHC RDW Plt Count MPV Immature Gran % (Auto) Neut % (Auto) Lymph % (Auto) [place] % (Auto) Eos % (Auto) Baso % (Auto) Lymph # (Auto) [place] # (Auto) Eos # (Auto) Baso # (Auto) Abs Immat Gran (auto) Absolute Neuts (auto) Absolute Nucleated RBC Nucleated RBC % (auto) Neutrophils % (Manual) Band Neutrophils % Lymphocytes % (Manual) Monocytes % (Manual) Metamyelocytes % Abs Neuts (Manual) Lymphocytes # (Manual) Monocytes # (Manual) Metamyelocytes # Toxic Granulation Platelet Estimate Plt Morphology Comment RBC Morphology Polychromasia Hypochromasia Target Cells VBG pH VBG pCO2 VBG pO2 VBG HCO3 VBG O2 Saturation VBG Base Excess Sodium Potassium Chloride Carbon Dioxide Anion Gap BUN Creatinine Estim Creat Clear Calc Estimated GFR POC Glucose 143 H 172 H 174 H Random Glucose Calcium Phosphorus Magnesium Total Bilirubin AST ALT Alkaline Phosphatase Total Protein Albumin 04/15/23 04/15/23 04/16/23 23:17 23:56 01:10 WBC RBC Hgb Hct MCV MCH MCHC RDW Plt Count MPV Immature Gran % (Auto) Neut % (Auto) Lymph % (Auto) [place] % (Auto) Eos % (Auto) Baso % (Auto) Lymph # (Auto) [place] # (Auto) Eos # (Auto) Baso # (Auto) Abs Immat Gran (auto) Absolute Neuts (auto) Absolute Nucleated RBC Nucleated RBC % (auto) Neutrophils % (Manual) Band Neutrophils % Lymphocytes % (Manual) Monocytes % (Manual) Metamyelocytes % Abs Neuts (Manual) Lymphocytes # (Manual) Monocytes # (Manual) Metamyelocytes # Toxic Granulation Platelet Estimate Plt Morphology Comment RBC Morphology Polychromasia Hypochromasia Target Cells VBG pH VBG pCO2 VBG pO2 VBG HCO3 VBG O2 Saturation VBG Base Excess Sodium Potassium Chloride Carbon Dioxide Anion Gap BUN Creatinine Estim Creat Clear Calc Estimated GFR POC Glucose 204 H 214 H 229 H Random Glucose Calcium Phosphorus Magnesium Total Bilirubin AST ALT Alkaline Phosphatase Total Protein Albumin 04/16/23 04/16/23 04/16/23 02:24 03:13 03:58 WBC RBC Hgb Hct MCV MCH MCHC RDW Plt Count MPV Immature Gran % (Auto) Neut % (Auto) Lymph % (Auto) [place] % (Auto) Eos % (Auto) Baso % (Auto) Lymph # (Auto) [place] # (Auto) Eos # (Auto) Baso # (Auto) Abs Immat Gran (auto) Absolute Neuts (auto) Absolute Nucleated RBC Nucleated RBC % (auto) Neutrophils % (Manual) Band Neutrophils % Lymphocytes % (Manual) Monocytes % (Manual) Metamyelocytes % Abs Neuts (Manual) Lymphocytes # (Manual) Monocytes # (Manual) Metamyelocytes # Toxic Granulation Platelet Estimate Plt Morphology Comment RBC Morphology Polychromasia Hypochromasia Target Cells VBG pH VBG pCO2 VBG pO2 VBG HCO3 VBG O2 Saturation VBG Base Excess Sodium Potassium Chloride Carbon Dioxide Anion Gap BUN Creatinine Estim Creat Clear Calc Estimated GFR POC Glucose 168 H 153 H 142 H Random Glucose Calcium Phosphorus Magnesium Total Bilirubin AST ALT Alkaline Phosphatase Total Protein Albumin 04/16/23 04/16/23 04/16/23 04:33 04:37 05:50 WBC 17.4 H RBC 2.47 L Hgb 7.8 L Hct 22.7 L MCV 91.9 MCH 31.6 MCHC 34.4 RDW 14.0 Plt Count 173 MPV 10.5 Immature Gran % (Auto) Cancelled Neut % (Auto) Cancelled Lymph % (Auto) Cancelled [place] % (Auto) Cancelled Eos % (Auto) Cancelled Baso % (Auto) Cancelled Lymph # (Auto) Cancelled [place] # (Auto) Cancelled Eos # (Auto) Cancelled Baso # (Auto) Cancelled Abs Immat Gran (auto) Cancelled Absolute Neuts (auto) Cancelled Absolute Nucleated RBC 0.020 H Nucleated RBC % (auto) 0.1 Neutrophils % (Manual) 84 H Band Neutrophils % 5 Lymphocytes % (Manual) 5 L Monocytes % (Manual) 5 Metamyelocytes % 1 Abs Neuts (Manual) 15.5 H Lymphocytes # (Manual) 0.9 L Monocytes # (Manual) 0.9 Metamyelocytes # 0.2 Toxic Granulation PRESENT Platelet Estimate NORMAL Plt Morphology Comment NORM RBC Morphology NOTED Polychromasia 1+ (0-2) Hypochromasia 1+ (5-14) Target Cells 1+ (5-14) VBG pH 7.48 H VBG pCO2 43 VBG pO2 51 VBG HCO3 32 H VBG O2 Saturation 81.0 VBG Base Excess 8.4 Sodium 153 H Potassium 3.0 L Chloride 114 H Carbon Dioxide 28 Anion Gap 14 BUN 60 H Creatinine 2.29 H Estim Creat Clear Calc 43.4 Estimated GFR 24 POC Glucose 130 H Random Glucose 135 H Calcium 8.3 L Phosphorus 2.9 Magnesium 1.8 Total Bilirubin 0.7 AST 41 H ALT 29 Alkaline Phosphatase 232 H Total Protein 6.2 L Albumin 3.4 L 04/16/23 04/16/23 08:04 10:08 WBC RBC Hgb Hct MCV MCH MCHC RDW Plt Count MPV Immature Gran % (Auto) Neut % (Auto) Lymph % (Auto) [place] % (Auto) Eos % (Auto) Baso % (Auto) Lymph # (Auto) [place] # (Auto) Eos # (Auto) Baso # (Auto) Abs Immat Gran (auto) Absolute Neuts (auto) Absolute Nucleated RBC Nucleated RBC % (auto) Neutrophils % (Manual) Band Neutrophils % Lymphocytes % (Manual) Monocytes % (Manual) Metamyelocytes % Abs Neuts (Manual) Lymphocytes # (Manual) Monocytes # (Manual) Metamyelocytes # Toxic Granulation Platelet Estimate Plt Morphology Comment RBC Morphology Polychromasia Hypochromasia Target Cells VBG pH VBG pCO2 VBG pO2 VBG HCO3 VBG O2 Saturation VBG Base Excess Sodium Potassium Chloride Carbon Dioxide Anion Gap BUN Creatinine Estim Creat Clear Calc Estimated GFR POC Glucose 110 198 H Random Glucose Calcium Phosphorus Magnesium Total Bilirubin AST ALT Alkaline Phosphatase Total Protein Albumin Microbiology Microbiology Results: Microbiology 04/14/23 11:44 Cerebrospinal Fluid Gram Stain - Final 04/14/23 11:44 Cerebrospinal Fluid CSF Examination - Final 04/14/23 11:44 Cerebrospinal Fluid Fluid Description - Final 04/14/23 11:44 Cerebrospinal Fluid CSF Culture - Preliminary No growth after 2 days 04/10/23 05:20 Blood - Venous Blood Culture - Final No growth after 5 days. 04/10/23 05:20 Blood - Venous Blood Culture - Final No growth after 5 days. 04/09/23 10:59 Blood - Venous Blood Culture - Final Escherichia coli 04/09/23 10:23 Blood - Venous Blood Culture - Final Escherichia coli Progress Note: A&P Assessment and plan (1) Hypernatremia: Status: Acute (2) E coli bacteremia: Status: Acute (3) Acute renal failure: Status: Acute (4) Diabetic keto-acidosis: Status: Acute Plan Assessment: 38-year-old lady admitted with diabetic ketoacidosis, Gram-negative bacteremia, pyelonephritis, acute renal failure, metabolic encephalopathy, and AFib with RVR Plan: Neuro: Metabolic encephalopathy, improving, albeit slowly. Continue to titrate off Precedex as tolerated. CT head with no acute findings. LP essentially negative. Cardiac: AFib with RVR, likely secondary to underlying acidosis, resolved. Septic shock, resolved. Pulmonary: No acute issues. Renal: Acute renal failure. Pyelonephritis. Improving. Non oliguric. Nephrology service care appreciated. Continue to monitor renal indices and urine output. Endo: Ketoacidosis resolved. GI: No acute issues. ID: E coli bacteremia with likely source. Continue ceftriaxone. Heme/Onc: No acute issues. Psych: No acute issues. Miscellaneous: No acute issues. Prophylaxis: Heparin Diet: TPN Critical care time spent: 30 minutes Quality Stroke Does the patient have a stroke diagnosis?: No VTE Prior VTE?: No VTE Risk Level:: Medical - moderate - high VTE Device Contraindication: N/A - Device Ordered VTE Drug Contraindication: N/A - Med Ordered
[2023-04-16 11:59] LABS: Glucose, Whole Blood 192 mg/dL (60-115)
[2023-04-16 14:15] LABS: Glucose, Whole Blood 233 mg/dL (60-115)
[2023-04-16 16:20] LABS: Glucose, Whole Blood 206 mg/dL (60-115)
[2023-04-16 18:18] LABS: Glucose, Whole Blood 261 mg/dL (60-115)
[2023-04-16 18:26] LABS: Anion Gap 14 (12-20); Blood Urea Nitrogen 52 mg/dL (9-16); Calcium 8.3 mg/dL (8.4-10.2); Carbon Dioxide 30 mmol/L (22-29); Chloride 110 mmol/L (96-108); Creatinine Clr Calc Pharmacy 49.7; Estimated Glomerular Filt Rate 29; Glucose Random 258 mg/dL (60-115); Potassium 3.4 mmol/L (3.3-5.1); Sodium 151 mmol/L (135-145)
[2023-04-16] MEDS: Potassium Chloride/H20 40 MEQ/100 ML PIGGYBACK 100 MEQ IV (19:41)
[2023-04-16] MEDS: Dextrose 5 % 1,000 ML 100 ML IVCONT (19:56)
[2023-04-16] MEDS: Parenteral Nutrition 1,320 ML 55 ML IV (19:57)
[2023-04-16 20:09] LABS: Glucose, Whole Blood 194 mg/dL (60-115)
[2023-04-16] MEDS: Albuterol Sulfate (0.083%) 2.5 MG/3 ML VIAL.NEB INHALE (20:09)
[2023-04-16 21:04] LABS: Glucose, Whole Blood 215 mg/dL (60-115)
[2023-04-16 22:12] LABS: Glucose, Whole Blood 225 mg/dL (60-115)
[2023-04-16 23:29] LABS: Glucose, Whole Blood 227 mg/dL (60-115)
[2023-04-16 23:59] LABS: Glucose, Whole Blood 256 mg/dL (60-115)
[2023-04-17] VITALS (34 sets, daily range): BP systolic 127–164; BP diastolic 41–80; PULSE 88–118; RESP 20–40; TEMP 36.3–37.9; O2SAT 87–95; BMI 40.8
[2023-04-17 00:56] LABS: Glucose, Whole Blood 229 mg/dL (60-115)
[2023-04-17 02:14] LABS: Glucose, Whole Blood 235 mg/dL (60-115)
[2023-04-17 02:56] LABS: Glucose, Whole Blood 241 mg/dL (60-115)
[2023-04-17] MEDS: Albuterol Sulfate (0.083%) 2.5 MG/3 ML VIAL.NEB INHALE (03:16)
[2023-04-17] MEDS: Dextrose 5 % 1,000 ML 100 ML IVCONT ×3 (03:25→21:59)
[2023-04-17] MEDS: Insulin Regular/NS 100 UNIT/100 ML PLAST..BAG 11 UNIT IVCONT (03:45)
[2023-04-17 04:00] LABS: Glucose, Whole Blood 244 mg/dL (60-115)
[2023-04-17] MEDS: fentaNYL citrate/PF 100 MCG/2 ML VIAL 25 MCG IVPUSH (04:00)
[2023-04-17 05:04] LABS: Glucose, Whole Blood 224 mg/dL (60-115)
[2023-04-17 05:22] LABS: VBG Base Excess 10.4 mmol/L; VBG HCO3 34 mmol/L (22-26); VBG pCO2 43 mmHg; VBG pO2 54 mmHg
[2023-04-17 05:53] LABS: Basophils Absolute Auto 0.1 X10*3/uL (0.0-0.2); Basophils Percent Auto 0.3 % (0-2); Eosinophils Percent Auto 0.2 % (0-4); Hemoglobin 8.4 g/dl (12.0-16.0); Imm Gran Abs Auto 0.89 X10*3/uL (0.00-0.03); Imm Gran Pct Auto 3.4 % (0.0-0.4); Lymphocytes Absolute Auto 1.6 X10*3/uL (1.2-4.9); MANUAL DIFF FLAG SCAN; Mean Corpuscular HGB Conc 33.6 g/dl (31.0-35.0); Mean Corpuscular Volume 92.3 fL (80.0-98.0); Mean Platelet Volume 10.4 fL (9.4-12.3); Monocytes Absolute Auto 1.2 X10*3/uL (0.1-1.2); Monocytes Percent Auto 4.7 % (2-11); NRBC Pct Auto 0.1 /100WBC (0.0-0.2); Neutrophils Absolute Auto 22.1 x10*3/uL (2.0-8.3); Neutrophils Percent Auto 85.4 % (45-73); Platelet Count 223 X10*3/uL (160-400); Red Blood Count 2.71 X10*6/uL (4.20-5.50); Red Cell Distribution Width 14.1 % (11.0-16.0); SCAN SMEAR FLAG 1; White Blood Count 25.9 X10*3/uL (4.8-10.8)
[2023-04-17 06:01] LABS: Glucose, Whole Blood 225 mg/dL (60-115)
[2023-04-17 06:15] LABS: Alanine Aminotransferase 22 U/L (0-31); Albumin Level 3.1 g/dL (3.5-5.0); Alkaline Phosphatase 226 U/L (39-117); Anion Gap 16 (12-20); Aspartate Amino Transferase 26 U/L (5-31); Bilirubin Total 0.6 mg/dL (0.0-1.0); Blood Urea Nitrogen 46 mg/dL (9-16); Calcium 8.2 mg/dL (8.4-10.2); Carbon Dioxide 29 mmol/L (22-29); Chloride 108 mmol/L (96-108); Creatinine Clr Calc Pharmacy 57.8; Estimated Glomerular Filt Rate 35; Glucose Random 232 mg/dL (60-115); Magnesium 1.6 mg/dL (1.6-2.6); Phosphorus 2.9 mg/dL (2.7-4.5); Potassium 3.4 mmol/L (3.3-5.1); Sodium 150 mmol/L (135-145); Total Protein 6.3 g/dL (6.5-8.0)
[2023-04-17 06:17] LABS: SLIDE REVIEW VERIFIED
[2023-04-17 06:50] LABS: Venous Blood Gas Refer to POC result
[2023-04-17] MEDS: Potassium Chloride/H20 40 MEQ/100 ML PIGGYBACK 50 MEQ IV ×3 (07:10→21:50)
[2023-04-17 07:16] LABS: Glucose, Whole Blood 208 mg/dL (60-115)
[2023-04-17 07:59] LABS: Glucose, Whole Blood 214 mg/dL (60-115)
[2023-04-17] MEDS: Nystatin Powder 15 GM BOTTLE 1 APPL TOPICAL ×2 (08:27→20:47)
[2023-04-17] MEDS: Bumetanide 1 MG/4 ML VIAL IVPUSH (08:27)
[2023-04-17] MEDS: Heparin Sodium,Porcine 5,000 UNIT/ML VIAL 5000 UNIT SUBCUT ×3 (08:27→20:47)
[2023-04-17 09:14] LABS: Glucose, Whole Blood 171 mg/dL (60-115)
[2023-04-17] MEDS: Furosemide 200 MG in 0.9 % Sodium Chloride 80 ML IVCONT (09:39)
[2023-04-17 10:00] LABS: Glucose, Whole Blood 179 mg/dL (60-115)
[2023-04-17] MEDS: cefTRIAXone sodium 1 GM in 0.9 % Sodium Chloride 50 ML IV (10:02)
--- NOTE | 2023-04-17 10:18 | P.PNCC_ITS ---
Subjective Subjective Date of Service: 04/17/23 Interval History: 38-year-old lady with underlying diabetes mellitus admitted on 04/09/2023 after being found unresponsive by her boyfriend. On ER evaluation patient in AFib with RVR and diabetic ketoacidosis, also hypertensive. Patient started on insulin drip, broad-spectrum antibiotics and admitted to intensive care unit. Further hospital course complicated by E coli bacteremia with likely source, encephalopathy, and acute renal failure. CT abdomen and pelvis without evidence of urinary obstruction or hydronephrosis. No events overnight. Further improvement in encephalopathy, renal function, and urine output. Critical Care Time (minutes): 30 Physical Exam 2 Vital Signs: Vital Signs: Last Vital Signs Temp 9 F L 04/17/23 09:03 Pulse 103 H 04/17/23 09:00 Resp 29 H 04/17/23 08:54 BP 127/52 L 04/17/23 09:00 Pulse Ox 94 04/17/23 09:00 O2 Del Method High Flow Nasal C annula 04/17/23 09:00 O2 Flow Rate 55 04/17/23 09:00 FiO2 90 04/17/23 09:00 Oxygen Flow Rate 4 04/09/23 10:23 BMI result Body Mass Index 40.8 Const: General: no acute distress, alert and awake Nutritional Appearance: obese and Edematous Eyes: Sclerae: sclerae normal EOM: EOMs intact bilaterally Neck: Neck: Yes no lymphadenopathy, Yes trachea midline and Yes supple Resp: Effort & Inspection: normal respiratory effort and no respiratory distress Auscultation: crackles (Diffuse bilateral) Cardio: Rate: regular rate Rhythm: regular rhythm Heart sounds: no gallops, no murmurs and no rubs GI: Palpation (GI): Soft to palpation and Other GI palpation findings present ( Nontender) Auscultation: normal bowel sounds Extrem: General: No clubbing, No cyanosis and Yes edema (1+ bilateral) Objective Data Labs 04/17/23 05:11 04/17/23 05:11 Labs: Laboratory Results - last 24 hr 04/16/23 04/16/23 04/16/23 11:54 14:10 16:16 WBC RBC Hgb Hct MCV MCH MCHC RDW Plt Count MPV Immature Gran % (Auto) Neut % (Auto) Lymph % (Auto) [place] % (Auto) Eos % (Auto) Baso % (Auto) Lymph # (Auto) [place] # (Auto) Eos # (Auto) Baso # (Auto) Abs Immat Gran (auto) Absolute Neuts (auto) Absolute Nucleated RBC Nucleated RBC % (auto) Smear Tech's Comments VBG pH VBG pCO2 VBG pO2 VBG HCO3 VBG O2 Saturation VBG Base Excess Sodium Potassium Chloride Carbon Dioxide Anion Gap BUN Creatinine Estim Creat Clear Calc Estimated GFR POC Glucose 192 H 233 H 206 H Random Glucose Calcium Phosphorus Magnesium Total Bilirubin AST ALT Alkaline Phosphatase Total Protein Albumin 04/16/23 04/16/23 04/16/23 18:05 18:13 20:05 WBC RBC Hgb Hct MCV MCH MCHC RDW Plt Count MPV Immature Gran % (Auto) Neut % (Auto) Lymph % (Auto) [place] % (Auto) Eos % (Auto) Baso % (Auto) Lymph # (Auto) [place] # (Auto) Eos # (Auto) Baso # (Auto) Abs Immat Gran (auto) Absolute Neuts (auto) Absolute Nucleated RBC Nucleated RBC % (auto) Smear Tech's Comments VBG pH VBG pCO2 VBG pO2 VBG HCO3 VBG O2 Saturation VBG Base Excess Sodium 151 H Potassium 3.4 Chloride 110 H Carbon Dioxide 30 H Anion Gap 14 BUN 52 H Creatinine 1.91 H Estim Creat Clear Calc 49.7 Estimated GFR 29 POC Glucose 261 H 194 H Random Glucose 258 H Calcium 8.3 L Phosphorus Magnesium Total Bilirubin AST ALT Alkaline Phosphatase Total Protein Albumin 04/16/23 04/16/23 04/16/23 20:59 22:08 23:25 WBC RBC Hgb Hct MCV MCH MCHC RDW Plt Count MPV Immature Gran % (Auto) Neut % (Auto) Lymph % (Auto) [place] % (Auto) Eos % (Auto) Baso % (Auto) Lymph # (Auto) [place] # (Auto) Eos # (Auto) Baso # (Auto) Abs Immat Gran (auto) Absolute Neuts (auto) Absolute Nucleated RBC Nucleated RBC % (auto) Smear Tech's Comments VBG pH VBG pCO2 VBG pO2 VBG HCO3 VBG O2 Saturation VBG Base Excess Sodium Potassium Chloride Carbon Dioxide Anion Gap BUN Creatinine Estim Creat Clear Calc Estimated GFR POC Glucose 215 H 225 H 227 H Random Glucose Calcium Phosphorus Magnesium Total Bilirubin AST ALT Alkaline Phosphatase Total Protein Albumin 04/16/23 04/17/2323 23:55 00:51 02:09 WBC RBC Hgb Hct MCV MCH MCHC RDW Plt Count MPV Immature Gran % (Auto) Neut % (Auto) Lymph % (Auto) [place] % (Auto) Eos % (Auto) Baso % (Auto) Lymph # (Auto) [place] # (Auto) Eos # (Auto) Baso # (Auto) Abs Immat Gran (auto) Absolute Neuts (auto) Absolute Nucleated RBC Nucleated RBC % (auto) Smear Tech's Comments VBG pH VBG pCO2 VBG pO2 VBG HCO3 VBG O2 Saturation VBG Base Excess Sodium Potassium Chloride Carbon Dioxide Anion Gap BUN Creatinine Estim Creat Clear Calc Estimated GFR POC Glucose 256 H 229 H 235 H Random Glucose Calcium Phosphorus Magnesium Total Bilirubin AST ALT Alkaline Phosphatase Total Protein Albumin 04/17/23 04/17/23 04/17/23 02:52 03:57 04:57 WBC RBC Hgb Hct MCV MCH MCHC RDW Plt Count MPV Immature Gran % (Auto) Neut % (Auto) Lymph % (Auto) [place] % (Auto) Eos % (Auto) Baso % (Auto) Lymph # (Auto) [place] # (Auto) Eos # (Auto) Baso # (Auto) Abs Immat Gran (auto) Absolute Neuts (auto) Absolute Nucleated RBC Nucleated RBC % (auto) Smear Tech's Comments VBG pH VBG pCO2 VBG pO2 VBG HCO3 VBG O2 Saturation VBG Base Excess Sodium Potassium Chloride Carbon Dioxide Anion Gap BUN Creatinine Estim Creat Clear Calc Estimated GFR POC Glucose 241 H 244 H 224 H Random Glucose Calcium Phosphorus Magnesium Total Bilirubin AST ALT Alkaline Phosphatase Total Protein Albumin 04/17/23 04/17/23 04/17/23 05:11 05:16 05:57 WBC 25.9 H RBC 2.71 L Hgb 8.4 L Hct 25.0 L MCV 92.3 MCH 31.0 MCHC 33.6 RDW 14.1 Plt Count 223 D MPV 10.4 Immature Gran % (Auto) 3.4 H Neut % (Auto) 85.4 H Lymph % (Auto) 6.0 L [place] % (Auto) 4.7 Eos % (Auto) 0.2 Baso % (Auto) 0.3 Lymph # (Auto) 1.6 [place] # (Auto) 1.2 Eos # (Auto) 0.0 Baso # (Auto) 0.1 Abs Immat Gran (auto) 0.89 H Absolute Neuts (auto) 22.1 H Absolute Nucleated RBC 0.030 H Nucleated RBC % (auto) 0.1 Smear Tech's Comments VERIFIED VBG pH 7.50 H VBG pCO2 43 VBG pO2 54 VBG HCO3 34 H VBG O2 Saturation 86.0 VBG Base Excess 10.4 Sodium 150 H Potassium 3.4 Chloride 108 Carbon Dioxide 29 Anion Gap 16 BUN 46 H Creatinine 1.64 H Estim Creat Clear Calc 57.8 Estimated GFR 35 POC Glucose 225 H Random Glucose 232 H Calcium 8.2 L Phosphorus 2.9 Magnesium 1.6 Total Bilirubin 0.6 AST 26 ALT 22 Alkaline Phosphatase 226 H Total Protein 6.3 L Albumin 3.1 L 04/17/23 04/17/23 04/17/23 07:07 07:55 09:11 WBC RBC Hgb Hct MCV MCH MCHC RDW Plt Count MPV Immature Gran % (Auto) Neut % (Auto) Lymph % (Auto) [place] % (Auto) Eos % (Auto) Baso % (Auto) Lymph # (Auto) [place] # (Auto) Eos # (Auto) Baso # (Auto) Abs Immat Gran (auto) Absolute Neuts (auto) Absolute Nucleated RBC Nucleated RBC % (auto) Smear Tech's Comments VBG pH VBG pCO2 VBG pO2 VBG HCO3 VBG O2 Saturation VBG Base Excess Sodium Potassium Chloride Carbon Dioxide Anion Gap BUN Creatinine Estim Creat Clear Calc Estimated GFR POC Glucose 208 H 214 H 171 H Random Glucose Calcium Phosphorus Magnesium Total Bilirubin AST ALT Alkaline Phosphatase Total Protein Albumin 04/17/23 09:56 WBC RBC Hgb Hct MCV MCH MCHC RDW Plt Count MPV Immature Gran % (Auto) Neut % (Auto) Lymph % (Auto) [place] % (Auto) Eos % (Auto) Baso % (Auto) Lymph # (Auto) [place] # (Auto) Eos # (Auto) Baso # (Auto) Abs Immat Gran (auto) Absolute Neuts (auto) Absolute Nucleated RBC Nucleated RBC % (auto) Smear Tech's Comments VBG pH VBG pCO2 VBG pO2 VBG HCO3 VBG O2 Saturation VBG Base Excess Sodium Potassium Chloride Carbon Dioxide Anion Gap BUN Creatinine Estim Creat Clear Calc Estimated GFR POC Glucose 179 H Random Glucose Calcium Phosphorus Magnesium Total Bilirubin AST ALT Alkaline Phosphatase Total Protein Albumin Microbiology Microbiology Results: Microbiology 04/14/23 11:44 Cerebrospinal Fluid Gram Stain - Final 04/14/23 11:44 Cerebrospinal Fluid CSF Examination - Final 04/14/23 11:44 Cerebrospinal Fluid Fluid Description - Final 04/14/23 11:44 Cerebrospinal Fluid CSF Culture - Final No growth after 3 days. 04/10/23 05:20 Blood - Venous Blood Culture - Final No growth after 5 days. 04/10/23 05:20 Blood - Venous Blood Culture - Final No growth after 5 days. 04/09/23 10:59 Blood - Venous Blood Culture - Final Escherichia coli 04/09/23 10:23 Blood - Venous Blood Culture - Final Escherichia coli Progress Note: A&P Assessment and plan (1) E coli bacteremia: Status: Acute (2) Acute renal failure: Status: Acute (3) Acute metabolic encephalopathy: Status: Acute (4) Diabetic keto-acidosis: Status: Acute Plan Assessment: 38-year-old lady admitted with diabetic ketoacidosis, Gram-negative bacteremia, pyelonephritis, acute renal failure, metabolic encephalopathy, and AFib with RVR Plan: Neuro: Metabolic encephalopathy, improving, albeit slowly. CT head with no acute findings. LP essentially negative. Cardiac: AFib with RVR, likely secondary to underlying acidosis, resolved. Septic shock, resolved. Pulmonary: Acute hypoxic respiratory failure secondary to pulmonary edema secondary to large volume of fluid resuscitation, improving with diuresis. Renal: Acute renal failure. Pyelonephritis. Improving. Non oliguric. Nephrology service care appreciated. Continue to monitor renal indices and urine output. Endo: Ketoacidosis resolved. GI: No acute issues. ID: E coli bacteremia with likely source. Continue ceftriaxone. Heme/Onc: No acute issues. Psych: No acute issues. Miscellaneous: No acute issues. Prophylaxis: Heparin Diet: TPN Critical care time spent: 30 minutes Quality Stroke Does the patient have a stroke diagnosis?: No VTE Prior VTE?: No VTE Risk Level:: Medical - moderate - high VTE Device Contraindication: N/A - Device Ordered VTE Drug Contraindication: N/A - Med Ordered
[2023-04-17 10:55] LABS: Glucose, Whole Blood 204 mg/dL (60-115)
[2023-04-17] MEDS: Insulin Regular/NS 100 UNIT/100 ML PLAST..BAG 9.5 UNIT IVCONT (11:27)
[2023-04-17 12:12] LABS: Glucose, Whole Blood 228 mg/dL (60-115)
[2023-04-17 13:02] LABS: Glucose, Whole Blood 233 mg/dL (60-115)
[2023-04-17 14:05] LABS: Glucose, Whole Blood 220 mg/dL (60-115)
[2023-04-17 15:13] LABS: Glucose, Whole Blood 215 mg/dL (60-115)
[2023-04-17 16:06] LABS: Glucose, Whole Blood 207 mg/dL (60-115)
[2023-04-17 16:59] LABS: JC Polyoma Virus RT CSF Not Detected (Not Detected)
[2023-04-17 17:11] LABS: Glucose, Whole Blood 182 mg/dL (60-115)
[2023-04-17 17:58] LABS: Glucose, Whole Blood 195 mg/dL (60-115)
[2023-04-17 18:48] LABS: Anion Gap 16 (12-20); Blood Urea Nitrogen 43 mg/dL (9-16); Calcium 7.8 mg/dL (8.4-10.2); Carbon Dioxide 35 mmol/L (22-29); Chloride 103 mmol/L (96-108); Creatinine Clr Calc Pharmacy 73.4; Estimated Glomerular Filt Rate 46; Glucose Random 173 mg/dL (60-115); Sodium 151 mmol/L (135-145)
[2023-04-17 19:03] LABS: Glucose, Whole Blood 143 mg/dL (60-115)
[2023-04-17] MEDS: Insulin Regular/NS 100 UNIT/100 ML PLAST..BAG 7 UNIT IVCONT (19:08)
[2023-04-17 19:26] LABS: Magnesium 1.4 mg/dL (1.6-2.6)
[2023-04-17] MEDS: Magnesium Sulfate/H2O 2 GM/50 ML PIGGYBACK IV (19:49)
[2023-04-17 20:04] LABS: Glucose, Whole Blood 173 mg/dL (60-115)
[2023-04-17] MEDS: Parenteral Nutrition 1,320 ML 55 ML IV (20:46)
[2023-04-17 21:08] LABS: Glucose, Whole Blood 183 mg/dL (60-115)
[2023-04-17 22:19] LABS: Glucose, Whole Blood 202 mg/dL (60-115)
[2023-04-17 23:01] LABS: Glucose, Whole Blood 219 mg/dL (60-115)
[2023-04-18] VITALS (32 sets, daily range): BP systolic 117–158; BP diastolic 47–73; PULSE 90–114; RESP 16–40; TEMP 37.3–38.1; O2SAT 84–99; BMI 39.9
[2023-04-18 00:06] LABS: Glucose, Whole Blood 225 mg/dL (60-115)
[2023-04-18 01:06] LABS: Glucose, Whole Blood 208 mg/dL (60-115)
[2023-04-18 03:10] LABS: Glucose, Whole Blood 161 mg/dL (60-115)
[2023-04-18] MEDS: Insulin Regular/NS 100 UNIT/100 ML PLAST..BAG 10 UNIT IVCONT (05:02)
[2023-04-18 05:05] LABS: VBG Base Excess 22.8 mmol/L; VBG HCO3 48 mmol/L (22-26); VBG pCO2 58 mmHg; VBG pH 7.53 (7.32-7.43); VBG pO2 64 mmHg; Venous Blood Gas Refer to POC result
[2023-04-18 05:12] LABS: Glucose, Whole Blood 158 mg/dL (60-115)
[2023-04-18 05:16] LABS: Basophils Absolute Auto 0.1 X10*3/uL (0.0-0.2); Basophils Percent Auto 0.3 % (0-2); Eosinophils Absolute Auto 0.2 X10*3/uL (0.0-0.4); Eosinophils Percent Auto 0.7 % (0-4); Hematocrit 25.7 % (37.0-47.0); Hemoglobin 8.5 g/dl (12.0-16.0); Imm Gran Pct Auto 2.4 % (0.0-0.4); Lymphocytes Absolute Auto 1.9 X10*3/uL (1.2-4.9); Lymphocytes Percent Auto 7.6 % (20-40); MANUAL DIFF FLAG SCAN; Mean Corpuscular HGB Conc 33.1 g/dl (31.0-35.0); Mean Corpuscular Hemoglobin 30.7 pg (27.0-33.0); Mean Corpuscular Volume 92.8 fL (80.0-98.0); Mean Platelet Volume 9.9 fL (9.4-12.3); Monocytes Absolute Auto 0.8 X10*3/uL (0.1-1.2); Monocytes Percent Auto 3.2 % (2-11); NRBC Pct Auto 0.1 /100WBC (0.0-0.2); Neutrophils Absolute Auto 21.5 x10*3/uL (2.0-8.3); Neutrophils Percent Auto 85.8 % (45-73); Platelet Count 226 X10*3/uL (160-400); Red Blood Count 2.77 X10*6/uL (4.20-5.50); Red Cell Distribution Width 13.7 % (11.0-16.0); SCAN SMEAR FLAG 1; White Blood Count 25.1 X10*3/uL (4.8-10.8)
[2023-04-18 05:37] LABS: SLIDE REVIEW VERIFIED
[2023-04-18 05:41] LABS: Albumin Level 2.8 g/dL (3.5-5.0); Anion Gap 14 (12-20); Blood Urea Nitrogen 37 mg/dL (9-16); Calcium 7.7 mg/dL (8.4-10.2); Carbon Dioxide 40 mmol/L (22-29); Chloride 96 mmol/L (96-108); Creatinine Clr Calc Pharmacy 79.3; Estimated Glomerular Filt Rate 51; Glucose Random 159 mg/dL (60-115); Magnesium 1.4 mg/dL (1.6-2.6); Phosphorus 3.5 mg/dL (2.7-4.5); Sodium 147 mmol/L (135-145)
[2023-04-18] MEDS: Potassium Chloride/H20 40 MEQ/100 ML PIGGYBACK 50 MEQ IV ×4 (06:00→22:08)
[2023-04-18] MEDS: Magnesium Sulfate/H2O 2 GM/50 ML PIGGYBACK IV (06:03)
[2023-04-18 07:17] LABS: Glucose, Whole Blood 123 mg/dL (60-115)
[2023-04-18] MEDS: Albumin Human 25 % 100 ML IV ×3 (08:10→19:49)
--- NOTE | 2023-04-18 09:00 | P.PNCC_ITS ---
Subjective Subjective Date of Service: 04/18/23 Interval History: 38-year-old lady with underlying diabetes mellitus admitted on 04/09/2023 after being found unresponsive by her boyfriend. On ER evaluation patient in AFib with RVR and diabetic ketoacidosis, also hypertensive. Patient started on insulin drip, broad-spectrum antibiotics and admitted to intensive care unit. Further hospital course complicated by E coli bacteremia with likely source, encephalopathy, and acute renal failure. CT abdomen and pelvis without evidence of urinary obstruction or hydronephrosis. No events overnight. With further improvement in encephalopathy, renal function, and urine output. Critical Care Time (minutes): 30 Physical Exam 2 Vital Signs: Vital Signs: Last Vital Signs Temp 99.9 F 04/18/23 08:00 Pulse 104 H 04/18/23 08:00 Resp 34 H 04/18/23 08:00 BP 138/60 04/18/23 08:00 Pulse Ox 87 L 04/18/23 08:00 O2 Del Method High Flow Nasal C annula 04/18/23 08:00 O2 Flow Rate 50 04/18/23 08:00 FiO2 90 04/18/23 08:00 Oxygen Flow Rate 4 04/09/23 10:23 BMI result Body Mass Index 39.9 Const: General: no acute distress, alert and awake Nutritional Appearance: obese and Edematous Eyes: Sclerae: sclerae normal EOM: EOMs intact bilaterally Neck: Neck: Yes no lymphadenopathy, Yes trachea midline and Yes supple Resp: Effort & Inspection: normal respiratory effort and no respiratory distress Auscultation: crackles ( Bilateral) Cardio: Rate: regular rate Rhythm: regular rhythm Heart sounds: no gallops, no murmurs and no rubs GI: Palpation (GI): Soft to palpation and Other GI palpation findings present ( Nontender) Auscultation: normal bowel sounds Extrem: General: No clubbing, No cyanosis and Yes edema (1+ bilateral) Objective Data Labs 04/18/23 04:58 04/18/23 04:58 Labs: Laboratory Results - last 24 hr 04/14/23 04/17/23 04/17/23 11:44 09:11 09:56 WBC RBC Hgb Hct MCV MCH MCHC RDW Plt Count MPV Immature Gran % (Auto) Neut % (Auto) Lymph % (Auto) [place] % (Auto) Eos % (Auto) Baso % (Auto) Lymph # (Auto) [place] # (Auto) Eos # (Auto) Baso # (Auto) Abs Immat Gran (auto) Absolute Neuts (auto) Absolute Nucleated RBC Nucleated RBC % (auto) Smear Tech's Comments VBG pH VBG pCO2 VBG pO2 VBG HCO3 VBG O2 Saturation VBG Base Excess Sodium Potassium Chloride Carbon Dioxide Anion Gap BUN Creatinine Estim Creat Clear Calc Estimated GFR POC Glucose 171 H 179 H Random Glucose Calcium Phosphorus Magnesium Albumin KARYN Virus DNA Rpt Status Not Detected 04/17/23 04/17/23 04/17/23 10:52 12:08 12:58 WBC RBC Hgb Hct MCV MCH MCHC RDW Plt Count MPV Immature Gran % (Auto) Neut % (Auto) Lymph % (Auto) [place] % (Auto) Eos % (Auto) Baso % (Auto) Lymph # (Auto) [place] # (Auto) Eos # (Auto) Baso # (Auto) Abs Immat Gran (auto) Absolute Neuts (auto) Absolute Nucleated RBC Nucleated RBC % (auto) Smear Tech's Comments VBG pH VBG pCO2 VBG pO2 VBG HCO3 VBG O2 Saturation VBG Base Excess Sodium Potassium Chloride Carbon Dioxide Anion Gap BUN Creatinine Estim Creat Clear Calc Estimated GFR POC Glucose 204 H 228 H 233 H Random Glucose Calcium Phosphorus Magnesium Albumin KARYN Virus DNA Rpt Status 04/17/23 04/17/23 04/17/23 14:01 15:09 16:03 WBC RBC Hgb Hct MCV MCH MCHC RDW Plt Count MPV Immature Gran % (Auto) Neut % (Auto) Lymph % (Auto) [place] % (Auto) Eos % (Auto) Baso % (Auto) Lymph # (Auto) [place] # (Auto) Eos # (Auto) Baso # (Auto) Abs Immat Gran (auto) Absolute Neuts (auto) Absolute Nucleated RBC Nucleated RBC % (auto) Smear Tech's Comments VBG pH VBG pCO2 VBG pO2 VBG HCO3 VBG O2 Saturation VBG Base Excess Sodium Potassium Chloride Carbon Dioxide Anion Gap BUN Creatinine Estim Creat Clear Calc Estimated GFR POC Glucose 220 H 215 H 207 H Random Glucose Calcium Phosphorus Magnesium Albumin KARYN Virus DNA Rpt Status 04/17/23 04/17/23 04/17/23 17:08 17:54 18:10 WBC RBC Hgb Hct MCV MCH MCHC RDW Plt Count MPV Immature Gran % (Auto) Neut % (Auto) Lymph % (Auto) [place] % (Auto) Eos % (Auto) Baso % (Auto) Lymph # (Auto) [place] # (Auto) Eos # (Auto) Baso # (Auto) Abs Immat Gran (auto) Absolute Neuts (auto) Absolute Nucleated RBC Nucleated RBC % (auto) Smear Tech's Comments VBG pH VBG pCO2 VBG pO2 VBG HCO3 VBG O2 Saturation VBG Base Excess Sodium 151 H Potassium 3.0 L Chloride 103 Carbon Dioxide 35 H Anion Gap 16 BUN 43 H Creatinine 1.29 Estim Creat Clear Calc 73.4 Estimated GFR 46 POC Glucose 182 H 195 H Random Glucose 173 H Calcium 7.8 L Phosphorus 3.0 Magnesium 1.4 L* Albumin 3.0 L KARYN Virus DNA Rpt Status 04/17/23 04/17/23 04/17/23 18:58 20:00 21:05 WBC RBC Hgb Hct MCV MCH MCHC RDW Plt Count MPV Immature Gran % (Auto) Neut % (Auto) Lymph % (Auto) [place] % (Auto) Eos % (Auto) Baso % (Auto) Lymph # (Auto) [place] # (Auto) Eos # (Auto) Baso # (Auto) Abs Immat Gran (auto) Absolute Neuts (auto) Absolute Nucleated RBC Nucleated RBC % (auto) Smear Tech's Comments VBG pH VBG pCO2 VBG pO2 VBG HCO3 VBG O2 Saturation VBG Base Excess Sodium Potassium Chloride Carbon Dioxide Anion Gap BUN Creatinine Estim Creat Clear Calc Estimated GFR POC Glucose 143 H 173 H 183 H Random Glucose Calcium Phosphorus Magnesium Albumin KARYN Virus DNA Rpt Status 04/17/23 04/17/23 04/18/23 22:04 22:57 00:02 WBC RBC Hgb Hct MCV MCH MCHC RDW Plt Count MPV Immature Gran % (Auto) Neut % (Auto) Lymph % (Auto) [place] % (Auto) Eos % (Auto) Baso % (Auto) Lymph # (Auto) [place] # (Auto) Eos # (Auto) Baso # (Auto) Abs Immat Gran (auto) Absolute Neuts (auto) Absolute Nucleated RBC Nucleated RBC % (auto) Smear Tech's Comments VBG pH VBG pCO2 VBG pO2 VBG HCO3 VBG O2 Saturation VBG Base Excess Sodium Potassium Chloride Carbon Dioxide Anion Gap BUN Creatinine Estim Creat Clear Calc Estimated GFR POC Glucose 202 H 219 H 225 H Random Glucose Calcium Phosphorus Magnesium Albumin KARYN Virus DNA Rpt Status 04/18/23 04/18/23 04/18/23 01:02 03:06 04:58 WBC 25.1 H RBC 2.77 L Hgb 8.5 L Hct 25.7 L MCV 92.8 MCH 30.7 MCHC 33.1 RDW 13.7 Plt Count 226 MPV 9.9 Immature Gran % (Auto) 2.4 H Neut % (Auto) 85.8 H Lymph % (Auto) 7.6 L [place] % (Auto) 3.2 Eos % (Auto) 0.7 Baso % (Auto) 0.3 Lymph # (Auto) 1.9 [place] # (Auto) 0.8 Eos # (Auto) 0.2 Baso # (Auto) 0.1 Abs Immat Gran (auto) 0.60 H Absolute Neuts (auto) 21.5 H Absolute Nucleated RBC 0.030 H Nucleated RBC % (auto) 0.1 Smear Tech's Comments VERIFIED VBG pH VBG pCO2 VBG pO2 VBG HCO3 VBG O2 Saturation VBG Base Excess Sodium 147 H Potassium 3.0 L Chloride 96 Carbon Dioxide 40 H* Anion Gap 14 BUN 37 H Creatinine 1.18 Estim Creat Clear Calc 79.3 Estimated GFR 51 POC Glucose 208 H 161 H Random Glucose 159 H Calcium 7.7 L Phosphorus 3.5 Magnesium 1.4 L* Albumin 2.8 L KARYN Virus DNA Rpt Status 04/18/23 04/18/23 04/18/23 04:59 05:08 07:14 WBC RBC Hgb Hct MCV MCH MCHC RDW Plt Count MPV Immature Gran % (Auto) Neut % (Auto) Lymph % (Auto) [place] % (Auto) Eos % (Auto) Baso % (Auto) Lymph # (Auto) [place] # (Auto) Eos # (Auto) Baso # (Auto) Abs Immat Gran (auto) Absolute Neuts (auto) Absolute Nucleated RBC Nucleated RBC % (auto) Smear Tech's Comments VBG pH 7.53 H VBG pCO2 58 VBG pO2 64 VBG HCO3 48 H VBG O2 Saturation 92.0 VBG Base Excess 22.8 Sodium Potassium Chloride Carbon Dioxide Anion Gap BUN Creatinine Estim Creat Clear Calc Estimated GFR POC Glucose 158 H 123 H Random Glucose Calcium Phosphorus Magnesium Albumin KARYN Virus DNA Rpt Status Microbiology Microbiology Results: Microbiology 04/14/23 11:44 Cerebrospinal Fluid Gram Stain - Final 04/14/23 11:44 Cerebrospinal Fluid CSF Examination - Final 04/14/23 11:44 Cerebrospinal Fluid Fluid Description - Final 04/14/23 11:44 Cerebrospinal Fluid CSF Culture - Final No growth after 3 days. 04/10/23 05:20 Blood - Venous Blood Culture - Final No growth after 5 days. 04/10/23 05:20 Blood - Venous Blood Culture - Final No growth after 5 days. 04/09/23 10:59 Blood - Venous Blood Culture - Final Escherichia coli 04/09/23 10:23 Blood - Venous Blood Culture - Final Escherichia coli Progress Note: A&P Assessment and plan (1) E coli bacteremia: Status: Acute (2) Acute renal failure: Status: Acute (3) Acute metabolic encephalopathy: Status: Acute (4) Diabetes: Status: Acute Plan Assessment: 38-year-old lady admitted with diabetic ketoacidosis, Gram-negative bacteremia, pyelonephritis, acute renal failure, metabolic encephalopathy, and AFib with RVR Plan: Neuro: Metabolic encephalopathy, improving, albeit slowly. CT head with no acute findings. LP essentially negative. Cardiac: AFib with RVR, likely secondary to underlying acidosis, resolved. Septic shock, resolved. Pulmonary: Acute hypoxic respiratory failure secondary to pulmonary edema secondary to large volume of fluid resuscitation, improving with diuresis. Renal: Acute renal failure. Pyelonephritis. Improving. Non oliguric. Nephrology service care appreciated. Continue to monitor renal indices and urine output. Endo: Ketoacidosis resolved. GI: No acute issues. ID: E coli bacteremia with likely source. Continue ceftriaxone. Heme/Onc: No acute issues. Psych: No acute issues. Miscellaneous: No acute issues. Prophylaxis: Heparin Diet: TPN Critical care time spent: 30 minutes Quality Stroke Does the patient have a stroke diagnosis?: No VTE Prior VTE?: No VTE Risk Level:: Medical - moderate - high VTE Device Contraindication: N/A - Device Ordered VTE Drug Contraindication: N/A - Med Ordered
[2023-04-18 09:03] LABS: Glucose, Whole Blood 120 mg/dL (60-115)
[2023-04-18] MEDS: Heparin Sodium,Porcine 5,000 UNIT/ML VIAL 5000 UNIT SUBCUT ×3 (10:10→20:43)
[2023-04-18] MEDS: acetaZOLAMIDE sodium 500 MG VIAL 375 MG IVPUSH ×2 (10:11→20:43)
[2023-04-18] MEDS: Furosemide 200 MG in 0.9 % Sodium Chloride 80 ML IVCONT ×2 (10:30→20:47)
[2023-04-18] MEDS: cefTRIAXone sodium 1 GM in 0.9 % Sodium Chloride 50 ML IV (10:30)
[2023-04-18] MEDS: Nystatin Powder 15 GM BOTTLE 1 APPL TOPICAL ×2 (10:38→20:43)
--- NOTE | 2023-04-18 11:13 | MHC.CLN ---
F/U DISCUSSED AT ROUNDS WITH MD REVIEWED LABS DISCUSSED WITH PHARMACY CONTINUE TPN AT 55ML/HR WITH 37G LIPIDS PROVIDES 1311TOTAL KCALS (23KCALS/KG BASED ON IBW), 198G DEXTROSE, AND 66G PROTEIN (1.16G/KG BASED ON IBW) CONTINUE TPN UNTIL DIET CAN BE ADVANCED PER MD REPLETE LYTES NEEDED
[2023-04-18 11:16] LABS: Glucose, Whole Blood 121 mg/dL (60-115)
[2023-04-18 13:02] LABS: Glucose, Whole Blood 94 mg/dL (60-115)
[2023-04-18 15:09] LABS: Glucose, Whole Blood 154 mg/dL (60-115)
--- NOTE | 2023-04-18 15:31 | MHC.CM.PN ---
Pt continues on high flow O2 in ICU: mental status and renal function improving. No plans for transfer at this time: Pt would benefit from PT eval d/t prolonged ICU stay and deconditioning. Acute rehab referrals placed should she qualify. CM to follow.
[2023-04-18 17:11] LABS: Glucose, Whole Blood 198 mg/dL (60-115)
[2023-04-18] MEDS: Insulin Regular/NS 100 UNIT/100 ML PLAST..BAG 7 UNIT IVCONT (17:40)
--- NOTE | 2023-04-18 18:32 | PC.NURSE ---
Patient more active today, still unclear speech, is able to express her needs more. Patient restless at times trying to removed hi flow and desats quickly, slowly recovers and is sating between 88-96% on 55L and 100%. On insulin gtt current rate 7u/hr, on lasix gtt at 5mg/hr putting pale yellow urine of aprox 350ml per hr. No complaints of pain other than discomfort from [place]. Nursing bedside swallow test done - patient failed - unable to swallow completely positive cough after thin liquids. Patient continues to ask for water. Results of swallow test reported to provider - patient will stay NPO and continue TPN.
[2023-04-18 19:08] LABS: Anion Gap 13 (12-20); Blood Urea Nitrogen 37 mg/dL (9-16); Calcium 8.1 mg/dL (8.4-10.2); Carbon Dioxide 42 mmol/L (22-29); Chloride 95 mmol/L (96-108); Creatinine Clr Calc Pharmacy 77.3; Estimated Glomerular Filt Rate 50; Glucose Random 220 mg/dL (60-115); Sodium 147 mmol/L (135-145)
[2023-04-18 19:09] LABS: Glucose, Whole Blood 223 mg/dL (60-115)
[2023-04-18 19:32] LABS: Magnesium 1.7 mg/dL (1.6-2.6); Phosphorus 2.8 mg/dL (2.7-4.5)
[2023-04-18 21:02] LABS: Glucose, Whole Blood 201 mg/dL (60-115)
[2023-04-18] MEDS: Parenteral Nutrition 1,320 ML 55 ML IV (22:03)
[2023-04-18 23:16] LABS: Glucose, Whole Blood 156 mg/dL (60-115)
[2023-04-19] VITALS (31 sets, daily range): BP systolic 102–164; BP diastolic 46–80; PULSE 93–118; RESP 15–39; TEMP 37.2–38.6; O2SAT 88–99; BMI 37.8
[2023-04-19 00:58] LABS: Glucose, Whole Blood 173 mg/dL (60-115)
[2023-04-19] MEDS: Albumin Human 25 % 100 ML IV (01:09)
[2023-04-19 03:08] LABS: Glucose, Whole Blood 199 mg/dL (60-115)
[2023-04-19 05:09] LABS: Glucose, Whole Blood 225 mg/dL (60-115)
[2023-04-19 05:19] LABS: VBG Base Excess 24.2 mmol/L; VBG HCO3 50 mmol/L (22-26); VBG pCO2 65 mmHg; VBG pH 7.49 (7.32-7.43); VBG pO2 65 mmHg
[2023-04-19 05:20] LABS: Venous Blood Gas Refer to POC result
[2023-04-19 05:27] LABS: MANUAL DIFF FLAG NO
[2023-04-19 05:30] LABS: Basophils Percent Auto 0.2 % (0-2); Hematocrit 23.4 % (37.0-47.0); Hemoglobin 7.6 g/dl (12.0-16.0); Imm Gran Abs Auto 0.22 X10*3/uL (0.00-0.03); Imm Gran Pct Auto 1.2 % (0.0-0.4); Lymphocytes Absolute Auto 1.5 X10*3/uL (1.2-4.9); Lymphocytes Percent Auto 8.3 % (20-40); Mean Corpuscular HGB Conc 32.5 g/dl (31.0-35.0); Mean Corpuscular Hemoglobin 31.1 pg (27.0-33.0); Mean Corpuscular Volume 95.9 fL (80.0-98.0); Mean Platelet Volume 10.3 fL (9.4-12.3); Monocytes Absolute Auto 0.6 X10*3/uL (0.1-1.2); NRBC Pct Auto 0.1 /100WBC (0.0-0.2); Neutrophils Absolute Auto 15.8 x10*3/uL (2.0-8.3); Neutrophils Percent Auto 87.3 % (45-73); Platelet Count 210 X10*3/uL (160-400); Red Blood Count 2.44 X10*6/uL (4.20-5.50); Red Cell Distribution Width 13.8 % (11.0-16.0); White Blood Count 18.1 X10*3/uL (4.8-10.8)
[2023-04-19 05:47] LABS: Albumin Level 3.7 g/dL (3.5-5.0); Anion Gap 16 (12-20); Blood Urea Nitrogen 43 mg/dL (9-16); Calcium 8.1 mg/dL (8.4-10.2); Carbon Dioxide 40 mmol/L (22-29); Chloride 96 mmol/L (96-108); Creatinine Clr Calc Pharmacy 80.7; Estimated Glomerular Filt Rate 52; Glucose Random 244 mg/dL (60-115); Magnesium 1.8 mg/dL (1.6-2.6); Phosphorus 4.3 mg/dL (2.7-4.5); Potassium 3.4 mmol/L (3.3-5.1); Sodium 149 mmol/L (135-145)
[2023-04-19 06:02] LABS: Glucose, Whole Blood 240 mg/dL (60-115)
[2023-04-19] MEDS: Potassium Chloride/H20 40 MEQ/100 ML PIGGYBACK 50 MEQ IV ×2 (07:37→20:43)
[2023-04-19] MEDS: Insulin Regular/NS 100 UNIT/100 ML PLAST..BAG 9 UNIT IVCONT (07:37)
[2023-04-19 08:06] LABS: Glucose, Whole Blood 213 mg/dL (60-115)
[2023-04-19] MEDS: Heparin Sodium,Porcine 5,000 UNIT/ML VIAL 5000 UNIT SUBCUT ×3 (08:34→20:44)
[2023-04-19] MEDS: Nystatin Powder 15 GM BOTTLE 1 APPL TOPICAL ×2 (08:34→22:17)
[2023-04-19] MEDS: acetaZOLAMIDE sodium 500 MG VIAL 375 MG IVPUSH ×2 (08:34→20:37)
--- NOTE | 2023-04-19 09:01 | P.PNCC_ITS ---
Subjective Subjective Date of Service: 04/19/23 Interval History: 38-year-old lady with underlying diabetes mellitus admitted on 04/09/2023 after being found unresponsive by her boyfriend. On ER evaluation patient in AFib with RVR and diabetic ketoacidosis, also hypertensive. Patient started on insulin drip, broad-spectrum antibiotics and admitted to intensive care unit. Further hospital course complicated by E coli bacteremia with likely source, encephalopathy, and acute renal failure. CT abdomen and pelvis without evidence of urinary obstruction or hydronephrosis. No events overnight. FiO2 requirements are improving with diuresis. Critical Care Time (minutes): 30 Physical Exam 2 Vital Signs: Vital Signs: Last Vital Signs Temp 99.1 F 04/19/23 08:00 Pulse 99 04/19/23 08:00 Resp 20 04/19/23 08:00 BP 119/56 L 04/19/23 08:00 Pulse Ox 95 04/19/23 08:00 O2 Del Method BiPAP 04/19/23 08:00 O2 Flow Rate 55 04/18/23 18:47 FiO2 70 04/19/23 08:00 Oxygen Flow Rate 4 04/09/23 10:23 BMI result Body Mass Index 37.8 Const: General: no acute distress, alert and awake Nutritional Appearance: obese and Edematous Eyes: Sclerae: sclerae normal EOM: EOMs intact bilaterally Neck: Neck: Yes no lymphadenopathy, Yes trachea midline and Yes supple Resp: Effort & Inspection: normal respiratory effort and no respiratory distress Auscultation: crackles ( Diffuse bilateral) Cardio: Rate: regular rate Rhythm: regular rhythm Heart sounds: no gallops, no murmurs and no rubs GI: Palpation (GI): Soft to palpation and Other GI palpation findings present ( Nontender) Auscultation: normal bowel sounds Extrem: General: No clubbing, No cyanosis and Yes edema ( 1+ bilateral) Objective Data Labs 04/19/23 05:02 04/19/23 05:02 Labs: Laboratory Results - last 24 hr 04/18/23 04/18/23 04/18/23 09:00 11:12 12:58 WBC RBC Hgb Hct MCV MCH MCHC RDW Plt Count MPV Immature Gran % (Auto) Neut % (Auto) Lymph % (Auto) [place] % (Auto) Eos % (Auto) Baso % (Auto) Lymph # (Auto) [place] # (Auto) Eos # (Auto) Baso # (Auto) Abs Immat Gran (auto) Absolute Neuts (auto) Absolute Nucleated RBC Nucleated RBC % (auto) VBG pH VBG pCO2 VBG pO2 VBG HCO3 VBG O2 Saturation VBG Base Excess Sodium Potassium Chloride Carbon Dioxide Anion Gap BUN Creatinine Estim Creat Clear Calc Estimated GFR POC Glucose 120 H 121 H 94 Random Glucose Calcium Phosphorus Magnesium Albumin 04/18/23 04/18/23 04/18/23 15:04 17:08 18:41 WBC RBC Hgb Hct MCV MCH MCHC RDW Plt Count MPV Immature Gran % (Auto) Neut % (Auto) Lymph % (Auto) [place] % (Auto) Eos % (Auto) Baso % (Auto) Lymph # (Auto) [place] # (Auto) Eos # (Auto) Baso # (Auto) Abs Immat Gran (auto) Absolute Neuts (auto) Absolute Nucleated RBC Nucleated RBC % (auto) VBG pH VBG pCO2 VBG pO2 VBG HCO3 VBG O2 Saturation VBG Base Excess Sodium 147 H Potassium 3.0 L Chloride 95 L Carbon Dioxide 42 H* Anion Gap 13 BUN 37 H Creatinine 1.21 Estim Creat Clear Calc 77.3 Estimated GFR 50 POC Glucose 154 H 198 H Random Glucose 220 H Calcium 8.1 L Phosphorus 2.8 Magnesium 1.7 Albumin 04/18/23 04/18/23 04/18/23 19:05 20:59 23:12 WBC RBC Hgb Hct MCV MCH MCHC RDW Plt Count MPV Immature Gran % (Auto) Neut % (Auto) Lymph % (Auto) [place] % (Auto) Eos % (Auto) Baso % (Auto) Lymph # (Auto) [place] # (Auto) Eos # (Auto) Baso # (Auto) Abs Immat Gran (auto) Absolute Neuts (auto) Absolute Nucleated RBC Nucleated RBC % (auto) VBG pH VBG pCO2 VBG pO2 VBG HCO3 VBG O2 Saturation VBG Base Excess Sodium Potassium Chloride Carbon Dioxide Anion Gap BUN Creatinine Estim Creat Clear Calc Estimated GFR POC Glucose 223 H 201 H 156 H Random Glucose Calcium Phosphorus Magnesium Albumin 04/19/23 04/19/23 04/19/23 00:52 03:00 05:02 WBC 18.1 H RBC 2.44 L Hgb 7.6 L Hct 23.4 L MCV 95.9 MCH 31.1 MCHC 32.5 RDW 13.8 Plt Count 210 MPV 10.3 Immature Gran % (Auto) 1.2 H Neut % (Auto) 87.3 H Lymph % (Auto) 8.3 L [place] % (Auto) 3.0 Eos % (Auto) 0.0 Baso % (Auto) 0.2 Lymph # (Auto) 1.5 [place] # (Auto) 0.6 Eos # (Auto) 0.0 Baso # (Auto) 0.0 Abs Immat Gran (auto) 0.22 H Absolute Neuts (auto) 15.8 H Absolute Nucleated RBC 0.020 H Nucleated RBC % (auto) 0.1 VBG pH VBG pCO2 VBG pO2 VBG HCO3 VBG O2 Saturation VBG Base Excess Sodium 149 H Potassium 3.4 Chloride 96 Carbon Dioxide 40 H* Anion Gap 16 BUN 43 H Creatinine 1.16 Estim Creat Clear Calc 80.7 Estimated GFR 52 POC Glucose 173 H 199 H Random Glucose 244 H Calcium 8.1 L Phosphorus 4.3 Magnesium 1.8 Albumin 3.7 04/19/23 04/19/23 04/19/23 05:04 05:12 05:58 WBC RBC Hgb Hct MCV MCH MCHC RDW Plt Count MPV Immature Gran % (Auto) Neut % (Auto) Lymph % (Auto) [place] % (Auto) Eos % (Auto) Baso % (Auto) Lymph # (Auto) [place] # (Auto) Eos # (Auto) Baso # (Auto) Abs Immat Gran (auto) Absolute Neuts (auto) Absolute Nucleated RBC Nucleated RBC % (auto) VBG pH 7.49 H VBG pCO2 65 VBG pO2 65 VBG HCO3 50 H VBG O2 Saturation 91.0 VBG Base Excess 24.2 Sodium Potassium Chloride Carbon Dioxide Anion Gap BUN Creatinine Estim Creat Clear Calc Estimated GFR POC Glucose 225 H 240 H Random Glucose Calcium Phosphorus Magnesium Albumin 04/19/23 08:03 WBC RBC Hgb Hct MCV MCH MCHC RDW Plt Count MPV Immature Gran % (Auto) Neut % (Auto) Lymph % (Auto) [place] % (Auto) Eos % (Auto) Baso % (Auto) Lymph # (Auto) [place] # (Auto) Eos # (Auto) Baso # (Auto) Abs Immat Gran (auto) Absolute Neuts (auto) Absolute Nucleated RBC Nucleated RBC % (auto) VBG pH VBG pCO2 VBG pO2 VBG HCO3 VBG O2 Saturation VBG Base Excess Sodium Potassium Chloride Carbon Dioxide Anion Gap BUN Creatinine Estim Creat Clear Calc Estimated GFR POC Glucose 213 H Random Glucose Calcium Phosphorus Magnesium Albumin Microbiology Microbiology Results: Microbiology 04/14/23 11:44 Cerebrospinal Fluid Gram Stain - Final 04/14/23 11:44 Cerebrospinal Fluid CSF Examination - Final 04/14/23 11:44 Cerebrospinal Fluid Fluid Description - Final 04/14/23 11:44 Cerebrospinal Fluid CSF Culture - Final No growth after 3 days. 04/10/23 05:20 Blood - Venous Blood Culture - Final No growth after 5 days. 04/10/23 05:20 Blood - Venous Blood Culture - Final No growth after 5 days. 04/09/23 10:59 Blood - Venous Blood Culture - Final Escherichia coli 04/09/23 10:23 Blood - Venous Blood Culture - Final Escherichia coli Progress Note: A&P Assessment and plan (1) Diabetes: Status: Acute (2) E coli bacteremia: Status: Acute (3) Acute renal failure: Status: Acute (4) Acute metabolic encephalopathy: Status: Acute Plan Assessment: 38-year-old lady admitted with diabetic ketoacidosis, Gram-negative bacteremia, pyelonephritis, acute renal failure, metabolic encephalopathy, and AFib with RVR Plan: Neuro: Metabolic encephalopathy, improved significantly. CT head with no acute findings. LP essentially negative. Cardiac: AFib with RVR, likely secondary to underlying acidosis, resolved. Septic shock, resolved. Pulmonary: Acute hypoxic respiratory failure secondary to pulmonary edema secondary to large volume of fluid resuscitation, improving with diuresis. Renal: Acute renal failure. Pyelonephritis. Improving. Non oliguric. Nephrology service care appreciated. Continue to monitor renal indices and urine output. Endo: Ketoacidosis resolved. will transition from insulin drip to subcutaneous insulin. GI: No acute issues. ID: E coli bacteremia with likely source. Continue ceftriaxone. Heme/Onc: No acute issues. Psych: No acute issues. Miscellaneous: No acute issues. Prophylaxis: Heparin Diet: TPN, p.o. diet is pending swallow evaluation Critical care time spent: 30 minutes Quality Stroke Does the patient have a stroke diagnosis?: No VTE Prior VTE?: No VTE Risk Level:: Medical - moderate - high VTE Device Contraindication: N/A - Device Ordered VTE Drug Contraindication: N/A - Med Ordered
[2023-04-19 09:03] LABS: Glucose, Whole Blood 207 mg/dL (60-115)
[2023-04-19 10:02] LABS: Glucose, Whole Blood 183 mg/dL (60-115)
[2023-04-19 11:04] LABS: Glucose, Whole Blood 168 mg/dL (60-115)
[2023-04-19] MEDS: cefTRIAXone sodium 1 GM in 0.9 % Sodium Chloride 50 ML IV (11:07)
--- NOTE | 2023-04-19 12:01 | PM.CCPN ---
Subjective Subjective Interval History: This is a 38-year-old woman with a recent history of diabetes mellitus. She was admitted on 04/09/23 after being found unresponsive. Upon arrival, she was found to be in atrial fibrillation with RVR, DKA, and hypertension. Patient was started on an insulin drip, broad-spectrum antibiotics, and admitted to the ICU. The hospital course has been further complicated by bacteremia with E. coli as the causative agent. Additionally the patient has been encephalopathic and was found to be in acute renal failure. A CT of the abdomen and pelvis demonstrated no obstruction or hydronephrosis. The patient is currently being diuresed after being found to be in volume excess. Comment: 45 Physical Exam Vital Signs: Vital Signs: Last Vital Signs Temp 99.9 F 04/19/23 11:00 Pulse 105 H 04/19/23 11:00 Resp 36 H 04/19/23 11:33 BP 136/65 04/19/23 11:00 Pulse Ox 91 L 04/19/23 11:00 O2 Del Method High Flow Nasal C annula 04/19/23 11:00 O2 Flow Rate 55 04/19/23 11:00 FiO2 100 04/19/23 11:00 Oxygen Flow Rate 4 04/09/23 10:23 BMI result Body Mass Index 37.8 Const: General: no acute distress Orientation/consciousness: patient oriented x3 HEENT: Head: Yes normocephalic Eyes: Conjunctivae: conjunctivae normal Sclerae: sclerae normal Pupils: Equal, round and reactive pupils present EOM: EOMs intact bilaterally Neck: Neck: Yes trachea midline, Yes supple and Yes no JVD Resp: Effort & Inspection: normal respiratory effort Auscultation: clear to auscultation bilaterally Cardio: Rate: regular rate Rhythm: regular rhythm Heart sounds: S1 normal heart sound present and S2 normal heart sound present GI: Inspection: Yes normal to inspection Palpation (GI): Soft to palpation Auscultation: normoactive bowel sounds : General: Yes no CVA tenderness Back/Spine/Pelvis: Back: no CVA tenderness Skin: General skin exam: no rashes or lesions noted Neuro: General: patient oriented x3, no focal motor deficits and CN's II-XI intact bilaterally Cranial nerves: Yes Equal, round and reactive pupils present Extrem: General: Yes no calf tenderness and Yes other (no cyanosis, +2 edema in B/L lower extremeties) Objective Data Labs 04/19/23 05:02 04/19/23 05:02 Labs: Laboratory Results - last 24 hr 04/18/23 04/18/23 04/18/23 12:58 15:04 17:08 WBC RBC Hgb Hct MCV MCH MCHC RDW Plt Count MPV Immature Gran % (Auto) Neut % (Auto) Lymph % (Auto) [place] % (Auto) Eos % (Auto) Baso % (Auto) Lymph # (Auto) [place] # (Auto) Eos # (Auto) Baso # (Auto) Abs Immat Gran (auto) Absolute Neuts (auto) Absolute Nucleated RBC Nucleated RBC % (auto) VBG pH VBG pCO2 VBG pO2 VBG HCO3 VBG O2 Saturation VBG Base Excess Sodium Potassium Chloride Carbon Dioxide Anion Gap BUN Creatinine Estim Creat Clear Calc Estimated GFR POC Glucose 94 154 H 198 H Random Glucose Calcium Phosphorus Magnesium Albumin 04/18/23 04/18/23 04/18/23 18:41 19:05 20:59 WBC RBC Hgb Hct MCV MCH MCHC RDW Plt Count MPV Immature Gran % (Auto) Neut % (Auto) Lymph % (Auto) [place] % (Auto) Eos % (Auto) Baso % (Auto) Lymph # (Auto) [place] # (Auto) Eos # (Auto) Baso # (Auto) Abs Immat Gran (auto) Absolute Neuts (auto) Absolute Nucleated RBC Nucleated RBC % (auto) VBG pH VBG pCO2 VBG pO2 VBG HCO3 VBG O2 Saturation VBG Base Excess Sodium 147 H Potassium 3.0 L Chloride 95 L Carbon Dioxide 42 H* Anion Gap 13 BUN 37 H Creatinine 1.21 Estim Creat Clear Calc 77.3 Estimated GFR 50 POC Glucose 223 H 201 H Random Glucose 220 H Calcium 8.1 L Phosphorus 2.8 Magnesium 1.7 Albumin 04/18/23 04/19/23 04/19/23 23:12 00:52 03:00 WBC RBC Hgb Hct MCV MCH MCHC RDW Plt Count MPV Immature Gran % (Auto) Neut % (Auto) Lymph % (Auto) [place] % (Auto) Eos % (Auto) Baso % (Auto) Lymph # (Auto) [place] # (Auto) Eos # (Auto) Baso # (Auto) Abs Immat Gran (auto) Absolute Neuts (auto) Absolute Nucleated RBC Nucleated RBC % (auto) VBG pH VBG pCO2 VBG pO2 VBG HCO3 VBG O2 Saturation VBG Base Excess Sodium Potassium Chloride Carbon Dioxide Anion Gap BUN Creatinine Estim Creat Clear Calc Estimated GFR POC Glucose 156 H 173 H 199 H Random Glucose Calcium Phosphorus Magnesium Albumin 04/19/23 04/19/23 04/19/23 05:02 05:04 05:12 WBC 18.1 H RBC 2.44 L Hgb 7.6 L Hct 23.4 L MCV 95.9 MCH 31.1 MCHC 32.5 RDW 13.8 Plt Count 210 MPV 10.3 Immature Gran % (Auto) 1.2 H Neut % (Auto) 87.3 H Lymph % (Auto) 8.3 L [place] % (Auto) 3.0 Eos % (Auto) 0.0 Baso % (Auto) 0.2 Lymph # (Auto) 1.5 [place] # (Auto) 0.6 Eos # (Auto) 0.0 Baso # (Auto) 0.0 Abs Immat Gran (auto) 0.22 H Absolute Neuts (auto) 15.8 H Absolute Nucleated RBC 0.020 H Nucleated RBC % (auto) 0.1 VBG pH 7.49 H VBG pCO2 65 VBG pO2 65 VBG HCO3 50 H VBG O2 Saturation 91.0 VBG Base Excess 24.2 Sodium 149 H Potassium 3.4 Chloride 96 Carbon Dioxide 40 H* Anion Gap 16 BUN 43 H Creatinine 1.16 Estim Creat Clear Calc 80.7 Estimated GFR 52 POC Glucose 225 H Random Glucose 244 H Calcium 8.1 L Phosphorus 4.3 Magnesium 1.8 Albumin 3.7 04/19/23 04/19/23 04/19/23 05:58 08:03 09:00 WBC RBC Hgb Hct MCV MCH MCHC RDW Plt Count MPV Immature Gran % (Auto) Neut % (Auto) Lymph % (Auto) [place] % (Auto) Eos % (Auto) Baso % (Auto) Lymph # (Auto) [place] # (Auto) Eos # (Auto) Baso # (Auto) Abs Immat Gran (auto) Absolute Neuts (auto) Absolute Nucleated RBC Nucleated RBC % (auto) VBG pH VBG pCO2 VBG pO2 VBG HCO3 VBG O2 Saturation VBG Base Excess Sodium Potassium Chloride Carbon Dioxide Anion Gap BUN Creatinine Estim Creat Clear Calc Estimated GFR POC Glucose 240 H 213 H 207 H Random Glucose Calcium Phosphorus Magnesium Albumin 04/19/23 04/19/23 09:57 11:01 WBC RBC Hgb Hct MCV MCH MCHC RDW Plt Count MPV Immature Gran % (Auto) Neut % (Auto) Lymph % (Auto) [place] % (Auto) Eos % (Auto) Baso % (Auto) Lymph # (Auto) [place] # (Auto) Eos # (Auto) Baso # (Auto) Abs Immat Gran (auto) Absolute Neuts (auto) Absolute Nucleated RBC Nucleated RBC % (auto) VBG pH VBG pCO2 VBG pO2 VBG HCO3 VBG O2 Saturation VBG Base Excess Sodium Potassium Chloride Carbon Dioxide Anion Gap BUN Creatinine Estim Creat Clear Calc Estimated GFR POC Glucose 183 H 168 H Random Glucose Calcium Phosphorus Magnesium Albumin Microbiology Microbiology Results: Microbiology 04/14/23 11:44 Cerebrospinal Fluid Gram Stain - Final 04/14/23 11:44 Cerebrospinal Fluid CSF Examination - Final 04/14/23 11:44 Cerebrospinal Fluid Fluid Description - Final 04/14/23 11:44 Cerebrospinal Fluid CSF Culture - Final No growth after 3 days. 04/10/23 05:20 Blood - Venous Blood Culture - Final No growth after 5 days. 04/10/23 05:20 Blood - Venous Blood Culture - Final No growth after 5 days. 04/09/23 10:59 Blood - Venous Blood Culture - Final Escherichia coli 04/09/23 10:23 Blood - Venous Blood Culture - Final Escherichia coli Progress Note: A&P Assessment and plan Plan Neurologic: Metabolic encephalopathy related to infectious process which has improved. CT of the head having demonstrated no acute findings. Lumbar puncture performed was essentially negative for any abnormalities. Patient also demonstrates inability to swallow and we have ordered a formal swallow evaluation. Currently the patient is receiving parenteral nutrition. Cardiovascular: was admitted initially with atrial fibrillation with RVR. The likely underlying cause was acidosis which has since then resolved. Currently the patient is in normal sinus rhythm and has maintained rates within the 90s. Respiratory: patient demonstrated acute hypoxic respiratory failure secondary to pulmonary edema secondary to volume overload due to fluid resuscitation. The patient was 25 L in the plus and is now 13 L in the plus. The patient has been diuresed with Diamox. Continue to monitor respiratory status. Gastrointestinal: no acute issues at this time. Renal/Genitourinary: resolved acute renal failure. Suspected pyelonephritis from flank pain, fever, with positive blood cultures for E. coli. Additionally there was elevated vancomycin levels and in combination of acidosis with hypertension, lead to tubular injury. Nephrology consultation was placed. Please see note for details. Patient also receiving potassium and magnesium due to potassium cellular shift with insulin and magnesium levels decreasing with low potassium. Continue to monitor renal function and urine output. Hematology: downtrending leukocytosis. Normocytic normochromic anemia in the setting of infection and renal insufficiency. Will continue to monitor H and H levels. Infectious disease: patient had E. coli bacteremia with positive blood cultures on 04/09. Was started on broad-spectrum antibiotics. With the suspected source, the patient is on ceftriaxone which has been shown to penetrate the urine well and has good gram-negative coverage per IDSA. The patient will be continued on subtraction for a total of a 10 day course. Endocrine: patient was admitted with DKA. Initial quick glucose levels on presentation were 600 with an elevated anion gap. The patient has been in the mid-100s for the past several days and has been receiving continuous intravenous insulin at 10 units per hour as well as dextrose 50% IV push every 30 minutes. Continue to monitor blood glucose levels with hopeful transition from IV to SQ insulin once blood glucose levels become more stable. Integumentary: no acute issues at this time. Prophylaxis: Heparin SQ 5000 units TID Quality Stroke Does the patient have a stroke diagnosis?: No VTE Prior VTE?: No VTE Risk Level:: Medical - moderate - high VTE Device Contraindication: N/A - Device Ordered VTE Drug Contraindication: N/A - Med Ordered
[2023-04-19 13:01] LABS: Glucose, Whole Blood 156 mg/dL (60-115)
[2023-04-19] MEDS: Insulin Glargine,Hum.rec.anlog 100 UNIT/ML 10 ML VIAL 50 UNIT SUBCUT ×2 (13:37→20:42)
--- NOTE | 2023-04-19 14:02 | MHC.CM.PN ---
Pt continues care in ICU: making slow progress and able to follow some commands and answer questions. Still 13 liters + and on Lasix gtt: D/C plan TBD: broad acute referrals placed pt will need PT and OT consults. CM to assist pt w/HCP completion once pt is cognitively able to.
[2023-04-19 16:33] LABS: Glucose, Whole Blood 302 mg/dL (60-115)
[2023-04-19] MEDS: Insulin Lispro 100 UNIT/ML 3 ML VIAL SUBCUT ×2 (16:49→20:42)
[2023-04-19 18:03] LABS: Lyme IgG CSF Immunoblot NO BANDS DETECTED; Lyme IgM CSF Immunoblot NO BANDS DETECTED
[2023-04-19 20:07] LABS: Anion Gap 18 (12-20); Blood Urea Nitrogen 45 mg/dL (9-16); Calcium 8.3 mg/dL (8.4-10.2); Carbon Dioxide 34 mmol/L (22-29); Chloride 95 mmol/L (96-108); Estimated Glomerular Filt Rate 50; Glucose Random 371 mg/dL (60-115); Magnesium 1.7 mg/dL (1.6-2.6); Phosphorus 3.3 mg/dL (2.7-4.5); Potassium 3.5 mmol/L (3.3-5.1); Sodium 143 mmol/L (135-145)
[2023-04-19] MEDS: Magnesium Sulfate/D5W 1 GM/100 ML PIGGYBACK IV (20:44)
[2023-04-19] MEDS: Acetaminophen 325 MG TABLET 650 MG PO (20:47)
[2023-04-19] MEDS: Furosemide 200 MG in 0.9 % Sodium Chloride 80 ML IVCONT (22:17)
[2023-04-20] VITALS (33 sets, daily range): BP systolic 92–149; BP diastolic 39–76; PULSE 90–111; RESP 15–32; TEMP 37.3–38.6; O2SAT 87–98; BMI 36.3
[2023-04-20 04:39] LABS: VBG Base Excess 16.1 mmol/L; VBG HCO3 42 mmol/L (22-26); VBG pCO2 63 mmHg; VBG pH 7.43 (7.32-7.43); VBG pO2 64 mmHg
[2023-04-20 04:41] LABS: Venous Blood Gas Refer to POC result
[2023-04-20 04:55] LABS: MANUAL DIFF FLAG NO
[2023-04-20 04:57] LABS: Basophils Absolute Auto 0.1 X10*3/uL (0.0-0.2); Basophils Percent Auto 0.3 % (0-2); Eosinophils Absolute Auto 0.1 X10*3/uL (0.0-0.4); Eosinophils Percent Auto 0.9 % (0-4); Hematocrit 23.8 % (37.0-47.0); Hemoglobin 7.5 g/dl (12.0-16.0); Imm Gran Abs Auto 0.19 X10*3/uL (0.00-0.03); Imm Gran Pct Auto 1.2 % (0.0-0.4); Lymphocytes Absolute Auto 1.5 X10*3/uL (1.2-4.9); Lymphocytes Percent Auto 9.4 % (20-40); Mean Corpuscular HGB Conc 31.5 g/dl (31.0-35.0); Mean Corpuscular Volume 98.3 fL (80.0-98.0); Mean Platelet Volume 10.8 fL (9.4-12.3); Monocytes Absolute Auto 0.5 X10*3/uL (0.1-1.2); Monocytes Percent Auto 3.1 % (2-11); Neutrophils Absolute Auto 13.2 x10*3/uL (2.0-8.3); Neutrophils Percent Auto 85.1 % (45-73); Platelet Count 234 X10*3/uL (160-400); Red Blood Count 2.42 X10*6/uL (4.20-5.50); Red Cell Distribution Width 13.8 % (11.0-16.0); White Blood Count 15.6 X10*3/uL (4.8-10.8)
[2023-04-20 05:17] LABS: Alanine Aminotransferase 10 U/L (0-31); Albumin Level 3.2 g/dL (3.5-5.0); Alkaline Phosphatase 164 U/L (39-117); Anion Gap 17 (12-20); Aspartate Amino Transferase 24 U/L (5-31); Bilirubin Total 0.6 mg/dL (0.0-1.0); Blood Urea Nitrogen 52 mg/dL (9-16); Calcium 8.2 mg/dL (8.4-10.2); Carbon Dioxide 36 mmol/L (22-29); Chloride 96 mmol/L (96-108); Creatinine Clr Calc Pharmacy 67.7; Estimated Glomerular Filt Rate 44; Magnesium 1.9 mg/dL (1.6-2.6); Phosphorus 4.8 mg/dL (2.7-4.5); Potassium 3.5 mmol/L (3.3-5.1); Sodium 145 mmol/L (135-145); Total Protein 6.9 g/dL (6.5-8.0)
[2023-04-20 05:20] LABS: Glucose Random 376 mg/dL (60-115)
[2023-04-20] MEDS: Insulin Lispro 100 UNIT/ML 3 ML VIAL SUBCUT ×4 (05:33→20:27)
[2023-04-20] MEDS: Potassium Chloride/H20 40 MEQ/100 ML PIGGYBACK 50 MEQ IV ×2 (05:33→20:16)
--- NOTE | 2023-04-20 08:44 | PC.NURSE ---
Addendum entered by James Jacobson RN 04/20/23 13:35: md informed of pt's temp Addendum entered by James Jacobson RN 04/20/23 10:22: informed md pt has not had a documented BM since admission date. pt stated she doesnt feel constipated Original Note: informed MD of pt safety with eating and PO meds. formal speech eval to be performed. informed MD of pt's POc. per md elo lopez.
[2023-04-20] MEDS: Insulin Glargine,Hum.rec.anlog 100 UNIT/ML 10 ML VIAL 65 UNIT SUBCUT ×2 (09:00→20:28)
[2023-04-20] MEDS: Nystatin Powder 15 GM BOTTLE 1 APPL TOPICAL ×2 (09:00→20:18)
[2023-04-20] MEDS: Heparin Sodium,Porcine 5,000 UNIT/ML VIAL 5000 UNIT SUBCUT ×3 (09:00→20:18)
[2023-04-20] MEDS: acetaZOLAMIDE sodium 500 MG VIAL 375 MG IVPUSH ×2 (09:36→20:17)
[2023-04-20] MEDS: cefTRIAXone sodium 1 GM in 0.9 % Sodium Chloride 50 ML IV (09:45)
--- NOTE | 2023-04-20 09:52 | P.PNCC_ITS ---
Subjective Subjective Date of Service: 04/20/23 Interval History: 38-year-old lady with underlying diabetes mellitus admitted on 04/09/2023 after being found unresponsive by her boyfriend. On ER evaluation patient in AFib with RVR and diabetic ketoacidosis, also hypertensive. Patient started on insulin drip, broad-spectrum antibiotics and admitted to intensive care unit. Further hospital course complicated by E coli bacteremia with likely source, encephalopathy, and acute renal failure. CT abdomen and pelvis without evidence of urinary obstruction or hydronephrosis. No events overnight. Being transitioned off insulin drip. Critical Care Time (minutes): 0 Physical Exam 2 Vital Signs: Vital Signs: Last Vital Signs Temp 99.9 F 04/20/23 09:00 Pulse 103 H 04/20/23 09:00 Resp 26 H 04/20/23 09:00 BP 113/59 L 04/20/23 09:00 Pulse Ox 95 04/20/23 09:00 O2 Del Method High Flow Nasal C annula 04/20/23 09:00 O2 Flow Rate 55 04/20/23 09:00 FiO2 100 04/20/23 09:00 Oxygen Flow Rate 4 04/09/23 10:23 BMI result Body Mass Index 36.3 Const: General: no acute distress, alert and awake Nutritional Appearance: obese Eyes: Sclerae: sclerae normal EOM: EOMs intact bilaterally Neck: Neck: Yes no lymphadenopathy, Yes trachea midline and Yes supple Resp: Effort & Inspection: normal respiratory effort and no respiratory distress Auscultation: crackles ( Bilateral) Cardio: Rate: tachycardic Rhythm: regular rhythm Heart sounds: no gallops, no murmurs and no rubs GI: Palpation (GI): Soft to palpation and Other GI palpation findings present ( Nontender) Auscultation: normal bowel sounds Extrem: General: No clubbing, No cyanosis and Yes edema (trace bilateral) Objective Data Labs 04/20/23 04:22 04/20/23 04:22 Labs: Laboratory Results - last 24 hr 04/14/23 04/19/23 04/19/23 11:44 09:57 11:01 WBC RBC Hgb Hct MCV MCH MCHC RDW Plt Count MPV Immature Gran % (Auto) Neut % (Auto) Lymph % (Auto) [place] % (Auto) Eos % (Auto) Baso % (Auto) Lymph # (Auto) [place] # (Auto) Eos # (Auto) Baso # (Auto) Abs Immat Gran (auto) Absolute Neuts (auto) Absolute Nucleated RBC Nucleated RBC % (auto) VBG pH VBG pCO2 VBG pO2 VBG HCO3 VBG O2 Saturation VBG Base Excess Sodium Potassium Chloride Carbon Dioxide Anion Gap BUN Creatinine Estim Creat Clear Calc Estimated GFR POC Glucose 183 H 168 H Random Glucose Calcium Phosphorus Magnesium Total Bilirubin AST ALT Alkaline Phosphatase Total Protein Albumin CSF [place] IgG (Immblot) NO BANDS DETECTED CSF [place] IgM (Immblot) NO BANDS DETECTED 04/19/23 04/19/23 04/19/23 12:58 16:29 19:44 WBC RBC Hgb Hct MCV MCH MCHC RDW Plt Count MPV Immature Gran % (Auto) Neut % (Auto) Lymph % (Auto) [place] % (Auto) Eos % (Auto) Baso % (Auto) Lymph # (Auto) [place] # (Auto) Eos # (Auto) Baso # (Auto) Abs Immat Gran (auto) Absolute Neuts (auto) Absolute Nucleated RBC Nucleated RBC % (auto) VBG pH VBG pCO2 VBG pO2 VBG HCO3 VBG O2 Saturation VBG Base Excess Sodium 143 Potassium 3.5 Chloride 95 L Carbon Dioxide 34 H Anion Gap 18 BUN 45 H Creatinine 1.21 Estim Creat Clear Calc 75.0 Estimated GFR 50 POC Glucose 156 H 302 H Random Glucose 371 H* Calcium 8.3 L Phosphorus 3.3 Magnesium 1.7 Total Bilirubin AST ALT Alkaline Phosphatase Total Protein Albumin CSF [place] IgG (Immblot) CSF L[place] IgM (Immblot) 04/20/23 04/20/23 04:22 04:31 WBC 15.6 H RBC 2.42 L Hgb 7.5 L Hct 23.8 L MCV 98.3 H MCH 31.0 MCHC 31.5 RDW 13.8 Plt Count 234 MPV 10.8 Immature Gran % (Auto) 1.2 H Neut % (Auto) 85.1 H Lymph % (Auto) 9.4 L [place] % (Auto) 3.1 Eos % (Auto) 0.9 Baso % (Auto) 0.3 Lymph # (Auto) 1.5 [place] # (Auto) 0.5 Eos # (Auto) 0.1 Baso # (Auto) 0.1 Abs Immat Gran (auto) 0.19 H Absolute Neuts (auto) 13.2 H Absolute Nucleated RBC 0.000 Nucleated RBC % (auto) 0.0 VBG pH 7.43 VBG pCO2 63 VBG pO2 64 VBG HCO3 42 H VBG O2 Saturation 90.0 VBG Base Excess 16.1 Sodium 145 Potassium 3.5 Chloride 96 Carbon Dioxide 36 H Anion Gap 17 BUN 52 H Creatinine 1.34 Estim Creat Clear Calc 67.7 Estimated GFR 44 POC Glucose Random Glucose 376 H* Calcium 8.2 L Phosphorus 4.8 H Magnesium 1.9 Total Bilirubin 0.6 AST 24 ALT 10 Alkaline Phosphatase 164 H Total Protein 6.9 Albumin 3.2 L CSF [place] IgG (Immblot) CSF [place] IgM (Immblot) Microbiology Microbiology Results: Microbiology 04/14/23 11:44 Cerebrospinal Fluid Gram Stain - Final 04/14/23 11:44 Cerebrospinal Fluid CSF Examination - Final 04/14/23 11:44 Cerebrospinal Fluid Fluid Description - Final 04/14/23 11:44 Cerebrospinal Fluid CSF Culture - Final No growth after 3 days. 04/10/23 05:20 Blood - Venous Blood Culture - Final No growth after 5 days. 04/10/23 05:20 Blood - Venous Blood Culture - Final No growth after 5 days. 04/09/23 10:59 Blood - Venous Blood Culture - Final Escherichia coli 04/09/23 10:23 Blood - Venous Blood Culture - Final Escherichia coli Progress Note: A&P Assessment and plan (1) Diabetes: Status: Acute (2) E coli bacteremia: Status: Acute (3) Acute renal failure: Status: Acute (4) Acute metabolic encephalopathy: Status: Acute Plan Assessment: 38-year-old lady admitted with diabetic ketoacidosis, Gram-negative bacteremia, pyelonephritis, acute renal failure, metabolic encephalopathy, and AFib with RVR Plan: Neuro: Metabolic encephalopathy, improved significantly. CT head with no acute findings. LP essentially negative. Cardiac: AFib with RVR, likely secondary to underlying acidosis, resolved. Septic shock, resolved. Pulmonary: Acute hypoxic respiratory failure secondary to pulmonary edema secondary to large volume of fluid resuscitation, improving with diuresis. Renal: Acute renal failure. Pyelonephritis. Improving. Non oliguric. Nephrology service care appreciated. Continue to monitor renal indices and urine output. Endo: Ketoacidosis resolved.Transitioning from insulin drip to subcutaneous insulin. GI: No acute issues. ID: E coli bacteremia with likely source. Continue ceftriaxone. Heme/Onc: No acute issues. Psych: No acute issues. Miscellaneous: No acute issues. Prophylaxis: Heparin Diet: dabetic Quality Stroke Does the patient have a stroke diagnosis?: No VTE Prior VTE?: No VTE Risk Level:: Medical - moderate - high VTE Device Contraindication: N/A - Device Ordered VTE Drug Contraindication: N/A - Med Ordered
[2023-04-20] MEDS: Lactulose 20 GM/30 ML SOLUTION 30 GM PO (10:28)
--- NOTE | 2023-04-20 10:36 | MHC.CLN ---
F/U DISCUSSED AT ROUNDS WITH PT RECEIVED TPN AT 55ML/HR WITH 37G LIPIDS PROVIDED 1311TOTAL KCALS (23KCALS/KG BASED ON IBW), 198G DEXTROSE, AND 66G PROTEIN (1.16G/KG BASED ON IBW) TPN D/C DIET ADVANCED TO 2200DM [employer] METAL RECOMMENDING PUREED CONSISTENCY TODAY MONITOR PO INTAKE AND BS CLOSELY
--- NOTE | 2023-04-20 11:07 | P.PNCC_ITS ---
Subjective Subjective Interval History: This is a 38-year-old woman with a recent history of diabetes mellitus. She was admitted on 04/09/23 after being found unresponsive. Upon arrival, she was found to be in atrial fibrillation with RVR, DKA, and have hypertension. Patient was started on an insulin drip, broad-spectrum antibiotics, and admitted to the ICU. The hospital course has been further complicated by bacteremia with E. coli as the causative agent. Additionally the patient has been encephalopathic and was found to be in acute renal failure. A CT of the abdomen and pelvis demonstrated no obstruction or hydronephrosis. We have discontinued diuresing and transitioned the patient to subcutaneous insulin. Comment: 45 Physical Exam 2 Vital Signs: Vital Signs: Last Vital Signs Temp 100.2 F 04/20/23 10:00 Pulse 101 H 04/20/23 10:00 Resp 17 04/20/23 10:00 BP 115/64 04/20/23 10:00 Pulse Ox 97 04/20/23 10:00 O2 Del Method High Flow Nasal C annula 04/20/23 10:00 O2 Flow Rate 55 04/20/23 10:00 FiO2 100 04/20/23 10:00 Oxygen Flow Rate 4 04/09/23 10:23 BMI result Body Mass Index 36.3 Const: General: no acute distress Orientation/consciousness: patient oriented x3 HEENT: Head: Yes normocephalic Mouth: moist mucous membranes Throat: Yes uvula midline Eyes: Conjunctivae: conjunctivae normal Sclerae: sclerae normal Pupils: Equal, round and reactive pupils present EOM: EOMs intact bilaterally Neck: Neck: Yes trachea midline and Yes no JVD Resp: Effort & Inspection: normal respiratory effort Auscultation: rhonchi (bilaterally) Cardio: Rate: regular rate Rhythm: regular rhythm Heart sounds: S1 normal heart sound present and S2 normal heart sound present Peripheral pulses: Peripheral pulses 2+ throughout GI: Inspection: Yes normal to inspection Palpation (GI): Soft to palpation Auscultation: normoactive bowel sounds : General: Yes no CVA tenderness Back/Spine/Pelvis: Back: no CVA tenderness Skin: General skin exam: no rashes or lesions noted Neuro: General: patient oriented x3, no focal motor deficits and CN's II-XI intact bilaterally Cranial nerves: Yes Equal, round and reactive pupils present Extrem: General: Yes no clubbing, cyanosis or edema Objective Data Labs 04/20/23 04:22 04/20/23 04:22 Labs: Laboratory Results - last 24 hr 04/14/23 04/19/23 04/19/23 11:44 12:58 16:29 WBC RBC Hgb Hct MCV MCH MCHC RDW Plt Count MPV Immature Gran % (Auto) Neut % (Auto) Lymph % (Auto) [place] % (Auto) Eos % (Auto) Baso % (Auto) Lymph # (Auto) [place] # (Auto) Eos # (Auto) Baso # (Auto) Abs Immat Gran (auto) Absolute Neuts (auto) Absolute Nucleated RBC Nucleated RBC % (auto) VBG pH VBG pCO2 VBG pO2 VBG HCO3 VBG O2 Saturation VBG Base Excess Sodium Potassium Chloride Carbon Dioxide Anion Gap BUN Creatinine Estim Creat Clear Calc Estimated GFR POC Glucose 156 H 302 H Random Glucose Calcium Phosphorus Magnesium Total Bilirubin AST ALT Alkaline Phosphatase Total Protein Albumin CSF Lyme IgG (Immblot) NO BANDS DETECTED CSF Lyme IgM (Immblot) NO BANDS DETECTED 04/19/23 04/20/23 04/20/23 19:44 04:22 04:31 WBC 15.6 H RBC 2.42 L Hgb 7.5 L Hct 23.8 L MCV 98.3 H MCH 31.0 MCHC 31.5 RDW 13.8 Plt Count 234 MPV 10.8 Immature Gran % (Auto) 1.2 H Neut % (Auto) 85.1 H Lymph % (Auto) 9.4 L [place] % (Auto) 3.1 Eos % (Auto) 0.9 Baso % (Auto) 0.3 Lymph # (Auto) 1.5 [place] # (Auto) 0.5 Eos # (Auto) 0.1 Baso # (Auto) 0.1 Abs Immat Gran (auto) 0.19 H Absolute Neuts (auto) 13.2 H Absolute Nucleated RBC 0.000 Nucleated RBC % (auto) 0.0 VBG pH 7.43 VBG pCO2 63 VBG pO2 64 VBG HCO3 42 H VBG O2 Saturation 90.0 VBG Base Excess 16.1 Sodium 143 145 Potassium 3.5 3.5 Chloride 95 L 96 Carbon Dioxide 34 H 36 H Anion Gap 18 17 BUN 45 H 52 H Creatinine 1.21 1.34 Estim Creat Clear Calc 75.0 67.7 Estimated GFR 50 44 POC Glucose Random Glucose 371 H* 376 H* Calcium 8.3 L 8.2 L Phosphorus 3.3 4.8 H Magnesium 1.7 1.9 Total Bilirubin 0.6 AST 24 ALT 10 Alkaline Phosphatase 164 H Total Protein 6.9 Albumin 3.2 L CSF Lyme IgG (Immblot) CSF Lyme IgM (Immblot) Microbiology Microbiology Results: Microbiology 04/14/23 11:44 Cerebrospinal Fluid Gram Stain - Final 04/14/23 11:44 Cerebrospinal Fluid CSF Examination - Final 04/14/23 11:44 Cerebrospinal Fluid Fluid Description - Final 04/14/23 11:44 Cerebrospinal Fluid CSF Culture - Final No growth after 3 days. 04/10/23 05:20 Blood - Venous Blood Culture - Final No growth after 5 days. 04/10/23 05:20 Blood - Venous Blood Culture - Final No growth after 5 days. 04/09/23 10:59 Blood - Venous Blood Culture - Final Escherichia coli 04/09/23 10:23 Blood - Venous Blood Culture - Final Escherichia coli Progress Note: A&P Assessment and plan Plan Neurologic: Metabolic encephalopathy related to infectious process and uremia which has improved. CT of the head having demonstrated no acute findings. Lumbar puncture performed was essentially negative for any abnormalities. Patient also demonstrates inability to swallow and we ordered a formal swallow evaluation, has been deemed safe to advance to a pureed diet. Cardiovascular: Was admitted initially with atrial fibrillation with RVR. The likely underlying cause was acidosis which has since then resolved. Currently the patient is in normal sinus rhythm and has maintained rates within the 90s. Respiratory: patient demonstrated acute hypoxic respiratory failure secondary to pulmonary edema secondary to volume overload due to fluid resuscitation. The patient was 25 L in the plus and is now 12 L in the plus. The patient was diuresed with Diamox. Patient is also on high flow nasal cannula at a rate of 55 L/minute. O2 saturation level staying around mid 90s. Continue to monitor respiratory status. Gastrointestinal: no acute issues at this time. Renal/Genitourinary: resolved acute renal failure. Suspected pyelonephritis from flank pain, fever, with positive blood cultures for E. coli. Additionally there was elevated vancomycin levels and in combination of acidosis with hypertension, lead to tubular injury. It was also deemed that the patients encephalopathy was due to uremia. Upon presentation BUN was found to be as high as 70 and is now at 52. Patient has also been diuresed due to fluid volume overload and accompanying hypoxia. Urine output is at 1.16 mL?s/kilo/hour. Nephrology consultation was placed. Please see note for details. Patient also receiving potassium and magnesium due to potassium cellular shift with insulin and magnesium levels decreasing with low potassium. Continue to monitor renal function and urine output. Hematology: downtrending leukocytosis. Normocytic normochromic anemia in the setting of infection and renal insufficiency. The H and H has been around 7 and 23. Will continue to monitor H and H levels. Infectious disease: patient had E. coli bacteremia with positive blood cultures on 04/09. Was started on broad-spectrum antibiotics. With the suspected source, the patient is on ceftriaxone which has been shown to penetrate the urine well and has good gram-negative coverage per IDSA. The patient will be continued on ceftriaxone for a total of a 10 day course. Endocrine: patient was admitted with DKA. Initial blood glucose levels on presentation were 600 with an elevated anion gap. The patient has been in the mid-100s for the past several days and was receiving continuous intravenous insulin at 10 units per hour as well as dextrose 50% IV push every 30 minutes. The patient is currently in transition to subcutaneous insulin sliding scale lispro Q6 with Lantus 65 units b.i.d. POC have been around 200?s. We will continue to monitor blood glucose levels. Integumentary: no acute issues at this time. Prophylaxis: Heparin SQ 5000 units TID Quality Stroke Does the patient have a stroke diagnosis?: No VTE Prior VTE?: No VTE Risk Level:: Medical - moderate - high VTE Device Contraindication: N/A - Device Ordered VTE Drug Contraindication: N/A - Med Ordered
--- NOTE | 2023-04-20 12:10 | MHC.SL.SWA ---
Speech Pathologist Impression: Oral phase dysphagia, Risk of aspiration Risk of Aspiration Due to: Weak Cough Weak Voice Dysphasia Diet Status: DOWNGRADE solids Liquid Consistency and Strategies for Safe Swallow: Liquid Intake Recommendation: Thin Liquid Intake Strategies: Small Sips Solid Food Consistency: Dietary Recommendations: Pureed (NDD1) Oral Medication Intake: Crushed/Whole with Puree Please contact the pharmacy regarding appropriate crushable or liquid drug formulations that are available whenever modified delivery is recommended. Compensatory Strategies and Precautions to be Taken for Safe Swallow: Sitting Upright (90 deg) No Straw Alternate Liquids/Solids Oral Check Supervision While Eating and Drinking for Safe Swallow: Total Supervision (1:1) Recommendation for Speech: Inpatient Speech Therapy Comment: Based on today's observations and conversations w/ patient and patient's family, recommend DOWNGRADE to PUREE solids (NDD1). Continue w/ THIN liquids and pills WHOLE/CRUSHED in PUREE. Recommend 1-1 supervision and assistance as needed. Patient benefits from intermittent cues to open mouth to be able to take full bite. Encourage patient to self feed when appropriate. CONSTRUCTION CONTRACTOR to continue to follow and upgrade solids during next visit if warranted. Note, patient to be seen by CONSTRUCTION CONTRACTOR next on Sunday 04/22 d/t holiday schedule. Pt would benefit from tongue strengthening exercises. Facer Operator Clinican/Clinical Fellow: No Supervisory Statement: I have reviewed and agree with the student/clinical fellow's documentation: N/A Speech Language Pathologist: Luly Mccallum M.A., [facility]-CONSTRU[employer]OR
[2023-04-20 12:25] LABS: Glucose, Whole Blood 279 mg/dL (60-115)
--- NOTE | 2023-04-20 15:24 | PM.PNNEP ---
Subjective Subjective Date of Service: 04/20/23 Interval history: Events noted. All recent data reviewed;D/W ICU Attending Physical Exam Vital Signs: Vital Signs: Last Vital Signs Temp 100.8 F H 04/20/23 14:00 Pulse 102 H 04/20/23 14:00 Resp 32 H 04/20/23 15:15 BP 145/69 H 04/20/23 14:00 Pulse Ox 89 L 04/20/23 14:00 O2 Del Method High Flow Nasal C annula 04/20/23 14:00 O2 Flow Rate 55 04/20/23 14:00 FiO2 100 04/20/23 14:00 Oxygen Flow Rate 4 04/09/23 10:23 BMI result Body Mass Index 36.3 Const: General: no acute distress Eyes: EOM: EOMs intact bilaterally Resp: Auscultation: diminished lung sounds Cardio: Rate: regular rate GI: Palpation (GI): Soft to palpation Neuro: General: moves all extremities Objective Data Labs 04/20/23 04:22 04/20/23 04:22 Labs: Laboratory Results - last 24 hr 04/14/23 04/19/23 04/19/23 11:44 16:29 19:44 WBC RBC Hgb Hct MCV MCH MCHC RDW Plt Count MPV Immature Gran % (Auto) Neut % (Auto) Lymph % (Auto) [place] % (Auto) Eos % (Auto) Baso % (Auto) Lymph # (Auto) [place] # (Auto) Eos # (Auto) Baso # (Auto) Abs Immat Gran (auto) Absolute Neuts (auto) Absolute Nucleated RBC Nucleated RBC % (auto) VBG pH VBG pCO2 VBG pO2 VBG HCO3 VBG O2 Saturation VBG Base Excess Sodium 143 Potassium 3.5 Chloride 95 L Carbon Dioxide 34 H Anion Gap 18 BUN 45 H Creatinine 1.21 Estim Creat Clear Calc 75.0 Estimated GFR 50 POC Glucose 302 H Random Glucose 371 H* Calcium 8.3 L Phosphorus 3.3 Magnesium 1.7 Total Bilirubin AST ALT Alkaline Phosphatase Total Protein Albumin CSF Lyme IgG (Immblot) NO BANDS DETECTED CSF Lyme IgG Bands Det TNP CSF Lyme IgM (Immblot) NO BANDS DETECTED CSF Lyme IgM Bands Det TNP 04/20/23 04/20/23 04/20/23 04:22 04:31 12:22 WBC 15.6 H RBC 2.42 L Hgb 7.5 L Hct 23.8 L MCV 98.3 H MCH 31.0 MCHC 31.5 RDW 13.8 Plt Count 234 MPV 10.8 Immature Gran % (Auto) 1.2 H Neut % (Auto) 85.1 H Lymph % (Auto) 9.4 L [place] % (Auto) 3.1 Eos % (Auto) 0.9 Baso % (Auto) 0.3 Lymph # (Auto) 1.5 [place] # (Auto) 0.5 Eos # (Auto) 0.1 Baso # (Auto) 0.1 Abs Immat Gran (auto) 0.19 H Absolute Neuts (auto) 13.2 H Absolute Nucleated RBC 0.000 Nucleated RBC % (auto) 0.0 VBG pH 7.43 VBG pCO2 63 VBG pO2 64 VBG HCO3 42 H VBG O2 Saturation 90.0 VBG Base Excess 16.1 Sodium 145 Potassium 3.5 Chloride 96 Carbon Dioxide 36 H Anion Gap 17 BUN 52 H Creatinine 1.34 Estim Creat Clear Calc 67.7 Estimated GFR 44 POC Glucose 279 H Random Glucose 376 H* Calcium 8.2 L Phosphorus 4.8 H Magnesium 1.9 Total Bilirubin 0.6 AST 24 ALT 10 Alkaline Phosphatase 164 H Total Protein 6.9 Albumin 3.2 L CSF Lyme IgG (Immblot) CSF Lyme IgG Bands Det CSF Lyme IgM (Immblot) CSF Lyme IgM Bands Det Microbiology Microbiology Results: Microbiology 04/14/23 11:44 Cerebrospinal Fluid Gram Stain - Final 04/14/23 11:44 Cerebrospinal Fluid CSF Examination - Final 04/14/23 11:44 Cerebrospinal Fluid Fluid Description - Final 04/14/23 11:44 Cerebrospinal Fluid CSF Culture - Final No growth after 3 days. 04/10/23 05:20 Blood - Venous Blood Culture - Final No growth after 5 days. 04/10/23 05:20 Blood - Venous Blood Culture - Final No growth after 5 days. 04/09/23 10:59 Blood - Venous Blood Culture - Final Escherichia coli 04/09/23 10:23 Blood - Venous Blood Culture - Final Escherichia coli Procedures Date of Service Date of Service: 04/20/23 Assessment & Plan Assessment and plan (1) Acute renal failure: Status: Acute Plan ELISABETH due to tubular injury UO good; Still hypervolemic Needs diuresis; No indication for HD Will give free water if Na rises C/W rest of current management Shall follow Progress Note: Quality Stroke Does the patient have a stroke diagnosis?: No
[2023-04-20 16:21] LABS: Glucose, Whole Blood 190 mg/dL (60-115)
[2023-04-20] MEDS: Acetaminophen 325 MG TABLET 650 MG PO (16:59)
[2023-04-20 19:33] LABS: Anion Gap 12 (12-20); Blood Urea Nitrogen 43 mg/dL (9-16); Calcium 8.1 mg/dL (8.4-10.2); Carbon Dioxide 35 mmol/L (22-29); Chloride 102 mmol/L (96-108); Creatinine Clr Calc Pharmacy 68.9; Estimated Glomerular Filt Rate 46; Glucose Random 239 mg/dL (60-115); Magnesium 1.7 mg/dL (1.6-2.6); Potassium 2.9 mmol/L (3.3-5.1); Sodium 146 mmol/L (135-145)
[2023-04-20] MEDS: Furosemide 200 MG in 0.9 % Sodium Chloride 80 ML IVCONT (20:16)
[2023-04-20 20:21] LABS: Glucose, Whole Blood 229 mg/dL (60-115)
[2023-04-21] VITALS (21 sets, daily range): BP systolic 100–156; BP diastolic 49–82; PULSE 87–103; RESP 16–26; TEMP 36.3–38.3; O2SAT 90–98; BMI 35.9
[2023-04-21 05:03] LABS: VBG Base Excess 15.9 mmol/L; VBG HCO3 41 mmol/L (22-26); VBG pCO2 60 mmHg; VBG pH 7.44 (7.32-7.43); VBG pO2 45 mmHg
[2023-04-21 05:05] LABS: Venous Blood Gas Refer to POC result
[2023-04-21 05:11] LABS: MANUAL DIFF FLAG NO
[2023-04-21 05:13] LABS: Basophils Percent Auto 0.2 % (0-2); Hematocrit 23.3 % (37.0-47.0); Hemoglobin 7.4 g/dl (12.0-16.0); Imm Gran Pct Auto 0.8 % (0.0-0.4); Lymphocytes Absolute Auto 1.7 X10*3/uL (1.2-4.9); Lymphocytes Percent Auto 13.9 % (20-40); Mean Corpuscular HGB Conc 31.8 g/dl (31.0-35.0); Mean Corpuscular Hemoglobin 30.8 pg (27.0-33.0); Mean Corpuscular Volume 97.1 fL (80.0-98.0); Mean Platelet Volume 10.2 fL (9.4-12.3); Monocytes Absolute Auto 0.4 X10*3/uL (0.1-1.2); Monocytes Percent Auto 3.2 % (2-11); Neutrophils Absolute Auto 9.9 x10*3/uL (2.0-8.3); Neutrophils Percent Auto 81.9 % (45-73); Platelet Count 266 X10*3/uL (160-400); Red Cell Distribution Width 13.6 % (11.0-16.0)
[2023-04-21 05:25] LABS: Glucose, Whole Blood 121 mg/dL (60-115)
[2023-04-21 05:30] LABS: Albumin Level 2.9 g/dL (3.5-5.0); Anion Gap 14 (12-20); Blood Urea Nitrogen 37 mg/dL (9-16); Calcium 8.5 mg/dL (8.4-10.2); Carbon Dioxide 36 mmol/L (22-29); Chloride 100 mmol/L (96-108); Creatinine Clr Calc Pharmacy 79.3; Estimated Glomerular Filt Rate 54; Glucose Random 130 mg/dL (60-115); Magnesium 1.7 mg/dL (1.6-2.6); Phosphorus 4.3 mg/dL (2.7-4.5); Potassium 3.1 mmol/L (3.3-5.1); Sodium 147 mmol/L (135-145)
[2023-04-21] MEDS: Potassium Chloride/H20 40 MEQ/100 ML PIGGYBACK 50 MEQ IV (05:54)
[2023-04-21] MEDS: Albumin Human 25 % 100 ML IV ×4 (06:02→22:45)
[2023-04-21] MEDS: Insulin Glargine,Hum.rec.anlog 100 UNIT/ML 10 ML VIAL 65 UNIT SUBCUT ×2 (08:08→20:29)
[2023-04-21] MEDS: Heparin Sodium,Porcine 5,000 UNIT/ML VIAL 5000 UNIT SUBCUT ×3 (08:08→20:14)
[2023-04-21] MEDS: Nystatin Powder 15 GM BOTTLE 1 APPL TOPICAL ×2 (08:09→20:32)
[2023-04-21] MEDS: acetaZOLAMIDE sodium 500 MG VIAL 375 MG IVPUSH ×2 (08:09→20:14)
[2023-04-21] MEDS: cefTRIAXone sodium 1 GM in 0.9 % Sodium Chloride 50 ML IV (09:45)
[2023-04-21] MEDS: Potassium Chloride/H20 40 MEQ/100 ML PIGGYBACK 100 MEQ IV (09:49)
--- NOTE | 2023-04-21 10:34 | PM.CCPN ---
Subjective Subjective Date of Service: 04/21/23 Interval History: 38-year-old lady with underlying diabetes mellitus admitted on 04/09/2023 after being found unresponsive by her boyfriend. On ER evaluation patient in AFib with RVR and diabetic ketoacidosis, also hypertensive. Patient started on insulin drip, broad-spectrum antibiotics and admitted to intensive care unit. Further hospital course complicated by E coli bacteremia with likely source, encephalopathy, and acute renal failure. CT abdomen and pelvis without evidence of urinary obstruction or hydronephrosis. No events overnight. FiO2 requirements are improving with diuresis. Critical Care Time (minutes): 0 Physical Exam Vital Signs: Vital Signs: Last Vital Signs Temp 100.0 F 04/21/23 10:00 Pulse 102 H 04/21/23 10:00 Resp 25 H 04/21/23 10:00 BP 133/62 04/21/23 10:00 Pulse Ox 91 L 04/21/23 10:00 O2 Del Method High Flow Nasal C annula 04/21/23 10:00 O2 Flow Rate 50 04/21/23 10:00 FiO2 60 04/21/23 10:00 Oxygen Flow Rate 4 04/09/23 10:23 BMI result Body Mass Index 35.9 Const: General: no acute distress, alert and awake Nutritional Appearance: obese and Edematous Eyes: Sclerae: sclerae normal EOM: EOMs intact bilaterally Neck: Neck: Yes no lymphadenopathy, Yes trachea midline and Yes supple Resp: Effort & Inspection: normal respiratory effort and no respiratory distress Auscultation: crackles ( bilateral) Cardio: Rate: regular rate Rhythm: regular rhythm Heart sounds: no gallops, no murmurs and no rubs GI: Palpation (GI): Soft to palpation and Other GI palpation findings present ( Nontender) Auscultation: normal bowel sounds Extrem: General: No clubbing, No cyanosis and Yes edema ( 1+ bilateral) Objective Data Labs 04/21/23 04:50 04/21/23 04:50 Labs: Laboratory Results - last 24 hr 04/14/23 04/20/23 04/20/23 11:44 12:22 16:17 WBC RBC Hgb Hct MCV MCH MCHC RDW Plt Count MPV Immature Gran % (Auto) Neut % (Auto) Lymph % (Auto) [place] % (Auto) Eos % (Auto) Baso % (Auto) Lymph # (Auto) [place] # (Auto) Eos # (Auto) Baso # (Auto) Abs Immat Gran (auto) Absolute Neuts (auto) Absolute Nucleated RBC Nucleated RBC % (auto) VBG pH VBG pCO2 VBG pO2 VBG HCO3 VBG O2 Saturation VBG Base Excess Sodium Potassium Chloride Carbon Dioxide Anion Gap BUN Creatinine Estim Creat Clear Calc Estimated GFR POC Glucose 279 H 190 H Random Glucose Calcium Phosphorus Magnesium Albumin CSF Lyme IgG Bands Det TNP CSF Lyme IgM Bands Det TNP 04/20/23 04/20/23 04/21/23 19:12 20:16 04:50 WBC 12.0 H RBC 2.40 L Hgb 7.4 L Hct 23.3 L MCV 97.1 MCH 30.8 MCHC 31.8 RDW 13.6 Plt Count 266 MPV 10.2 Immature Gran % (Auto) 0.8 H Neut % (Auto) 81.9 H Lymph % (Auto) 13.9 L [place] % (Auto) 3.2 Eos % (Auto) 0.0 Baso % (Auto) 0.2 Lymph # (Auto) 1.7 [place] # (Auto) 0.4 Eos # (Auto) 0.0 Baso # (Auto) 0.0 Abs Immat Gran (auto) 0.10 H Absolute Neuts (auto) 9.9 H Absolute Nucleated RBC 0.000 Nucleated RBC % (auto) 0.0 VBG pH VBG pCO2 VBG pO2 VBG HCO3 VBG O2 Saturation VBG Base Excess Sodium 146 H 147 H Potassium 2.9 L 3.1 L Chloride 102 100 Carbon Dioxide 35 H 36 H Anion Gap 12 14 BUN 43 H 37 H Creatinine 1.29 1.12 Estim Creat Clear Calc 68.9 79.3 Estimated GFR 46 54 POC Glucose 229 H Random Glucose 239 H 130 H Calcium 8.1 L 8.5 Phosphorus 3.0 4.3 Magnesium 1.7 1.7 Albumin 2.9 L CSF Lyme IgG Bands Det CSF Lyme IgM Bands Det 04/21/23 04/21/23 04:57 05:21 WBC RBC Hgb Hct MCV MCH MCHC RDW Plt Count MPV Immature Gran % (Auto) Neut % (Auto) Lymph % (Auto) [place] % (Auto) Eos % (Auto) Baso % (Auto) Lymph # (Auto) [place] # (Auto) Eos # (Auto) Baso # (Auto) Abs Immat Gran (auto) Absolute Neuts (auto) Absolute Nucleated RBC Nucleated RBC % (auto) VBG pH 7.44 H VBG pCO2 60 VBG pO2 45 VBG HCO3 41 H VBG O2 Saturation 74.0 VBG Base Excess 15.9 Sodium Potassium Chloride Carbon Dioxide Anion Gap BUN Creatinine Estim Creat Clear Calc Estimated GFR POC Glucose 121 H Random Glucose Calcium Phosphorus Magnesium Albumin CSF Lyme IgG Bands Det CSF Lyme IgM Bands Det Microbiology Microbiology Results: Microbiology 04/14/23 11:44 Cerebrospinal Fluid Gram Stain - Final 04/14/23 11:44 Cerebrospinal Fluid CSF Examination - Final 04/14/23 11:44 Cerebrospinal Fluid Fluid Description - Final 04/14/23 11:44 Cerebrospinal Fluid CSF Culture - Final No growth after 3 days. 04/10/23 05:20 Blood - Venous Blood Culture - Final No growth after 5 days. 04/10/23 05:20 Blood - Venous Blood Culture - Final No growth after 5 days. 04/09/23 10:59 Blood - Venous Blood Culture - Final Escherichia coli 04/09/23 10:23 Blood - Venous Blood Culture - Final Escherichia coli Progress Note: A&P Assessment and plan (1) Diabetes: Status: Acute (2) E coli bacteremia: Status: Acute (3) Acute renal failure: Status: Acute Plan Assessment: 38-year-old lady admitted with diabetic ketoacidosis, Gram-negative bacteremia, pyelonephritis, acute renal failure, metabolic encephalopathy, and AFib with RVR Plan: Neuro: Metabolic encephalopathy, improved significantly. CT head with no acute findings. LP essentially negative. Cardiac: AFib with RVR, likely secondary to underlying acidosis, resolved. Septic shock, resolved. Pulmonary: Acute hypoxic respiratory failure secondary to pulmonary edema secondary to large volume of fluid resuscitation, improving with diuresis. Renal: Acute renal failure, improving. Pyelonephritis, resolved. ATN resolved. Non oliguric. Nephrology service care appreciated. Continue to monitor renal indices and urine output. Endo: Ketoacidosis resolved. Transitioned from insulin drip to subcutaneous insulin. GI: No acute issues. ID: E coli bacteremia with likely source. Continue ceftriaxone for a total of 14 days (through 04/23). Heme/Onc: No acute issues. Psych: No acute issues. Miscellaneous: No acute issues. Prophylaxis: Heparin Diet: dabetic Quality Stroke Does the patient have a stroke diagnosis?: No VTE Prior VTE?: No VTE Risk Level:: Medical - moderate - high VTE Device Contraindication: N/A - Device Ordered VTE Drug Contraindication: N/A - Med Ordered
[2023-04-21 11:19] LABS: Glucose, Whole Blood 240 mg/dL (60-115)
[2023-04-21] MEDS: Insulin Lispro 100 UNIT/ML 3 ML VIAL SUBCUT ×3 (11:25→20:29)
--- NOTE | 2023-04-21 14:28 | PM.EVENT ---
Event Note Date of Service: 04/21/23 Event Note: patient is a 38 year old female admitted 04/09 with septic shock secondary to e.coli bacteremia and DKA, renal failure due to ATN with associatic uremic encephalopathy and respiratory failure on high flow oxygen on lasix drip being downgraded to the medical floor on 04/21. planned 14 days of ceftriaxone, end date 04/23 DKA. resolved. on lantus 65 bid, tolearting diabetic diet respiratory failure, due to fluid overload, on lasix drip and azetazolamide. renal failure resolved remainder of plan as be ICU note Time Spent With Patient Time: Total time managing care of this patient today ____ minutes.
[2023-04-21 16:15] LABS: Glucose, Whole Blood 289 mg/dL (60-115)
[2023-04-21 18:39] LABS: Anion Gap 12 (12-20); Blood Urea Nitrogen 35 mg/dL (9-16); Calcium 8.7 mg/dL (8.4-10.2); Carbon Dioxide 31 mmol/L (22-29); Chloride 98 mmol/L (96-108); Creatinine Clr Calc Pharmacy 69.5; Estimated Glomerular Filt Rate 47; Glucose Random 313 mg/dL (60-115); Potassium 3.3 mmol/L (3.3-5.1); Sodium 138 mmol/L (135-145)
[2023-04-21 20:38] LABS: Glucose, Whole Blood 241 mg/dL (60-115)
[2023-04-21] MEDS: Furosemide 200 MG in 0.9 % Sodium Chloride 80 ML IVCONT (22:44)
[2023-04-22] VITALS (8 sets, daily range): BP systolic 110–158; BP diastolic 56–73; PULSE 90–106; RESP 16–27; TEMP 36.3–36.9; O2SAT 92–99; BMI 36.1
[2023-04-22 07:20] LABS: Venous Blood Gas Refer to POC result
[2023-04-22 07:22] LABS: VBG Base Excess 11.4 mmol/L; VBG HCO3 34 mmol/L (22-26); VBG pCO2 40 mmHg; VBG pH 7.53 (7.32-7.43); VBG pO2 169 mmHg
[2023-04-22 07:28] LABS: MANUAL DIFF FLAG NO
[2023-04-22 07:40] LABS: Basophils Absolute Auto 0.1 X10*3/uL (0.0-0.2); Basophils Percent Auto 0.5 % (0-2); Hematocrit 23.2 % (37.0-47.0); Hemoglobin 7.3 g/dl (12.0-16.0); Imm Gran Abs Auto 0.07 X10*3/uL (0.00-0.03); Imm Gran Pct Auto 0.7 % (0.0-0.4); Lymphocytes Absolute Auto 1.6 X10*3/uL (1.2-4.9); Mean Corpuscular HGB Conc 31.5 g/dl (31.0-35.0); Mean Corpuscular Hemoglobin 30.7 pg (27.0-33.0); Mean Corpuscular Volume 97.5 fL (80.0-98.0); Mean Platelet Volume 10.5 fL (9.4-12.3); Monocytes Absolute Auto 0.4 X10*3/uL (0.1-1.2); Monocytes Percent Auto 4.3 % (2-11); Neutrophils Absolute Auto 7.4 x10*3/uL (2.0-8.3); Neutrophils Percent Auto 77.5 % (45-73); Platelet Count 285 X10*3/uL (160-400); Red Blood Count 2.38 X10*6/uL (4.20-5.50); Red Cell Distribution Width 13.3 % (11.0-16.0); White Blood Count 9.5 X10*3/uL (4.8-10.8)
[2023-04-22 07:46] LABS: Glucose, Whole Blood 149 mg/dL (60-115)
[2023-04-22 07:58] LABS: Albumin Level 3.9 g/dL (3.5-5.0); Anion Gap 13 (12-20); Blood Urea Nitrogen 32 mg/dL (9-16); Calcium 8.9 mg/dL (8.4-10.2); Carbon Dioxide 32 mmol/L (22-29); Chloride 100 mmol/L (96-108); Creatinine Clr Calc Pharmacy 84.2; Estimated Glomerular Filt Rate 59; Glucose Random 155 mg/dL (60-115); Magnesium 1.7 mg/dL (1.6-2.6); Phosphorus 3.9 mg/dL (2.7-4.5); Potassium 3.4 mmol/L (3.3-5.1); Sodium 142 mmol/L (135-145)
[2023-04-22] MEDS: acetaZOLAMIDE sodium 500 MG VIAL 375 MG IVPUSH ×2 (08:35→20:23)
[2023-04-22] MEDS: Heparin Sodium,Porcine 5,000 UNIT/ML VIAL 5000 UNIT SUBCUT ×3 (08:36→20:24)
[2023-04-22] MEDS: Insulin Lispro 100 UNIT/ML 3 ML VIAL SUBCUT ×4 (08:36→20:23)
[2023-04-22] MEDS: Insulin Glargine,Hum.rec.anlog 100 UNIT/ML 10 ML VIAL 65 UNIT SUBCUT ×2 (08:36→20:24)
[2023-04-22] MEDS: Nystatin Powder 15 GM BOTTLE 1 APPL TOPICAL ×2 (08:42→22:11)
--- NOTE | 2023-04-22 11:07 | MHC.CLN ---
F/U DIET=DIABETIC 2200 KCALS, PUREE CONSISTENCY. WEIGHT LOSS SINCE ADMISSION -12.8%. PATIENT HAD BEEN IN ICU, NPO, RECEIVING TPN. CURRENT INTAKE APPEARS GOOD, 75-100% X 2 DAYS. FOLLOW FOR PO INTAKE AND MONITOR BLOOD GLUCOSE.
[2023-04-22 11:27] LABS: Glucose, Whole Blood 270 mg/dL (60-115)
--- NOTE | 2023-04-22 11:50 | MHC.CM.PN ---
EMR REVIEWED, PT REMAINS ON LASIX DRIP, NO PLAN FOR DC AT THIS TIME, CM WILL CONT TO FOLLOW DC NEEDS.
--- NOTE | 2023-04-22 12:36 | P.PNIM_ITS ---
Subjective Subjective Date of Service: 04/22/23 Interval History: seen and examined this morning follow up for ELISABETH, DKA, septic shock, respiratory failure downgraded from ICU 04/21 awake, alert, resting in bed comfortably; answers questions appropriately but slow to answer denies any sob, cough, fever, abdominal pain Review of Systems Review of Systems: Yes all other systems are reviewed and are negative Constitutional Constitutional: Denies chills and Denies fever(s) Cardiovascular Cardiovascular: Denies chest pain, Denies palpitations and Denies dyspnea Respiratory Respiratory: Denies cough and Denies dyspnea Gastrointestinal Gastrointestinal: Denies abdominal pain Endocrine Endocrine: Denies palpitations Physical Exam 2 Vital Signs: Vital Signs: Last Vital Signs Temp 98.5 F 04/22/23 10:56 Pulse 100 04/22/23 10:56 Resp 16 04/22/23 10:56 BP 133/63 04/22/23 10:56 Pulse Ox 92 04/22/23 10:56 O2 Del Method Nasal Cannula 04/22/23 10:56 O2 Flow Rate 5 04/22/23 10:56 FiO2 55 04/21/23 12:00 Oxygen Flow Rate 4 04/09/23 10:23 BMI result Body Mass Index 36.1 Const: General: cooperative, comfortable, no acute distress, alert and awake Nutritional Appearance: obese Orientation/consciousness: patient oriented x3 Resp: Effort & Inspection: normal respiratory effort, able to speak in complete sentences, no respiratory distress and no use of accessory muscles Cardio: Rate: regular rate GI: Inspection: No distended and Yes obesity Palpation (GI): Soft to palpation and nontender Neuro: General: patient oriented x3, moves all extremities and CN's II-XI intact bilaterally Psych: Affect: Blunted affect present Objective Data Active Medications Acetaminophen (Acetaminophen Supp 650 Mg Supp.Rect) 650 mg [place] Q6H PRN PRN Reason: Fever >101 Last Admin: 04/16/23 02:46 Dose: 650 mg Documented By: JCARLOS Acetaminophen (Acetaminophen 325 Mg Tablet) 650 mg PO Q4H PRN PRN Reason: Fever >101 Last Admin: 04/20/23 16:59 Dose: 650 mg Documented By: STIVEN Acetazolamide (Acetazolamide Sodium 500 Mg Vial) 375 mg IVPUSH BID JENNY Last Admin: 04/22/23 08:35 Dose: 375 mg Documented By: KATY Dextrose (Dextrose 50 % 25 Gm/50 Ml Syringe) 25 gm IVPUSH Q30M PRN PRN Reason: BG < 70 Last Admin: 04/12/23 09:48 Dose: 25 gm Documented By: PEYTON Dextrose (Dextrose 50 % 25 Gm/50 Ml Syringe) 25 gm IVPUSH Q15M PRN; Protocol PRN Reason: per Hypoglycemia Standing Ord. Dextrose (Dextrose 50 % 25 Gm/50 Ml Syringe) 25 gm IVPUSH Q30M PRN PRN Reason: BG < 70 Glucose (Glucose Gel 15 Gm Gel..Gram.) 15 gm PO Q15M PRN; Protocol PRN Reason: per Hypoglycemia Standing Ord. Heparin Sodium (Porcine) (Heparin Sodium,Porcine 5,000 Unit/Ml Vial) 5,000 unit SUBCUT TID [facility] Last Admin: 04/22/23 08:36 Dose: 5,000 unit Documented By: KATY Furosemide 200 mg/ Sodium (Chloride) 100 mls @ 1.5 mls/hr IVCONT .Q24H [facility] Last Admin: 04/21/23 22:44 Dose: 3 mg/hr, 1.5 mls/hr Documented By: KLEVER Insulin Glargine (Insulin Glargine,Hum.Rec.Anlog 100 Unit/Ml 10 Ml Vial) 65 unit SUBCUT BID [facility] Last Admin: 04/22/23 08:36 Dose: 65 unit Documented By: KATY Insulin Human Lispro (Insulin Lispro 100 Unit/Ml 3 Ml Vial) 0 unit SUBCUT QIDACHS [facility]; Protocol Last Admin: 04/22/23 12:20 Dose: 8 unit Documented By: KATY Nystatin (Nystatin Powder 15 Gm Bottle) 1 appl TOPICAL BID [facility]; Protocol Last Admin: 04/22/23 08:42 Dose: 1 appl Documented By: KATY Ondansetron HCl (Ondansetron Hcl 4 Mg/2 Ml Vial) 4 mg IVPUSH Q4H PRN PRN Reason: Nausea Last Admin: 04/13/23 19:08 Dose: 4 mg Documented By: IDALIA Labs 04/22/23 07:07 04/22/23 07:07 Labs: Laboratory Results - last 24 hr 04/21/23 04/21/23 04/21/23 16:07 18:21 20:23 MCV MCH MCHC RDW Plt Count MPV Immature Gran % (Auto) Neut % (Auto) Lymph % (Auto) Bradley % (Auto) Eos % (Auto) Baso % (Auto) Lymph # (Auto) Bradley # (Auto) Eos # (Auto) Baso # (Auto) Abs Immat Gran (auto) Absolute Neuts (auto) Absolute Nucleated RBC Nucleated RBC % (auto) Hold Purple Top SEE NOTE VBG pH VBG pCO2 VBG pO2 VBG HCO3 VBG O2 Saturation VBG Base Excess Anion Gap 12 Estim Creat Clear Calc 69.5 Estimated GFR 47 POC Glucose 289 H 241 H Random Glucose 313 H Calcium 8.7 Phosphorus Magnesium Albumin Hold Red Top See Note 04/22/23 04/22/23 04/22/23 07:07 07:17 07:27 MCV 97.5 MCH 30.7 MCHC 31.5 RDW 13.3 Plt Count 285 MPV 10.5 Immature Gran % (Auto) 0.7 H Neut % (Auto) 77.5 H Lymph % (Auto) 17.0 L Bradley % (Auto) 4.3 Eos % (Auto) 0.0 Baso % (Auto) 0.5 Lymph # (Auto) 1.6 Bradley # (Auto) 0.4 Eos # (Auto) 0.0 Baso # (Auto) 0.1 Abs Immat Gran (auto) 0.07 H Absolute Neuts (auto) 7.4 Absolute Nucleated RBC 0.000 Nucleated RBC % (auto) 0.0 Hold Purple Top VBG pH 7.53 H VBG pCO2 40 VBG pO2 169 VBG HCO3 34 H VBG O2 Saturation 100.0 VBG Base Excess 11.4 Anion Gap 13 Estim Creat Clear Calc 84.2 Estimated GFR 59 POC Glucose 149 H Random Glucose 155 H Calcium 8.9 Phosphorus 3.9 Magnesium 1.7 Albumin 3.9 Hold Red Top 04/22/23 10:53 MCV MCH MCHC RDW Plt Count MPV Immature Gran % (Auto) Neut % (Auto) Lymph % (Auto) Bradley % (Auto) Eos % (Auto) Baso % (Auto) Lymph # (Auto) Bradley # (Auto) Eos # (Auto) Baso # (Auto) Abs Immat Gran (auto) Absolute Neuts (auto) Absolute Nucleated RBC Nucleated RBC % (auto) Hold Purple Top VBG pH VBG pCO2 VBG pO2 VBG HCO3 VBG O2 Saturation VBG Base Excess Anion Gap Estim Creat Clear Calc Estimated GFR POC Glucose 270 H Random Glucose Calcium Phosphorus Magnesium Albumin Hold Red Top Assessment and Plan (1) E coli bacteremia: Status: Acute (2) Acute renal failure: Status: Acute (3) Acute metabolic encephalopathy: Status: Acute (4) Septic shock: Status: Acute (5) Atrial fibrillation with rapid ventricular response: Status: Acute (6) Diabetic keto-acidosis: Status: Acute Plan 38-year-old lady with underlying diabetes mellitus admitted on 04/09/2023 after being found unresponsive by her boyfriend. On ER evaluation patient in AFib with RVR and diabetic ketoacidosis, also hypertensive. Patient started on insulin drip, broad-spectrum antibiotics and admitted to intensive care unit for management of septic shock. Further hospital course complicated by E coli bacteremia with likely source, encephalopathy, acute renal failure and respiratory failure initially requiring high flow downgraded to the medical floor 04/21 acute respiratory failure with hypoxia secondary to pulmonary edema secondary to large volume of fluid resuscitation overall still in positive fluid balance, continue lasix drip improving, off of high flow, currently on 7L miguel continue lasix drip continue acetazolamide follow renal function DKA resolved s/p insulin drip now lantus 65 bid and SSI tolerating diabetic diet septic shock due to ecoli bacteremia due to pyelonephritis s/p pressors continue IV ceftriaxone for 14 days, end date 04/23 ELISABETH due to ATN resolved nephrology following Microcytic anemia likely due to sepsis/acute illness H/H has remained stable follow CBC thrombocytopenia due to sepsis. resolved metabolic encephalopathy multifactorial due to acute illness, spsis, ELISABETH improving lone afib with RVR due to acidosis no recurrence hyponatremia/hypernatremia resolved hypokalemia/hyperkalemia resolved morbid obesity bmi 36.1 dvt ppx - heparin attending - dr. johnsonapakatie requires ongoing inpatient stay for ongoing respiratory failure/hypoxia and lasix drip Quality Stroke Does the patient have a stroke diagnosis?: No VTE Prior VTE?: No VTE Risk Level:: Medical - moderate - high VTE Device Contraindication: N/A - Device Ordered VTE Drug Contraindication: N/A - Med Ordered
--- NOTE | 2023-04-22 13:20 | MHC.SL.SWA ---
Speech Pathologist Impression: Risk of Aspiration Due to: Weak Cough Weak Voice Dysphasia Diet Status: Recommend UPGRADE diet to CHOPPED/ADVANCED (NDD3) for ease of mastication, continue on THIN liquids will pills whole or crushed in puree, per patient preference. Liquid Consistency and Strategies for Safe Swallow: Liquid Intake Recommendation: Thin Liquid Intake Strategies: Small Sips Solid Food Consistency: Dietary Recommendations: Chopped/Advanced (NDD3) Additional Modifications to Solid Foods: Alternate liquids and solids. Patient is slow to consume food, allow for additional time at meals before clearing tray. Oral Medication Intake: Crushed with Puree Please contact the pharmacy regarding appropriate crushable or liquid drug formulations that are available whenever modified delivery is recommended. Compensatory Strategies and Precautions to be Taken for Safe Swallow: Sitting Upright (90 deg) Liquids from Cup Small Bites and Sips Alternate Liquids/Solids Rate of Ingestion Change Supervision While Eating and Drinking for Safe Swallow: Total Supervision (1:1) Foods to Avoid: Swallowing Recommended Treatments: Compens. Strategy Educat. Recommendation for Speech: Inpatient Speech Therapy Comment: Patient seen immediately after she had concluded lunch, as noted LODGING MANAGER Returning tray to cart. Noted on tray that patient had eaten only small amounts of meal. Patient awake and alert in room with parents present. Patient reported that she ate only a little bit, with her mother noting that she gets the same thing every meal and she is a little tired of it. Mother and patient reported that normal diet is regular foods with no modifications. Patient put on puree diet on 04/20/23 while in ICU as seemingly preferring this texture. SALESPERSON FLOOR COVERINGS presented trial of more advanced textures, beginning with softened cracker in puree: Patient produced a slow rotary chew with slow lingual movement, with thorough mastication of the food, followed by timely swallow with patient nodding head to indicate that she had swallowed. No clinical signs of aspiration. Patient then took hard cracker with scoop of puree, again producing a slow rotary chew and slowed lingual movement, followed by timely swallow. Patient offered and reached for sip of liquid after swallow of this consistency. Patient then given saltine cracker to bite off and chew, again producing a slow prolonged period of chewing, followed by timely swallow with mild oral residual noted with patient requesting sip of water after trial of this consistency. Recommend UPGRADE diet to CHOPPED/ADVANCED (NDD3) for ease of mastication, continue on THIN liquids will pills whole or crushed in puree, per patient preference. TACK CUTTER, RD noted of upgrade by secure text, RN in person, SALESPERSON FLOOR COVERINGS adjusted diet order in expanse, adjusted white board. Frequency/Duration: Date Range for Service Req: Timeline to reassess: [employer] Installer Clinican/Clinical Fellow: No Supervisory Statement: I have reviewed and agree with the student/clinical fellow's documentation: N/A Speech Language Pathologist: Citlalli Oro M.A., CCC-SALESPERSON FLOOR COVERINGS
[2023-04-22 16:17] LABS: Glucose, Whole Blood 220 mg/dL (60-115)
[2023-04-22 20:11] LABS: Glucose, Whole Blood 134 mg/dL (60-115)
[2023-04-22] MEDS: Furosemide 200 MG in 0.9 % Sodium Chloride 80 ML IVCONT (23:03)
[2023-04-23] VITALS (7 sets, daily range): BP systolic 115–139; BP diastolic 56–67; PULSE 90–98; RESP 14–18; TEMP 36.1–36.6; O2SAT 94–99; BMI 35.2
[2023-04-23 06:56] LABS: Hematocrit 26.9 % (37.0-47.0); Hemoglobin 8.4 g/dl (12.0-16.0); Mean Corpuscular HGB Conc 31.2 g/dl (31.0-35.0); Mean Corpuscular Hemoglobin 30.2 pg (27.0-33.0); Mean Corpuscular Volume 96.8 fL (80.0-98.0); Mean Platelet Volume 10.1 fL (9.4-12.3); Platelet Count 306 X10*3/uL (160-400); Red Blood Count 2.78 X10*6/uL (4.20-5.50); White Blood Count 9.4 X10*3/uL (4.8-10.8)
[2023-04-23 07:18] LABS: Anion Gap 13 (12-20); Blood Urea Nitrogen 31 mg/dL (9-16); Calcium 9.5 mg/dL (8.4-10.2); Carbon Dioxide 30 mmol/L (22-29); Chloride 99 mmol/L (96-108); Creatinine Clr Calc Pharmacy 93.2; Estimated Glomerular Filt Rate > 60; Glucose Random 120 mg/dL (60-115); Potassium 3.2 mmol/L (3.3-5.1); Sodium 139 mmol/L (135-145)
[2023-04-23 07:50] LABS: Glucose, Whole Blood 122 mg/dL (60-115)
[2023-04-23] MEDS: Heparin Sodium,Porcine 5,000 UNIT/ML VIAL 5000 UNIT SUBCUT ×3 (09:12→20:37)
[2023-04-23] MEDS: acetaZOLAMIDE sodium 500 MG VIAL 375 MG IVPUSH ×2 (09:12→20:39)
[2023-04-23] MEDS: Potassium Chloride ER 20 MEQ TAB.ER.PRT 40 MEQ PO ×2 (09:12→20:42)
[2023-04-23] MEDS: Nystatin Powder 15 GM BOTTLE 1 APPL TOPICAL (09:13)
[2023-04-23] MEDS: Insulin Glargine,Hum.rec.anlog 100 UNIT/ML 10 ML VIAL 30 UNIT SUBCUT ×2 (10:08→20:38)
--- NOTE | 2023-04-23 11:02 | HO.PM.IMPN ---
Subjective Subjective Date of Service: 04/23/23 Review of Systems Follow up DKA Denied sob, nausea or vomiting Physical Exam Vital Signs: Vital Signs: Last Vital Signs Temp 97.5 F 04/23/23 07:24 Pulse 92 04/23/23 07:24 Resp 18 04/23/23 07:24 BP 117/61 04/23/23 07:24 Pulse Ox 98 04/23/23 07:24 O2 Del Method Nasal Cannula 04/23/23 07:24 O2 Flow Rate 8 04/23/23 07:24 FiO2 55 04/21/23 12:00 Oxygen Flow Rate 4 04/09/23 10:23 BMI result Body Mass Index 35.2 Appearing in no acute distress lung mild rales heart regular rate rhythm, clear S1, S2 positive bowel sounds, abdomen is soft, nontender neuro patient is alert x3, no focal deficits Objective Data Active Medications Acetaminophen (Acetaminophen Supp 650 Mg Supp.Rect) 650 mg [place] Q6H PRN PRN Reason: Fever >101 Last Admin: 04/16/23 02:46 Dose: 650 mg Documented By: JCARLOS Acetaminophen (Acetaminophen 325 Mg Tablet) 650 mg PO Q4H PRN PRN Reason: Fever >101 Last Admin: 04/20/23 16:59 Dose: 650 mg Documented By: STIVEN Acetazolamide (Acetazolamide Sodium 500 Mg Vial) 375 mg IVPUSH BID [facility] Last Admin: 04/23/23 09:12 Dose: 375 mg Documented By: ESTEBAN Dextrose (Dextrose 50 % 25 Gm/50 Ml Syringe) 25 gm IVPUSH Q30M PRN PRN Reason: BG < 70 Last Admin: 04/12/23 09:48 Dose: 25 gm Documented By: PEYTON Dextrose (Dextrose 50 % 25 Gm/50 Ml Syringe) 25 gm IVPUSH Q15M PRN; Protocol PRN Reason: per Hypoglycemia Standing Ord. Dextrose (Dextrose 50 % 25 Gm/50 Ml Syringe) 25 gm IVPUSH Q30M PRN PRN Reason: BG < 70 Glucose (Glucose Gel 15 Gm Gel..Gram.) 15 gm PO Q15M PRN; Protocol PRN Reason: per Hypoglycemia Standing Ord. Heparin Sodium (Porcine) (Heparin Sodium,Porcine 5,000 Unit/Ml Vial) 5,000 unit SUBCUT TID [facility] Last Admin: 04/23/23 09:12 Dose: 5,000 unit Documented By: ESTEBAN Furosemide 200 mg/ Sodium (Chloride) 100 mls @ 1.5 mls/hr IVCONT .Q24H [facility] Last Admin: 04/22/23 23:03 Dose: 3 mg/hr, 1.5 mls/hr Documented By: GLADYS Insulin Glargine (Insulin Glargine,Hum.Rec.Anlog 100 Unit/Ml 10 Ml Vial) 30 unit SUBCUT BID [facility] Last Admin: 04/23/23 10:08 Dose: 30 unit Documented By: ESTEBAN Insulin Human Lispro (Insulin Lispro 100 Unit/Ml 3 Ml Vial) 0 unit SUBCUT QIDACHS [facility]; Protocol Last Admin: 04/23/23 07:55 Dose: Not Given Documented By: ESTEBAN Non-Admin Reason: No Insulin Coverage Nystatin (Nystatin Powder 15 Gm Bottle) 1 appl TOPICAL BID [facility]; Protocol Last Admin: 04/23/23 09:13 Dose: 1 appl Documented By: ESTEBAN Ondansetron HCl (Ondansetron Hcl 4 Mg/2 Ml Vial) 4 mg IVPUSH Q4H PRN PRN Reason: Nausea Last Admin: 04/13/23 19:08 Dose: 4 mg Documented By: IDALIA Potassium Chloride (Potassium Chloride Er 20 Meq Tab.Er.Prt) 40 meq PO BID [facility] Last Admin: 04/23/23 09:12 Dose: 40 meq Documented By: ESTEBAN Labs 04/23/23 06:47 04/23/23 06:47 Labs: Laboratory Results - last 24 hr 04/22/23 04/22/23 04/22/23 10:53 16:02 20:03 MCV MCH MCHC RDW Plt Count MPV Absolute Nucleated RBC Nucleated RBC % (auto) Anion Gap Estim Creat Clear Calc Estimated GFR POC Glucose 270 H 220 H 134 H Random Glucose Calcium 04/23/23 04/23/23 06:47 07:27 MCV 96.8 MCH 30.2 MCHC 31.2 RDW 13.0 Plt Count 306 MPV 10.1 Absolute Nucleated RBC 0.000 Nucleated RBC % (auto) 0.0 Anion Gap 13 Estim Creat Clear Calc 93.2 Estimated GFR > 60 POC Glucose 122 H Random Glucose 120 H Calcium 9.5 D Assessment and Plan (1) E coli bacteremia: Status: Acute (2) Acute renal failure: Status: Acute (3) Acute metabolic encephalopathy: Status: Acute (4) Septic shock: Status: Acute (5) Atrial fibrillation with rapid ventricular response: Status: Acute (6) Diabetic keto-acidosis: Status: Acute Plan 38-year-old lady with underlying diabetes mellitus admitted on 04/09/2023 after being found unresponsive by her boyfriend. On ER evaluation patient in AFib with RVR and diabetic ketoacidosis, also hypertensive. Patient started on insulin drip, broad-spectrum antibiotics and admitted to intensive care unit for management of septic shock. Further hospital course complicated by E coli bacteremia with likely source, encephalopathy, acute renal failure and respiratory failure initially requiring high flow downgraded to the medical floor 04/21 Acute respiratory failure with hypoxia secondary to pulmonary edema secondary to large volume of fluid resuscitation overall still in positive fluid balance, continue lasix drip improving, off of high flow, currently on 7L miguel. wean down continue acetazolamide follow renal function DKA resolved s/p insulin drip now lantus 30 bid and SSI tolerating diabetic diet septic shock due to ecoli bacteremia due to pyelonephritis s/p pressors continue IV ceftriaxone for 14 days, end date 04/23 ELISABETH due to ATN resolved nephrology following Microcytic anemia likely due to sepsis/acute illness H/H has remained stable follow CBC thrombocytopenia due to sepsis. resolved metabolic encephalopathy multifactorial due to acute illness, spsis, ELISABETH improving lone afib with RVR due to acidosis no recurrence hyponatremia/hypernatremia resolved hypokalemia/hyperkalemia resolved morbid obesity bmi 36.1 dvt ppx - heparin attending - dr. johnsonapakatie requires ongoing inpatient stay for ongoing respiratory failure/hypoxia and lasix drip Quality Stroke Does the patient have a stroke diagnosis?: No VTE Prior VTE?: No VTE Risk Level:: Medical - moderate - high VTE Device Contraindication: N/A - Device Ordered VTE Drug Contraindication: N/A - Med Ordered
[2023-04-23 11:34] LABS: Glucose, Whole Blood 250 mg/dL (60-115)
[2023-04-23] MEDS: Insulin Lispro 100 UNIT/ML 3 ML VIAL SUBCUT ×3 (11:47→20:38)
[2023-04-23 15:41] LABS: Glucose, Whole Blood 301 mg/dL (60-115)
[2023-04-23 20:17] LABS: Glucose, Whole Blood 315 mg/dL (60-115)
[2023-04-23] MEDS: Furosemide 200 MG in 0.9 % Sodium Chloride 80 ML IVCONT (22:58)
[2023-04-24] VITALS (7 sets, daily range): BP systolic 109–146; BP diastolic 60–84; PULSE 91–102; RESP 18–20; TEMP 36.1–37.2; O2SAT 93–100
--- NOTE | 2023-04-24 05:09 | MHC.PIE ---
Patient found to be soiled in copious amounts of urine. purewick urine collection failed. canister replaced. system functioning. light yellow urine in canister.
[2023-04-24 07:33] LABS: Glucose, Whole Blood 291 mg/dL (60-115)
[2023-04-24 07:41] LABS: Hematocrit 25.6 % (37.0-47.0); Hemoglobin 8.1 g/dl (12.0-16.0); Mean Corpuscular HGB Conc 31.6 g/dl (31.0-35.0); Mean Corpuscular Volume 98.1 fL (80.0-98.0); Mean Platelet Volume 10.4 fL (9.4-12.3); Platelet Count 327 X10*3/uL (160-400); Red Blood Count 2.61 X10*6/uL (4.20-5.50); Red Cell Distribution Width 12.9 % (11.0-16.0); White Blood Count 7.6 X10*3/uL (4.8-10.8)
[2023-04-24] MEDS: Insulin Lispro 100 UNIT/ML 3 ML VIAL SUBCUT ×7 (07:53→22:46)
[2023-04-24] MEDS: acetaZOLAMIDE sodium 500 MG VIAL 375 MG IVPUSH (07:53)
[2023-04-24 07:54] LABS: Anion Gap 12 (12-20); Blood Urea Nitrogen 28 mg/dL (9-16); Calcium 9.1 mg/dL (8.4-10.2); Carbon Dioxide 30 mmol/L (22-29); Chloride 98 mmol/L (96-108); Creatinine Clr Calc Pharmacy 90.1; Estimated Glomerular Filt Rate > 60; Glucose Random 318 mg/dL (60-115); Potassium 3.6 mmol/L (3.3-5.1); Sodium 136 mmol/L (135-145)
[2023-04-24] MEDS: Potassium Chloride ER 20 MEQ TAB.ER.PRT 40 MEQ PO ×2 (07:54→22:50)
[2023-04-24] MEDS: Insulin Glargine,Hum.rec.anlog 100 UNIT/ML 10 ML VIAL 30 UNIT SUBCUT ×2 (07:54→22:45)
[2023-04-24] MEDS: Heparin Sodium,Porcine 5,000 UNIT/ML VIAL 5000 UNIT SUBCUT ×3 (07:54→22:47)
[2023-04-24] MEDS: Nystatin Powder 15 GM BOTTLE 1 APPL TOPICAL ×2 (08:01→22:53)
[2023-04-24 11:09] LABS: Glucose, Whole Blood 357 mg/dL (60-115)
--- NOTE | 2023-04-24 11:14 | P.PNIM_ITS ---
Subjective Subjective Date of Service: 04/24/23 Review of Systems Follow up DKA Denied sob, nausea or vomiting Physical Exam 2 Vital Signs: Vital Signs: Last Vital Signs Temp 98.9 F 04/24/23 11:01 Pulse 96 04/24/23 11:01 Resp 18 04/24/23 11:01 BP 134/63 04/24/23 11:01 Pulse Ox 97 04/24/23 11:01 O2 Del Method Nasal Cannula 04/24/23 11:01 O2 Flow Rate 5 04/24/23 11:01 FiO2 55 04/21/23 12:00 Oxygen Flow Rate 4 04/09/23 10:23 BMI result Body Mass Index 35.2 Appearing in no acute distress lung sounds are clear to auscultation heart regular rate rhythm, clear S1, S2 positive bowel sounds, abdomen is soft, nontender neuro patient is alert x3, no focal deficits Objective Data Active Medications Acetaminophen (Acetaminophen Supp 650 Mg Supp.Rect) 650 mg [place] Q6H PRN PRN Reason: Fever >101 Last Admin: 04/16/23 02:46 Dose: 650 mg Documented By: JCARLOS Acetaminophen (Acetaminophen 325 Mg Tablet) 650 mg PO Q4H PRN PRN Reason: Fever >101 Last Admin: 04/20/23 16:59 Dose: 650 mg Documented By: STIVEN Acetazolamide (Acetazolamide Sodium 500 Mg Vial) 375 mg IVPUSH BID [facility] Last Admin: 04/24/23 07:53 Dose: 375 mg Documented By: ESTEBAN Dextrose (Dextrose 50 % 25 Gm/50 Ml Syringe) 25 gm IVPUSH Q30M PRN PRN Reason: BG < 70 Last Admin: 04/12/23 09:48 Dose: 25 gm Documented By: KRYSTIANORRCody Dextrose (Dextrose 50 % 25 Gm/50 Ml Syringe) 25 gm IVPUSH Q15M PRN; Protocol PRN Reason: per Hypoglycemia Standing Ord. Dextrose (Dextrose 50 % 25 Gm/50 Ml Syringe) 25 gm IVPUSH Q30M PRN PRN Reason: BG < 70 Glucose (Glucose Gel 15 Gm Gel..Gram.) 15 gm PO Q15M PRN; Protocol PRN Reason: per Hypoglycemia Standing Ord. Heparin Sodium (Porcine) (Heparin Sodium,Porcine 5,000 Unit/Ml Vial) 5,000 unit SUBCUT TID [facility] Last Admin: 04/24/23 07:54 Dose: 5,000 unit Documented By: ESTEBAN Furosemide 200 mg/ Sodium (Chloride) 100 mls @ 1.5 mls/hr IVCONT .Q24H [facility] Last Admin: 04/23/23 22:58 Dose: 3 mg/hr, 1.5 mls/hr Documented By: RA Insulin Glargine (Insulin Glargine,Hum.Rec.Anlog 100 Unit/Ml 10 Ml Vial) 30 unit SUBCUT BID [facility] Last Admin: 04/24/23 07:54 Dose: 30 unit Documented By: ESTEBAN Insulin Human Lispro (Insulin Lispro 100 Unit/Ml 3 Ml Vial) 0 unit SUBCUT QIDACHS [facility]; Protocol Last Admin: 04/24/23 07:53 Dose: 8 unit Documented By: ESTEBAN Nystatin (Nystatin Powder 15 Gm Bottle) 1 appl TOPICAL BID [facility]; Protocol Last Admin: 04/24/23 08:01 Dose: 1 appl Documented By: ESTEBAN Ondansetron HCl (Ondansetron Hcl 4 Mg/2 Ml Vial) 4 mg IVPUSH Q4H PRN PRN Reason: Nausea Last Admin: 04/13/23 19:08 Dose: 4 mg Documented By: IDALIA Potassium Chloride (Potassium Chloride Er 20 Meq Tab.Er.Prt) 40 meq PO BID [facility] Last Admin: 04/24/23 07:54 Dose: 40 meq Documented By: ESTEBAN Labs 04/24/23 06:49 04/24/23 06:49 Labs: Laboratory Results - last 24 hr 04/23/23 04/23/23 04/23/23 11:21 15:22 20:09 MCV MCH MCHC RDW Plt Count MPV Absolute Nucleated RBC Nucleated RBC % (auto) Anion Gap Estim Creat Clear Calc Estimated GFR POC Glucose 250 H 301 H 315 H Random Glucose Calcium 04/24/23 04/24/23 04/24/23 06:49 07:16 11:02 MCV 98.1 H MCH 31.0 MCHC 31.6 RDW 12.9 Plt Count 327 MPV 10.4 Absolute Nucleated RBC 0.000 Nucleated RBC % (auto) 0.0 Anion Gap 12 Estim Creat Clear Calc 90.1 Estimated GFR > 60 POC Glucose 291 H 357 H* Random Glucose 318 H Calcium 9.1 Assessment and Plan (1) E coli bacteremia: Status: Acute (2) Acute renal failure: Status: Acute (3) Acute metabolic encephalopathy: Status: Acute (4) Septic shock: Status: Acute (5) Atrial fibrillation with rapid ventricular response: Status: Acute (6) Diabetic keto-acidosis: Status: Acute Plan 38-year-old lady with underlying diabetes mellitus admitted on 04/09/2023 after being found unresponsive by her boyfriend. On ER evaluation patient in AFib with RVR and diabetic ketoacidosis, also hypertensive. Patient started on insulin drip, broad-spectrum antibiotics and admitted to intensive care unit for management of septic shock. Further hospital course complicated by E coli bacteremia with likely source, encephalopathy, acute renal failure and respiratory failure initially requiring high flow downgraded to the medical floor 04/21 Acute respiratory failure with hypoxia secondary to acute HFpEF. Resolved secondary to pulmonary edema secondary to large volume of fluid resuscitation overall still in positive fluid balance improving, off of high flow, currently on 5Lnc. wean down s/p IV acetazolamide follow renal function Seen by cardiology> rec stop lasix drip, change to lasix po 40mg daily DM2 with hyperglycemia ss, ada diet lantus 30units BID mealtime insulin added due to hyperglycemia DKA resolved s/p insulin drip in ICU septic shock due to ecoli bacteremia due to pyelonephritis s/p pressors s/p IV ceftriaxone for 14 days ELISABETH due to ATN resolved nephrology following Microcytic anemia likely due to sepsis/acute illness H/H has remained stable follow CBC thrombocytopenia due to sepsis. resolved metabolic encephalopathy multifactorial due to acute illness, spsis, ELISABETH improving lone afib with RVR due to acidosis no recurrence hyponatremia/hypernatremia resolved hypokalemia/hyperkalemia resolved morbid obesity bmi 36.1 dvt ppx - heparin attending - [facility] requires ongoing inpatient stay for ongoing respiratory failure/hypoxia and lasix drip Quality Stroke Does the patient have a stroke diagnosis?: No VTE Prior VTE?: No VTE Risk Level:: Medical - moderate - high VTE Device Contraindication: N/A - Device Ordered VTE Drug Contraindication: N/A - Med Ordered
--- NOTE | 2023-04-24 12:51 | PM.CNCAR ---
History of Present Illness History of Present Illness Date of Service: 04/24/23 Requesting physician: Jenn Gonsalez Chief complaint: ?CHF Narrative: 38-year-old female who was admitted on April 09 with unresponsiveness and septic shock due to E coli bacteremia. She was in diabetic ketoacidosis. She had acute kidney injury and respiratory failure and was in the intensive care unit. PA been asked to help management of heart failure. It appears she was fluid resuscitated in the intensive care unit and developed volume overload. This was treated with Lasix drip and she also was on acetazolamide. She continues to be on Lasix drip 3 milligram/hour at this point. She is denying any chest discomfort or shortness of breath. Physical examination also appears good and she appears fairly euvolemic at this point. She is unable to lay flat because of back pain but is denying any orthopnea. She has been treated with appropriate antibiotics at this point. She had episode of atrial fibrillation with rapid ventricular response on admission. She subsequently converted back to sinus rhythm. FORMERLY [facility], [facility] Past Medical History Medical History (Updated 04/24/23 @ 12:55 by Han Araujo MD) Diabetes Social History (System 04/11/23 @ 07:36 by Natacha Cronin) Household Members: Significant Other and Children Housing: House Do you presently have visiting nurse or other home services: No Unable to assess alcohol history related to: Unable to respond Patient Tobacco Use Status: Refuse Tobacco use screen service: No Meds Allergies Allergy/AdvReac Type Severity Reaction Status Date / Time No Known Allergies Allergy Unverified 04/11/23 07:36 [No Known Allergies*] Active Medications: Current Medications Acetaminophen (Acetaminophen Supp 650 Mg Supp.Rect) 650 mg MN Q6H PRN PRN Reason: Fever >101 Last Admin: 04/16/23 02:46 Dose: 650 mg Acetaminophen (Acetaminophen 325 Mg Tablet) 650 mg PO Q4H PRN PRN Reason: Fever >101 Last Admin: 04/20/23 16:59 Dose: 650 mg Dextrose (Dextrose 50 % 25 Gm/50 Ml Syringe) 25 gm IVPUSH Q30M PRN PRN Reason: BG < 70 Last Admin: 04/12/23 09:48 Dose: 25 gm Dextrose (Dextrose 50 % 25 Gm/50 Ml Syringe) 25 gm IVPUSH Q15M PRN; Protocol PRN Reason: per Hypoglycemia Standing Ord. Dextrose (Dextrose 50 % 25 Gm/50 Ml Syringe) 25 gm IVPUSH Q30M PRN PRN Reason: BG < 70 Glucose (Glucose Gel 15 Gm Gel..Gram.) 15 gm PO Q15M PRN; Protocol PRN Reason: per Hypoglycemia Standing Ord. Heparin Sodium (Porcine) (Heparin Sodium,Porcine 5,000 Unit/Ml Vial) 5,000 unit SUBCUT TID [facility] Last Admin: 04/24/23 07:54 Dose: 5,000 unit Furosemide 200 mg/ Sodium (Chloride) 100 mls @ 1.5 mls/hr IVCONT .Q24H [facility] Last Admin: 04/23/23 22:58 Dose: 3 mg/hr, 1.5 mls/hr Insulin Glargine (Insulin Glargine,Hum.Rec.Anlog 100 Unit/Ml 10 Ml Vial) 30 unit SUBCUT BID [facility] Last Admin: 04/24/23 07:54 Dose: 30 unit Insulin Human Lispro (Insulin Lispro 100 Unit/Ml 3 Ml Vial) 0 unit SUBCUT QIDACHS [facility]; Protocol Last Admin: 04/24/23 11:49 Dose: 12 unit Insulin Human Lispro (Insulin Lispro 100 Unit/Ml 3 Ml Vial) 5 unit SUBCUT QIDACHS [facility] Last Admin: 04/24/23 11:49 Dose: 5 unit Nystatin (Nystatin Powder 15 Gm Bottle) 1 appl TOPICAL BID [facility]; Protocol Last Admin: 04/24/23 08:01 Dose: 1 appl Ondansetron HCl (Ondansetron Hcl 4 Mg/2 Ml Vial) 4 mg IVPUSH Q4H PRN PRN Reason: Nausea Last Admin: 04/13/23 19:08 Dose: 4 mg Potassium Chloride (Potassium Chloride Er 20 Meq Tab.Er.Prt) 40 meq PO BID [facility] Last Admin: 04/24/23 07:54 Dose: 40 meq Home Medications Medication Instructions Recorded Confirmed Last Taken Type insulin glargine 100 unit/mL (3 10 unit subcut BEDTIME 04/09/23 04/09/23 Unknown History mL) subcutaneous pen (Lantus Solostar U-100 Insulin) insulin lispro 100 unit/mL See Protocol subcut TIDWM 04/09/23 04/09/23 Unknown History subcutaneous pen Physical Exam Vital Signs: Vital Signs: Last Vital Signs Temp 98.9 F 04/24/23 11:01 Pulse 96 04/24/23 11:01 Resp 18 04/24/23 11:01 BP 134/63 04/24/23 11:01 Pulse Ox 97 04/24/23 11:01 O2 Del Method Nasal Cannula 04/24/23 11:01 O2 Flow Rate 5 04/24/23 11:01 FiO2 55 04/21/23 12:00 Oxygen Flow Rate 4 04/09/23 10:23 BMI result Body Mass Index 35.2 GENERAL APPEARANCE: in no acute distress, pleasant. NECK: no carotid bruit, no jugular venous distention. SKIN: no suspicious lesions, warm and dry. HEART: no murmurs, regular rate and rhythm. LUNGS: clear to auscultation bilaterally. ABDOMEN: soft, nontender. EXTREMITIES: no edema. PERIPHERAL PULSES: equal. NEUROLOGIC: No gross deficits, AAO X 3 Objective Labs and Meds 04/24/23 06:49 04/24/23 06:49 Lab results: Laboratory Results - last 24 hr 04/23/23 04/23/23 04/24/23 15:22 20:09 06:49 WBC 7.6 RBC 2.61 L Hgb 8.1 L Hct 25.6 L MCV 98.1 H MCH 31.0 MCHC 31.6 RDW 12.9 Plt Count 327 MPV 10.4 Absolute Nucleated RBC 0.000 Nucleated RBC % (auto) 0.0 Sodium 136 Potassium 3.6 Chloride 98 Carbon Dioxide 30 H Anion Gap 12 BUN 28 H Creatinine 0.97 Estim Creat Clear Calc 90.1 Estimated GFR > 60 POC Glucose 301 H 315 H Random Glucose 318 H Calcium 9.1 04/24/23 04/24/23 07:16 11:02 WBC RBC Hgb Hct MCV MCH MCHC RDW Plt Count MPV Absolute Nucleated RBC Nucleated RBC % (auto) Sodium Potassium Chloride Carbon Dioxide Anion Gap BUN Creatinine Estim Creat Clear Calc Estimated GFR POC Glucose 291 H 357 H* Random Glucose Calcium Assessment and Plan (1) Atrial fibrillation with rapid ventricular response: Status: Acute (2) Volume overload: Status: Acute Plan 38-year-old female who presented with diabetic ketoacidosis secondary to E coli bacteremia. She was resuscitated and developed congestive heart failure. This was treated with diuretics and she has been on Lasix drip. Appears to be euvolemic. ECHO was limited due to her uncooperation but did show that ejection fraction was preserved she is denying any symptoms currently. I think she can be transitioned to oral diuretics. Would favor just giving her 40 mg once a day Lasix. She had episode of atrial fibrillation with rapid ventricular response on admission. Her chads Vasc score is 2-3 depending on whether we are consider dizziness as an episode of congestive heart failure. I think this is just an outcome of appropriate aggressive fluid resuscitation. Would favor monitoring without anticoagulation currently. She can have a cardiac event monitor as outpatient to assess for episodes of atrial fibrillation. If she has recurrent episodes lasting more than 6 hours then we can have a discussion about anticoagulation but do not favor starting anticoagulation currently. Thank you for allowing me to participate in the care of your patient. Please feel free to contact me if you have any questions. Procedures Date of Service Date of Service: 04/24/23
[2023-04-24 16:11] LABS: Glucose, Whole Blood 289 mg/dL (60-115)
[2023-04-24 20:16] LABS: Glucose, Whole Blood 203 mg/dL (60-115)
[2023-04-25] VITALS (8 sets, daily range): BP systolic 117–162; BP diastolic 60–80; PULSE 80–104; RESP 18–22; TEMP 36.3–36.7; O2SAT 95–100
[2023-04-25 00:20] LABS: Glucose, Whole Blood 212 mg/dL (60-115)
[2023-04-25 07:07] LABS: Anion Gap 12 (12-20); Blood Urea Nitrogen 23 mg/dL (9-16); Calcium 9.7 mg/dL (8.4-10.2); Carbon Dioxide 27 mmol/L (22-29); Chloride 101 mmol/L (96-108); Creatinine Clr Calc Pharmacy 93.9; Estimated Glomerular Filt Rate > 60; Glucose Random 234 mg/dL (60-115); Potassium 4.2 mmol/L (3.3-5.1); Sodium 136 mmol/L (135-145)
[2023-04-25 07:10] LABS: B Type Natriuretic Peptide 15 pg/mL (<100)
[2023-04-25 07:48] LABS: Glucose, Whole Blood 210 mg/dL (60-115)
[2023-04-25] MEDS: Insulin Lispro 100 UNIT/ML 3 ML VIAL SUBCUT ×8 (08:38→20:45)
[2023-04-25] MEDS: Potassium Chloride ER 20 MEQ TAB.ER.PRT 40 MEQ PO ×2 (08:38→20:10)
[2023-04-25] MEDS: Heparin Sodium,Porcine 5,000 UNIT/ML VIAL 5000 UNIT SUBCUT ×3 (08:38→20:09)
[2023-04-25] MEDS: Furosemide 40 MG TABLET PO (08:38)
[2023-04-25] MEDS: Insulin Glargine,Hum.rec.anlog 100 UNIT/ML 10 ML VIAL 30 UNIT SUBCUT ×2 (08:39→20:45)
[2023-04-25] MEDS: Nystatin Powder 15 GM BOTTLE 1 APPL TOPICAL ×2 (08:45→20:10)
--- NOTE | 2023-04-25 09:59 | MHC.SL.SWA ---
Speech Pathologist Impression: Oral phase dysphagia Risk of Aspiration Due to: Weak Cough Weak Voice Dysphasia Diet Status: Recommend UPGRADE to REGULAR texture diet, continue on THIN liquids will pills whole or crushed in puree, per patient preference. Liquid Consistency and Strategies for Safe Swallow: Liquid Intake Recommendation: Thin Liquid Intake Strategies: Small Sips Solid Food Consistency: Dietary Recommendations: Regular Additional Modifications to Solid Foods: Alternate liquids and solids. Patient is slow to consume food, allow for additional time at meals before clearing tray. Oral Medication Intake: Crushed with Puree Please contact the pharmacy regarding appropriate crushable or liquid drug formulations that are available whenever modified delivery is recommended. Compensatory Strategies and Precautions to be Taken for Safe Swallow: Sitting Upright (90 deg) Liquids from Cup Small Bites and Sips Alternate Liquids/Solids Rate of Ingestion Change Supervision While Eating and Drinking for Safe Swallow: Total Supervision (1:1) Swallowing Recommended Treatments: Compens. Strategy Educat. Recommendation for Speech: 1 f/u Insurance Case Manager Clinican/Clinical Fellow: No Supervisory Statement: I have reviewed and agree with the student/clinical fellow's documentation: N/A Speech Language Pathologist: Arline Alcantar M.A., CCC-PIPE THREADING MACHINE OPERATOR
--- NOTE | 2023-04-25 10:59 | MHC.CM.PN ---
EMR reviewed and per MD rounds, pt is not medically cleared for D/C due to de-satting, per MD pt may be able to D/C tomorrow. PT recommended STR. This CM met with pt to discuss and she is agreeable to STR. Referral previously placed to acute rehab, and was updated, will follow up for bed offers. CM will continue to follow.
--- NOTE | 2023-04-25 11:06 | HO.PM.IMPN ---
Subjective Subjective Date of Service: 04/25/23 Review of Systems Follow up DKA Denied sob, nausea or vomiting Physical Exam Vital Signs: Vital Signs: Last Vital Signs Temp 97.7 F 04/25/23 07:14 Pulse 98 04/25/23 07:14 Resp 22 H 04/25/23 07:14 BP 137/65 04/25/23 09:30 Pulse Ox 100 04/25/23 07:14 O2 Del Method Nasal Cannula 04/25/23 07:14 O2 Flow Rate 5 04/25/23 07:14 FiO2 55 04/21/23 12:00 Oxygen Flow Rate 4 04/09/23 10:23 BMI result Body Mass Index 35.2 Appearing in no acute distress lung sounds are clear to auscultation heart regular rate rhythm, clear S1, S2 positive bowel sounds, abdomen is soft, nontender neuro patient is alert x3, no focal deficits Objective Data Active Medications Acetaminophen (Acetaminophen Supp 650 Mg Supp.Rect) 650 mg FL Q6H PRN PRN Reason: Fever >101 Last Admin: 04/16/23 02:46 Dose: 650 mg Documented By: JCARLOS Acetaminophen (Acetaminophen 325 Mg Tablet) 650 mg PO Q4H PRN PRN Reason: Fever >101 Last Admin: 04/20/23 16:59 Dose: 650 mg Documented By: STIVEN Dextrose (Dextrose 50 % 25 Gm/50 Ml Syringe) 25 gm IVPUSH Q30M PRN PRN Reason: BG < 70 Last Admin: 04/12/23 09:48 Dose: 25 gm Documented By: KRYSTIANORRCody Dextrose (Dextrose 50 % 25 Gm/50 Ml Syringe) 25 gm IVPUSH Q15M PRN; Protocol PRN Reason: per Hypoglycemia Standing Ord. Dextrose (Dextrose 50 % 25 Gm/50 Ml Syringe) 25 gm IVPUSH Q30M PRN PRN Reason: BG < 70 Furosemide (Furosemide 40 Mg Tablet) 40 mg PO DAILY [facility]EN[facility]; Protocol Last Admin: 04/25/23 08:38 Dose: 40 mg Documented By: ANAYELI Glucose (Glucose Gel 15 Gm Gel..Gram.) 15 gm PO Q15M PRN; Protocol PRN Reason: per Hypoglycemia Standing Ord. Heparin Sodium (Porcine) (Heparin Sodium,Porcine 5,000 Unit/Ml Vial) 5,000 unit SUBCUT TID [facility] Last Admin: 04/25/23 08:38 Dose: 5,000 unit Documented By: ANAYELI Insulin Glargine (Insulin Glargine,Hum.Rec.Anlog 100 Unit/Ml 10 Ml Vial) 30 unit SUBCUT BID [facility] Last Admin: 04/25/23 08:39 Dose: 30 unit Documented By: ANAYELI Insulin Human Lispro (Insulin Lispro 100 Unit/Ml 3 Ml Vial) 0 unit SUBCUT QIDACHS [facility]; Protocol Last Admin: 04/25/23 08:38 Dose: 6 unit Documented By: ANAYELI Insulin Human Lispro (Insulin Lispro 100 Unit/Ml 3 Ml Vial) 5 unit SUBCUT QIDACHS [facility] Last Admin: 04/25/23 08:40 Dose: 5 unit Documented By: ANAYELI Nystatin (Nystatin Powder 15 Gm Bottle) 1 appl TOPICAL BID [facility]; Protocol Last Admin: 04/25/23 08:45 Dose: 1 appl Documented By: ANAYELI Ondansetron HCl (Ondansetron Hcl 4 Mg/2 Ml Vial) 4 mg IVPUSH Q4H PRN PRN Reason: Nausea Last Admin: 04/13/23 19:08 Dose: 4 mg Documented By: IDALIA Potassium Chloride (Potassium Chloride Er 20 Meq Tab.Er.Prt) 40 meq PO BID [facility] Last Admin: 04/25/23 08:38 Dose: 40 meq Documented By: ANAYELI Labs 04/24/23 06:49 04/25/23 06:14 Labs: Laboratory Results - last 24 hr 04/24/23 04/24/23 04/24/23 11:02 16:04 20:11 Hold Purple Top Anion Gap Estim Creat Clear Calc Estimated GFR POC Glucose 357 H* 289 H 203 H Random Glucose Calcium B-Natriuretic Peptide 04/25/23 04/25/23 04/25/23 00:17 06:14 07:35 Hold Purple Top SEE NOTE Anion Gap 12 Estim Creat Clear Calc 93.9 Estimated GFR > 60 POC Glucose 212 H 210 H Random Glucose 234 H Calcium 9.7 D B-Natriuretic Peptide 15 Assessment and Plan (1) E coli bacteremia: Status: Acute (2) Acute renal failure: Status: Acute (3) Acute metabolic encephalopathy: Status: Acute (4) Septic shock: Status: Acute (5) Atrial fibrillation with rapid ventricular response: Status: Acute (6) Diabetic keto-acidosis: Status: Acute Plan 38-year-old lady with underlying diabetes mellitus admitted on 04/09/2023 after being found unresponsive by her boyfriend. On ER evaluation patient in AFib with RVR and diabetic ketoacidosis, also hypertensive. Patient started on insulin drip, broad-spectrum antibiotics and admitted to intensive care unit for management of septic shock. Further hospital course complicated by E coli bacteremia with likely source, encephalopathy, acute renal failure and respiratory failure initially requiring high flow downgraded to the medical floor 04/21 Acute respiratory failure with hypoxia secondary to acute HFpEF. Resolved secondary to pulmonary edema secondary to large volume of fluid resuscitation overall still in positive fluid balance improving, off of high flow, currently on 2LNC s/p IV acetazolamide Seen by cardiology lasix 40 mg daily JA sleep study while inpatient RT to set up DM2 with hyperglycemia ss, ada diet lantus 30units BID mealtime insulin added due to hyperglycemia DKA resolved s/p insulin drip in ICU septic shock due to ecoli bacteremia due to pyelonephritis s/p pressors s/p IV ceftriaxone for 14 days ELISABETH due to ATN resolved nephrology following Microcytic anemia likely due to sepsis/acute illness H/H has remained stable follow CBC thrombocytopenia due to sepsis. resolved metabolic encephalopathy multifactorial due to acute illness, spsis, ELISABETH improving lone afib with RVR due to acidosis no recurrence hyponatremia/hypernatremia resolved hypokalemia/hyperkalemia resolved morbid obesity bmi 36.1 dvt ppx - heparin attending - dr. Satnam NICOLAS PT rec STR, sleep study tonight requires ongoing inpatient stay for ongoing respiratory failure/hypoxia and safe disposition Quality Stroke Does the patient have a stroke diagnosis?: No VTE Prior VTE?: No VTE Risk Level:: Medical - moderate - high VTE Device Contraindication: N/A - Device Ordered VTE Drug Contraindication: N/A - Med Ordered
--- NOTE | 2023-04-25 11:08 | MHC.CLN ---
F/U PO INTAKE 75-100% DIET RX: 2200DM-APPROPRIATE SECTION LEADER AND MACHINE SETTER UPGRADED DIET TO REGULAR WITH THIN TODAY CONTINUE TO MONITOR PO INTAKE
--- NOTE | 2023-04-25 12:02 | HO.WOUND ---
Wound Consult: Initial 38yr old female admitted to [facility] on? No04/09/23 12:52 - See progress notes and H&P for detailed history. Wound consult request made by Respiratory Therapy for bridge of nose assessment - Pt agreeable to assessment and photo documentation. Arrival to bedside pt was sitting in recliner bandaid on bridge of nose - pt denies knoweldge of wound there. Bandaid removed - light purple intact nonblanchable area consistent with BIPAP related pressure. Tissue appears to be resolving as pressure source is no longer in place - light purple color and intact tissue. No topical interventions needed at this time. recommend leave open to air and if BIPAP or other pressure source is indicated foam dressing to be applied to protect tissue from pressure and device friciton. Pt and family at bedside demonstrate understanding. Bridge of Nose Etiology: Devise related Deep Tissue Injury - resolving Measurements: see charting for detailed measurements Wound Bed: Intact light purple tissue - nonblanchable Drainage / Odor: None Edges: ?defined Татьяна wound: ? red pink blanchable intact tissue NoInduration, Fluctuance, Warmth noted Pain: denies Goals of Treatment: ? Leave open to air - protect from friction and pressure with foam dressings. Recommendations: 1. Turn and Reposition every 2 hours and as needed for patient comfort - chair cushion when up to chair limit sit time to 2 hours. 2. Off Load all bony prominences with use of pillows 4. Provide adequate and supplemental nutrition. 5. Maintain blood glucose levels per Providers orders. 6. Bridge of Nose - Gently cleanse with routine bathing. Keep dry. Protect from friction and pressure when needed with foam dressings such as under BiPAP device. Change daily. Re-consult wound care Nurse for wound deterioration or wound changes.
[2023-04-25 12:06] LABS: Glucose, Whole Blood 277 mg/dL (60-115)
[2023-04-25 16:23] LABS: Glucose, Whole Blood 282 mg/dL (60-115)
[2023-04-25 16:30] LABS: Glucose, Whole Blood 310 mg/dL (60-115)
[2023-04-25 20:35] LABS: Glucose, Whole Blood 214 mg/dL (60-115)
[2023-04-26 03:10] VITALS: BP 127/74; PULSE 80; RESP 18; TEMP 36.7; O2SAT 96
[2023-04-26 06:58] VITALS: BMI 35.8
[2023-04-26 06:59] VITALS: BP 161/77; PULSE 95; RESP 20; TEMP 37; O2SAT 97
[2023-04-26 07:27] LABS: Glucose, Whole Blood 229 mg/dL (60-115)
[2023-04-26] MEDS: Furosemide 40 MG TABLET PO (08:24)
[2023-04-26] MEDS: Acetaminophen 325 MG TABLET 650 MG PO (08:24)
[2023-04-26] MEDS: Potassium Chloride ER 20 MEQ TAB.ER.PRT 40 MEQ PO ×2 (08:24→21:47)
[2023-04-26] MEDS: Insulin Glargine,Hum.rec.anlog 100 UNIT/ML 10 ML VIAL 30 UNIT SUBCUT ×2 (08:25→21:47)
[2023-04-26] MEDS: Insulin Lispro 100 UNIT/ML 3 ML VIAL SUBCUT ×8 (08:25→21:46)
[2023-04-26] MEDS: Nystatin Powder 15 GM BOTTLE 1 APPL TOPICAL ×2 (08:25→21:54)
[2023-04-26] MEDS: Heparin Sodium,Porcine 5,000 UNIT/ML VIAL 5000 UNIT SUBCUT ×3 (08:25→21:47)
--- NOTE | 2023-04-26 10:33 | HO.PM.IMPN ---
Subjective Subjective Date of Service: 04/26/23 Review of Systems Follow up DKA Denied sob, nausea or vomiting Physical Exam Vital Signs: Vital Signs: Last Vital Signs Temp 98.6 F 04/26/23 06:59 Pulse 95 04/26/23 06:59 Resp 20 04/26/23 06:59 BP 161/77 H 04/26/23 06:59 Pulse Ox 97 04/26/23 06:59 O2 Del Method Nasal Cannula 04/26/23 06:59 O2 Flow Rate 1 04/26/23 06:59 FiO2 55 04/21/23 12:00 Oxygen Flow Rate 4 04/09/23 10:23 BMI result Body Mass Index 35.8 Objective Data Active Medications Acetaminophen (Acetaminophen Supp 650 Mg Supp.Rect) 650 mg ND Q6H PRN PRN Reason: Fever >101 Last Admin: 04/16/23 02:46 Dose: 650 mg Documented By: JCARLOS Acetaminophen (Acetaminophen 325 Mg Tablet) 650 mg PO Q4H PRN PRN Reason: Fever >101 Last Admin: 04/26/23 08:24 Dose: 650 mg Documented By: TORREY Dextrose (Dextrose 50 % 25 Gm/50 Ml Syringe) 25 gm IVPUSH Q30M PRN PRN Reason: BG < 70 Last Admin: 04/12/23 09:48 Dose: 25 gm Documented By: PEYTON Dextrose (Dextrose 50 % 25 Gm/50 Ml Syringe) 25 gm IVPUSH Q15M PRN; Protocol PRN Reason: per Hypoglycemia Standing Ord. Dextrose (Dextrose 50 % 25 Gm/50 Ml Syringe) 25 gm IVPUSH Q30M PRN PRN Reason: BG < 70 Furosemide (Furosemide 40 Mg Tablet) 40 mg PO DAILY [facility]; Protocol Last Admin: 04/26/23 08:24 Dose: 40 mg Documented By: TORREY Glucose (Glucose Gel 15 Gm Gel..Gram.) 15 gm PO Q15M PRN; Protocol PRN Reason: per Hypoglycemia Standing Ord. Heparin Sodium (Porcine) (Heparin Sodium,Porcine 5,000 Unit/Ml Vial) 5,000 unit SUBCUT TID [facility] Last Admin: 04/26/23 08:25 Dose: 5,000 unit Documented By: TORREY Insulin Glargine (Insulin Glargine,Hum.Rec.Anlog 100 Unit/Ml 10 Ml Vial) 30 unit SUBCUT BID [facility] Last Admin: 04/26/23 08:25 Dose: 30 unit Documented By: TORREY Insulin Human Lispro (Insulin Lispro 100 Unit/Ml 3 Ml Vial) 0 unit SUBCUT QIDACHS [facility]; Protocol Last Admin: 04/26/23 08:25 Dose: 6 unit Documented By: TORREY Insulin Human Lispro (Insulin Lispro 100 Unit/Ml 3 Ml Vial) 5 unit SUBCUT QIDACHS [facility] Last Admin: 04/26/23 08:25 Dose: 5 unit Documented By: TORREY Nystatin (Nystatin Powder 15 Gm Bottle) 1 appl TOPICAL BID [facility]; Protocol Last Admin: 04/26/23 08:25 Dose: 1 appl Documented By: TORREY Ondansetron HCl (Ondansetron Hcl 4 Mg/2 Ml Vial) 4 mg IVPUSH Q4H PRN PRN Reason: Nausea Last Admin: 04/13/23 19:08 Dose: 4 mg Documented By: IDALIA Potassium Chloride (Potassium Chloride Er 20 Meq Tab.Er.Prt) 40 meq PO BID [facility] Last Admin: 04/26/23 08:24 Dose: 40 meq Documented By: TORREY Labs 04/24/23 06:49 04/25/23 06:14 Labs: Laboratory Results - last 24 hr 04/25/23 04/25/23 04/25/23 11:50 16:16 16:21 POC Glucose 277 H 282 H 310 H 04/25/23 04/26/23 20:31 07:01 POC Glucose 214 H 229 H Assessment and Plan (1) E coli bacteremia: Status: Acute (2) Acute renal failure: Status: Acute (3) Acute metabolic encephalopathy: Status: Acute (4) Septic shock: Status: Acute (5) Atrial fibrillation with rapid ventricular response: Status: Acute (6) Diabetic keto-acidosis: Status: Acute Plan 38-year-old lady with underlying diabetes mellitus admitted on 04/09/2023 after being found unresponsive by her boyfriend. On ER evaluation patient in AFib with RVR and diabetic ketoacidosis, also hypertensive. Patient started on insulin drip, broad-spectrum antibiotics and admitted to intensive care unit for management of septic shock. Further hospital course complicated by E coli bacteremia with likely source, encephalopathy, acute renal failure and respiratory failure initially requiring high flow downgraded to the medical floor 04/21 Acute respiratory failure with hypoxia secondary to acute HFpEF. Resolved secondary to pulmonary edema secondary to large volume of fluid resuscitation euvolemic improving, off of high flow, currently on 2LNC s/p IV acetazolamide Seen by cardiology lasix 40 mg daily JA sleep study while inpatient patient can follow up o/p with pulmonology for results DM2 with hyperglycemia ss, ada diet lantus 30units BID mealtime insulin added due to hyperglycemia DKA resolved s/p insulin drip in ICU septic shock due to ecoli bacteremia due to pyelonephritis s/p pressors s/p IV ceftriaxone for 14 days ELISABETH due to ATN resolved nephrology following Microcytic anemia likely due to sepsis/acute illness H/H has remained stable follow CBC thrombocytopenia due to sepsis. resolved metabolic encephalopathy multifactorial due to acute illness, spsis, ELISABETH improving lone afib with RVR due to acidosis no recurrence hyponatremia/hypernatremia resolved hypokalemia/hyperkalemia resolved morbid obesity bmi 36.1 dvt ppx - heparin attending - dr. Hay DISPO PT rec STR when bed available requires ongoing inpatient stay for ongoing respiratory failure/hypoxia and safe disposition Quality Stroke Does the patient have a stroke diagnosis?: No VTE Prior VTE?: No VTE Risk Level:: Medical - moderate - high VTE Device Contraindication: N/A - Device Ordered VTE Drug Contraindication: N/A - Med Ordered
[2023-04-26 10:59] VITALS: BP 135/66; PULSE 99; RESP 20; TEMP 36.8; O2SAT 97
--- NOTE | 2023-04-26 10:59 | MHC.SL.DTX ---
Dysphagia Diet modifications: Last documented Solid diet consistencies: Chopped/Advanced (NDD3) Last documented Liquid consistency: Thin Changes made to current diet?: No Liquid Consistency and Strategies: Liquid Intake Recommendation: Thin Compensatory Strategies for Safe Swallow: Small Sips Compensatory Strategies for Safe Swallow(b): Sitting Upright (90 deg) Liquids from Cup Small Bites and Sips Alternate Liquids/Solids Rate of Ingestion Change Solid Food Consistency: Dietary Recommendations: Regular Oral Medication Intake: Whole with Liquids Strategies and Precautions to be Taken for Safe Swallow: Sitting Upright (90 deg) Liquids from Cup Small Bites and Sips Alternate Liquids/Solids Rate of Ingestion Change Supervision While Eating and/Drinking: Total Supervision (1:1) Foods to Avoid: N/a Swallowing Recommended Treatments: Compens. Strategy Educat. Recommendation for Speech: Inpatient Speech Therapy Comment: 1:1 supervision and aspiration precautions Frequency/Duration: Date Range for Service Req: Timeline to reassess: Additional Comments: Pt on regular texture diet at baseline. Treatment: Pt is in her recliner with her Mother playing cards on arrival. Per Pt/Family she tolerated her breakfast of Regular Solids and Thin Liquids with no complaints. ACCOUNTS MANAGER provided Cereal with Milk which the Pt prepared and ate by herself with functional oral preparation and no overt s/s of aspiration. As her mental status has improved so has her ability to swallow at her baseline level. No additional requests or accommodations stated when asked. As the Pt has resumed her functional baseline, no further ACCOUNTS MANAGER intervention required at this time. Assessment: Building Services Engineer Clinican/Clinical Fellow: No Supervisory Statement: I have reviewed and agree with the student/clinical fellow's documentation: N/A Speech Language Pathologist: Aaron Layton M.A., CCC-ACCOUNTS MANAGER
[2023-04-26 11:13] LABS: Glucose, Whole Blood 305 mg/dL (60-115)
--- NOTE | 2023-04-26 14:28 | MHC.CM.PN ---
Pt is medically cleared for D/C and pt has accepted bed offer from [facility] acute rehab, auth pending, and case also went to MD review. HCP completed with pt and now on file. Received clarification from pt that her PCP is Dr. Trudy Mondragon, and also confirmed this with [facility]. CM will continue to follow.
[2023-04-26 16:00] VITALS: BP 128/64; PULSE 98; RESP 18; TEMP 36.5; O2SAT 94
[2023-04-26 16:13] LABS: Glucose, Whole Blood 387 mg/dL (60-115)
--- NOTE | 2023-04-26 16:15 | MHC.CM.PN ---
Auth received for [facility] rehab, facility is asking for pt to discharge there tomorrow at 1pm. Hospitalist and pt updated.
[2023-04-26 19:14] VITALS: BP 143/71; PULSE 101; RESP 20; TEMP 37.1; O2SAT 96
[2023-04-26 20:02] LABS: Glucose, Whole Blood 240 mg/dL (60-115)
[2023-04-26 23:20] VITALS: BP 133/63; PULSE 100; RESP 18; TEMP 36.1; O2SAT 98
[2023-04-27 03:31] VITALS: BP 139/76; PULSE 98; RESP 18; TEMP 36; O2SAT 98
[2023-04-27 07:33] VITALS: BMI 35.7
[2023-04-27 07:34] VITALS: BP 156/72; PULSE 96; RESP 20; TEMP 36.1; O2SAT 96
[2023-04-27 07:36] LABS: Glucose, Whole Blood 287 mg/dL (60-115)
[2023-04-27] MEDS: Potassium Chloride ER 20 MEQ TAB.ER.PRT 40 MEQ PO (08:45)
[2023-04-27] MEDS: Furosemide 40 MG TABLET PO (08:45)
[2023-04-27] MEDS: Heparin Sodium,Porcine 5,000 UNIT/ML VIAL 5000 UNIT SUBCUT (08:45)
[2023-04-27] MEDS: Insulin Lispro 100 UNIT/ML 3 ML VIAL SUBCUT ×4 (08:46→12:35)
[2023-04-27] MEDS: Insulin Glargine,Hum.rec.anlog 100 UNIT/ML 10 ML VIAL 30 UNIT SUBCUT (08:46)
[2023-04-27] MEDS: Nystatin Powder 15 GM BOTTLE 1 APPL TOPICAL (08:47)
--- NOTE | 2023-04-27 11:08 | MHC.CLN ---
F/U PO INTAKE 50-100% DIET RX: 2200DM-APPROPRIATE CONTINUE TO MONITOR PO INTAKE
[2023-04-27 11:40] VITALS: BP 142/71; PULSE 101; RESP 20; TEMP 36.3; O2SAT 98
--- NOTE | 2023-04-27 11:41 | P.DS_ITS ---
DS: Providers Provider Date of Service: 04/27/23 Date of admission: 04/09/23 12:52 Date of discharge: 04/27/23 Primary care physician: Yumiko Tony MD Consults: 04/09/23 16:16 Consult to Infectious Diseases Routine Consulting Provider: STEPHY MANRIQUEZ Reason for consultation: Pyelonephritis Has provider been notified: No 04/11/23 10:22 Consult to Nephrology Routine Consulting Provider: [facility] Reason for consultation: Acute kidney injury Has provider been notified: No 04/24/23 07:24 Consult to Cardiology Routine Consulting Provider: [facility] Reason for consultation: CHF, lasix drip DS: Diagnosis Discharge Diagnosis (1) E coli bacteremia: Status: Acute (2) Acute renal failure: Status: Acute (3) Acute metabolic encephalopathy: Status: Acute (4) Septic shock: Status: Acute (5) Atrial fibrillation with rapid ventricular response: Status: Acute (6) Diabetic keto-acidosis: Status: Acute (7) Volume overload: Status: Acute (8) Hypokalemia: Status: Acute (9) Uncontrolled type 2 diabetes mellitus with hyperglycemia: Status: Acute (10) Acute heart failure with preserved ejection fraction (HFpEF): Status: Acute DS: Summary Hospital Course Hospital Course: from admission H+P by retail planning manager Elisabet Montez MD, 04/09/23: Patient is a 38 Y F with diabetes mellitus, found down by patient boyfriend, found by EMS to be hypotensive, hypothermic; of note, patient found to be in atrial fibrillation with rapid ventricular response, s/p synchronized cardioversion; in ED, insulin gtt, fluid resuscitation, and re-warming initiated; upon further history-taking, patient boyfriend reports patient is unfortunately not compliant with home insulin regimen, endorsed general fatigue, nausea, and decreased PO intake since 04/07, and ultimately found down in kitchen this AM She was admitted to the ICU for insulin drip for DKA and septic shock requiring pressors. Source of infection was E coli bacteremia/pyelonephritis. ICU course complicated by acute hypoxic respiratory failure requiring high-flow nasal canula, ELISABETH, and encephalopathy. She was stepped down to the hospitalist service on 04/21/23. Hospital course by problem: acute hypoxic respiratory failure due to volume overload/acute HFpEF JA - Diuresed with furosemide infusion and acetazolamide and transitioned to maintenance PO furosemide with potassium replacement. Currently on 2L O2 via NC plus CPAP at night. - Likely has undiagnosed JA and will need outpatient sleep study for home CPAP. Should follow up with Pulmonology for this study. DM2 with hyperglycemia/DKA - A1c 13. Transitioned from insulin drip to basal-bolus insulin, Lantus 30 units bid plus Humalog 5 units tidac with sliding scale in addition. septic shock due to E coli bacteremia/pyelonephritis - Weaned off pressors and required extensive fluid resuscitation, which put her in volume overload. Treated with 14 days of IV ceftriaxone ELISABETH - Due to septic ATN. Creatinine normalized with treatment of the septic shock. Anemia Thrombocytopenia - Due to sepsis/acute illness. H+H stable and platelet count normalized. Metabolic encephalopathy - Due to ELISABETH and DKA. Resolved. Lone AF with RVR - Attributed to acidosis. Did not recur. Per Cardiology: Would favor monitoring without anticoagulation currently. She can have a cardiac event monitor as outpatient to assess for episodes of atrial fibrillation. If she has recurrent episodes lasting more than 6 hours then we can have a discussion about anticoagulation but do not favor starting anticoagulation currently. JuHypokalemia Time Attestation Discharge coordination time: Greater than 30 minutes Quality: Safe Use of Opioids Does Pt have an Active Cancer Diagnosis on the Problem List?: No Quality: Stroke Does the patient have a stroke diagnosis?: No Physical Exam Vital Signs: Vital Signs: Last Vital Signs Temp 97.0 F 04/27/23 07:34 Pulse 96 04/27/23 07:34 Resp 20 04/27/23 07:34 BP 156/72 H 04/27/23 07:34 Pulse Ox 96 04/27/23 07:34 O2 Del Method Nasal Cannula 04/27/23 07:34 O2 Flow Rate 1 04/27/23 07:34 FiO2 55 04/21/23 12:00 Oxygen Flow Rate 4 04/09/23 10:23 BMI result Body Mass Index 35.7 Gen: in no acute distress HEENT: sclera anicteric, moist mucus membranes Neck: supple Lungs: clear to auscultation bilaterally Heart: regular rate and rhythm, no murmurs Abd: soft, non-tender, non-distended Ext: no edema Skin: warm/well-perfused Neuro: alert and oriented x3, no focal findings Psych: appropriate affect DS: Data Data Completed and Pending Completed studies during hospitalization [Text1]: Laboratory Results WBC 7.6 X10*3/uL (4.8-10.8) 04/24/23 06:49 RBC 2.61 X10*6/uL (4.20-5.50) L 04/24/23 06:49 Hgb 8.1 g/dl (12.0-16.0) L 04/24/23 06:49 Hct 25.6 % (37.0-47.0) L 04/24/23 06:49 MCV 98.1 fL (80.0-98.0) H 04/24/23 06:49 MCH 31.0 pg (27.0-33.0) 04/24/23 06:49 MCHC 31.6 g/dl (31.0-35.0) 04/24/23 06:49 RDW 12.9 % (11.0-16.0) 04/24/23 06:49 Plt Count 327 X10*3/uL (160-400) 04/24/23 06:49 MPV 10.4 fL (9.4-12.3) 04/24/23 06:49 Immature Gran % (Auto) 0.7 % (0.0-0.4) H 04/22/23 07:07 Neut % (Auto) 77.5 % (45-73) H 04/22/23 07:07 Lymph % (Auto) 17.0 % (20-40) L 04/22/23 07:07 Anson % (Auto) 4.3 % (2-11) 04/22/23 07:07 Eos % (Auto) 0.0 % (0-4) 04/22/23 07:07 Baso % (Auto) 0.5 % (0-2) 04/22/23 07:07 Lymph # (Auto) 1.6 X10*3/uL (1.2-4.9) 04/22/23 07:07 Anson # (Auto) 0.4 X10*3/uL (0.1-1.2) 04/22/23 07:07 Eos # (Auto) 0.0 X10*3/uL (0.0-0.4) 04/22/23 07:07 Baso # (Auto) 0.1 X10*3/uL (0.0-0.2) 04/22/23 07:07 Abs Immat Gran (auto) 0.07 X10*3/uL (0.00-0.03) H 04/22/23 07:07 Absolute Neuts (auto) 7.4 x10*3/uL (2.0-8.3) 04/22/23 07:07 Absolute Nucleated RBC 0.000 X10*3/uL (0.0-0.012) 04/24/23 06:49 Nucleated RBC % (auto) 0.0 /100WBC (0.0-0.2) 04/24/23 06:49 Neutrophils % (Manual) 84 % (45-73) H 04/16/23 04:33 Band Neutrophils % 5 % (3-5) 04/16/23 04:33 Lymphocytes % (Manual) 5 % (20-40) L 04/16/23 04:33 Monocytes % (Manual) 5 % (2-11) 04/16/23 04:33 Eosinophils % (Manual) 2 % (0-4) 04/14/23 04:38 Basophils % (Manual) 1 % (0-2) 04/15/23 05:04 Metamyelocytes % 1 % 04/16/23 04:33 Myelocytes % 1 % 04/14/23 04:38 Abs Neuts (Manual) 15.5 X10*3/uL (2.0-8.3) H 04/16/23 04:33 Lymphocytes # (Manual) 0.9 X10*3/uL (1.2-4.9) L 04/16/23 04:33 Monocytes # (Manual) 0.9 X10*3/uL (0.1-1.2) 04/16/23 04:33 Eosinophils # (Manual) 0.3 X10*3/uL (0.0-0.4) 04/14/23 04:38 Basophils # (Manual) 0.1 X10*3/uL (0.0-0.2) 04/15/23 05:04 Metamyelocytes # 0.2 X10*3/uL 04/16/23 04:33 Myelocytes # 0.1 X10*/uL 04/14/23 04:38 Nucleated RBCs 1 /100WBC (0-0) H 04/15/23 05:04 Toxic Granulation PRESENT 04/16/23 04:33 Toxic Vacuolation PRESENT 04/11/23 06:35 Dohle Bodies PRESENT 04/13/23 04:33 Platelet Estimate NORMAL (NORMAL) 04/16/23 04:33 Plt Morphology Comment NORM 04/16/23 04:33 RBC Morphology NOTED 04/16/23 04:33 Polychromasia 1+ (0-2) /OIF 04/16/23 04:33 Hypochromasia 1+ (5-14) /OIF 04/16/23 04:33 Macrocytosis 1+ (5-14) /OIF 04/09/23 14:31 Target Cells 1+ (5-14) /OIF 04/16/23 04:33 Lockwood Cells 1+ (0-2) /OIF 04/11/23 06:35 Acanthocytes (Spur) 3+ (>5) /OIF 04/11/23 06:35 Schistocytes 1+ (0-2) /OIF 04/13/23 04:33 Smear Tech's Comments VERIFIED 04/18/23 04:58 Hold Purple Top SEE NOTE 04/25/23 06:14 PT 12.6 SEC (11.1-13.3) 04/09/23 10:25 INR 1.0 (0.9-1.1) 04/09/23 10:25 APTT 27.8 SEC (26.0-36.4) 04/09/23 10:25 VBG pH 7.53 (7.32-7.43) H 04/22/23 07:17 VBG pCO2 40 mmHg 04/22/23 07:17 VBG pO2 169 mmHg 04/22/23 07:17 VBG HCO3 34 mmol/L (22-26) H 04/22/23 07:17 VBG O2 Saturation 100.0 % 04/22/23 07:17 VBG Base Excess 11.4 mmol/L 04/22/23 07:17 Sodium 136 mmol/L (135-145) 04/25/23 06:14 Potassium 4.2 mmol/L (3.3-5.1) 04/25/23 06:14 Chloride 101 mmol/L (96-108) 04/25/23 06:14 Carbon Dioxide 27 mmol/L (22-29) 04/25/23 06:14 Anion Gap 12 (12-20) 04/25/23 06:14 BUN 23 mg/dL (9-16) H 04/25/23 06:14 Creatinine 0.93 mg/dL (0.5-1.4) 04/25/23 06:14 Estim Creat Clear Calc 93.9 04/25/23 06:14 Estimated GFR > 60 04/25/23 06:14 POC Glucose 343 mg/dL (60-115) H 04/27/23 11:41 Random Glucose 234 mg/dL (60-115) H 04/25/23 06:14 Estimat Average Glucose 326 mg/dL 04/09/23 10:25 Hemoglobin A1c % 13.0 % (<6.0) H 04/09/23 10:25 Lactic Acid 1.3 mmol/L (0.5-2.0) 04/09/23 10:26 Calcium 9.7 mg/dL (8.4-10.2) D 04/25/23 06:14 Phosphorus 3.9 mg/dL (2.7-4.5) 04/22/23 07:07 Magnesium 1.7 mg/dL (1.6-2.6) 04/22/23 07:07 Total Bilirubin 0.6 mg/dL (0.0-1.0) 04/20/23 04:22 AST 24 U/L (5-31) 04/20/23 04:22 ALT 10 U/L (0-31) 04/20/23 04:22 Alkaline Phosphatase 164 U/L (39-117) H 04/20/23 04:22 Ammonia 51 umol/L (13-55) 04/13/23 15:39 Total Creatine Kinase 590 U/L (26-140) H 04/09/23 17:50 Troponin I High Sens < 2.7 ng/L (<3.5-17.0) 04/09/23 10:26 B-Natriuretic Peptide 15 pg/mL (<100) 04/25/23 06:14 Total Protein 6.9 g/dL (6.5-8.0) 04/20/23 04:22 Albumin 3.9 g/dL (3.5-5.0) 04/22/23 07:07 Triglycerides 128 mg/dL (<150) 04/13/23 15:39 Beta-Hydroxybutyrate 11.99 mmol/L (0.02-0.27) H 04/09/23 11:14 TSH 1.57 uIU/mL (0.32-4.0) 04/09/23 10:59 Beta HCG, Quant < 2 mIU/mL 04/09/23 11:28 Hold Red Top See Note 04/21/23 18:21 Urine Color Yellow 04/09/23 11:14 Urine Appearance Clear 04/09/23 11:14 Urine pH 5.5 (5.0-9.0) 04/09/23 11:14 Ur Specific Denhoff 1.020 (1.005-1.025) 04/09/23 11:14 Urine Protein 100 (2+) mg/dL (Neg-Trace) H 04/09/23 11:14 Urine Glucose (UA) >=1000 mg/dL (Negative) H 04/09/23 11:14 Urine Ketones 80 mg/dL (Negative) 04/09/23 11:14 Urine Blood Moderate (2+) (Negative) H 04/09/23 11:14 Urine Nitrite Negative (Negative) 04/09/23 11:14 Ur Leukocyte Esterase Negative (Negative) 04/09/23 11:14 Urine RBC 0-2 /HPF (0-2) 04/09/23 11:14 Urine WBC 0-5 /HPF (0-5) 04/09/23 11:14 Ur Squamous Epith Cells 0-2 /HPF (0-2) 04/09/23 11:14 Urine Bacteria None Seen (None Seen) 04/09/23 11:14 Hyaline Casts 3-5 /LPF (0-2) 04/09/23 11:14 CSF Tube Number 1 04/14/23 11:44 CSF Tube Number 3 04/14/23 11:44 CSF Tube Number 4 04/14/23 11:44 CSF Volume 2.0 ML 04/14/23 11:44 CSF Volume 3.0 ML 04/14/23 11:44 CSF Appearance HAZY 04/14/23 11:44 CSF Appearance HAZY 04/14/23 11:44 CSF Color COLORLESS 04/14/23 11:44 CSF Color STRAW 04/14/23 11:44 CSF WBC 12 MM*3 H* 04/14/23 11:44 CSF WBC 15 MM*3 H* 04/14/23 11:44 CSF RBC 47 MM*3 04/14/23 11:44 CSF RBC 437 MM*3 04/14/23 11:44 CSF Neutrophils 5 % 04/14/23 11:44 CSF Neutrophils 8 % 04/14/23 11:44 CSF Lymphocytes 74 % 04/14/23 11:44 CSF Lymphocytes 82 % 04/14/23 11:44 CSF Monocytes % 10 % 04/14/23 11:44 CSF Monocytes % 21 % 04/14/23 11:44 CSF Appearance (b) Clear, Colorless 04/14/23 11:44 CSF Glucose 97 mg/dL 04/14/23 11:44 CSF Total Protein 29.4 mg/dL (15-45) 04/14/23 11:44 CSF Lyme IgG (Immblot) NO BANDS DETECTED 04/14/23 11:44 CSF Lyme IgG Bands Det TNP 04/14/23 11:44 CSF Lyme IgM (Immblot) NO BANDS DETECTED 04/14/23 11:44 CSF Lyme IgM Bands Det TNP 04/14/23 11:44 CSF C.neoform/gat PCR Not Detected (Not Detect.) 04/14/23 11:44 CSF CMV DNA (PCR) Not Detected (Not Detect.) 04/14/23 11:44 CSF Enterovirus (PCR) Not Detected (Not Detect.) 04/14/23 11:44 CSF E. coli K1 (PCR) Not Detected (Not Detect.) 04/14/23 11:44 CSF H. influenzae (PCR) Not Detected (Not Detect.) 04/14/23 11:44 CSF HSV I (PCR) Not Detected (Not Detect.) 04/14/23 11:44 CSF HSV II (PCR) Not Detected (Not Detect.) 04/14/23 11:44 CSF HHV 6 (PCR) Not Detected (Not Detect.) 04/14/23 11:44 CSF L.monocytogenes PCR Not Detected (Not Detect.) 04/14/23 11:44 CSF N. meningitidis PCR Not Detected (Not Detect.) 04/14/23 11:44 KARYN Virus DNA Rpt Status Not Detected (Not Detected) 04/14/23 11:44 CSF Parechovirus (PCR) Not Detected (Not Detect.) 04/14/23 11:44 CSF S. agalactiae (PCR) Not Detected (Not Detect.) 04/14/23 11:44 CSF S. pneumoniae (PCR) Not Detected (Not Detect.) 04/14/23 11:44 CSF VZV (PCR) Not Detected (Not Detect.) 04/14/23 11:44 Random Vancomycin 32.9 mcg/mL (15-20) H* 04/11/23 12:18 Salicylates < 5.0 mg/dL (15-30) L 04/09/23 14:31 Urine Opiates Screen Not Detected (Not Detect) 04/09/23 11:14 Urine Fentanyl Screen Not Detected (Not Detect) 04/09/23 11:14 Acetaminophen < 3 mcg/mL (<30) 04/09/23 14:31 Ur Barbiturates Screen Not Detected (Not Detect) 04/09/23 11:14 Ur Phencyclidine Scrn Not Detected (Not Detect) 04/09/23 11:14 Ur Amphetamines Screen Not Detected (Not Detect) 04/09/23 11:14 U Benzodiazepines Scrn Not Detected (Not Detect) 04/09/23 11:14 Urine Cocaine Screen Not Detected (Not Detect) 04/09/23 11:14 U Marijuana (THC) Screen Not Detected (Not Detect) 04/09/23 11:14 Ethyl Alcohol < 10 mg/dL 04/09/23 14:31 Influenza Type A (PCR) NEGATIVE (Negative) 04/09/23 10:59 Influenza Type B (PCR) NEGATIVE (Negative) 04/09/23 10:59 RSV RNA Qual (PCR) NEGATIVE (Negative) 04/09/23 10:59 SARS-CoV-2 RNA (RT-PCR) NEGATIVE (Negative) 04/09/23 10:59 Blood Type O Positive 04/09/23 14:31 Antibody Screen NEGATIVE 04/09/23 14:31 Impressions Abdomen/Pelvis CT 04/09/23 13:42 IMPRESSION: Limited by motion. Striated right nephrogram with probable induration of surrounding fat. The findings are consistent with pyelonephritis. Cervical Spine CT 04/09/23 13:42 IMPRESSION: Head: Unremarkable CT scan of the head. No evidence of acute territorial infarct or hemorrhage. Cervical Spine: No evidence of acute cervical spine fracture and no posttraumatic spinal subluxation. Chest CT 04/09/23 13:42 IMPRESSION: Limited by motion. Striated right nephrogram with probable induration of surrounding fat. The findings are consistent with pyelonephritis. Head CT 04/12/23 10:16 IMPRESSION: 1. Unremarkable noncontrast brain CT. No acute hemorrhage, mass effect or shift. Chest X-Ray 04/20/23 10:15 IMPRESSION: 1. New bilateral patchy haziness in mid and lower lungs question edema versus infiltrate. 2. There is a right central venous catheter tip in mid SVC. Discharge Plan Discharge Anticipated Discharge Date/Time: 04/27/23 11:36 Patient Disposition: Xfer Inpatient Rehab Fac Discharge Diagnosis: acute hypoxic respiratory failure due to acute HFpEF obstructive sleep apnea DM2 with DKA ELISABETH due to septic shock due to E coli bacteremia/pyelonephritis anemia + thrombocytopenia metabolic encephalopathy lone atrial fibrillation hypokalemia Referrals: [facility] [Outside] - 1 Week Trudy Mondragon MD [Physician] - 1 Week Yumiko Tony MD [Primary Care Provider] - 1 Week Han Araujo MD [Physician] - 2 Weeks Truong Gonsalez MD [Physician] - 2 Weeks Discharge Medications: New furosemide 40 mg Tablet 40 mg PO DAILY Qty: 30 0RF Protocol: Hold for SBP< HOLD for SBP < : 90 acetaminophen 325 mg Tablet 650 mg PO Q4H PRN (Reason: Fever >101) Qty: 1 0RF insulin glargine [Lantus U-100 Insulin] 100 unit/mL Solution 30 unit subcut BID Qty: 1 0RF potassium chloride 20 mEq Tablet,Er Particles/Crystals 40 meq PO BID Qty: 60 0RF nystatin 100,000 unit/gram Powder 1 appl topical BID Qty: 1 0RF Protocol: Apply to: Apply to: Groin insulin lispro [Humalog U-100 Insulin] 100 unit/mL Solution See Protocol subcut QIDACHS Qty: 1 0RF Protocol: Insulin Resistant 1st 24 hours Less than or equal to 110 ---- Give (units): 0 111 to 150 Give (units): 2 151 to 200 Give (units): 4 201 to 250 Give (units): 6 251 to 300 Give (units): 8 301 to 350 Give (units): 10 Greater than 350 Give (units): 12 Call MD if Blood Glucose > : 350 insulin lispro [Humalog U-100 Insulin] 100 unit/mL Solution 5 unit subcut QIDACHS Qty: 1 0RF Discontinued insulin lispro 100 unit/mL insulin pen See Protocol subcut TIDWM Protocol: Insulin Correction Scale Less than or equal to 110 ---- Give (units): 0 111 to 150 Give (units): 0 151 to 200 Give (units): 4 201 to 250 Give (units): 6 251 to 300 Give (units): 8 301 to 350 Give (units): 10 Greater than 350 Give (units): 12 Call MD if Blood Glucose > : 350 insulin glargine [Lantus Solostar U-100 Insulin] 100 unit/mL (3 mL) insulin pen 10 unit subcut BEDTIME Discharge Orders: Discharge Order (Routine); Ordered 04/27/23 Ordered By: Lupe Gan Diet: Diabetic diet Activity on Discharge: As tolerated Stand Alone Forms: Patient Portal Discharge page Care Plan Goals: recovery from critical illness prevention of diabetic complications Health Concerns: acute hypoxic respiratory failure due to acute HFpEF obstructive sleep apnea DM2 with DKA ELISABETH due to septic shock due to E coli bacteremia/pyelonephritis anemia + thrombocytopenia metabolic encephalopathy lone atrial fibrillation hypokalemia Plan of Treatment: transfer to acute rehabilitation outpatient sleep study- see air support control officer to order/follow-up use insulin as prescribed take furosemide as prescribed, along with potassium Low-sodium diet: less than 2000 mg of sodium daily. Weigh yourself daily and call your doctor if your weight goes up by more than 3 lb/day or 5 lb/week. See [facility] in 2 weeks re atrial fibrillation- outpatient monitoring. Please follow up with your primary care doctor within 1 week. Return to the hospital if you experience recurrent or worsening symptoms. Assessment: See Discharge Summary.
[2023-04-27 11:50] LABS: Glucose, Whole Blood 343 mg/dL (60-115)
--- NOTE | 2023-04-27 11:50 | MHC.CM.PN ---
Pt is medically cleared for D/C to [facility] for acute rehab today. Transport set up via BLS at 1pm.
== END 2023-04-27 13:00 | DRG 720 ==
LOC: HO.ED 12:46 → HO.EDOVER 12:53 → HO.ICU 13:15 → HO.IMC 04-15 08:56 → HO.ICU 04-15 09:06 → HO.IMC 04-21 14:12
PROVIDERS: Internal Medicine Pulmonary Disease; Nurse Practitioner Acute Care; Physician Assistant Medical; Radiology Vascular & Interventional Radiology; Registered Nurse Community Health; Admitting Provider Internal Medicine Critical Care Medicine; Emergency Provider Emergency Medicine Emergency Medical Services; PCP Internal Medicine; Visit Provider Family Medicine
PROC: 009U3ZZ Drainage of Spinal Canal, Percutaneous Approach (ICD-10-PCS; CPT 62270; principal; 2023-04-14 11:00)
DX: A41.51 Sepsis due to Escherichia coli [E. coli] (principal); N17.0 Acute kidney failure with tubular necrosis; R65.21 Severe sepsis with septic shock; G92.8 Other toxic encephalopathy; I50.31 Acute diastolic (congestive) heart failure; E11.10 Type 2 diabetes mellitus with ketoacidosis without coma; N10 Acute pyelonephritis; E66.01 Morbid (severe) obesity due to excess calories; Z68.41 Body mass index [BMI] 40.0-44.9, adult; E86.1 Hypovolemia; D50.9 Iron deficiency anemia, unspecified; D69.59 Other secondary thrombocytopenia; E87.6 Hypokalemia; E87.5 Hyperkalemia; G47.33 Obstructive sleep apnea (adult) (pediatric); Z20.822 Contact with and (suspected) exposure to COVID-19; Z91.148 Patient's other noncompliance with medication regimen for other reason; Z79.4 Long term (current) use of insulin; Z79.899 Other long term (current) drug therapy
CPT/HCPCS: 0241U; 36415; 62328; 70450; 71045; 71260; 72125; 74177; 80048; 80053; 80143; 80179; 80202; 80307; 81001; 82010; 82040; 82140; 82550; 82803; 82945; 82947; 83036; 83605; 83735; 83880; 84100; 84157; 84443; 84478; 84484; 84702; 85007; 85025; 85027; 85610; 85730; 86617; 86850; 86900; 86901; 87015; 87040; 87070; 87077; 87186; 87205; 87483; 87798; 89051; 92526; 92610; 93005; 93306; 94640; 94660; 95806; 97110; 97162; 97165; 97166; 99285; C1758; J0131; J0282; J0283; J0613; J0696; J1120; J1160; J1630; J1644; J1720; J1940; J2060; J2185; J2250; J2270; J2405; J2543; J2598; J3010; J3370; J3371; J3475; J3480; J7120; P9047; Q9967

== ENCOUNTER 2023-04-09 12:52 | Outpatient (BNV) | payer OTHER, SELFPAY | END 2023-04-25 11:24 | PROVIDERS: Admitting Provider Internal Medicine Critical Care Medicine; Emergency Provider Emergency Medicine Emergency Medical Services; PCP Internal Medicine; Visit Provider Internal Medicine | DX: G47.33 Obstructive sleep apnea (adult) (pediatric) (principal) | CPT/HCPCS: 95806 ==

== ENCOUNTER 2023-04-09 12:52 | Outpatient (BNV) | payer OTHER, SELFPAY | END 2023-04-11 07:00 | PROVIDERS: Admitting Provider Internal Medicine Critical Care Medicine; Emergency Provider Emergency Medicine Emergency Medical Services; PCP Internal Medicine; Visit Provider Internal Medicine | DX: A41.9 Sepsis, unspecified organism (principal); R65.21 Severe sepsis with septic shock | CPT/HCPCS: 93306 ==

== ENCOUNTER 2023-04-09 12:52 | Outpatient (BNV) | payer OTHER, SELFPAY | END 2023-04-14 11:15 | PROVIDERS: Admitting Provider Internal Medicine Critical Care Medicine; Emergency Provider Emergency Medicine Emergency Medical Services; PCP Internal Medicine; Visit Provider Radiology Vascular & Interventional Radiology | DX: R41.82 Altered mental status, unspecified (principal) | CPT/HCPCS: 62328 ==

== ENCOUNTER → 2023-04-09 12:52 | Outpatient (BNV) | payer OTHER, SELFPAY | PROVIDERS: Admitting Provider Internal Medicine Critical Care Medicine; Emergency Provider Emergency Medicine Emergency Medical Services; PCP Internal Medicine; Visit Provider Internal Medicine Cardiovascular Disease | DX: I48.91 Unspecified atrial fibrillation (principal); E87.70 Fluid overload, unspecified | CPT/HCPCS: 99223 ==

== ENCOUNTER → 2023-04-09 12:52 | Outpatient (BNV) | payer OTHER, SELFPAY | PROVIDERS: Admitting Provider Internal Medicine Critical Care Medicine; Emergency Provider Emergency Medicine Emergency Medical Services; Visit Provider Internal Medicine Critical Care Medicine | DX: E11.10 Type 2 diabetes mellitus with ketoacidosis without coma (principal); I48.91 Unspecified atrial fibrillation | CPT/HCPCS: 99291; 99292 ==

== ENCOUNTER → 2023-04-09 12:52 | Outpatient (BNV) | payer MEDICAID, OTHER, SELFPAY | PROVIDERS: Admitting Provider Internal Medicine Critical Care Medicine; Emergency Provider Emergency Medicine Emergency Medical Services; PCP Internal Medicine; Visit Provider Physician Assistant Medical | DX: A41.51 Sepsis due to Escherichia coli [E. coli] (principal); R65.21 Severe sepsis with septic shock; N17.9 Acute kidney failure, unspecified; G93.41 Metabolic encephalopathy; I48.91 Unspecified atrial fibrillation; E11.10 Type 2 diabetes mellitus with ketoacidosis without coma; E11.65 Type 2 diabetes mellitus with hyperglycemia; I50.31 Acute diastolic (congestive) heart failure; E87.70 Fluid overload, unspecified; E87.6 Hypokalemia | CPT/HCPCS: 99232; 99239; 99499 ==

== ENCOUNTER → 2023-04-09 12:52 | Outpatient (BNV) | payer OTHER, SELFPAY | PROVIDERS: Admitting Provider Internal Medicine Critical Care Medicine; Emergency Provider Emergency Medicine Emergency Medical Services; PCP Internal Medicine; Visit Provider Internal Medicine Hypertension Specialist | DX: N17.0 Acute kidney failure with tubular necrosis (principal); E87.0 Hyperosmolality and hypernatremia | CPT/HCPCS: 99223; 99231; 99232; 99233 ==

== ENCOUNTER 2023-07-07 11:17 | Emergency (ER) | payer OTHER, SELFPAY ==
--- NOTE | ~2023-07-07 | XR_ITS ---
EXAMINATION: XR CHEST CLINICAL INFORMATION: Chest pain COMPARISON: Chest radiograph from 04/09/2023 and 04/20/20202022 TECHNIQUE: 2 views of the chest were obtained. FINDINGS: Resolution of previously identified patchy bibasilar radiopacities. Slight left basilar atelectasis. Elevation the right hemidiaphragm. No pneumothorax. Trachea is midline. Cardiac mediastinal silhouette is not enlarged. No large pleural effusion. Osseous structures are intact. Soft tissues are unremarkable. XR/XR chest 2V IMPRESSION: 1. Resolution of previously identified patchy bibasilar radiopacities. 2. Slight left basilar atelectasis. 3. Elevation the right hemidiaphragm.
[2023-07-07 11:22] VITALS: BP 129/69; PULSE 110; O2SAT 99
--- NOTE | 2023-07-07 11:25 | ECG_ITS ---
Test Reason : tachy Blood Pressure : / mmHG Vent. Rate : 107 BPM Atrial Rate : 107 BPM P-R Int : 132 ms QRS Dur : 066 ms QT Int : 340 ms P-R-T Axes : 028 026 037 degrees QTc Int : 453 ms Sinus tachycardia Otherwise normal ECG No previous ECGs available Referred By: Generic ED Physician Electronically Signed By:FELICIANO ALEMAN
--- NOTE | 2023-07-07 11:33 | ED_ITS ---
HPI - Extremity Problem General Chief complaint: Chest Pain Stated complaint: CP W/EXER,FAST HR 110,FROM MD OFF PER EMS Time Seen by Provider: 07/07/23 11:33 Source: patient and EMS Mode of arrival: EMS Limitations: no limitations History of Present Illness HPI Narrative: 38 yo female with a pmhx of heart failure and DM type 2 presents to the ED today c/o chest pain which started at 0830 this morning. 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 She states the pain feels sharp and is located directly in the middle of her chest with shortness of breath at rest, feels sweaty , and has a temporal headache. The pain gets worse with movement and is relieved when at rest. She reports that she took her insulin this morning but has not taken any of her other daily meds. She denies nausea, vomiting, or vision changes. Patient states that she has no pain now and it is completely resolved. Onset (ago): hour(s) Pain Consistency: constant Severity scale (1-10): 3 Quality: sharp Radiation: none Relieving factors: rest Exacerbating factors: exertion and palpation Associated symptoms: shortness of breath Related Data Previous Rx's Medication Instructions Recorded acetaminophen 325 mg tablet 650 mg (2 x 325 mg) PO Q4H PRN 04/27/23 Fever >101 #1 tab furosemide 40 mg tablet 40 mg PO DAILY #30 tabs 04/27/23 insulin glargine 100 unit/mL 30 unit (0.3 mL) subcut BID #1 mL 04/27/23 subcutaneous solution (Lantus U-100 Insulin) insulin lispro 100 unit/mL 5 unit (0.05 mL) subcut QIDACHS #1 04/27/23 subcutaneous solution (Humalog mL U-100 Insulin) insulin lispro 100 unit/mL See Protocol subcut QIDACHS #1 mL 04/27/23 subcutaneous solution (Humalog U-100 Insulin) nystatin 100,000 unit/gram topical 1 appl topical BID #1 g 04/27/23 powder potassium chloride 20 mEq 40 meq (2 x 20 mEq) PO BID #60 tabs 04/27/23 tablet,extended release(part/cryst) Allergies Allergy/AdvReac Type Severity Reaction Status Date / Time No Known Allergies Allergy Verified 07/07/23 11:38 [No Known Allergies*] Review of Systems 2 Constitutional: Constitutional: Reports no additional constitutional complaints, Denies chills, Denies fever(s) and Denies night sweats Eyes: Eyes: Reports no additional eye complaints, Denies blurry vision, Denies change in vision, Denies diplopia, Denies eye discharge, Denies loss of vision and Denies eye pain ENT: Denies dizziness Cardiovascular: Cardiovascular: Reports no additional cardiovascular complaints, Reports chest pain (now resolved), Denies lightheadedness, Denies Loss of Consciousness and Reports dyspnea (now resolved) Respiratory: Respiratory: Reports no additional respiratory complaints and Reports dyspnea (now resolved) Gastrointestinal: Gastrointestinal: Reports no additional gastrointestinal complaints, Denies abdominal pain, Denies melena, Denies hematochezia, Denies change in bowel habits and Denies change in stool character Genitourinary: Genitourinary: Denies hematuria, Denies urinary frequency, Denies dysuria, Denies urinary incontinence, Denies urinary hesitancy and Denies urinary urgency Musculoskeletal: Musculoskeletal: Reports no additional musculoskeletal complaints, Denies numbness and Denies tingling Neurologic: Denies dizziness, Denies loss of vision, Denies numbness and Denies tingling Psychiatric: Psychiatric: Reports no additional psychiatric complaints Endocrine: Endocrine: Reports no additional endocrine complaints Hematologic/Lymphatic: Hematologic/Lymphatic: Reports no additional hematologic/lymphatic complaints Allergic/Immunologic: Allergic/Immunologic: Reports no additional allergic/immunologic complaints [facility] Past Medical History Attestation statement: The following information was validated with the patient. Source: old records reviewed and nursing notes reviewed Medical History Diabetes Social History Social History Household Members: Significant Other and Children Housing: House Do you presently have visiting nurse or other home services: No Unable to assess alcohol history related to: Unable to respond Patient Tobacco Use Status: Refuse Tobacco use screen Smoked in Last 30 Days: No Use of substances other than those prescribed or required for medical reasons: No Advance Directives: Yes Advance Directives on File: Yes Advance Directives Date on File: 04/28/23 Patient : No service: No Physical Exam 2 Vital Signs: Vital Signs: Last Vital Signs Temp 97.8 F 07/07/23 14:00 Pulse 114 H 02/08/24 14:00 Resp 20 07/07/23 14:00 BP 103/60 07/07/23 14:00 Pulse Ox 98 07/07/23 14:00 O2 Del Method Room Air 07/07/23 14:00 BMI result Body Mass Index 36.0 Const: General: no acute distress Nutritional Appearance: well nourished Orientation/consciousness: patient oriented x3 Limitations: no limitations HEENT: Head: Yes normal to inspection and Yes atraumatic Ears: hearing grossly normal bilaterally and external ears normal General nose exam: Normal external nose present, no nasal discharge noted and no epistaxis Face and sinus: Yes normal facial exam, No abrasion and No laceration Mouth: Normal oral and palatal mucosa present, no drooling and no muffled voice Eyes: General: appearance normal, both eyes and all related structures P eriorbital: periorbital findings normal Eyelids: Yes eyelids normal C onjunctivae: conjunctivae normal Pupils: Equal, round and reactive pupils present EOM: EOMs intact bilaterally Neck: Neck: Yes normal visual inspection, Yes full ROM and Yes no lymphadenopathy Chest: Chest palpation & inspection: normal inspection of the chest Resp: Effort & Inspection: normal respiratory effort and able to speak in complete sentences Auscultation: clear to auscultation bilaterally Cardio: Rate: tachycardic Rhythm: regular rhythm Heart sounds: S1 normal heart sound present and S2 normal heart sound present GI: Inspection: Yes normal to inspection Neuro: General: patient oriented x3 Cranial nerves: Yes Equal, round and reactive pupils present Cognition (Neuro): normal cognition Motor exam (neuro): 5/5 motor strength present throughout Sensory Exam: Normal double simultaneous stimulation for sensation Coordination: [id number] test normal Extrem: General: Yes normal to inspection Psych: Appearance: grossly normal Mental Status: mental status grossly normal Affect: normal affect Attitude: cooperative Thought process: N ormal thought process present Thought content: Normal thought content present Insight: Good insight present (Psych) Medications Administered Discontinued Medications Generic Name Dose Route Start Last Admin Trade Name Freq PRN Reason Stop Dose Admin Albuterol/Ipratropium 3 ml 07/07/23 12:19 07/07/23 12:23 Albuterol/Iprat 2.5/0.5mg 3 Ml Ampul.Neb INHALE 07/07/23 12:20 3 ml ONCE ONE Administration Medical Decision Making Medical Decision Making MDM Narrative: Patient is a 38 year old assigned female at with a history of DM and heart failure secondary to aggressive fluid resuscitation during an episode of DKA presenting to the emergency department today with exertional chest pain and shortness of breath. Patient's physical exam was as noted in the physical exam portion of this note. Patient's blood work was unremarkable. Patient's EKG was unremarkable. Patient's chest x-ray showed no acute process. I spoke to the contact manager pulmonary care nurse who agreed with discharging the patient and having her follow up outpatient. I explained my physical exam findings as well as all test results to the patient. I answered all questions asked by the patient. Anupam was given a breathing treatment while in the department which is what contributed to the patient's tachycardia. I stressed the importance of the patient taking her medication as prescribed. I stressed the importance of the patient following up with her primary care provider and a contact manager. I stressed the importance of the patient returning to the emergency department immediately if her symptoms were to worsen or if she were to develop any dizziness, shortness of breath, difficulty breathing, chest pain, blurry vision, loss of vision, nausea, vomiting, abdominal pain, fever, chills, back pain, or any other complaints. Patient verbalized agreement and understanding with this treatment plan and discharge. Differential Diagnosis Differential Diagnoses: The differential diagnosis associated with the presentation includes STEMI NSTEMI Costochondritis CAD Flu COVID Admission/Observation Consideration of admission/observation: Escalation of care including admission/observation considered Patient would have been admitted to the hospital had her work up had any findings where hospital admission was appropriate and her clinical presentation warranted hospital admission. Consult Healthcare Provider Management of the patient was discussed with: Drafting Teacher (spoke to the contact manager as noted in the MDM rationale portion of this note.) Lab Data [facility] Lab Attestation statement: I reviewed the patient's lab results. My interpretation of these results are in the MDM Rationale portion of this note. 07/07/23 12:09 07/07/23 13:11 Labs: Lab Results 07/07/23 07/07/23 07/07/23 Range/Units 12:09 12:10 13:11 WBC 8.6 (4.8-10.8) X10*3/uL RBC 4.65 D (4.20-5.50) X10*6/uL Hgb 14.2 D (12.0-16.0) g/dl Hct 42.3 D (37.0-47.0) % MCV 91.0 (80.0-98.0) fL MCH 30.5 (27.0-33.0) pg MCHC 33.6 (31.0-35.0) g/dl RDW 12.4 (11.0-16.0) % Plt Count 274 (160-400) X10*3/uL MPV 9.2 L (9.4-12.3) fL Immature Gran % (Auto) 0.2 (0.0-0.4) % Neut % (Auto) 64.0 (45-73) % Lymph % (Auto) 28.1 (20-40) % [place] % (Auto) 7.0 (2-11) % Eos % (Auto) 0.0 (0-4) % Baso % (Auto) 0.7 (0-2) % Lymph # (Auto) 2.4 (1.2-4.9) X10*3/uL [place] # (Auto) 0.6 (0.1-1.2) X10*3/uL Eos # (Auto) 0.0 (0.0-0.4) X10*3/uL Baso # (Auto) 0.1 (0.0-0.2) X10*3/uL Abs Immat Gran (auto) 0.02 (0.00-0.03) X10*3/uL Absolute Neuts (auto) 5.5 (2.0-8.3) x10*3/uL Absolute Nucleated RBC 0.000 (0.0-0.012) X10*3/uL Nucleated RBC % (auto) 0.0 (0.0-0.2) /100WBC Sodium 139 (135-145) mmol/L Potassium 3.6 (3.3-5.1) mmol/L Chloride 103 (96-108) mmol/L Carbon Dioxide 26 (22-29) mmol/L Anion Gap 14 (12-20) BUN 20 H (9-16) mg/dL Creatinine 1.01 (0.5-1.4) mg/dL Estim Creat Clear Calc 78.4 Estimated GFR > 60 Random Glucose 155 H (60-115) mg/dL Calcium 9.6 (8.4-10.2) mg/dL Magnesium 1.9 (1.6-2.6) mg/dL Total Bilirubin 0.2 (0.0-1.0) mg/dL AST 11 (5-31) U/L ALT 8 (0-31) U/L Alkaline Phosphatase 63 (39-117) U/L Troponin I High Sens 3.6 4.4 (<3.5-17.0) ng/L B-Natriuretic Peptide < 10 (<100) pg/mL Total Protein 7.7 (6.5-8.0) g/dL Albumin 3.5 (3.5-5.0) g/dL Beta HCG, Quant < 2 mIU/mL COVID-19 (YANIQUE) Negative (Negative) COVID-19 Clin Com See Note Influenza Type A (ANAM) Negative (Negative) Influenza Type B (ANAM) Negative (Negative) Influenza A & B Note See Note Independent Interpretation I performed an independent interpretation of an: EKG and Plain X-Ray Interpretation: My interpretation is in agreement with the radiologist's impression of this imaging study. - EXAMINATION: XR CHEST CLINICAL INFORMATION: Chest pain COMPARISON: Chest radiograph from 04/09/2023 and 04/20/20202022 TECHNIQUE: 2 views of the chest were obtained. FINDINGS: Resolution of previously identified patchy bibasilar radiopacities. Slight left basilar atelectasis. Elevation the right hemidiaphragm. No pneumothorax. Trachea is midline. Cardiac mediastinal silhouette is not enlarged. No large pleural effusion. Osseous structures are intact. Soft tissues are unremarkable. XR/XR chest 2V IMPRESSION: 1. Resolution of previously identified patchy bibasilar radiopacities. 2. Slight left basilar atelectasis. 3. Elevation the right hemidiaphragm. Dictated By: Steve May MD Signed By: Electronically signed by Steve May MD 07/07/23 1325 - Vent. Rate: 107 BPM Atrial Rate: 107 BPM P-R Int: 132 ms QRS Dur: 066 ms QT Int: 340 ms P-R-T Axes: 028 026 037 degrees QTc Int: 453 ms Sinus tachycardia Otherwise normal ECG No previous ECGs available Electronically Signed By:EVELIO ALEMAN Dictated By: Evelio Aleman MD Signed By: Electronically signed by Evelio Aleman MD 07/07/23 1307 Radiology Impression Discussion of test interpretation with radiology: I have reviewed the radiologist's reading. Independent Historian Clinical information obtained from an independent historian. History obtained from or confirmed by: EMS (EMS provided additional history and confirmed the history provided by the patient.) Chronic Conditions Patient?s care impacted by: Diabetes Scores Heart Score History: -1- moderately suspicious ECG: -0- normal Age: -0- < or = 45 Risk factory: -1- 1 or 2 risk factors Troponin: -0- < or = normal limit Score: 2 Risk: 1.7% Critical Care Time Critical Care Time Critical Care Time: Yes Total Critical Care Time: 35 Attestation: I spent 35 minutes of Critical Care Time with this patient. This does not include time spent on separately reported billable procedures. Discharge Plan Discharge Clinical Impression: Atypical chest pain Patient Disposition: Home, Self-Care Instructions: Chest Pain (DC) Additional Instructions: Follow up with your primary care provider and contact manager. Return to the emergency department immediately if your symptoms worsen or if you develop any dizziness, shortness of breath, difficulty breathing, chest pain, blurry vision, loss of vision, nausea, vomiting, abdominal pain, fever, chills, back pain, or any other complaints. Prescriptions: No Action furosemide 40 mg Tablet 40 mg PO DAILY Qty: 30 0RF Protocol: Hold for SBP< HOLD for SBP < : 90 acetaminophen 325 mg Tablet 650 mg PO Q4H PRN (Reason: Fever >101) Qty: 1 0RF insulin glargine [Lantus U-100 Insulin] 100 unit/mL Solution 30 unit subcut BID Qty: 1 0RF potassium chloride 20 mEq Tablet,Er Particles/Crystals 40 meq PO BID Qty: 60 0RF nystatin 100,000 unit/gram Powder 1 appl topical BID Qty: 1 0RF Protocol: Apply to: Apply to: Groin insulin lispro [Humalog U-100 Insulin] 100 unit/mL Solution See Protocol subcut QIDACHS Qty: 1 0RF Protocol: Insulin Resistant 1st 24 hours Less than or equal to 110 ---- Give (units): 0 111 to 150 Give (units): 2 151 to 200 Give (units): 4 201 to 250 Give (units): 6 251 to 300 Give (units): 8 301 to 350 Give (units): 10 Greater than 350 Give (units): 12 Call MD if Blood Glucose > : 350 insulin lispro [Humalog U-100 Insulin] 100 unit/mL Solution 5 unit subcut QIDACHS Qty: 1 0RF Referrals: [facility] [Provider Group] (Call to establish and follow up with a contact manager. ) Trudy Mondragon MD [Primary Care Provider] - Stand Alone Forms: Work/School Release Interventions: ED Discharge Assessment Last Done: 07/07/23 14:20 Discharge Date/Time: 07/07/23 14:21 Print Language: Mongolian
[2023-07-07 11:38] VITALS: BP 148/78; PULSE 107; RESP 16; TEMP 36.6; O2SAT 99; BMI 36.0
[2023-07-07 11:42] VITALS: PULSE 107; RESP 16
[2023-07-07 12:16] LABS: MANUAL DIFF FLAG NO
[2023-07-07 12:20] LABS: Basophils Absolute Auto 0.1 X10*3/uL (0.0-0.2); Basophils Percent Auto 0.7 % (0-2); Hematocrit 42.3 % (37.0-47.0); Hemoglobin 14.2 g/dl (12.0-16.0); Imm Gran Abs Auto 0.02 X10*3/uL (0.00-0.03); Imm Gran Pct Auto 0.2 % (0.0-0.4); Lymphocytes Absolute Auto 2.4 X10*3/uL (1.2-4.9); Lymphocytes Percent Auto 28.1 % (20-40); Mean Corpuscular HGB Conc 33.6 g/dl (31.0-35.0); Mean Corpuscular Hemoglobin 30.5 pg (27.0-33.0); Mean Platelet Volume 9.2 fL (9.4-12.3); Monocytes Absolute Auto 0.6 X10*3/uL (0.1-1.2); Neutrophils Absolute Auto 5.5 x10*3/uL (2.0-8.3); Platelet Count 274 X10*3/uL (160-400); Red Blood Count 4.65 X10*6/uL (4.20-5.50); Red Cell Distribution Width 12.4 % (11.0-16.0); White Blood Count 8.6 X10*3/uL (4.8-10.8)
[2023-07-07 12:23] VITALS: PULSE 109; RESP 20; O2SAT 98
[2023-07-07] MEDS: Albuterol/Iprat 2.5/0.5MG 3 ML AMPUL.NEB INHALE (12:23)
[2023-07-07 12:34] LABS: COVID-19 Test Negative (Negative); IDNOW Serial# 08D9AD1C; IDNOW Serial# 152EDE1D; Influenza A Negative (Negative); Influenza B2 Negative (Negative)
[2023-07-07 12:37] LABS: B Type Natriuretic Peptide < 10 pg/mL (<100)
[2023-07-07 12:38] LABS: Troponin-I High Sensitivity 3.6 ng/L (<3.5-17.0)
[2023-07-07 12:39] LABS: HCG Quantitative < 2 mIU/mL
--- NOTE | 2023-07-07 12:45 | PC.NURSE ---
Pt is a&ox4 coming in from PCP office with cp and tachycardia. Pt denies cp at this time. Has holter monitor in place. skin KARIS, LAURENCE.
[2023-07-07 13:30] LABS: Alanine Aminotransferase 8 U/L (0-31); Albumin Level 3.5 g/dL (3.5-5.0); Alkaline Phosphatase 63 U/L (39-117); Anion Gap 14 (12-20); Aspartate Amino Transferase 11 U/L (5-31); Bilirubin Total 0.2 mg/dL (0.0-1.0); Blood Urea Nitrogen 20 mg/dL (9-16); Calcium 9.6 mg/dL (8.4-10.2); Carbon Dioxide 26 mmol/L (22-29); Chloride 103 mmol/L (96-108); Creatinine Clr Calc Pharmacy 78.4; Estimated Glomerular Filt Rate > 60; Glucose Random 155 mg/dL (60-115); Magnesium 1.9 mg/dL (1.6-2.6); Potassium 3.6 mmol/L (3.3-5.1); Sodium 139 mmol/L (135-145); Total Protein 7.7 g/dL (6.5-8.0)
[2023-07-07 13:37] LABS: Troponin-I High Sensitivity 4.4 ng/L (<3.5-17.0)
[2023-07-07 14:00] VITALS: BP 103/60; PULSE 114; RESP 20; TEMP 36.6; O2SAT 98
== END 2023-07-07 14:21 | disposition home or self-care (01) ==
PROVIDERS: Physician Assistant Medical; Emergency Provider Emergency Medicine; PCP Internal Medicine
DX: R07.89 Other chest pain (principal); R06.02 Shortness of breath; E11.9 Type 2 diabetes mellitus without complications; Z79.4 Long term (current) use of insulin; Z79.899 Other long term (current) drug therapy; Z11.52 Encounter for screening for COVID-19
CPT/HCPCS: 36415; 71046; 80053; 83735; 83880; 84484; 84702; 85025; 87502; 87635; 93005; 94640; 99284; 99285

== ENCOUNTER → 2023-07-07 11:25 | Outpatient (BNV) | payer OTHER, SELFPAY | PROVIDERS: Emergency Provider Emergency Medicine; PCP Internal Medicine; Visit Provider Internal Medicine | DX: R00.0 Tachycardia, unspecified (principal) | CPT/HCPCS: 93010 ==

== ENCOUNTER 2023-10-31 10:30 | Outpatient (REF) | payer OTHER, SELFPAY ==
--- NOTE | 2023-10-31 13:08 | MHC.AU.HA1 ---
Hearing Aid Evaluation Date of Visit: 10/31/23 Historical Information: Description of Hearing: Mild to profound sensorineural hearing loss, asymmetry worse As. Current personal amplification information, if applicable: Phonak Bolero Q50 mi3 BTE Summary: Seen for evaluation. Current aids are 10 years old, both broken upon arrival. Cleaned and checked current aids, both tubes were brittle and cracked, both tone hooks cracked. Cleaned aids, cleaned earmolds, replaced tubes and tones hooks. Listening check positive. New amplification recommended due to age of current technology. Reviewed options. Pt. has Android phone. Will stick with Phonak BTE. Pt. would like rechargeable. Impressions taken without incidence Au. Hearing Aid Prescription: Based on the individual?s shared listening needs, communication environments, dexterity, desire for connectivity, and personal preferences, the following prescription for amplification has been made: Right ear: Make, Model, Color: Phonak Molly L70 [place], [place], Battery Size: Rechargeable Type of Earmold/Dome/CShell/SlimTip: Microsonic, canal shell, pink tint marble Left ear: Left ear prescription to be same as Right Hearing Aid above: Make, Model, Color: Phonak Molly, L70 [place], [place] Battery Size: Rechargeable Type of Earmold/Dome/CShell/SlimTip: Microsonic, canal shell, pink tint marble Plan of Care: Patient wishes to purchase hearing aids as prescribed Action Taken/Action Needed: Earmold Impressions Taken Medical Clearance to be requested from PCP/ENT Hearing Instrument Fitting to be scheduled when materials arrive Primary Diagnosis: H90.3 Bilateral Sensorineural Hearing Loss Signature: Provider: Kali Marcum, [facility]
== END 2023-10-31 10:31 | disposition home or self-care (01) ==
LOC: HO.SH 10:30
PROVIDERS: Visit Provider Physician Assistant
DX: Z01.118 Encounter for examination of ears and hearing with other abnormal findings (principal); H90.3 Sensorineural hearing loss, bilateral
CPT/HCPCS: 92552; 92556; 92591; 92593; 99499; V5275

== ENCOUNTER 2024-01-20 08:54 | Outpatient (REF) | payer OTHER, SELFPAY ==
--- NOTE | 2024-01-20 09:42 | MHC.AU.HA2 ---
Hearing Instrument Fitting- Adult- Binaural Date of Visit: 01/20/24 Hearing Instruments Dispensed: Right Ear: Make, Model, Color, Serial Number: Phonak Molly L70 [place], [place], S#[id number] Absorption Operator Repair Warranty: 01/27/2027 Absorption Operator Loss and Damage Warranty: 01/27/2027 [facility] Service Plan: 01/19/25 Battery Size: Rechargeable Earmold/Dome/CShell/SlimTip: Microsonic, canal shell, pink tint marble Left Ear: Make, Model, Color, Serial Number: Phonak Molly, L70 [place], [place] S#[id number] Absorption Operator Repair Warranty: 01/27/2027 Absorption Operator Loss and Damage Warranty: 01/27/2027 [facility] Service Plan: 01/19/25 Battery Size: Rechargeable Earmold/Dome/CShell/SlimTip: Microsonc, canal shell, pink tint marble Accessories/Assistive Technology: Phonak lead clinical research coordinator combi S#[id number] Summary of Fitting: Fit with and oriented to binaural Phonak Molly L70 R HAs. Earmolds fit well. Verified to L Adult 5 targets. Good subjective comfort and benefit reported. VC active, reviewed use. Demonstrated lead clinical research coordinator use. Practiced insertion and removal. Discussed maintenance and precautions. Longtime hearing aid user. Recommendations: Recommendations: Hearing instrument care and maintenance were discussed and practiced. The instrument(s) were paired to the patient's smartphone. A hearing instrument follow-up was scheduled. Diagnosis Code(s): Primary Diagnosis: H90.3 Bilateral Sensorineural Hearing Loss Signature: Provider: Kali Marcum, [facility]
== END 2024-01-20 08:55 | disposition home or self-care (01) ==
LOC: HO.HAP 08:54
PROVIDERS: Visit Provider Internal Medicine
DX: Z46.1 Encounter for fitting and adjustment of hearing aid (principal); H90.3 Sensorineural hearing loss, bilateral
CPT/HCPCS: V5011; V5020; V5160; V5261; V5264

== ENCOUNTER 2024-09-06 08:52 | Outpatient (REF) | payer OTHER, SELFPAY ==
--- OUTSIDE RECORDS SUMMARY | 2024-09-06 09:24 | XMS_ITS | Clinical Summary ---
Author Organization [facility] Address [address] [place] [address] Phone Care Team Providers Care Employment Training Specialist Name Role Phone Trudy Mondragon MD Primary Care Provider [phone] Allergies No known active allergies Medications pen needle, diabetic (BD Lavinia 2nd Gen Pen Needle) 32 gauge x 5/32 needle USE 3 TIMES DAILY TO ADMINISTER INSULIN 300 each 3 04/05/20 24 Active furosemide (LASIX) 40 mg tablet TAKE ONE TABLET BY MOUTH EVERY DAY 90 tablet 04/06/20 24 Active potassium chloride 20 mEq tablet extended release TAKE ONE TABLET BY MOUTH TWICE A DAY 180 tablet 04/06/20 24 Active FreeStyle Lancets 28 gauge lancets USE TO CHECK BLOOD SUGAR THREE TIMES DAILY. 300 each 1 05/09/20 24 Active blood sugar diagnostic (FreeStyle Lite Strips) test strip 1 each by Other route 3 (three) times a day. CHECK BLOOD SUGAR UP TO 3 TIMES DAILY. 01/20/20 24 Active albuterol HFA (PROAIR HFA ; PROVENTIL HFA ; VENTOLIN HFA) 90 mcg/actuation inhaler Inhale 2 Puffs into the lungs every 4 hours as needed for Cough, Wheezing or Shortness of Breath. 06/06/19 24 Active blood-glucose meter kit Use to check blood sugars three times daily 09/24/19 23 Active UNABLE TO FIND Insulin Lispro 100 UNIT/ML Solution Cartridge Inject 18 Units into the skin 3 times daily (with meals). 08/11/19 24 Active metroNIDAZOLE (METROCREAM) 0.75 % cream APPLY 1 SQUIRT TWICE A DAY TO ROSACEA 11/04/19 21 Active medical supply, miscellaneous (MISCELLANEOUS MEDICAL SUPPLY MISC) SPACER/AERO-HOLDIN G CHAMBERS (AEROCHAMBER) MISC 1 Device by Does not apply route as needed (for use with inhaler ). 08/27/19 17 Active levonorgestreL (MIRENA) 21 mcg/24hr (up to 8 yrs) 52 mg IUD 1 Each by Intrauterine route once. Active blood glucose control high,low (FreeStyle Control) solution Use as directed with Glucometer 08/29/19 14 Active insulin lispro (HumaLOG KwikPen) 100 unit/mL injection penIndications:Ty pe 2 diabetes mellitus with microalbuminuria, with long-term current use of insulin (CMS/HCC V24, CMS/HCC V28) Inject 18 Units under the skin 3 (three) times a day before meals. 15 mL 2 06/19/19 25 Active Lantus Solostar U-100 Insulin 100 unit/mL (3 mL) injection penIndications:Ty pe 2 diabetes mellitus with microalbuminuria, with long-term current use of insulin (CMS/HCC V24, CMS/HCC V28) INJECT 40 UNITS INTO THE SKIN 2 TIMES DAILY. FOR BS LESS THAN 105 15 mL 2 06/19/19 25 Active blood sugar diagnostic (FreeStyle Lite Strips) test strip CHECK BLOOD SUGAR UP TO 3 TIMES DAILY. 300 each 1 06/19/19 25 Active alcohol swabs pads, medicated APPLY 1 EACH TOPICALLY 3 TIMES A DAY; CLEAN SKIN PRIOR TO INSULIN ADMINISTRATION OR BLOOD SUGAR TESTING 3 TIMES A DAY. 100 each 3 07/10/19 25 Active lisinopriL (PRINIVIL,ZESTRIL ) 10 mg tablet Take 1 tablet (10 mg total) by mouth 1 (one) time each day. 30 each 07/10/19 25 026 Active dapagliflozin propanediol (FARXIGA) 5 mg tablet Take 1 tablet (5 mg total) by mouth 1 (one) time each day. 30 each 07/10/19 25 026 Active blood sugar diagnostic (FreeStyle Lite Strips) test strip USE TO CHECK BLOOD SUGAR UP TO 3 TIMES A DAY. 300 each 1 08/29/19 25 Active Active Problems Problem Noted Date Diagnosed Date Anxiety state 05/08/2024 Type 2 diabetes mellitus wit h microalbuminuria, with long-term current use of insulin ([facility] V24, [facility] V28) 05/08/2024 Abnormal EKG 07/14/2023 Dyspnea 07/14/2023 Chest pain 07/14/2023 Moderate episode of recurren t major depressive disorder ([facility] V24, [facility] V28) 07/07/2020 Proteinuria 07/02/2016 Glaucoma 01/22/2016 Asthma exacerbation 10/10/2014 Known medical problems 11/09/2011 Overview (05/08/2024): A1C 05/12: 10.6 Current insulin 16R with meals + 26N at night Management by [facility] during Acne rosacea 05/06/2011 Bilateral hearing loss 10/23/2010 Morbid obesity ([facility] V24, [facility] V28) 2009 Encounters Date Type Department Care Team Description 07/10/2024 11:00 AM EST Consult Nephrology [facility] [address] [place] [address] Oscar Felix MD Persistent proteinuria (Primary Dx); Type 2 diabetes mellitus with microalbuminuria, with long-term current use of insulin ([facility] V24, [facility] V28); Morbid obesity ([facility] V24, [facility] V28); Hypertension, unspecified type 07/02/2024 2:30 PM EST Office Visit Adult Medicine [address] [phone] Yenny Watson PA Routine physical examination (Primary Dx); Type 2 diabetes mellitus with microalbuminuria, with long-term current use of insulin ([facility] V24, [facility] V28); Primary hypertension; Dental caries; IUD (intrauterine device) in place; Need for uljlzhtxra-txmkiao-jr rtussis (Tdap) vaccine; Need for prophylactic vaccination and inoculation against influenza from Last 3 Months Immunizations Name Administration Dates Next Due HPV, Quadrivalent 01/06/2010,10/17/2009 Influenza Quadravalent, MDCK , 0.5ml, preservative free (Flucelvax) 6mo and older 04/16/2022,07/07/2020,03/16/2018 Influenza Quadrivalent, 0.5m l, preservative free (Fluarix; FluLaval; Fluzone) ages 6mo and older (Afluria) 3yo and older 04/28/2023 Influenza trivalent, 0.5mL ( Fluad) 65yo and older 07/02/2024 Influenza trivalent, 0.5mL, preservative free (Fluarix; FluLaval; Fluzone) ages 6mo and older (Afluria) 3 years and older 05/20/2016,05/27/2014,05/02/2013 Pneumococcal conjugate 13 va lent (Prevnar 13, PCV13) 2mo and older 01/01/2016 Tdap Tetanus diptheria acell ular pertussis (Boostrix; Adacel) 7yo and older 07/02/2024 Surgical History Surgery Date Site/Laterality Comments OTHER SURGICAL HISTORY PROCEDURE: DENIES PREVIOUS SURGERY Medical History Medical History Date Comments Anxiety state, unspecified DX:An xiety state, unspecified; COMMENT: see therapist Morbid obesity ([facility] V24, [facility] V28) DX:Morbid obesity ([facility]) Diabetes in age 20 DX:Diabete s in Hearing loss age 2 DX:Hearing loss; COMMENT: wears hearing aids Type II or unspecified type diabetes mellitus without mention of complication, uncontrolled 11/27/2010 DX:Type II or unspecified t ype diabetes mellitus without mention of complication, uncontrolled Asthma exacerbation 10/10/2014 DX:Asthma ex acerbation Glaucoma 01/22/2016 DX:Glaucoma Postprandial epigastric pain DX: Postprandial epigastric pain Right upper quadrant pain DX:Rig ht upper quadrant pain Gallbladder sludge DX:Gallbladde r sludge Glaucoma 01/22/2016 Family History Medical History Relation Name Comments Coronary artery disease Maternal Grandfather Other: heart attack Maternal Grandfather Hypertension Mother Blindness Neg Hx Breast cancer Neg Hx Cataracts Neg Hx Colon cancer Neg Hx Glaucoma Neg Hx Macular degeneration Neg Hx Ovarian cancer Neg Hx Strabismus Neg Hx Relation Name Status Comments Brother Alive Father Alive Maternal Grandfather Maternal Grandmother Alive Mother Alive Paternal Grandfather Paternal Grandmother Alive Son Alive 2009 4yo Zachar y Social History Tobacco Use Types Packs/Day Years Used Date Smoking Tobacco: Never Smokeless Tobacco: Never Tobacco Cessation:Counseling Given: Not Answered Alcohol Use Standard Drinks/Week Comments Yes 0 (1 standard drink = 0.6 oz pur e alcohol) holidays Housing Instability Answer Date Recorde d Are you worried that in the next 2 months you may not have stable housing? Yes 07/02/2024 Food Access & Nutrition Answer Date Rec orded Do you have access to a vari ety of food including fruits and vegetables? Yes 07/02/2024 Access to Healthcare Answer Date Record ed Within the last 3 months, ho w many times did you visit the emergency department for your medical care? 0 07/02/2024 Health Literacy Answer Date Recorded How often do you need to hav e someone help you when you read instructions, pamphlets, or other written material from your doctor or pharmacy? Never 07/02/2024 Caregiver: How often do you need to have someone help you when you read instructions, pamphlets, or other written material from your doctor or pharmacy? Not on file 07/02/2024 Financial Risk Answer Date Recorded How hard is it for you to pa y for the very basics like food, housing, medical care, and air conditioning / heating? Not very hard 07/02/2024 Transportation Answer Date Recorded Has the lack of transportati on kept you from meetings, work, or from getting things needed for daily living? No Has the lack of transportati on kept you from medical appointments or from getting medications? Yes 07/02/2024 Social Isolation Answer Date Recorded How often do you feel lonely or isolated from those around you? Sometimes 07/02/2024 Food Risk Answer Date Recorded Within the past 12 months we worried whether our food would run out before we got money to buy more. Never true 07/02/2024 Within the past 12 months th e food we bought just didn't last and we didn't have money to get more. Never true 07/02/2024 Dependent Care Answer Date Recorded Do you need help finding or paying for care for your loved ones. For example, school child care attendant or elderly care for an older adult? No 07/02/2024 Education Answer Date Recorded Do you think completing more education or training, like finishing a GED, going to college, or learning a trade, would be helpful for you? No 07/02/2024 Employment and Income Answer Date Recor ded During the last four weeks, have you been actively looking for work? No 07/02/2024 Living Situation Answer Date Recorded What is your living situation? 0 07/02/2024 Comments No Sex and Gender Information Value Date Recorded Sex Assigned at Female 03/30/2024 3:24 PM EDT Legal Sex Female 8:07 PM EST Gender Identity Female 03/30/2024 3:24 PM EDT Sexual Orientation Straight 03/30/2024 3: 24 PM EDT Obstetrics History Last Filed Vital Signs Vital Sign Reading Time Taken Comments Blood Pressure 147/85 07/10/2024 10:58 AM EST Pulse 82 07/10/2024 10:58 AM EST Temperature 36.5 ??C (97.7 ??F) 07/02/2024 2:22 PM ES T Respiratory Rate 14 07/02/2024 2:22 PM EST Oxygen Saturation - - Inhaled Oxygen Concentration - - Weight 96.6 kg (213 lb) 07/10/2024 10:58 AM EST Height 157.5 cm (5' 2 ) 07/02/2024 2:22 PM EST Body Mass Index 38.96 07/02/2024 2:22 PM EST Plan of Treatment Upcoming Encounters Date Type Department Care Team (Late st Contact Info) Description 10/02/2024 10:15 AM EDT Consult Endocrinology [address] [phone] Nelly Gonsalez PA [address] [place] [id number] 12/06/2024 10:15 AM EDT Office Visit Adult Medicine [address] [phone] Trudy Mondragon MD [address] [place] [address] Health Maintenance Due Date Last Done Comments Diabetes: Annual Foot Exam 1995 Diabetes: Annual Retina Eye Exam 1995 Hepatitis B Vaccines (1 of 3 - 19+ 3-dose series) 2004 HPV Vaccines (3 - 3-dose series) 04/19/2010 01/06/2010, 10/17/2009 Cervical Cancer Screening: Pap Smear 12/28/2024 08/31/2016, 08/31/2016 Postponed from 09/01/2019 (Supply/Drug Shortage) Diabetes: Blood Sugar Control Test (HGBA1C) 12/30/2024 07/02/2024, 02/20/2024, 02/20/2024 Depression Screening 07/02/2025 07/02/2024, 10/14/19 24 Social Influencers of Health Screening 07/02/2025 07/02/2024 Diabetes: Annual Urine Albumin-Creatinine Ratio (uACR) 07/11/2025 07/11/2024, 07/02/2024, 09/17/2021 Diabetes: Annual GFR (Glomerular Filtration Rate) 07/11/2025 07/11/2024, 07/02/2024, 09/08/2023 Hypertension/CHF/CAD Annual BMP Blood Test 07/11/2025 07/11/2024, 07/02/2024, 09/08/2023 Cholesterol Screening (Lipid Panel) 07/02/2029 07/02/2024, 07/01/2023 DTaP,Tdap,and Td Vaccines (2 - Td or Tdap) 07/02/2034 07/02/2024 HIV Screening Completed 04/20/2013 Pneumococcal Vaccine: Pediatrics (0 to 5 Years) and At-Risk Patients (6 to 64 Years) Discontinued 05/01/2017, 01/01/2016 Influenza Vaccine Completed 07/02/2024, , 04/16/2022, Additional history exists Hepatitis C Screening Completed 07/11/2024, 010 COVID-19 Vaccine Discontinued HIB Vaccines Aged Out No longer eligi ble based on patient's age to complete this topic Hepatitis A Vaccines Aged Out No long er eligible based on patient's age to complete this topic IPV Vaccines Aged Out No longer eligi ble based on patient's age to complete this topic MMR Vaccines Aged Out No longer eligi ble based on patient's age to complete this topic Meningococcal ACWY Vaccine Aged Out N o longer eligible based on patient's age to complete this topic Meningococcal B Vaccine Aged Out No l onger eligible based on patient's age to complete this topic RSV Immunization Patients Under 20 months Aged Out No longer eligible based on patient's age to complete this topic Varicella Vaccines Aged Out No longer eligible based on patient's age to complete this topic Procedures Procedure Name Priority Date/Time Associated Diagnosis Comments HAMLIN URINE CULTURE TUBE Routine 07/11/2024 12:55 PM EST Type II or unspecified type diabetes mellitus with renal manifestations, not stated as uncontrolled(250.40 ) ([facility] V24, [facility] V28) Morbid obesity ([facility] V24, [facility] V28) Type 2 diabetes mellitus with microalbuminuria, with long-term current use of insulin ([facility] V24, [facility] V28) Proteinuria LIPOPROTEIN-ASSOCIATED PHOSPHOLIPASE A2 Routine 07/11/2024 12:52 PM EST Type II or unspecified type diabetes mellitus with renal manifestations, not stated as uncontrolled(250.40 ) ([facility] V24, [facility] V28) Morbid obesity ([facility] V24, [facility] V28) Type 2 diabetes mellitus with microalbuminuria, with long-term current use of insulin ([facility] V24, [facility] V28) Proteinuria ANTI-NEUTROPHILIC CYTOPLASMIC ANTIBODY Routine 07/11/2024 12:52 PM EST Type II or unspecified type diabetes mellitus with renal manifestations, not stated as uncontrolled(250.40 ) ([facility] V24, [facility] V28) Morbid obesity ([facility] V24, [facility] V28) Type 2 diabetes mellitus with microalbuminuria, with long-term current use of insulin ([facility] V24, [facility] V28) Proteinuria URINALYSIS WITH REFLEX MICROSCOPIC AND CULTURE Routine 07/11/2024 12:52 PM EST Type II or unspecified type diabetes mellitus with renal manifestations, not stated as uncontrolled(250.40 ) ([facility] V24, [facility] V28) Morbid obesity ([facility] V24, [facility] V28) Type 2 diabetes mellitus with microalbuminuria, with long-term current use of insulin (CMS/HCC V24, CMS/HCC V28) Proteinuria BASIC METABOLIC PANEL Routine 07/11/2024 12:52 PM EST Type 2 diabetes mellitus with microalbuminuria, with long-term current use of insulin (CMS/HCC V24, CMS/HCC V28) MICROALBUMIN CREATININE URINE RATIO Routine 07/11/2024 12:52 PM EST Type 2 diabetes mellitus with microalbuminuria, with long-term current use of insulin (CMS/HCC V24, CMS/HCC V28) C3 COMPLEMENT Routine 07/11/2024 12:52 PM EST Type II or unspecified type diabetes mellitus with renal manifestations, not stated as uncontrolled(250.40 ) (CMS/HCC V24, CMS/HCC V28) Morbid obesity (CMS/HCC V24, CMS/HCC V28) Type 2 diabetes mellitus with microalbuminuria, with long-term current use of insulin (CMS/HCC V24, CMS/HCC V28) Proteinuria C4 COMPLEMENT Routine 07/11/2024 12:52 PM EST Type II or unspecified type diabetes mellitus with renal manifestations, not stated as uncontrolled(250.40 ) (CMS/HCC V24, CMS/HCC V28) Morbid obesity (CMS/HCC V24, CMS/HCC V28) Type 2 diabetes mellitus with microalbuminuria, with long-term current use of insulin (CMS/HCC V24, CMS/HCC V28) Proteinuria URINALYSIS WITH REFLEX MICROSCOPIC AND CULTURE Routine 07/11/2024 12:52 PM EST Type II or unspecified type diabetes mellitus with renal manifestations, not stated as uncontrolled(250.40 ) (CMS/HCC V24, CMS/HCC V28) Morbid obesity (CMS/HCC V24, CMS/HCC V28) Type 2 diabetes mellitus with microalbuminuria, with long-term current use of insulin (CMS/HCC V24, CMS/HCC V28) Proteinuria HEPATITIS B SURFACE ANTIGEN WITH CONFIRMATION Routine 07/11/2024 12:52 PM EST Type II or unspecified type diabetes mellitus with renal manifestations, not stated as uncontrolled(250.40 ) (CMS/HCC V24, CMS/HCC V28) Morbid obesity (CMS/HCC V24, CMS/HCC V28) Type 2 diabetes mellitus with microalbuminuria, with long-term current use of insulin (CMS/HCC V24, CMS/HCC V28) Proteinuria HEPATITIS C ANTIBODY Routine 07/11/2024 12:52 PM EST Type II or unspecified type diabetes mellitus with renal manifestations, not stated as uncontrolled(250.40 ) (CMS/HCC V24, CMS/HCC V28) Morbid obesity (CMS/HCC V24, CMS/HCC V28) Type 2 diabetes mellitus with microalbuminuria, with long-term current use of insulin (CMS/HCC V24, CMS/HCC V28) Proteinuria CULTURE URINE Routine 07/11/2024 12:52 PM EST Type II or unspecified type diabetes mellitus with renal manifestations, not stated as uncontrolled(250.40 ) (CMS/HCC V24, CMS/HCC V28) Morbid obesity (CMS/HCC V24, CMS/HCC V28) Type 2 diabetes mellitus with microalbuminuria, with long-term current use of insulin (CMS/HCC V24, CMS/HCC V28) Proteinuria CBC WITH AUTO DIFFERENTIAL Routine 07/02/2024 3:44 PM EST Routine physical examination CBC AND DIFFERENTIAL Routine 07/02/2024 3:44 PM EST Routine physical examination COMPREHENSIVE METABOLIC PANEL Routine 07/02/2024 3:44 PM EST Routine physical examination HEMOGLOBIN A1C Routine 07/02/2024 3:44 PM EST Routine physical examination Type 2 diabetes mellitus with microalbuminuria, with long-term current use of insulin (CMS/[facility] V24, CMS/HCC V28) LIPID PANEL WITH REFLEX TO DIRECT LDL Routine 07/02/2024 3:44 PM EST Routine physical examination THYROID STIMULATING HORMONE WITH REFLEX TO FREE T4 AND FREE T3 Routine 07/02/2024 3:44 PM EST Routine physical examination MICROALBUMIN CREATININE URINE RATIO Routine 07/02/2024 3:44 PM EST Type 2 diabetes mellitus with microalbuminuria, with long-term current use of insulin (CMS/HCC V24, CMS/HCC V28) DEPRESSION SCREENING Routine 10/14/2023 HPV Routine 08/31/2016 HIV SCREENING Routine 04/20/2013 from Last 3 Months or Most Recently Relevant to Health Maintenance Results * [place] urine culture tube (07/11/2024 12:55 PM EST) [facility] Extra Tube Hold for add-ons. 07/11/2024 3:01 PM EST [facility] Comment:Auto resulted. Urine Urine specimen obtained by clean catch procedure / Unknown Non-blood Collection / Unknown 07/11/2024 12:55 PM EST 07/11/2024 12:55 PM EST us Oscar Felix MD LAB URINE ORDERABLES Final Res ult Performing Organization Address [facility]/ZIP Co de Phone Number [facility] [address] [place] [address], [place] [phone] * Hepatitis C antibody (07/11/2024 12:52 PM EST) [facility] Hepatitis C Antibody Negative Negative LAB CHEMISTRY METHOD 07/11/2024 4:44 PM EST [facility] Blood Venous blood specimen / Unknown Venipuncture / Unknown 07/11/2024 12:52 PM EST 07/11/2024 12:52 PM EST us Oscar Felix MD LAB BLOOD ORDERABLES Final Res ult Performing Organization Address City/[facility]/ZIP Co de Phone Number [facility] [address] [place] [address], [place] [phone] * (ABNORMAL) Urinalysis with reflex microscopic and culture (07/11/2024 12:52 PM EST) Specific [place] Urine 1.013 1.003 - 1.030 LAB URINALYSIS - AUTOMATED METHOD 07/11/2024 3:45 PM [facility] pH, Urine 5.5 5.0 - 8.0 pH LAB URINALYSIS - AUTOMATED METHOD 07/11/2024 3:45 PM [facility] Leukocytes, Urine Moderate(A) Negative LAB URINALYSIS - AUTOMATED METHOD 07/11/2024 3:45 PM [facility] Nitrite, Urine Negative Negative LAB URINALYSIS - AUTOMATED METHOD 07/11/2024 3:45 PM [facility] Protein, Urine 300(A) <=Trace mg/dL LAB URINALYSIS - AUTOMATED METHOD 07/11/2024 3:45 PM [facility] Glucose, Urine Negative Negative mg/dL LAB URINALYSIS - AUTOMATED METHOD 07/11/2024 3:45 PM [facility] Ketones, Urine Negative Negative mg/dL LAB URINALYSIS - AUTOMATED METHOD 07/11/2024 3:45 PM [facility] Urobilinogen , Urine 0.2 0.2 - 1.0 mg/dL LAB URINALYSIS - AUTOMATED METHOD 07/11/2024 3:45 PM [facility] Bilirubin, Urine Negative Negative LAB URINALYSIS - AUTOMATED METHOD 07/11/2024 3:45 PM [facility] Blood, Urine Small(A) Negative LAB URINALYSIS - AUTOMATED METHOD 07/11/2024 3:45 PM [facility] RBC, Urine 3.5 0 - 4 /HPF LAB URINALYSIS - AUTOMATED METHOD 07/11/2024 3:45 PM [facility] WBC, Urine 89.4(H) 0 - 4 /HPF LAB URINALYSIS - AUTOMATED METHOD 07/11/2024 3:45 PM EST [facility] Squamous Epithelial, Urine >100(H) 0 - 60 /LPF LAB URINALYSIS - AUTOMATED METHOD 07/11/2024 3:45 PM [facility] Bacteria, Urine Many(A) Negative /HPF LAB URINALYSIS - AUTOMATED METHOD 07/11/2024 3:45 PM [facility] Hyaline Casts, Urine 3.6(H) 0 - 3 /LPF LAB URINALYSIS - AUTOMATED METHOD 07/11/2024 3:45 PM [facility] Urine Urine specimen obtained by clean catch procedure / Unknown Non-blood Collection / Unknown 07/11/2024 12:52 PM EST 07/11/2024 12:52 PM EST us Oscar Felix MD LAB URINE ORDERABLES Final Res ult Performing Organization Address [facility] de Phone Number [facility] [address] [place] [address], [place] [phone] * Hepatitis B surface antigen with reflex to confirmation (07/11/2024 12:52 PM EST) Hepatitis B Surface Ag Negative Negative LAB CHEMISTRY METHOD 07/11/2024 4:15 PM EST [facility] Blood Venous blood specimen / Unknown Venipuncture / Unknown 07/11/2024 12:52 PM EST 07/11/2024 12:52 PM EST Narrative [facility] - 07/11/2024 4:15 PM EST Over the counter supplements containing high doses of biotin may interfere with this assay. ??If interference is suspected, patients shoud be retested after refraining from biotin supplements for 72 hours. us Oscar Felix MD LAB BLOOD ORDERABLES Final Res ult Performing Organization Address [facility]/ZIP Co de Phone Number [facility] [address] [place] [address], [place] [phone] * (ABNORMAL) Microalbumin creatinine urine ratio (07/11/2024 12:52 PM EST) Only the most recent of2 resultswithin the time period is included. Creatinine, Urine 121.0 mg/dL LAB CHEMISTRY METHOD 07/11/2024 4:03 PM EST [facility] Microalb, Ur 1,340.0(H ) 0.0 - 29.0 mg/L LAB CHEMISTRY METHOD 07/11/2024 4:03 PM EST [facility] Microalb/Crea t Ratio 1,107(H) <30 mg/g creat LAB CHEMISTRY METHOD 07/11/2024 4:03 PM EST [facility] Urine Urine specimen obtained by clean catch procedure / Unknown Non-blood Collection / Unknown 07/11/2024 12:52 PM EST 07/11/2024 12:52 PM EST Oscar Felix MD LAB URINE ORDERABLES Final Res ult [facility] [address] [place] [address], * Lipoprotein-associated phospholipase A2 (07/11/2024 12:52 PM EST) Lp-PLA2 Activity 98 <=123 nmol/min/ mL 07/18/2024 1:39 AM EST [facility] Comment: Risk: Optimal <=123 nmol/min/mL; High >123 nmol/min/mL. This test was developed and its analytical performance characteristics have been determined by [facility]. It has not been cleared or approved by FDA. This assay has been validated pursuant to the CLIA regulations and is used for clinical purposes. Test Performed at: [facility] [address] ??[id number] ? I Simeon LACY, PhD, MACK Blood Venous blood specimen / Unknown Venipuncture / Unknown 07/11/2024 12:52 PM EST 07/11/2024 12:52 PM EST Oscar Felix MD LAB BLOOD ORDERABLES Final Res ult [facility] [address] [place] [address] * Anti-neutrophilic cytoplasmic antibody (07/11/2024 12:52 PM EST) Myeloperoxidase Ab Negative Negative LAB CHEMISTRY METHOD 07/12/2024 12:47 PM EST [facility] Myeloperoxidase Ab, Quant 2 <=20 units LAB CHEMISTRY METHOD 07/12/2024 12:47 PM EST [facility] Proteinase-3 Ab Negative Negative LAB CHEMISTRY METHOD 07/12/2024 12:47 PM EST [facility] Proteinase-3 Ab Quant 2 <=20 units LAB CHEMISTRY METHOD 07/12/2024 12:47 PM EST [facility] Blood Venous blood specimen / Unknown Venipuncture / Unknown 07/11/2024 12:52 PM EST 07/11/2024 12:52 PM EST Oscar Felix MD LAB BLOOD ORDERABLES Final Res ult [facility] [address] [place] [address], * (ABNORMAL) Culture urine (07/11/2024 12:52 PM EST) Pathologist [facility] Culture, Urine Mixed urogenital zully also present. MEHREEN 07/14/2024 11:09 AM EST [facility] Culture, Urine >100,000 CFU/mL Escherichia coli(A) MEHREEN 07/14/2024 11:09 AM [facility] Urine Urine specimen obtained by clean catch procedure / Unknown Non-blood Collection / Unknown 07/11/2024 12:52 PM EST 07/11/2024 3:45 PM EST Narrative Organism Antibiotic Method Susceptibility Escherichia coli Amoxicillin/Clavulanate MEHREEN 4 ug/ml: Susceptible Escherichia coli Ampicillin/Sulbactam MEHREEN 16 ug/ml: Intermediate Escherichia coli Piperacillin/Tazobactam MEHREEN <=4 ug/ml: Susceptible Escherichia coli Cefazolin (Urine) MEHREEN 2 ug/ml: Susceptible Escherichia coli Cefoxitin MEHREEN <=4 ug/ml: Susceptible Escherichia coli Ceftazidime MEHREEN <=0.5 ug/ml: Susceptible Escherichia coli Ceftriaxone MEHREEN <=0.25 ug/ml: Susceptible Escherichia coli Cefepime MEHREEN <=0.12 ug/ml: Susceptible Escherichia coli Meropenem MEHREEN <=0.25 ug/ml: Susceptible Escherichia coli Amikacin MEHREEN 2 ug/ml: Susceptible Escherichia coli Gentamicin MEHREEN <=1 ug/ml: Susceptible Escherichia coli Ciprofloxacin MEHREEN <=0.06 ug/ml: Susceptible Escherichia coli Levofloxacin MEHREEN <=0.12 ug/ml: Susceptible Escherichia coli Nitrofurantoin MEHREEN <=16 ug/ml: Susceptible Escherichia coli Trimethoprim/Sulfamethoxazole MEHREEN <=20 ug/ml: Susceptible Oscar Felix MD LAB MICROBIOLOGY - GENERAL ORD ERABLES Final Result Performing Organization Address City/[facility]/ZIP Co de Phone Number [facility] [address] [place] [address], [place] [phone] * C3 complement (07/11/2024 12:52 PM EST) [facility] C3 Complement 116 88 - 201 mg/dL LAB CHEMISTRY METHOD 07/11/2024 4:03 PM EST [facility] Blood Venous blood specimen / Unknown Venipuncture / Unknown 07/11/2024 12:52 PM EST 07/11/2024 12:52 PM EST us Oscar Felix MD LAB BLOOD ORDERABLES Final Res ult Performing Organization Address [facility]/ZIP Co de Phone Number [facility] [address] [place] [address], [place] [phone] * C4 complement (07/11/2024 12:52 PM EST) [facility] C4 Complement 47 16 - 47 mg/dL LAB CHEMISTRY METHOD 07/11/2024 4:03 PM [facility] Blood Venous blood specimen / Unknown Venipuncture / Unknown 07/11/2024 12:52 PM EST 07/11/2024 12:52 PM EST us Oscar Felix MD LAB BLOOD ORDERABLES Final Res ult [facility] [address] [place] [address], [place] [phone] * (ABNORMAL) Basic metabolic panel (07/11/2024 12:52 PM EST) [facility] Sodium 138 133 - 145 mmol/L LAB CHEMISTRY METHOD 07/11/2024 4:03 PM [facility] Potassium 4.5 3.5 - 5.5 mmol/L LAB CHEMISTRY METHOD 07/11/2024 4:03 PM [facility] Chloride 107 96 - 110 mmol/L LAB CHEMISTRY METHOD 07/11/2024 4:03 PM [facility] CO2 27 21 - 32 mmol/L LAB CHEMISTRY METHOD 07/11/2024 4:03 PM [facility] Anion Gap 4 3 - 11 LAB CHEMISTRY METHOD 07/11/2024 4:03 PM [facility] Glucose 112(H) 70 - 100 mg/dL LAB CHEMISTRY METHOD 07/11/2024 4:03 PM [facility] BUN 11 5 - 25 mg/dL LAB CHEMISTRY METHOD 07/11/2024 4:03 PM [facility] Creatinine 0.89 0.50 - 1.10 mg/dL LAB CHEMISTRY METHOD 07/11/2024 4:03 PM [facility] eGFR 85 >=60 mL/min/1. 73m2 LAB CHEMISTRY METHOD 07/11/2024 4:03 PM EST [facility] Comment:Calculation based on the??Chronic Kidney Disease Epidemiology Collaboration (CKD-EPI) equation refit??without adjustment for race. BUN/Creatinine Ratio 12.4 LAB CHEMISTRY METHOD 07/11/2024 4:03 PM EST [facility] Calcium 9.1 8.5 - 10.5 mg/dL LAB CHEMISTRY METHOD 07/11/2024 4:03 PM EST [facility] Blood Venous blood specimen / Unknown Venipuncture / Unknown 07/11/2024 12:52 PM EST 07/11/2024 12:52 PM EST Oscar Felix MD LAB BLOOD ORDERABLES Final Res ult Performing Organization Address [facility]/ZIP Co de Phone Number [facility] [address] [place] [address], [place] [phone] * Thyroid stimulating hormone with reflex to free t4 and free t3 (07/02/2024 3:44 PM EST) TSH 3.14 0.40 - 4.00 mcIU/mL LAB CHEMISTRY METHOD 07/02/2024 6:48 PM EST [facility] Blood Venous blood specimen / Unknown Venipuncture / Unknown 07/02/2024 3:44 PM EST 07/02/2024 3:44 PM EST Yenny ROTHMAN LAB BLOOD ORDERABLES Final Res ult Performing Organization Address City/[facility]/ZIP Co de Phone Number [facility] [address] [place] [address], [place] [phone] * (ABNORMAL) Lipid panel with reflex to direct LDL (07/02/2024 3:44 PM EST) Cholesterol 233(H) 0 - 200 mg/dL LAB CHEMISTRY METHOD 07/02/2024 6:43 PM EST [facility] Triglycerides 117 0 - 150 mg/dL LAB CHEMISTRY METHOD 07/02/2024 6:43 PM [facility] HDL 67 >=40 mg/dL LAB CHEMISTRY METHOD 07/02/2024 6:43 PM EST [facility] LDL Calculated 143(H) 0 - 100 mg/dL LAB CHEMISTRY METHOD 07/02/2024 6:43 PM [facility] VLDL Cholesterol Michael 23.4 mg/dL LAB CHEMISTRY METHOD 07/02/2024 6:43 PM EST [facility] Non HDL Chol. (LDL+VLDL) 166(H) <145 mg/dL LAB CHEMISTRY METHOD 07/02/2024 6:43 PM [facility] Chol/HDL Ratio 3.5 0.0 - 4.4 LAB CHEMISTRY METHOD 07/02/2024 6:43 PM [facility] Blood Venous blood specimen / Unknown Venipuncture / Unknown 07/02/2024 3:44 PM EST 07/02/2024 3:44 PM EST us Yenny ROTHMAN LAB BLOOD ORDERABLES Final Res ult [facility] [address] [place] [address], * CBC auto differential (07/02/2024 3:44 PM EST) WBC 9.0 4.8 - 10.8 K/mcL LAB HEMETOLOGY METHOD 07/02/2024 6:33 PM [facility] RBC 4.40 3.80 - 4.80 M/mcL LAB HEMETOLOGY METHOD 07/02/2024 6:33 PM [facility] Hemoglobin 13.2 11.5 - 16.0 g/dL LAB HEMETOLOGY METHOD 07/02/2024 6:33 PM [facility] Hematocrit 40.4 35.0 - 47.0 % LAB HEMETOLOGY METHOD 07/02/2024 6:33 PM [facility] MCV 91.2 79.0 - 98.0 FL LAB HEMETOLOGY METHOD 07/02/2024 6:33 PM [facility] MCH 29.8 27.0 - 32.0 pcg LAB HEMETOLOGY METHOD 07/02/2024 6:33 PM [facility] MCHC 32.7 32.0 - 37.0 g/dL LAB HEMETOLOGY METHOD 07/02/2024 6:33 PM [facility] RDW 11.7 11.0 - 15.0 % LAB HEMETOLOGY METHOD 07/02/2024 6:33 PM [facility] Platelets 295 130 - 400 K/mcL LAB HEMETOLOGY METHOD 07/02/2024 6:33 PM [facility] MPV 9.6 7.0 - 11.0 FL LAB HEMETOLOGY METHOD 07/02/2024 6:33 PM [facility] NRBC 0.0 <1.0 % LAB HEMETOLOGY METHOD 07/02/2024 6:33 PM [facility] NRBC Absolute 0.00 <0.10 K/mcL LAB HEMETOLOGY METHOD 07/02/2024 6:33 PM [facility] Neutrophils Relative 61.8 % LAB HEMETOLOGY METHOD 07/02/2024 6:33 PM [facility] Lymphocytes Relative 30.6 % LAB HEMETOLOGY METHOD 07/02/2024 6:33 PM [facility] Monocytes Relative 6.7 % LAB HEMETOLOGY METHOD 07/02/2024 6:33 PM [facility] Eosinophils Relative 0.0 % LAB HEMETOLOGY METHOD 07/02/2024 6:33 PM [facility] Basophils Relative 0.7 % LAB HEMETOLOGY METHOD 07/02/2024 6:33 PM [facility] Immature Granulocytes Relative 0.2 % LAB HEMETOLOGY METHOD 07/02/2024 6:33 PM EST [facility] Neutrophils Absolute 5.57 1.50 - 7.00 K/mcL LAB HEMETOLOGY METHOD 07/02/2024 6:33 PM EST [facility] Lymphocytes Absolute 2.75 1.00 - 5.00 K/mcL LAB HEMETOLOGY METHOD 07/02/2024 6:33 PM EST [facility] Monocytes Absolute 0.60 0.20 - 1.00 K/mcL LAB HEMETOLOGY METHOD 07/02/2024 6:33 PM EST [facility] Eosinophils Absolute 0.00 0.00 - 0.50 K/mcL LAB HEMETOLOGY METHOD 07/02/2024 6:33 PM [facility] Basophils Absolute 0.06 0.00 - 0.20 K/mcL LAB HEMETOLOGY METHOD 07/02/2024 6:33 PM EST [facility] Immature Granulocytes Absolute 0.02 0.00 - 0.03 K/mcL LAB HEMETOLOGY METHOD 07/02/2024 6:33 PM [facility] Blood Venous blood specimen / Unknown Venipuncture / Unknown 07/02/2024 3:44 PM EST 07/02/2024 3:44 PM EST Yenny ROTHMAN LAB BLOOD ORDERABLES Final Res ult [facility] [address] [place] [address], * (ABNORMAL) Hemoglobin A1c (07/02/2024 3:44 PM EST) Hemoglobin A1C 7.6(H) <6.5 % LAB CHEMISTRY METHOD 07/02/2024 9:51 PM EST [facility] Mean Bld Glu Estim. 171 mg/dL LAB CHEMISTRY METHOD 07/02/2024 9:51 PM [facility] Blood Venous blood specimen / Unknown Venipuncture / Unknown 07/02/2024 3:44 PM EST 07/02/2024 3:44 PM EST us Yenny ROTHMAN LAB BLOOD ORDERABLES Final Res ult [facility] [address] [place] [address], * (ABNORMAL) Comprehensive metabolic panel (07/02/2024 3:44 PM EST) Sodium 133 133 - 145 mmol/L LAB CHEMISTRY METHOD 07/02/2024 6:43 PM [facility] Potassium 4.5 3.5 - 5.5 mmol/L LAB CHEMISTRY METHOD 07/02/2024 6:43 PM [facility] Chloride 102 96 - 110 mmol/L LAB CHEMISTRY METHOD 07/02/2024 6:43 PM [facility] CO2 26 21 - 32 mmol/L LAB CHEMISTRY METHOD 07/02/2024 6:43 PM [facility] Anion Gap 5 3 - 11 LAB CHEMISTRY METHOD 07/02/2024 6:43 PM [facility] Glucose 154(H) 70 - 100 mg/dL LAB CHEMISTRY METHOD 07/02/2024 6:43 PM [facility] BUN 29(H) 5 - 25 mg/dL LAB CHEMISTRY METHOD 07/02/2024 6:43 PM [facility] Creatinine 1.18(H) 0.50 - 1.10 mg/dL LAB CHEMISTRY METHOD 07/02/2024 6:43 PM [facility] eGFR 60 >=60 mL/min/1. 73m2 LAB CHEMISTRY METHOD 07/02/2024 6:43 PM [facility] Comment:Calculation based on the??Chronic Kidney Disease Epidemiology Collaboration (CKD-EPI) equation refit??without adjustment for race. BUN/Creatinine Ratio 24.6 LAB CHEMISTRY METHOD 07/02/2024 6:43 PM [facility] Calcium 9.5 8.5 - 10.5 mg/dL LAB CHEMISTRY METHOD 07/02/2024 6:43 PM [facility] AST (SGOT) 15 10 - 42 unit/L LAB CHEMISTRY METHOD 07/02/2024 6:43 PM [facility] ALT (SGPT) 17 10 - 60 unit/L LAB CHEMISTRY METHOD 07/02/2024 6:43 PM [facility] Alkaline Phosphatase 77 42 - 121 unit/L LAB CHEMISTRY METHOD 07/02/2024 6:43 PM [facility] Total Protein 7.1 6.0 - 8.0 g/dL LAB CHEMISTRY METHOD 07/02/2024 6:43 PM [facility] Albumin 3.2 3.2 - 5.0 g/dL LAB CHEMISTRY METHOD 07/02/2024 6:43 PM [facility] Total Bilirubin 0.4 0.0 - 1.4 mg/dL LAB CHEMISTRY METHOD 07/02/2024 6:43 PM [facility] Blood Venous blood specimen / Unknown Venipuncture / Unknown 07/02/2024 3:44 PM EST 07/02/2024 3:44 PM EST Yenny ROTHMAN LAB BLOOD ORDERABLES Final Res ult [facility] [address] [place] [address], * Depression Screening (10/14/2023) Depression Screening abstracted us Historical Provider HEALTH MAINTENANCE Final Result * Cervical Cancer Screening: HPV (08/31/2016) Pathologist [facility] Cervical Cancer Screening: HPV abstracted, negative us Historical Provider HEALTH MAINTENANCE Final Result * HIV Screening (04/20/2013) HIV Screening abstracted us Historical Provider HEALTH MAINTENANCE Final Result from Last 3 Months or Most Recently Relevant to Health Maintenance Insurance [facility] [employer] Care Teams Employment Training Specialist Relationship Specialty Start Date End Date Trudy Mondragon MD [address] [place] [id number] PCP - General Internal Medicine 03/30/24
--- NOTE | 2024-09-06 11:02 | MHC.AU.HA3 ---
Hearing Instrument Follow-Up- Binaural Date of Visit: 09/06/24 Right Ear: Toby, Model, Color, Serial Number: Gaviota Barnes [id number] [place], [place], S#[id number] [employer] Repair Warranty: 01/27/2027 [employer] Loss and Damage Warranty: 01/27/2027 [facility] Service Plan: 01/19/25 Battery Size: Rechargeable Earmold/Dome/CShell/SlimTip:Microsonic, canal shell, pink tint marble Dispensed By: [facility] Date of Fittin01/20/24 Left Ear: Toby, Model, Color, Serial Number: Gaviota Barnes, [id number] [place], [place] S#[id number] [employer] Repair Warranty: 01/27/2027 [employer] Loss and Damage Warranty: 01/27/2027 [facility] Service Plan: 01/19/25 Battery Size: Rechargeable Earmold/Dome/CShell/SlimTip: Microsonc, canal shell, pink tint marble Dispensed By: [facility] Date of Fittin01/20/24 Follow-Up Summary: Reports right hearing aid not working. Found tube clogged with wax. Cleaned earmolds, hearing aids, replaced tubing. Listening check positive. Sandra reports improvement. Sandra has not been seen since fitting in December, reports overall good satisfaction with her new hearing aids. Recommendations: Recommendations: Hearing instrument follow-up or maintenance as needed. Diagnosis Code(s): Primary Diagnosis: H90.3 Bilateral Sensorineural Hearing Loss Signature: Provider: Kali Marcum, [facility]
== END 2024-09-06 08:53 | disposition home or self-care (01) ==
LOC: HO.HAP 08:52
PROVIDERS: Visit Provider Internal Medicine
DX: Z13.89 Encounter for screening for other disorder (principal)

== ENCOUNTER 2025-05-01 11:58 | Outpatient (REF) | payer OTHER, SELFPAY ==
--- NOTE | 2025-05-01 12:29 | MHC.AU.HA3 ---
Hearing Instrument Follow-Up- Binaural Date of Visit: 05/01/25 Right Ear: Make, Model, Color, Serial Number: Gaviota Barnes [id number] SN: [id number] Color: [place] Prototype Carpenter Repair Warranty: 01/27/2027 Prototype Carpenter Loss and Damage Warranty: 01/27/2027 [facility] Service Plan: 01/19/2025 Battery Size: Rechargeable Earmold/Dome/CShell/SlimTip:Microsonic, canal shell, pink tint marble Dispensed By: [facility] Date of Fittin01/20/2024 Left Ear: Toby, Model, Color, Serial Number: Gaviota Barnes [id number] SN: [id number] Color: [place] Prototype Carpenter Repair Warranty: 01/27/2027 Prototype Carpenter Loss and Damage Warranty: 01/27/2027 [facility] Service Plan: 01/19/2025 Battery Size: Rechargeable Earmold/Dome/CShell/SlimTip: Microsonic, canal shell, pink tint marble Dispensed By: [facility] Date of Fittin01/20/2024 Follow-Up Summary: Accompanied by Gilberto mccoy. Tubing hard, discolored, full of wax. Cleaned HAs (2). Cleaned EMs (2). Replaced tubing (2) [phone] x6. Vacuumed microphones. Ran through dehumidifier. Connected to [employer] - no firmware updates available. Listening check demonstrated HAs amplifying clearly. Recommendations: Hearing instrument follow-up or maintenance as needed. Please contact our clinic with any questions or concerns. Diagnosis Code(s): Primary Diagnosis: H90.3 Bilateral Sensorineural Hearing Loss Signature: Provider: Kali Mccray, [facility]
--- OUTSIDE RECORDS SUMMARY | 2025-05-01 14:23 | XMS_ITS | Clinical Summary ---
Author Organization [facility] Address [address] [place] [address] Phone Care Team Providers Care Office Electrician Name Role Phone Trudy Mondragon MD Primary Care Provider [phone] Allergies No known active allergies Medications pen needle, diabetic (BD Lavinia 2nd Gen Pen Needle) 32 gauge x 5/32 needle USE 3 TIMES DAILY TO ADMINISTER INSULIN 300 each 3 024 Active albuterol HFA (PROAIR HFA ; PROVENTIL HFA ; VENTOLIN HFA) 90 mcg/actuation inhaler Inhale 2 Puffs into the lungs every 4 hours as needed for Cough, Wheezing or Shortness of Breath. 024 Active blood-glucose meter kit Use to check blood sugars three times daily 023 Active medical supply, miscellaneous (MISCELLANEOUS MEDICAL SUPPLY MISC) SPACER/AERO-HOLD ING CHAMBERS (AEROCHAMBER) MISC 1 Device by Does not apply route as needed (for use with inhaler ). 017 Active levonorgestreL (MIRENA) 21 mcg/24hr (up to 8 yrs) 52 mg IUD 1 Each by Intrauterine route once. Active blood glucose control high,low (FreeStyle Control) solution Use as directed with Glucometer 014 Active lisinopriL (PRINIVIL,ZESTRI L) 20 mg tablet Take 1 tablet (20 mg total) by mouth 1 (one) time each day. Active insulin lispro (HumaLOG KwikPen) 100 unit/mL injection penIndications:T ype 2 diabetes mellitus with microalbuminuria , with long-term current use of insulin ([facility] V24, [facility] V28) Inject 3 times a day with meals per sliding scale: 100-149: 6 units; 150-199: 8 units; 200-249: 10 units; 250-299: 12 units; 300-349: 14 units; 350-400: 16 units; 401-450: 18 units , max dose 60 units 15 mL 5 Active glucagon (Baqsimi) 3 mg/actuation nasal spray Administer 3 mg into one nostril if needed for low blood sugar. 2 each Active metroNIDAZOLE (METROGEL) 0.75 % gel Apply a pea sized amount twice daily to rosacea 45 g 2 025 2025 Active atorvastatin (LIPITOR) 10 mg tablet Take 1 tablet (10 mg total) by mouth 1 (one) time each day. 90 each Active Additional Information Patient not taking.Reported on 04/16/2025 FreeStyle Lancets 28 gauge lancetsIndicatio ns:Type 2 diabetes mellitus with diabetic microalbuminuria , with long-term current use of insulin ([facility] V24, [facility] V28) USE TO CHECK BLOOD SUGAR THREE TIMES A DAY 300 each 11 Active dapagliflozin propanediol (FARXIGA) 10 mg tablet Take 1 tablet (10 mg total) by mouth 1 (one) time each day. 90 each 3 Active alcohol swabs pads, medicated USE TOPICALLY 3 TIMES DAILY. CLEAN SKIN PRIOR TO INJECTING INSULIN OR BLOOD SUGAR TESTING 3 TIMES DAILY 300 each Active acetaminophen (TYLENOL) 500 mg tablet TAKE TWO TABLETS BY MOUTH THREE TIMES A DAY NEEDED FOR PAIN Active tiZANidine (ZANAFLEX) 4 mg tablet Take 1 tablet (4 mg total) by mouth. Active blood sugar diagnostic (FreeStyle Lite Strips) test stripIndications :Type 2 diabetes mellitus with microalbuminuria , with long-term current use of insulin ([facility] V24, [facility] V28) USE TO TEST BLOOD GLUCOSE 3 TIMES DAILYUSE TO TEST BLOOD GLUCOSE 3 TIMES DAILY 300 strip 11 Active insulin glargine (Lantus Solostar U-100 Insulin) 100 unit/mL (3 mL) injection penIndications:T ype 2 diabetes mellitus with microalbuminuria , with long-term current use of insulin ([facility] V24, [facility] V28) INJECT 36 UNITS INTO THE SKIN TWICE DAILY. FOR BLOOD SUGAR LESS THAN 105 15 mL 2 Active tirzepatide (Mounjaro) 5 mg/0.5 mL injectionIndicat ions:Type 2 diabetes mellitus with microalbuminuria , with long-term current use of insulin ([facility] V24, [facility] V28) Inject 0.5 mL (5 mg total) under the skin every 7 (seven) days. 2 mL 3 Active alcohol swabs pads, medicated APPLY 1 EACH TOPICALLY 3 TIMES A DAY; CLEAN SKIN PRIOR TO INSULIN ADMINISTRATION OR BLOOD SUGAR TESTING 3 TIMES A DAY. 100 each 3 025 2024 Discontinued blood sugar diagnostic (FreeStyle Lite Strips) test strip USE TO CHECK BLOOD SUGAR UP TO 3 TIMES A DAY. 300 each 1 025 2024 Discontinued Lantus Solostar U-100 Insulin 100 unit/mL (3 mL) injection penIndications:T ype 2 diabetes mellitus with microalbuminuria , with long-term current use of insulin ([facility] V24, [facility] V28) INJECT 40 UNITS INTO THE SKIN TWICE DAILY. FOR BLOOD SUGAR LESS THAN 105 15 mL 2 025 2024 Discontinued(R nahomy) tirzepatide (Mounjaro) 2.5 mg/0.5 mL injectionIndicat ions:Type 2 diabetes mellitus with microalbuminuria , with long-term current use of insulin ([facility] V24, [facility] V28) Inject 0.5 mL (2.5 mg total) under the skin every 7 (seven) days. 2 mL 025 2024 Discontinued Mounjaro 2.5 mg/0.5 mL injectionIndicat ions:Type 2 diabetes mellitus with microalbuminuria , with long-term current use of insulin ([facility] V24, [facility] V28) INJECT 0.5ML INTO THE SKIN EVERY 7 DAYS 2 mL 025 2024 Discontinued(R eorder) blood sugar diagnostic (FreeStyle Lite Strips) test strip USE TO TEST BLOOD GLUCOSE 3 TIMES DAILY 300 strip 025 2024 Discontinued(R eorder) tirzepatide (Mounjaro) 2.5 mg/0.5 mL injectionIndicat ions:Type 2 diabetes mellitus with microalbuminuria , with long-term current use of insulin ([facility] V24, [facility] V28) INJECT 0.5ML INTO THE SKIN EVERY 7 DAYS 2 mL 3 025 2024 Discontinued(F ormulary change) Active Problems Problem Noted Date Diagnosed Date Hypertension 10/04/2024 Anxiety state 05/08/2024 Type 2 diabetes mellitus wit h microalbuminuria, with long-term current use of insulin ([facility] V24, [facility] V28) 05/08/2024 Abnormal EKG 07/14/2023 Dyspnea 07/14/2023 Chest pain 07/14/2023 Moderate episode of recurren t major depressive disorder ([facility] V24, [facility] V28) 07/07/2020 Proteinuria 07/02/2016 Glaucoma 01/22/2016 Asthma exacerbation 10/10/2014 Known medical problems 11/09/2011 Overview (05/08/2024): A1C 05/12: 10.6 Current insulin 16R with meals + 26N at night Management by [facility] during Acne rosacea 05/06/2011 Bilateral hearing loss 10/23/2010 Morbid obesity ([facility] V24, [facility] V28) 2009 Encounters Date Type Department Care Team Description 04/17/2025 10:30 AM EST Treatment [facility] Occupational Therapy [address] [phone] Sophia Boyer, OT Trigger middle finger of right hand (Primary Dx); Trigger finger of left thumb; Trigger index finger of left hand 04/16/2025 9:00 AM EST Office Visit Endocrinology - [address] [phone] Nelly Gonsalez PA Type 2 diabetes mellitus with microalbuminuria, with long-term current use of insulin (CMS/HCC V24, CMS/HCC V28) (Primary Dx); Secondary hypertension; Morbid obesity (CMS/HCC V24, CMS/HCC V28) 04/15/2025 9:30 AM EST Office Visit Orthopedic Surgery - [place] [address] 175 [facility] [address] [place] [phone] Jhony Ibanez, DPM Pain in both feet (Primary Dx); Equinus contracture of left ankle; Metatarsalgia of right foot; Callus 04/15/2025 8:50 AM EST Lab Draw Station - 175 [facility] 175 [facility] [address] [place] [phone] Type 2 diabetes mellitus with microalbuminuria, with long-term current use of insulin (CMS/HCC V24, CMS/HCC V28); Other proteinuria 04/10/2025 4:15 PM EST Treatment [facility] Occupational Therapy [address] [phone] Sophia Boyer, OT Trigger index finger of left hand (Primary Dx); Trigger middle finger of right hand; Trigger finger of left thumb 03/25/2025 10:00 AM EDT Treatment [facility] Occupational Therapy [address] [phone] Zane Carter, OT Trigger middle finger of right hand (Primary Dx); Trigger finger of left thumb; Trigger index finger of left hand 03/20/2025 10:00 AM EDT Evaluation [facility] Occupational Therapy [address] [phone] Sophia Boyer, OT Trigger middle finger of right hand; Trigger finger of left thumb; Trigger index finger of left hand 03/20/2025 Plan of Care Documentation [facility] 175 [facility] [address] [place] [phone] 03/14/2025 3:30 PM EDT Office Visit Endocrinology - [address] [phone] Nelly Gonsalez PA Type 2 diabetes mellitus with microalbuminuria, with long-term current use of insulin ([facility] V24, [facility] V28) (Primary Dx); Secondary hypertension; Morbid obesity ([facility] V24, [facility] V28) 03/12/2025 9:00 AM EDT Office Visit Orthopedic Surgery [facility] 175 [facility] [address] [place] [phone] Nicole Brito PA Trigger middle finger of right hand (Primary Dx); Trigger finger of left thumb; Trigger index finger of left hand; Bilateral hand numbness 2025 5:16 PM EDT - 2025 11:59 PM EDT Hospital Encounter Radiology Department - [address] [phone] Muscle spasm of back Discharge Disposition: Home or Self Care 03/04/2025 9:45 AM EDT Office Visit Orthopedic Surgery [facility] 250 175 [facility] [address] [place] [phone] Jhony Ibanez, DPGenevieve Pain in both feet (Primary Dx); Metatarsalgia of right foot; Equinus contracture of left ankle; Callus from Last 3 Months Immunizations Immunization Administration Dates Next Due HPV, Quadrivalent 01/06/2010,10/17/2009 [...] state, unspecified; COMMENT: see therapist Morbid obesity ([facility] V24, [facility] V28) DX:Morbid obesity ([facility]) Diabetes in age 20 DX:Diabete s in [...] Gallbladder sludge DX:Gallbladde r sludge Glaucoma 01/22/2016 Hypertension 10/04/2024 Family History Medical History Relation Name Comments [...] Packs/Day Years Used Date Smoking Tobacco: Never Passive Smoke Exposure: Never Smokeless Tobacco: Never Alcohol Use Standard Drinks/Week Comments Yes 0 [...] care for your loved ones. For example, attendant children's institution or elderly care for an older adult? [...] Date Recorded What is your living situation? Unrecognized valu e 07/02/2024 Comments No Sex and Gender Information Value Date Recorded Sex Assigned at Female 03/30/2024 3:24 PM EDT Legal Sex Female 8:07 PM EST Gender Identity Female 03/30/2024 3:24 PM EDT Sexual Orientation Straight 03/30/2024 3: 24 PM EDT Obstetrics History Last Filed Vital Signs Vital Sign Reading Time Taken Comments Blood Pressure 114/80 04/16/2025 8:56 AM EST Pulse 87 04/16/2025 8:56 AM EST Temperature 36 C (96.8 F) 04/16/2025 8:56 AM EST Respiratory Rate 14 12/06/2024 10:17 AM EDT Oxygen Saturation 98% 12/06/2024 10:17 AM EDT Inhaled Oxygen Concentration - - Weight 106 kg (233 lb 6.4 oz) 04/16/2025 8:56 AM EST Height 157.5 cm (5' 2 ) 04/16/2025 8:56 AM EST Body Mass Index 42.69 04/16/2025 8:56 AM EST Plan of Treatment Upcoming Encounters Date Type Department Care Team (Late st Contact Info) Description 05/03/2025 9:45 AM EST Treatment [facility] Occupational Therapy [address] [phone] Sophia Boyer OT 05/13/2025 9:15 AM EST Office Visit Orthopedic Surgery [facility] [address] [phone] Nicole Brito PA [address] [phone] 05/24/2025 7:30 AM EST Office Visit Adult Medicine [address] [phone] Trudy Mondragon MD [address] [place] [address] 06/10/2025 10:00 AM EST Office Visit Orthopedic Surgery [facility] [address] [phone] Jhony Ibanez DPM [address] [address] 10/30/2025 10:15 AM EDT Office Visit [address] [phone] Nelly Gonsalez PA [address] [place] [address] Health Maintenance Due Date Last Done Comments Breast Cancer Screening 1985 Diabetes: Annual Foot Exam 1995 Hepatitis B Vaccines (1 of 3 - 19+ 3-dose series) 2004 HPV Vaccines (3 - 3-dose series) 04/19/2010 01/06/2010, 10/17/2009 Cervical Cancer Screening: Pap Smear 09/01/2019 08/31/2016 Influenza Vaccine (#1) 2025 , 04/28/2023, 04/16/2022, Additional history exists Social Influencers of Health Screening 07/02/2025 07/02/2024 Diabetes: Blood Sugar Control Test (HGBA1C) 10/13/2025 04/15/2025, 01/16/2025, 10/04/2024, Additional history exists Diabetes: Annual Retina Eye Exam 02/05/2026 02/05/2025 Diabetes: Annual Urine Albumin-Creatinine Ratio (uACR) 04/15/2026 04/15/2025, 04/15/2025, 07/11/2024, Additional history exists Diabetes: Annual GFR (Glomerular Filtration Rate) 04/15/2026 04/15/2025, 01/16/2025, 10/15/2024, Additional history exists Hypertension/CHF/CAD Annual BMP Blood Test 04/15/2026 04/15/2025, 01/16/2025, 10/15/2024, Additional history exists Cholesterol Screening (Lipid Panel) 01/16/2030 01/16/2025, 07/02/2024, 07/01/2023 DTaP,Tdap,and Td Vaccines (2 - Td or Tdap) 07/02/2034 07/02/2024 RSV Immunization Adult Patients (1 - 1-dose 75+ series) 2060 HIV Screening Completed 04/20/2013 Pneumococcal Vaccine: Pediatrics (0 to 5 Years) and At-Risk Patients (6 to 49 Years) Discontinued 05/01/2017, 01/01/2016 Depression Screening Completed 07/02/2024, 05/17/20 24 Hepatitis C Screening Completed 11/22/2024 , 07/11/2024, 10/20/2009 COVID-19 Vaccine Discontinued HIB Vaccines Aged Out [...] on patient's age to complete this topic Goals Goal Patient Goal Type Associated Problems Recent Progress Patient-Stated? Author Pt goals General On track( 1:35 PM EST) Yes Harvey George Note: To have less pain in my fingers OT LTGs 6-8 General On track( 025 1:35 PM EST) No Harvey George Note: Pt will report <=4/10 pain in B hands to improve ability to improve aqbility to cut vegetables during meal prep. Pt will report decreased numbness/tingling in BUEs to improve ability to wash dishes. Pt will demo increased functional use of BUEs evidenced by Qdash score <=35 points to improve ability to do laundry. Pt will demo improved insight into impact of postural stability on UE symptoms. Pt will Mariia perform HEP. Procedures Procedure Name Priority Date/Time Associated Diagnosis Comments MICROALBUMIN CREATININE URINE RATIO Routine 04/15/2025 8:46 AM EST Other proteinuria RENAL FUNCTION PANEL Routine 04/15/2025 8:46 AM EST Other proteinuria HEMOGLOBIN A1C Routine 04/15/2025 8:46 AM EST Type 2 diabetes mellitus with microalbuminuria, with long-term current use of insulin ([facility] V24, [facility] V28) MR LUMBAR SPINE WO CONTRAST Routine 2025 5:45 PM EDT Muscle spasm of back LIPID PANEL WITH REFLEX TO DIRECT LDL Routine 01/16/2025 8:16 AM EDT Type 2 diabetes mellitus with microalbuminuria, with long-term current use of insulin ([facility] V24, [facility] V28) HEPATITIS C ANTIBODY Routine 07/11/2024 12:52 PM EST Type II or unspecified type diabetes mellitus with renal manifestations, not stated as uncontrolled(250.40 ) (CMS/HCC V24, [facility] V28) Morbid obesity ([facility] V24, [facility] V28) Type 2 diabetes mellitus with microalbuminuria, with long-term current use of insulin ([facility] V24, [facility] V28) Proteinuria DEPRESSION SCREENING Routine 10/14/2023 PAP SMEAR Routine 08/31/2016 HIV SCREENING Routine 04/20/2013 from Last 3 Months or Most Recently Relevant to Health Maintenance Results * (ABNORMAL) Microalbumin creatinine urine ratio (04/15/2025 8:46 AM EST) Creatinine, Urine 187.0 mg/dL LAB CHEMISTRY METHOD 04/15/2025 11:28 AM EST [facility] Microalb, Ur 5,950.0(H ) 0.0 - 29.0 mg/L LAB CHEMISTRY METHOD 04/15/2025 11:28 AM EST [facility] Comment:Results verified by repeat testing Microalb/Crea t Ratio 3,182(H) <30 mg/g creat LAB CHEMISTRY METHOD 04/15/2025 11:28 AM EST [facility] Urine Urine specimen obtained by clean catch procedure / Unknown Non-blood Collection / Unknown 04/15/2025 8:46 AM EST 04/15/2025 8:46 AM EST Oscar Felix MD LAB URINE ORDERABLES Final Res ult Performing Organization Address City/[facility]/ZIP Co de Phone Number [facility] [address] [place] [address], [place] [phone] * (ABNORMAL) Hemoglobin A1c (04/15/2025 8:46 AM EST) Hemoglobin A1C 7.2(H) <6.5 % LAB CHEMISTRY METHOD 04/15/2025 11:29 AM EST [facility] Mean Bld Glu Estim. 160 mg/dL LAB CHEMISTRY METHOD 04/15/2025 11:29 AM [facility] Blood Venous blood specimen / Unknown Venipuncture / Unknown 04/15/2025 8:46 AM EST 04/15/2025 8:46 AM EST Nelly ROTHMAN LAB BLOOD ORDERABLES Final Result Performing Organization Address [facility]/ZIP Co de Phone Number [facility] [address] [place] [address], [place] [phone] * (ABNORMAL) Renal function panel (04/15/2025 8:46 AM EST) [facility] Sodium 136 133 - 145 mmol/L LAB CHEMISTRY METHOD 04/15/2025 10:38 AM [facility] Potassium 4.6 3.5 - 5.5 mmol/L LAB CHEMISTRY METHOD 04/15/2025 10:38 AM [facility] Chloride 103 96 - 110 mmol/L LAB CHEMISTRY METHOD 04/15/2025 10:38 AM [facility] CO2 27 21 - 32 mmol/L LAB CHEMISTRY METHOD 04/15/2025 10:38 AM [facility] Anion Gap 6 3 - 11 LAB CHEMISTRY METHOD 04/15/2025 10:38 AM [facility] Glucose 205(H) 70 - 100 mg/dL LAB CHEMISTRY METHOD 04/15/2025 10:38 AM [facility] BUN 15 5 - 25 mg/dL LAB CHEMISTRY METHOD 04/15/2025 10:38 AM [facility] Creatinine 1.14(H) 0.50 - 1.10 mg/dL LAB CHEMISTRY METHOD 04/15/2025 10:38 AM [facility] eGFR 63 >=60 mL/min/1. 73m2 LAB CHEMISTRY METHOD 04/15/2025 10:38 AM [facility] Comment:Calculation based on the Chronic Kidney Disease Epidemiology Collaboration (CKD-EPI) equation refit without adjustment for race. BUN/Creatinine Ratio 13.2 LAB CHEMISTRY METHOD 04/15/2025 10:38 AM [facility] Albumin 2.7(L) 3.2 - 5.0 g/dL LAB CHEMISTRY METHOD 04/15/2025 10:38 AM [facility] Calcium 9.1 8.5 - 10.5 mg/dL LAB CHEMISTRY METHOD 04/15/2025 10:38 AM [facility] Phosphorus 3.1 2.5 - 4.5 mg/dL LAB CHEMISTRY METHOD 04/15/2025 10:38 AM [facility] Blood Venous blood specimen / Unknown Venipuncture / Unknown 04/15/2025 8:46 AM EST 04/15/2025 8:46 AM EST us Oscar Felix MD LAB BLOOD ORDERABLES Final Res ult [facility] [address] [place] [address], * MR Lumbar Spine wo Contrast (2025 5:45 PM EDT) Anatomical Region Laterality Modality L-spine, Spine Magnetic Resonan ce 03/06/2025 9:47 AM EDT Impressions 03/06/2025 3:09 PM EDT Multilevel bony and discogenic degenerative changes as described. No focal nerve root compression or central canal stenosis. No significant change from the previous study. -------- FINAL REPORT -------- Dictated By: Betty Williamson Dictated Date: 03/06/2025 09:47 ET Assigned Physician: Betty Williamson Reviewed and Electronically Signed By: Betty Williamson Signed Date: 03/06/2025 15:09 ET Workstation ID: [id number] Transcribed By: Self Edit Transcribed Date: 03/06/2025 10:07 ET Narrative 03/06/2025 3:09 PM EDT MR LUMBAR SPINE WO CONTRAST MR OF THE LUMBAR SPINE WITHOUT CONTRAST HISTORY: Low back pain. Technique: MR of the lumber spine was performed without contrast utilizing the standard departmental protocol. COMPARISON: MR lumbar spine 05/03/2018. Lumbar spine 07/03/2016. FINDINGS: Study is slightly limited by motion. There are 6 nonrib-bearing lumbar vertebral bodies on lumbar spine series of 07/03/2016. However, for the purposes of this study, vertebral body labeling is consistent with the previous MRI with most complete caudal intervertebral disc space labeled as L5-S1. Conus medullaris terminates at the [L1-2] level, and demonstrates normal signal. There is no abnormal thickening or clumping of the cauda equina nerve roots. There is mild curvature of the spine. Vertebral body heights are normal. With the exception of T11-T12 and L5-S1, there is disc desiccation at every level. There are Schmorl's nodes at multiple levels. At T12-L1, there is minimal diffuse disc bulge, mild bilateral facet and ligamentous hypertrophy. At L1-L2, there is mild diffuse disc bulge, bilateral facet and ligamentous hypertrophy, small focal disc protrusion into the inferior right neural foramen which causes asymmetric mild right neural foraminal narrowing. No central canal stenosis. At L2-L3, there is no disc herniation, neural foramen or central canal stenosis.. At L3-L4, there is mild disc bulge, mild bilateral facet and ligamentous hypertrophy, and mild bilateral neuroforaminal narrowing. No focal nerve root compression or central canal stenosis. At L4-L5, there is diffuse disc bulge, mild bilateral facet and ligamentous hypertrophy, moderate bilateral neuroforaminal narrowing, and bilateral lateral recess narrowing, left greater than right. There is possible contact of the exiting right L4 nerve root. There is slight flattening of the dural tube. At L5-S1, there is a small posterior disc/osteophyte, asymmetric to the right, and bilateral facet hypertrophy and mild right neural foraminal narrowing. No left neural foramen or central canal stenosis. Procedure Note Betty Williamson MD - 03/06/2025 MR LUMBAR SPINE WO CONTRAST MR OF THE LUMBAR SPINE WITHOUT CONTRAST HISTORY: Low back pain. Technique: MR of the lumber spine was performed without contrast utilizingthe standard departmental protocol. COMPARISON: MR lumbar spine 05/03/2018. Lumbar spine 07/03/2016. FINDINGS: Study is slightly limited by motion. There are 6 nonrib-bearing lumbar vertebral bodies on lumbar spine seriesof 07/03/2016. However, for the purposes of this study, vertebral bodylabeling is consistent with the previous MRI with most complete caudalintervertebral disc space labeled as L5-S1. Conus medullaris terminatesat the [L1-2] level, and demonstrates normal signal. There is no abnormalthickening or clumping of the cauda equina nerve roots. There is mildcurvature of the spine. Vertebral body heights are normal. With theexception of T11-T12 and L5-S1, there is disc desiccation at every level.There are Schmorl's nodes at multiple levels. At T12-L1, there is minimal diffuse disc bulge, mild bilateral facet andligamentous hypertrophy. At L1-L2, there is mild diffuse disc bulge, bilateral facet andligamentous hypertrophy, small focal disc protrusion into the inferiorright neural foramen which causes asymmetric mild right neural foraminalnarrowing. No central canal stenosis. At L2-L3, there is no disc herniation, neural foramen or central canalstenosis.. At L3-L4, there is mild disc bulge, mild bilateral facet and ligamentoushypertrophy, and mild bilateral neuroforaminal narrowing. No focal nerveroot compression or central canal stenosis. At L4-L5, there is diffuse disc bulge, mild bilateral facet andligamentous hypertrophy, moderate bilateral neuroforaminal narrowing, andbilateral lateral recess narrowing, left greater than right. There ispossible contact of the exiting right L4 nerve root. There is slightflattening of the dural tube. At L5-S1, there is a small posterior disc/osteophyte, asymmetric to theright, and bilateral facet hypertrophy and mild right neural foraminalnarrowing. No left neural foramen or central canal stenosis. IMPRESSION: Multilevel bony and discogenic degenerative changes as described. No focalnerve root compression or central canal stenosis. No significant changefrom the previous study. -------- FINAL REPORT -------- Dictated By: Betty Williamson Dictated Date: 03/06/2025 09:47 ET Assigned Physician: Betty Williamson Reviewed and Electronically Signed By: Betty Williamson Signed Date: 03/06/2025 15:09 ET Workstation ID: [id number] Transcribed By: Self Edit Transcribed Date: 03/06/2025 10:07 ET Ger [facility] IMG MRI PROCEDURES Final Resul t * (ABNORMAL) Lipid panel with reflex to direct LDL (01/16/2025 8:16 AM EDT) Cholesterol 252(H) 0 - 200 mg/dL LAB CHEMISTRY METHOD 01/16/2025 11:28 AM [facility] Triglycerides 124 0 - 150 mg/dL LAB CHEMISTRY METHOD 01/16/2025 11:28 AM [facility] HDL 78 >=40 mg/dL LAB CHEMISTRY METHOD 01/16/2025 11:28 AM [facility] LDL Calculated 149(H) 0 - 100 mg/dL LAB CHEMISTRY METHOD 01/16/2025 11:28 AM [facility] Comment:Estimated LDL Calcul ated using equation: Total cholesterol - HDL cholesterol - (Triglycerides/5) VLDL Cholesterol Michael 24.8 mg/dL LAB CHEMISTRY METHOD 01/16/2025 11:28 AM [facility] Non HDL Chol. (LDL+VLDL) 174(H) <145 mg/dL LAB CHEMISTRY METHOD 01/16/2025 11:28 AM [facility] Chol/HDL Ratio 3.2 0.0 - 4.4 LAB CHEMISTRY METHOD 01/16/2025 11:28 AM EDT [facility] Blood Venous blood specimen / Unknown Venipuncture / Unknown 01/16/2025 8:16 AM EDT 01/16/2025 8:16 AM EDT Trudy Mondragon MD LAB BLOOD ORDERABLES Final Resul t Performing Organization Address City/[facility]/ZIP Co de Phone Number [facility] [address] [place] [address], [place] [phone] * Hepatitis C antibody (07/11/2024 12:52 PM EST) [facility] Hepatitis C Antibody Negative Negative LAB CHEMISTRY METHOD 07/11/2024 4:44 PM EST [facility] Blood Venous blood specimen / Unknown Venipuncture / Unknown 07/11/2024 12:52 PM EST 07/11/2024 12:52 PM EST Oscar Felix MD LAB BLOOD ORDERABLES Final Res ult Performing Organization Address [facility]/ZIP Co de Phone Number [facility] [address] [place] [address], [place] [phone] * Depression Screening (10/14/2023) [facility] Depression Screening abstracted Historical Provider HEALTH MAINTENANCE Final Result * Pap Smear (08/31/2016) [facility] Pap smear abstracted, negative Historical Tiki [facility]ACY HEALTH MAINTENANCE Final Result * HIV Screening (04/20/2013) [facility] HIV Screening abstracted Historical Tiki LACY HEALTH MAINTENANCE Final Result from Last 3 Months or Most Recently Relevant to Health Maintenance Insurance [facility] [employer] 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
--- OUTSIDE RECORDS SUMMARY | 2025-05-01 14:24 | XMS_ITS | Clinical Summary ---
Author Organization [facility] Address [address] [facility] [address] [place] [phone] Phone Care Team Providers Care [place] Name Role Phone Trudy Mondragon MD Primary Care Provider [phone] Allergies No known active allergies Medications albuterol 90 mcg/actuation inhaler Inhale 2 Puffs into the lungs every 4 hours as needed for Cough, Wheezing or Shortness of Breath. 4 Active dapagliflozin propanediol (FARXIGA) 5 mg tablet Take 5 mg by mouth. 5 07/05/19 26 Active furosemide (LASIX) 40 MG tablet Take 40 mg by mouth daily. 4 Active BAQSIMI 3 mg/actuation [place] 3 mg. 5 Active LANTUS SOLOSTAR U-100 INSULIN 100 unit/mL (3 mL) InPn injection pen INJECT 40 UNITS INTO THE SKIN 2 TIMES DAILY. FOR BS LESS THAN 105 4 Active insulin lispro (ADMELOG, HUMALOG) 100 unit/mL injection pen Inject 3 times a day with meals per sliding scale: 100-149: 6 units; 150-199: 8 units; 200-249: 10 units; 250-299: 12 units; 300-349: 14 units; 350-400: 16 units; 401-450: 18 units , max dose 60 units 5 Active lisinopril (PRINIVIL,ZESTRI L) 20 MG tablet Take 20 mg by mouth. 5 Active Family History Relation Status Comments Brother Alive Mother Alive Social History Tobacco Use Types Packs/Day Years Used Date Smoking Tobacco: Never Smokeless Tobacco: Never Tobacco Cessation:Counseling Given: Not Answered Alcohol Use Standard Drinks/Week Comments Yes 0 (1 standard drink = 0.6 oz pur e alcohol) occ Education Answer Date Recorded Are you interested in more education? Not on libby e 10/03/2024 Are you concerned about learning? Not on file 10/03/2024 No 10/03/2024 No 10/03/2024 Digital Access Answer Date Recorded No 10/03/2024 No 10/03/2024 Reliable internet access at home? Not on file 10/03/2024 Device with a working camera? Not on file Comments No Sex and Gender Information Value Date Recorded Sex Assigned at Female 10/12/2024 10:06 AM EDT Legal Sex Female 9:33 AM EDT Gender Identity Female 10/12/2024 10:06 AM EDT Sexual Orientation Straight 10/12/2024 10 :06 AM EDT Last Filed Vital Signs Vital Sign Reading Time Taken Comments Blood Pressure 120/80 11/22/2024 3:24 PM EDT Pulse - - Temperature - - Respiratory Rate - - Oxygen Saturation - - Inhaled Oxygen Concentration - - Weight 99.8 kg (220 lb) 11/22/2024 3:24 PM EDT Height 157.5 cm (5' 2 ) 11/22/2024 3:24 PM EDT Body Mass Index 40.24 11/22/2024 3:24 PM EDT Plan of Treatment Upcoming Encounters Date Type Department Care Team (Late st Contact Info) Description 05/09/2025 8:30 AM EST Procedure visit [facility] [address] [place] [address] Selam Urena CNM [address], [address] [place] [address] Health Maintenance Due Date Last Done Comments CREATININE LEVEL 1985 POTASSIUM LEVEL 1985 DEPRESSION SCREENING 1997 SCREENING FOR DIABETES 2020 INFLUENZA VACCINE (#1) 2024 , 04/28/2023, 04/16/2022, Additional history exists COVID-19 VACCINE ( season) 2025 MAMMOGRAM 2025 PAP SMEAR 11/23/2027 11/22/2024 Adult Td,Tdap Booster 07/02/2034 07/02/2024 PNEUMOCOCCAL VACCINES (0-49 years) Aged Out 05/01/2017, 01/01/2016 No longer eligibl e based on patient's age to complete this topic HEPATITIS C SCREENING Completed 11/22/2024 HIV ONE-TIME SCREENING (18-65 YEARS) Completed 11/22/2024 SMOKING STATUS SCREENING (Once After 26 Yrs) Completed 11/22/2024 HEPATITIS A VACCINES Aged Out No long er eligible based on patient's age to complete this topic HIB VACCINES Aged Out No longer eligi ble based on patient's age to complete this topic MENINGOCOCCAL VACCINES (ACWY) Aged Out No longer eligible based on patient's age to complete this topic MENINGOCOCCAL VACCINES (B) Aged Out N o longer eligible based on patient's age to complete this topic Medical Devices Not on file Procedures Procedure Name Priority Date/Time Associated Diagnosis Comments HEPATITIS C ANTIBODY, QUALITATIVE Routine 11/22/2024 4:09 PM EDT Need for hepatitis C screening test PAP TEST Routine 11/22/2024 12:00 AM EDT from Last 3 Months or Most Recently Relevant to Health Maintenance Results * Hepatitis C antibody, qualitative (11/22/2024 4:09 PM EDT) HCV NON-REACTIV E NON-REACTI VE [facility] Blood 11/22/2024 4:09 PM EDT 11/22/2024 4:13 PM EDT us Selam Urena CN LAB BLOOD BKR ORDERABLES F inal Result [address] [address] * Pap Test (11/22/2024 12:00 AM EDT) Report [address] [address] Art Coordinator: Dayday Miner MD RETAIL PROPERTY MANAGER Cytology Report FINAL DIAGNOSIS A. PAP SMEAR (THIN PREP) CE: SPECIMEN ADEQUACY: Satisfactory for evaluation; transformation zone present. INTERPRETATION: NEGATIVE FOR INTRAEPITHELIAL LESION OR MALIGNANCY. Reactive changes. This specimen was analyzed by the automated ThinPrep Imaging System ([employer] and manually rescreened by a feather trimmer and/or pathologist. Electronically Signed Out By: MATEUSZ Castrejon MD(ASCP) By his/her signature above, the pathologist listed as making the Final Diagnosis certifies that he/she has personally reviewed this case and confirmed or corrected the diagnosis. The Pap test is a screening test primarily for squamous cancers and precursors and has associated false-negative and false-positive results. New technologies such as liquid-based preparations may decrease but will not eliminate all false-negative results. Regular sampling and follow-up of unexplained clinical signs and symptoms are recommended to minimize false negative results. PROCEDURES/ADDENDA HPV Testing (Requested) Ordered Date: 11/23/2024 A. PAP SMEAR (THIN PREP) CE: High-risk HPV Panel w/ extended genotyping NEG HPV 16-NEG HPV 18-NEG HPV 45-NEG HPV 33/58-NEG HPV 31-NEG HPV 56/59/66-NEG HPV 51-NEG HPV 52-NEG HPV 35/39/68-NEG Performed by real-time polymerase chain reaction (PCR) at [facility], [address] [place] [address] using the FDA-approved [employer] Neuromedical Onclarity HPV Assay with extended genotyping. Uses of the assay in scenarios other than those approved by the FDA should be considered off-label use. The accuracy and precision of this test for all other off-label specimen sources has been verified in the Cytopathology Laboratory of the [facility] and has not been cleared or approved by the U.S. Food and Drug Administration. Clinical correlation is advised. The assay assesses the E6/E7 DNA target and utilizes human beta globin as an internal control. Cytology and HPV testing are screening assays and should not be used as the sole means of detecting cancer. False-positives and false-negatives can occur. CLINICAL HISTORY Date of Last Menstrual Period: Not Provided Menstrual History: Unknown Contraceptive History: IUD Other Clinical Conditions: Screening Pap SPECIMEN SOURCE A: PAP SMEAR (THIN PREP) CE Patient Name: SANDRA DRUMMOND : 1985 (Age: 39) Sex: F Institution: [facility] Location: [facility] Date of Collection: 11/22/2024 Date of Reported: 11/29/2024 16:48 [facility] Final Diagnosis A. PAP SMEAR (THIN PREP) CE: SPECIMEN ADEQUACY: Satisfactory for evaluation; transformation zone present. INTERPRETATION: NEGATIVE FOR INTRAEPITHELIAL LESION OR MALIGNANCY. Reactive changes. This specimen was analyzed by the automated ThinPrep Imaging System ([employer].) and manually rescreened by a feather trimmer and/or pathologist. [facility] Results\Inte rpretation A. PAP SMEAR (THIN PREP) CE: High-risk HPV Panel w/ extended genotyping NEG HPV 16-NEG HPV 18-NEG HPV 45-NEG HPV 33/58-NEG HPV 31-NEG HPV 56/59/66-NEG HPV 51-NEG HPV 52-NEG HPV 35/39/68-NEG Performed by real-time polymerase chain reaction (PCR) at [address] using the FDA-approved BD Onclarity HPV Assay with extended genotyping. Uses of the assay in scenarios other than those approved by the FDA should be considered off-label use. The accuracy and precision of this test for all other off-label specimen sources has been verified in the Cytopathology Laboratory of the [facility] and has not been cleared or approved by the U.S. Food and Drug Administration. Clinical correlation is advised. The assay assesses the E6/E7 DNA target and utilizes human beta globin as an internal control. Cytology and HPV testing are screening assays and should not be used as the sole means of detecting cancer. False-positives and false-negatives can occur. [facility] Conversion Type (Conversion Source) 11/22/2024 11/23/2024 9:56 AM EDT Selam Urena [facility] CYTOLOGY ORDERABLES Edited Result - Final [facility] [address] [place] [address] from Last 3 Months or Most Recently Relevant to Health Maintenance Insurance [employer] [facility] [employer] [facility] [employer] Care Teams [place] Relationship Specialty Start Date End Date Trudy Mondragon MD [address] [place] [phone] PCP - General 10/25/24 Additional Source Comments The information contained in this document represents components of the legal health record. It is not the complete legal health record.[facility]
== END 2025-05-01 11:59 | disposition home or self-care (01) ==
LOC: HO.HAP 11:58
PROVIDERS: Visit Provider Internal Medicine
DX: Z46.1 Encounter for fitting and adjustment of hearing aid (principal); H90.3 Sensorineural hearing loss, bilateral
CPT/HCPCS: 92593; 99499